=== PATIENT | male | born 1945 | race Caucasian/White ===

== ENCOUNTER → 2020-02-16 14:09 | Outpatient (BNVA) | payer OTHER, SELFPAY | PROVIDERS: Family Provider Internal Medicine; PCP Internal Medicine; Visit Provider Urology | DX: B35.6 Tinea cruris (principal); N40.1 Benign prostatic hyperplasia with lower urinary tract symptoms; N13.8 Other obstructive and reflux uropathy; R33.8 Other retention of urine; N39.0 Urinary tract infection, site not specified; R31.0 Gross hematuria | CPT/HCPCS: 80053; 81001 ==

== ENCOUNTER 2020-12-29 11:28 | Outpatient (CLI) | payer OTHER, SELFPAY ==
--- NOTE | 2020-12-29 11:47 | USCV_ITS ---
Kwasi Shi Age: 75 Gender: M : 1945 Exam Date: 12/29/2020 12:13 Ordering Phys: Heaven Levin MD Technologist: Daya Shabazz [place] [facility] [place]: DIABETIC FEET WITH SUPERFICIAL ABRASION Risk Factors: Previous Vascular Surgery: RIGHT LEFT BP: 135.0 / 77.00 BP: 123.0/ 73.00 0 0 Waveform Velocity (cm/s) Velocity (cm/s) Waveform Triphasic 121.3 Iliac Prox 59.7 Triphasic Triphasic 114.6 Iliac Mid 75.6 Triphasic Triphasic Iliac Distal Triphasic 93.5 66.6 Triphasic 82.4 RUST PROOFER 70.1 Triphasic Triphasic 82.4 SFA Prox 67.5 Triphasic Triphasic 81.6 SFA Mid 90.4 Triphasic Triphasic 88.4 SFA Dist 91.5 Triphasic Triphasic 48.1 POP Triphasic 70.8 DECK ENGINE OPERATOR Triphasic 77.0 DPA 1.2 TAMRA FINDINGS RT DECK ENGINE OPERATOR 160 RT DPA 160 LT BELOW KNEE AMPUTATION Resting TAMRA on the right side. Normal arterial Doppler flow velocities, bilaterally Normal arterial Doppler waveforms, bilaterally. CONCLUSIONS No significant arterial obstruction on either side, based on the above findings Below-knee amputation on the left side Dr Venkat Najera MD [facility] (Electronically Signed) Final Date: 29 December 2020 18:04 S
== END 2020-12-29 11:29 | disposition home or self-care (01) ==
LOC: RAD 11:34
PROVIDERS: PCP Family Medicine; Visit Provider Family Medicine
DX: E11.42 Type 2 diabetes mellitus with diabetic polyneuropathy (principal); S90.812A Abrasion, left foot, initial encounter; S90.811A Abrasion, right foot, initial encounter; X58.XXXA Exposure to other specified factors, initial encounter; Z89.512 Acquired absence of left leg below knee
CPT/HCPCS: 93925

== ENCOUNTER 2021-02-06 14:19 | Outpatient (CLI) | payer OTHER, SELFPAY | END 2021-02-06 14:20 | disposition home or self-care (01) | LOC: WOUND 14:21 | PROVIDERS: PCP Family Medicine; Visit Provider Thoracic Surgery (Cardiothoracic Vascular Surgery) | DX: L98.492 Non-pressure chronic ulcer of skin of other sites with fat layer exposed (principal); Z87.891 Personal history of nicotine dependence | CPT/HCPCS: 11042; G0463 ==

== ENCOUNTER 2021-02-13 14:45 | Outpatient (CLI) | payer OTHER, SELFPAY | END 2021-02-13 14:46 | disposition home or self-care (01) | LOC: WOUND 14:45 | PROVIDERS: PCP Family Medicine; Visit Provider Nurse Practitioner Family | DX: E11.622 Type 2 diabetes mellitus with other skin ulcer (principal); L98.492 Non-pressure chronic ulcer of skin of other sites with fat layer exposed; L03.011 Cellulitis of right finger; Z87.891 Personal history of nicotine dependence | CPT/HCPCS: G0463 ==

== ENCOUNTER 2021-03-29 14:28 | Outpatient (CLI) | payer OTHER, SELFPAY | END 2021-03-29 14:29 | disposition home or self-care (01) | LOC: WOUND 14:32 | PROVIDERS: PCP Family Medicine; Visit Provider Thoracic Surgery (Cardiothoracic Vascular Surgery) | DX: I96 Gangrene, not elsewhere classified (principal); L98.491 Non-pressure chronic ulcer of skin of other sites limited to breakdown of skin; Z87.891 Personal history of nicotine dependence | CPT/HCPCS: 97597; G0463 ==

== ENCOUNTER 2021-04-05 13:51 | Outpatient (CLI) | payer OTHER, SELFPAY | END 2021-04-05 13:52 | disposition home or self-care (01) | LOC: WOUND 13:51 | PROVIDERS: PCP Family Medicine; Visit Provider Thoracic Surgery (Cardiothoracic Vascular Surgery) | DX: L98.491 Non-pressure chronic ulcer of skin of other sites limited to breakdown of skin (principal); Z87.891 Personal history of nicotine dependence | CPT/HCPCS: 97597 ==

== ENCOUNTER 2021-04-19 13:22 | Outpatient (CLI) | payer OTHER, SELFPAY | END 2021-04-19 13:23 | disposition home or self-care (01) | LOC: WOUND 13:23 | PROVIDERS: PCP Family Medicine; Visit Provider Thoracic Surgery (Cardiothoracic Vascular Surgery) | DX: Z09 Encounter for follow-up examination after completed treatment for conditions other than malignant neoplasm (principal); Z87.891 Personal history of nicotine dependence | CPT/HCPCS: 99212 ==

== ENCOUNTER 2021-04-25 13:41 | Emergency (ER) | payer OTHER, MEDICARE, SELFPAY ==
--- NOTE | 2021-04-25 13:50 | XRR_ITS ---
PROCEDURE INFORMATION: Exam: XR Chest Exam date and time: 04/25/2021 1:50 PM Age: 75 years old Clinical indication: Cough and dyspnea; Patient HX: Coughing for about 3 weeks, coughing up thick, green mucous; Additional info: Dyspnea/cough TECHNIQUE: Imaging protocol: XR of the chest. Views: 1 view. COMPARISON: CR Chest 1 [place] [id number] 07/28/2018 9:24 AM FINDINGS: Lungs: There is a ill-defined opacity at the right lung base measuring 9 mm which appears spiculated. Pleural spaces: Unremarkable. No pleural effusion. No pneumothorax. Heart/Mediastinum: Unremarkable. No cardiomegaly. Bones/joints: Unremarkable. XR/XR chest 1V portable [id number] IMPRESSION: Ill-defined spiculated opacity in the right lung base measuring [address] chest is suggested for complete evaluation. Radiation Dose CTDIVOL = (mGy): DLP = (mGy-cm)
[2021-04-25 13:56] VITALS: BP 150/57; PULSE 82; RESP 18; TEMP 36.6; O2SAT 97; BMI 38.5
--- NOTE | 2021-04-25 15:33 | ED_ITS ---
HPI - URI/Sore Throat General: Chief Complaint: Upper Respiratory Infection Stated Complaint: cough, congestion Time Seen by Provider: 04/25/21 15:26 History of Present Illness: HPI Narrative: 75-year-old male presents emergency room with complaint of mildly productive cough over the last several days. Is actually improving some today said the congestion has relieved. Has not had any diarrhea or myalgias. Noticed fever at home. Patient has a history of COPD he uses albuterol inhaler as needed and a baseline LABA/corticosteroid. He has been using a little bit more often lately. He denies any chest pain or tightness he does have a history of coronary artery disease. He has not had any orthopnea. MD elicited complaint: cough Pertinent past history: COPD Associated symptoms: Deny abdominal pain, chills, chest pain, diarrhea, ear or mastoid pain, fever(s), nasal congestion, nausea or vomiting Review of Systems Const: Denies: fever(s), chills, body aches, change in appetite, fatigue or malaise ENMT: Denies: throat pain, ear or mastoid pain, nasal discharge or nasal congestion Card: Denies: chest pain, edema, dyspnea on exertion or orthopnea Resp: Denies: dyspnea, productive cough or non-productive cough GI: Denies: abdominal pain, nausea, vomiting, hematemesis, coffee ground emesis, diarrhea, constipation, bloating, hematochezia or melena : Denies: flank pain, dysuria, urinary frequency or urinary urgency Skin/Breast: Denies: rash or pruritus PFSH ED PFSH: Medical History BPH with obstruction/lower urinary tract symptoms CAD (coronary artery disease) CHF (congestive heart failure) Diastolic heart failure GERD (gastroesophageal reflux disease) HTN (hypertension) Recurrent urinary tract infection Tinea cruris Surgical History History of ear surgery Hx of appendectomy Hx of below knee amputation Hx of circumcision Hx of hand surgery Hx of tonsillectomy Family History Father , AT AGE 67 CAD (coronary artery disease) Diabetes Leukemia Mother CHF (congestive heart failure) Social History Smoking and tobacco status: former smoker Alcohol intake: unknown Adopted: No Caregiver/support person: No Lives independently: No Household members: spouse Marital status: Current occupational status: retired Physical Exam Const: COMMON NORMALS: no acute distress GENERAL APPEARANCE: cooperative and comfortable ORIENTATION/CONSCIOUSNESS: Yes awake, Yes oriented to person, Yes oriented to place and Yes oriented to time Neck/C-Spine: COMMON NORMALS: no JVD Resp: AUSCULTATION: rhonchi and wheezes Cardio: COMMON NORMALS: no JVD, regular rate, regular rhythm and No murmurs present (Cardio) RATE: regular rate RHYTHM: regular rhythm GI: COMMON NORMALS: Soft to palpation and No hepatosplenomegaly present AUSCULTATION: Yes normoactive bowel sounds PALPATION: Yes Soft to palpation, No Tenderness to palpation present (GI), No Guarding due to palpation present (GI) and Yes No hepatosplenomegaly present Extremity: COMMON NORMALS: normal to inspection, capillary refill normal, no clubbing, cyanosis or edema, no calf tenderness and no pedal edema Neuro: SENSORIUM/ORIENTATION: Yes oriented to person, Yes oriented to place and Yes oriented to time Skin: COMMON NORMALS: no rashes or lesions noted GENERAL SKIN EXAM: no rashes or lesions noted Course Vital Signs: Vital signs: Vital Signs Temperature 97.8 F 04/25/21 13:56 Pulse Rate 82 04/25/21 13:56 Respiratory Rate 18 04/25/21 13:56 Blood Pressure 150/57 04/25/21 13:56 Pulse Oximetry 97 04/25/21 13:56 MDM - URI/Sore Throat MDM Narrative: Medical decision making narrative: Mild exacerbation COPD. Ti Deleon discharge him home. We will make arrangements for him to get an outpatient CT of the chest and follow-up with pulmonology for the incidental finding of pulmonary nodule today. Discussed with him that we are uncertain what this will be until we complete that work-up. If he has any worsening symptoms return. Discharge Plan Discharge Patient Disposition: Home Clinical Impression: COPD with acute exacerbation, Lung nodule Condition: Stable Prescriptions: New doxycycline hyclate 100 mg capsule 100 mg PO BID 10 Days Qty: 20 RF: 0 Medrol (Lloyd) 4 mg tablets,dose pack See Rx Instructions .ROUTE .COMPLEX Qty: 21 RF: 0 albuterol sulfate 90 mcg/actuation HFA aerosol inhaler 2 inh INHALATION Q4H PRN (Reason: shortness of breath or wheezing) Qty: 18 RF: 0 No Action (DME) blood-glucose meter [Accu-Chek Guide Glucose Meter] Misc See Rx Instructions .ROUTE RF: 0 alogliptin 12.5 mg tablet 12.5 mg PO DAILY RF: 0 amlodipine 5 mg tablet 5 mg PO DAILY RF: 0 ascorbic acid (vitamin C) 500 mg capsule PO RF: 0 budesonide-formoterol 160-4.5 mcg/actuation HFA aerosol inhaler 2 puff inhalation BID RF: 0 clopidogrel 75 mg tablet 75 mg PO DAILY RF: 0 finasteride 5 mg tablet 5 mg PO DAILY RF: 0 fluticasone propionate 50 mcg/actuation spray,suspension 2 spray intranasal DAILY RF: 0 furosemide 20 mg tablet 60 mg PO BID RF: 0 gabapentin 300 mg capsule 600 mg PO TID RF: 0 isosorbide mononitrate 30 mg tablet extended release 24 hr 30 mg PO DAILY RF: 0 lidocaine 5 % ointment 1 applic topical BID RF: 0 lisinopril 2.5 mg tablet 2.5 mg PO DAILY RF: 0 loratadine 10 mg capsule 10 mg PO DAILY RF: 0 methenamine hippurate 1 gram tablet 1 g PO BID RF: 0 metolazone 2.5 mg tablet 2.5 mg PO DAILY RF: 0 nitroglycerin 0.4 mg tablet, sublingual 0.4 mg sublingual Q5M PRNRF: 0 omeprazole 20 mg capsule,delayed release(DR/EC) 20 mg PO DAILY RF: 0 potassium chloride 20 mEq packet 20 meq PO DAILY RF: 0 tramadol 100 mg tablet extended release 24 hr 100 mg PO DAILY RF: 0 triamcinolone acetonide 0.1 % paste 1 applic dental BID RF: 0 venlafaxine 150 mg capsule,extended release 24hr 150 mg PO QAM RF: 0 pregabalin 25 mg capsule 25 mg PO BID RF: 0 methenamine hippurate 1 gram tablet 1 g PO BID Qty: 60 RF: 12 aspirin [Adult Low Dose Aspirin] 81 mg tablet,delayed release (DR/EC) 81 mg PO DAILY RF: 0 isosorbide mononitrate 30 mg tablet extended release 24 hr 30 mg PO DAILY RF: 0 nitroglycerin 0.3 mg tablet, sublingual 0.3 mg SUBLINGUAL Q5M PRNRF: 0 clopidogrel 75 mg tablet 75 mg PO DAILY RF: 0 gabapentin 300 mg capsule 600 mg PO BID RF: 0 finasteride 5 mg tablet 5 mg PO DAILY RF: 0 levothyroxine 25 mcg capsule 25 mcg PO DAILY RF: 0 atorvastatin 40 mg tablet 80 mg PO DAILY RF: 0 sulfamethoxazole-trimethoprim [Bactrim DS] 800-160 mg tablet 1 tab PO BID Qty: 14 RF: 0 hydrocodone-acetaminophen 5-325 mg tablet 1 tab PO Q8H PRN (Reason: pain) 8 Days Qty: 25 RF: 0 Discharge Orders: Discharge ED (Routine); Ordered 04/25/21 Ordered By: Eric Green Referrals: Heaven Levin MD [Primary Care Provider] - Patient Instructions: Opioid Safety Activity Restrictions/Additional Instructions: Case management will make arrangements for you to have a follow-up outpatient CT and referral to the lung doctor for the nodule that was seen on the chest x-ray today. Coding Level of Care Code ED Floating Derrick Operator for Chg Fwd Exam Detailed
--- NOTE | 2021-04-26 15:38 | DCPLANNER ---
Addendum entered by Brenda Balbuena 07/28/21 11:14: Patient had a follow up appointment scheduled for 05.04.[address] Shaffer at [facility] - patient did attend appointment. Original Note: refuge manager had message to schedule an outpatient CT and a follow up appointment for patient with pulmonology. refuge manager is unable to schedule the CT due to patient having [facility] insurance. refuge manager did call [facility], spoke with Pennie, gave clinic patients information and a follow up appointment is scheduled for , May 04, 2021 at 8:[address] Shaffer. Patient does have [employer] insurance, case management specialist emailed patients information to October with [employer] [facility] the community, so that the authorization process could be started. refuge manager called patient and spoke with his and gave her the appointment information.
== END 2021-04-25 16:07 | disposition home or self-care (01) ==
PROVIDERS: Emergency Provider Family Medicine; PCP Family Medicine
DX: J44.1 Chronic obstructive pulmonary disease with (acute) exacerbation (principal); R91.1 Solitary pulmonary nodule; Z79.82 Long term (current) use of aspirin; Z79.02 Long term (current) use of antithrombotics/antiplatelets; I25.10 Atherosclerotic heart disease of native coronary artery without angina pectoris; I11.0 Hypertensive heart disease with heart failure; I50.9 Heart failure, unspecified; Z87.891 Personal history of nicotine dependence
CPT/HCPCS: 71045; 99281

== ENCOUNTER 2021-05-15 11:03 | Outpatient (CLI) | payer OTHER, SELFPAY ==
--- NOTE | 2021-05-15 11:13 | CT_ITS ---
WS: [id number] CT TEMPORAL BONES TECHNIQUE: Noncontrast CT of the temporal bones with coronal and sagittal reformatted images. CLINICAL INFORMATION: MIXED HEARING LOSS, BILATERAL, HX OF CHOLESTEATOMA COMPARISON: None. DLP: 723.[address] scans at [facility] use at least one of these dose optimization techniques: automated e xposure control; mA and/or kV adjustment per patient size (includes targeted exams where dose is matc hed to clinical indication); or iterative reconstruction. FINDINGS: As stated secretions in the right maxillary sinus. Mild mucosal thickening in the ethmoid a ir cells and left maxillary sinus. Normal visualized posterior nasopharynx. Intracranial cavernous ca rotid calcification. RIGHT: Postoperative changes right canal wall up mastoidectomy. Diffuse soft tissue thickening involving the mastoidectomy bowl with soft tissue thickening involving the RIGHT middle ear and Prussak's space. C hronic erosion or resection of the scutum. Extensive chronic erosion of the ossicles. Cochlea and twyla icircular canals appear normal. Thinning of the mastoid roof at the mastoidectomy defect. Tegmen tymp ani appears intact. LEFT: Postoperative changes canal wall up mastoidectomy. Mild soft tissue thickening within the left mastoi dectomy defect. Soft tissue thickening involving the middle ear with intact ossicles. Blunting of the scutum. Semicircular canals and cochlea appear normal. Normal tegmen tympani. Prussak's space is nor mal. CT/CT temporal bone wo con* [id number] IMPRESSION: 1. Prior postoperative changes canal wall up mastoidectomy defects bilaterally . 2. Soft tissue thickening involving the RIGHT mastoidectomy bowel extending in to the middle ear and Prussak's space. Residual or recurrent cholesteatoma not excluded. 3. Chronic erosion of the RIGHT side ossicles 4. LEFT ossicles appear intact with mild soft tissue thickening in the middle ear.
== END 2021-05-15 11:04 | disposition home or self-care (01) ==
PROVIDERS: PCP Family Medicine; Visit Provider Otolaryngology Otology & Neurotology
DX: H90.6 Mixed conductive and sensorineural hearing loss, bilateral (principal); Z86.69 Personal history of other diseases of the nervous system and sense organs
CPT/HCPCS: 70480

== ENCOUNTER 2021-05-15 13:35 | Outpatient (CLI) | payer OTHER, SELFPAY ==
--- NOTE | 2021-05-15 13:00 | CT_ITS ---
WS: [id number] CT CHEST TECHNIQUE: Noncontrast CT of the chest with coronal and sagittal reformatted images. CLINICAL INFORMATION: Lung nodule COMPARISON: April 25, 2021 DLP: 837.[address] scans at [facility] use at least one of these dose optimization techniques: automated e xposure control; mA and/or kV adjustment per patient size (includes targeted exams where dose is matc hed to clinical indication); or iterative reconstruction. FINDINGS: No suspicious abnormalities in the right lower lobe corresponding to the chest x-ray findings. Slight atelectasis in the lung bases. No suspicious pulmonary parenchymal abnormalities. No acute infiltrat es. No focal pneumonia or pleural fluid. Normal caliber thoracic aorta. Aortic calcification. Coronary calcification. No mediastinal or hilar lymphadenopathy. No axillary ly mphadenopathy. Adrenal glands are normal. Tiny esophageal hiatal hernia. Hypertrophic changes thoraci c spine. Moderate spondylitic changes thoracic spine with endplate sclerosis and erosive changes T6-T 7 and T8-9. CT/CT chest con [id number] IMPRESSION: 1. No suspicious pulmonary parenchymal abnormalities to correspond to the ches t radiograph findings. 2. Slight bibasilar atelectasis. 3. No acute pulmonary infiltrates. 4. Coronary calcification. 5. Tiny esophageal hiatal hernia. 6. Spondylitic changes thoracic spine with endplate sclerosis and chronic appe aring erosive changes at T6-T7 and T8-T9
== END 2021-05-15 13:36 | disposition home or self-care (01) ==
LOC: RAD 13:36 → WPI 13:37
PROVIDERS: PCP Family Medicine; Visit Provider Internal Medicine Pulmonary Disease
DX: R91.1 Solitary pulmonary nodule (principal); J98.11 Atelectasis; I25.10 Atherosclerotic heart disease of native coronary artery without angina pectoris; K44.9 Diaphragmatic hernia without obstruction or gangrene
CPT/HCPCS: 71250

== ENCOUNTER → 2021-06-12 14:22 | Outpatient (BNVA) | payer OTHER, SELFPAY | PROVIDERS: PCP Family Medicine; Visit Provider Nurse Practitioner Family | DX: N39.0 Urinary tract infection, site not specified (principal) | CPT/HCPCS: 81003 ==

== ENCOUNTER → 2021-11-22 15:04 | Outpatient (BNVA) | payer OTHER, SELFPAY | PROVIDERS: PCP Family Medicine; Visit Provider Nurse Practitioner Family | DX: N39.0 Urinary tract infection, site not specified (principal); R31.0 Gross hematuria | CPT/HCPCS: 51798; 99213 ==

== ENCOUNTER → 2021-12-13 10:50 | Outpatient (BNVA) | payer OTHER, SELFPAY | PROVIDERS: PCP Family Medicine; Referring Provider Family Medicine; Visit Provider Internal Medicine | DX: E11.42 Type 2 diabetes mellitus with diabetic polyneuropathy (principal); E11.59 Type 2 diabetes mellitus with other circulatory complications; E78.2 Mixed hyperlipidemia; I25.10 Atherosclerotic heart disease of native coronary artery without angina pectoris; I50.32 Chronic diastolic (congestive) heart failure; Z86.73 Personal history of transient ischemic attack (TIA), and cerebral infarction without residual deficits; Z79.4 Long term (current) use of insulin; Z87.891 Personal history of nicotine dependence | CPT/HCPCS: 99204 ==

== ENCOUNTER → 2022-06-15 09:56 | Outpatient (BNVA) | payer OTHER, SELFPAY | PROVIDERS: PCP Family Medicine; Visit Provider Nurse Practitioner Family | DX: I96 Gangrene, not elsewhere classified (principal); T23.231D Burn of second degree of multiple right fingers (nail), not including thumb, subsequent encounter; X08.8XXD Exposure to other specified smoke, fire and flames, subsequent encounter | CPT/HCPCS: 11042; 99213; A6021; A6212 ==

== ENCOUNTER 2022-07-05 08:22 | Outpatient (CLI) | payer OTHER, SELFPAY ==
--- NOTE | 2022-07-05 08:37 | US_ITS ---
WS: [id number] RIGHT UPPER QUADRANT ULTRASOUND HISTORY: RUQ PAIN COMPARISON: None available. Liver: 19.1 cm in length. Enlarged liver with increased attenuation from hepatic steatosis. The entir e liver is very difficult to visualize due to its dense nature. No mass or bile duct dilatation is ev ident. Portal Vein: Normal hepatopetal flow with monophasic waveform. Gallbladder: Normally distended gallbladder with no stones or wall thickening. CBD: 0.6 cm Pancreas: Head and tail are poorly visualized. The body is negative. Right kidney: 11.5 cm in length. Normal size and echogenicity. No hydronephrosis or mass. Aorta and IVC: Unremarkable abdominal aorta and IVC. No ascites. US/US abdomen limited [id number] IMPRESSION: 1. Quality is suboptimal secondary to body habitus. 2. Moderate hepatomegaly and hepatic steatosis. 3. Negative gallbladder.
== END 2022-07-05 08:23 | disposition home or self-care (01) ==
LOC: RAD 08:23
PROVIDERS: PCP Family Medicine; Visit Provider Family Medicine
DX: R10.11 Right upper quadrant pain (principal); R16.0 Hepatomegaly, not elsewhere classified; K76.0 Fatty (change of) liver, not elsewhere classified
CPT/HCPCS: 76705; 99212

== ENCOUNTER → 2022-07-18 12:54 | Outpatient (BNVA) | payer OTHER, SELFPAY | PROVIDERS: PCP Family Medicine; Visit Provider Internal Medicine Cardiovascular Disease | DX: I25.10 Atherosclerotic heart disease of native coronary artery without angina pectoris (principal); E11.59 Type 2 diabetes mellitus with other circulatory complications; E78.2 Mixed hyperlipidemia; E11.42 Type 2 diabetes mellitus with diabetic polyneuropathy; J44.9 Chronic obstructive pulmonary disease, unspecified; E66.01 Morbid (severe) obesity due to excess calories; Z68.38 Body mass index [BMI] 38.0-38.9, adult; Z89.512 Acquired absence of left leg below knee; Z87.891 Personal history of nicotine dependence; I13.0 Hypertensive heart and chronic kidney disease with heart failure and stage 1 through stage 4 chronic kidney disease, or unspecified chronic kidney disease; E11.22 Type 2 diabetes mellitus with diabetic chronic kidney disease; N18.4 Chronic kidney disease, stage 4 (severe); I50.32 Chronic diastolic (congestive) heart failure; Z79.4 Long term (current) use of insulin | CPT/HCPCS: 99214 ==

== ENCOUNTER → 2022-08-10 14:57 | Outpatient (BNVA) | payer OTHER, SELFPAY | PROVIDERS: PCP Family Medicine; Visit Provider Podiatrist Foot & Ankle Surgery | DX: L30.9 Dermatitis, unspecified (principal); E11.42 Type 2 diabetes mellitus with diabetic polyneuropathy; Z89.512 Acquired absence of left leg below knee; Z79.4 Long term (current) use of insulin; E11.610 Type 2 diabetes mellitus with diabetic neuropathic arthropathy | CPT/HCPCS: 73630; 99214 ==

== ENCOUNTER 2023-01-30 10:08 | Outpatient (CLI) | payer OTHER, SELFPAY ==
[2023-01-30 10:24] VITALS: BMI 34.6
--- NOTE | 2023-01-30 10:28 | NMCV_ITS ---
NM nacho perf SPECT r/s* [id number] Kwasi Shi Age: 77 Gender: M : 1945 Exam Date: 01/30/2023 11:19 Ordering Phys: Rogelio Love MD ([email or web address]) Technologist: ROSEMARY Manzo Exam Location: [facility] Indications: CHEST PAIN STRESS TEST Please see separate stress test report in [facility] for full findings IMAGE PROTOCOL Rest/Stress 1 Lexiscan Day Radiopharmaceutical Dose (mCi) Administration Site Administered by Rest: Tc-99m 11.0 IV ROSEMARY Manzo Sestamibi Stress:Tc-99m 32.9 IV ROSEMARY Palafox Sestamibi Rest: 30-Jan-2023 60 Discovery 630 Stress: 30-Jan-2023 30 Discovery 630 0.4mg Lexiscan. Supine position only as patient was unable to lay prone. SPECT RESULTS Technical Quality: Excellent Raw Data Analysis: Normal Image Corrections: No attenuation or motion correction applied Summed Stress Score: 13 Summed Rest Score: 8 Summed Difference Score: 5 PERFUSION FINDINGS There is a partially reversible perfusion defect seen in apical and apical anterior farooq. This is consistent with medium sized area of prior infarct with significant precious-infarct ischemia. There is a partially reversible perfusion defect noted in inferior wall. This represents medium sized area of prior infarct with significant precious-infarct ischemia. FUNCTIONAL RESULTS (calculated via Gated SPECT) Stress Image LV EF (%): 37 Stress EDV (mL):161 TID: 1.01 Stress ESV (mL):101 FUNCTIONAL FINDINGS: LV systolic function is moderately reduced with EF of 37%. IMPRESSIONS 1. Abnormal myocardial perfusion imaging with medium sized areas of prior infarcts with significant precious-infarct ischemia in LAD and RCA territories 2. LV systolic function is moderately reduced with EF of 37% Dante Jeffers MD (Electronically Signed) Final Date: 06 February 2023 09:57 S
--- NOTE | 2023-01-30 10:28 | ECG_ITS ---
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 Interpretive Statements NAME OF STUDY: LEXISCAN SESTAMIBI STRESS TEST INDICATION: [Chest Pain] Procedure: At the baseline, the blood pressure was 143/75 mmHg with a heart rate of 69 bpm. The electrocardiogram showed normal sinus rhythm, normal axis with normal ST and T's. The Lexiscan was infused over a period of 20 seconds. A total of 0.4 mg of Lexiscan was infused. The stress phase was continued for a total of 5 minutes. Heart rate was at the end of stress phase was 82 bpm and a blood pressure of 123/57 mmHg. The EKG at the peak infusion revealed normal sinus rhythm with no significant ST-T wave changes. Sestamibi was injected 20 seconds after the Lexiscan infusion. Blood pressure at the end of recovery phase was 126/61 mmHg with a heart rate of 79 bpm. Conclusion: 1. Normal EKG response to Lexiscan infusion 2. No Lexiscan induced chest pain or cardiac arrhythmia. 3. Normal blood pressure and heart rate response. 4. Sestamibi/sestamibi perfusion scan pending; see separate report. Electronically Signed On 02-10-2023 15:09:41 CDT by Dante Jeffers M.D. [email or web address]
[2023-01-30] MEDS: regadenoson 0.4 Mg/5 ml Syringe IVP (11:59)
[2023-01-30 12:19] VITALS: BP 147/65; PULSE 62
== END 2023-01-30 10:09 | disposition home or self-care (01) ==
LOC: CDL 10:10
PROVIDERS: PCP Family Medicine; Visit Provider Internal Medicine Cardiovascular Disease
DX: R07.9 Chest pain, unspecified (principal); R06.02 Shortness of breath; I50.1 Left ventricular failure, unspecified; I11.0 Hypertensive heart disease with heart failure; I50.32 Chronic diastolic (congestive) heart failure; I25.10 Atherosclerotic heart disease of native coronary artery without angina pectoris; E11.42 Type 2 diabetes mellitus with diabetic polyneuropathy; S88.112A Complete traumatic amputation at level between knee and ankle, left lower leg, initial encounter; X58.XXXA Exposure to other specified factors, initial encounter; J44.9 Chronic obstructive pulmonary disease, unspecified; E78.2 Mixed hyperlipidemia; I65.29 Occlusion and stenosis of unspecified carotid artery
CPT/HCPCS: 36415; 78452; 93017; 96374; 99214; A9500; J2785

== ENCOUNTER 2023-02-20 05:58 | Outpatient (CLI) | payer OTHER, SELFPAY ==
[2023-02-20] VITALS (22 sets, daily range): BP systolic 116–177; BP diastolic 53–103; PULSE 69–87; RESP 6–17; TEMP 36.5–36.7; O2SAT 94–97; BMI 34.2
--- NOTE | 2023-02-20 06:00 | XACV_ITS ---
Gender: Male : 1945 Exam Priority: Routine Ivan HOPE; Diagnostic Cath Status: Elective Diagnostic Findings * Patient visited the office with worsening shortness of breath and no chest pain. He was concerned it was his anginal equivalent. Stress test showed moderately large defects in the distribution of the right and the LAD. The patient has multiple stents in the LAD and diagonal branch. Procedure was done from the right radial artery. Diagnostic and interventional catheters tend to subselect the circumflex. * Coronary angiography reveals right coronary artery dominance. The right coronary artery is occluded at the origin. There is collateral flow from both the LAD and circumflex. The left main is normal. The left anterior descending has stents from the ostial portion all the way down through the mid vessel. There is a 95% discrete in-stent restenosis in the mid LAD. There also stents in the first diagonal. The diagonal branch is jailed. There is a 90% ostial stenosis of the diagonal. Circumflex is a large vessel. There are no significant lesions. The ramus intermedius is also a large vessel without significant lesions. PCI Status: Elective PCI LVEF Assessed: No PCI Indication: New Onset Angina <= 2 months Interventional Findings * Guiding catheter subselect the circumflex making the LAD difficult to wire. Plain old balloon angioplasty performed on the mid LAD in the in-stent restenosis area. The end result was quite good. The diagonal was not intervened upon. Decision for PCI with Surgical Consult: No PCI for Multi-vessel Disease: No Conclusions 1. Chronic total occlusion right coronary artery. In-stent restenosis of the LAD underwent went balloon angioplasty. Recommendations * Medical therapy. Interventional RX Recommendation: PCI w/o planned CABG Diagnostic RX Recommendation: PCI w/o planned CABG Anticoagulation: Heparin I, the attending physician, have reviewed and verified all procedure medications. Yes, all medications given per verbal order Report Signatures Finalized by Dr. Rogelio Love MD on 02/20/2023 08:28 AM
[2023-02-20] MEDS: diphenhydrAMINE 50 mg Capsule PO (06:30)
[2023-02-20] MEDS: aspirin 325 mg Tablet PO (06:30)
[2023-02-20 06:31] LABS: Glucose Point of Care 167 mg/dL (70-110)
[2023-02-20 06:45] LABS: Basophils % 0.4 %; Eosinophils # 0.3 10^3/uL (0.0-0.8); Eosinophils % 3.1 %; Hematocrit 41.6 % (42.0-52.0); Hemoglobin 13.9 g/dL (11.7-16.6); Lymphocytes # 2.3 10^3/uL (0.8-4.8); Lymphocytes % 24.4 %; Mean Corpuscular HGB Conc 33.4 g/dL (30.0-36.0); Mean Corpuscular Hemoglobin 30.9 pg (28.0-34.0); Mean Corpuscular Volume 92.4 fl (80-94); Mean Platelet Volume 11.1 fL (7.4-10.4); Monocytes # 0.8 10^3/uL (0.2-0.9); Monocytes % 8.5 %; Neutrophils # 6.01 10^3/uL (1.8-7.7); Neutrophils % 63.3 %; Nucleated Red Blood Cells % 0 %; Platelet Count 212 10^3/cmm (130-400); Red Cell Distribution Width 13.6 % (12.1-15.1); White Blood Count 9.5 10^3/uL (4.0-10.0)
--- NOTE | 2023-02-20 06:51 | P.HP_ITS ---
Providers/Chief Complaint Admitting Physician: mono Primary Care Provider: Heaven Levin MD Chief Complaint: R07.9, I50.32 History of Present Illness Kwasi Shi is a 77 year old male who has a history of coronary artery disease among many other problems he is here for elective coronary angiography. I have seen him twice in the last few months. The most recent visit was January 16 when he came in complaining that he was short of breath. He told me as did his that he thought he needs more stents. He has a long history of coronary disease, carotid disease, chronic kidney disease, obesity, diabetes and heart failure. He has a left below the knee amputation. He was not having chest pain per se but was complaining of worsening shortness of breath which has been his anginal equivalent in the past. Stress testing was obtained and revealed medium sized area of prior infarct with significant precious-infarct ischemia in the LAD and right coronary artery distributions. His ejection fraction was 37%. He is brought in today for elective coronary angiography. Review of Systems Narrative: Primarily shortness of breath Medications/Allergies Home Medications Medication Instructions Recorded Confirmed Last Taken Type aspirin 81 mg tablet,delayed 81 mg PO DAILY 01/25/20 02/19/23 Unknown History release (Adult Low Dose Aspirin) levothyroxine 25 mcg capsule 25 mcg PO DAILY 01/25/20 02/19/23 Unknown History alogliptin 12.5 mg tablet 12.5 mg PO DAILY 11/23/20 02/19/23 Unknown History amlodipine 5 mg tablet 5 mg PO DAILY 11/23/20 02/19/23 Unknown History ascorbic acid (vitamin C) 500 mg 1,000 mg PO DAILY 11/23/20 02/19/23 Unknown History capsule atorvastatin 40 mg tablet 40 mg PO DAILY 11/23/20 02/19/23 Unknown History blood-glucose meter (Accu-Chek 11/23/20 02/19/23 Unknown History Guide Glucose Meter) clopidogrel 75 mg tablet 75 mg PO DAILY 11/23/20 02/19/23 Unknown History finasteride 5 mg tablet 5 mg PO DAILY 11/23/20 02/19/23 Unknown History isosorbide mononitrate 30 mg 30 mg PO DAILY 11/23/20 02/19/23 Unknown History tablet,extended release 24 hr lidocaine 5 % topical ointment 1 applic topical BID 11/23/20 02/19/23 Unknown History lisinopril 2.5 mg tablet 2.5 mg PO DAILY 11/23/20 02/19/23 Unknown History loratadine 10 mg capsule 10 mg PO DAILY 11/23/20 02/19/23 Unknown History methenamine hippurate 1 gram tablet 1 g PO BID 11/23/20 02/19/23 Unknown History metolazone 2.5 mg tablet 2.5 mg PO BID 11/23/20 02/19/23 Unknown History nitroglycerin 0.4 mg sublingual 0.4 mg sublingual Q5M PRN Chest 11/23/20 02/19/23 Unknown History tablet pain omeprazole 20 mg capsule,delayed 20 mg PO DAILY 11/23/20 02/19/23 Unknown History release albuterol sulfate 90 mcg/actuation 2 inh inhalation Q4H PRN shortness 05/10/21 02/19/23 Unknown Rx aerosol inhaler of breath or wheezing #8.5 grams carvedilol 12.5 mg tablet 12.5 mg PO BID 07/18/21 02/19/23 Unknown History hydrochlorothiazide 25 mg tablet 25 mg PO DAILY 07/18/21 02/19/23 Unknown History spironolactone 25 mg tablet 25 mg PO DAILY 07/18/21 02/19/23 Unknown History budesonide-formoterol HFA 160 2 puff inhalation BID #10.2 grams 07/21/2102/19 Unknown Rx mcg-4.5 mcg/actuation aerosol inhaler tiotropium bromide 18 mcg capsule 1 cap inhalation DAILY #60 07/21/21 02/19/23 Unknown Rx with inhalation device (Spiriva inhalations with HandiHaler) insulin aspart U-100 100 unit/mL 3 unit (0.03 mL) SUBCUT TID #9 mL 12/13/21 02/19/23 Unknown Rx (3 mL) subcutaneous pen (Novolog FlexPen U-100 Insulin aspart) blood-glucose meter,continuous #1 ea 12/26/21 02/19/23 Unknown Rx (Dexcom G6 Wireless Engineer) blood-glucose sensor (Dexcom G6 #9 ea 12/26/21 02/19/23 Unknown Rx Sensor device) blood-glucose transmitter (Dexcom #3 ea 12/26/21 02/19/23 Unknown Rx G6 Transmitter device) mupirocin 2 % topical ointment 1 applic topical BID #15 grams 06/07/22 02/19/23 Unknown Rx imiquimod 5 % topical cream packet 1 applic topical ONCE #24 ea 06/22/22 02/19/23 Unknown Rx furosemide 20 mg tablet 60 mg PO DAILY 07/18/22 02/19/23 Unknown History guaifenesin 600 mg tablet, 600 mg PO BID PRN Cough 07/18/22 02/19/23 Unknown History extended release 12 hr (Mucinex) insulin glargine 100 unit/mL (3 160 unit SUBCUT BID 07/18/22 02/19/23 Unknown History mL) subcutaneous pen (Lantus Solostar U-100 Insulin) potassium chloride 20 mEq oral 20 meq PO TID 07/18/22 02/19/23 Unknown History packet pregabalin 25 mg capsule 25 mg PO DAILY 07/18/22 02/19/23 Unknown History tramadol 100 mg tablet,extended 100 mg PO DAILY PRN Pain 07/18/22 02/19/23 Unknown History release 24 hr venlafaxine 150 mg 150 mg PO QAM 07/18/22 02/19/23 Unknown History capsule,extended release 24 hr triamcinolone acetonide 0.1 % 1 applic topical BID #60 mL 08/10/22 02/19/23 Unkn own Rx lotion gabapentin 300 mg capsule 600 mg PO TID 01/16/23 02/19/23 Unknown History Allergies Allergy/AdvReac Type Severity Reaction Status Date / Time penicillin G procaine Allergy Unknown Verified 02/19/23 09:56 PFSH Acute PFSH: Medical History BPH with obstruction/lower urinary tract symptoms CAD (coronary artery disease) Cardiac dysrhythmia Carotid stenosis Charcot's joint, left ankle and foot Chest pain CHF (congestive heart failure) Diastolic heart failure DM neuro manif type II Essential hypertension GERD (gastroesophageal reflux disease) Gross hematuria HTN (hypertension) Hx of hypokalemia Hyperlipidemia, unspecified Hypertensive heart and chronic kidney disease with heart failure and stage 1 through stage 4 chronic kidney disease, or unspecified chronic kidney disease Obesity Recurrent urinary tract infection Renal failure Tinea cruris Type 2 diabetes mellitus with hyperglycemia Unspecified hearing loss, bilateral Surgical History History of ear surgery Hx of appendectomy Hx of below knee amputation Hx of circumcision Hx of hand surgery Hx of heart artery stent Hx of tonsillectomy Family History Father , AT AGE 67 CAD (coronary artery disease) Diabetes Leukemia Mother CHF (congestive heart failure) Social History Smoking and tobacco status: former smoker Quit status (tobacco): has quit using tobacco Year quit tobacco: 2015 Former quit date comment: 4ppd x 54 years Alcohol intake: never Substance/Drug Use: never Adopted: No Caregiver/support person: No Lives independently: No Household members: spouse Marital status: service: Yes Current occupational status: retired Physical Exam Narrative: GENERAL: In general he is comfortable. HEENT: Exam within normal limits. NECK: Supple without jugular vein distention. The carotid upstroke is normal without bruits. BACK: Exam normal. LUNGS: Clear. HEART: Regular rate and rhythm. ABDOMEN: Benign without organomegaly or tenderness. EXTREMITIES: No edema. Left below the knee amputation NEUROLOGIC: Exam normal. SKIN: Unremarkable. Data 02/20/23 06:25 02/20/23 06:25 A&P Assessment and plan (1) HTN (hypertension): Qualifiers: Hypertension type: essential hypertension Qualified Code(s): I10 - Essential (primary) hypertension (2) CHF (congestive heart failure): Qualifiers: Heart failure type: diastolic Heart failure chronicity: chronic Qualified Code(s): I50.32 - Chronic diastolic (congestive) heart failure (3) CAD (coronary artery disease): Qualifiers: Coronary Disease-Associated Artery/Lesion type: [place] artery [place] vs. transplanted heart: [place]aja heart Associated angina: without angina Qualified Code(s): I25.10 - Atherosclerotic heart disease of in[place] coronary artery without angina pectoris (4) Controlled type 2 diabetes mellitus with diabetic polyneuropathy, without long-term current use of insulin: (5) Below-knee amputation of left lower extremity: (6) COPD (chronic obstructive pulmonary disease): Qualifiers: COPD type: unspecified COPD Qualified Code(s): J44.9 - Chronic obstructive pulmonary disease, unspecified (7) Obesity: Qualifiers: Obesity type: unspecified obesity type Obesity classification: adult class 2 (BMI 35 - 39.9) Serious obesity comorbidity presence: with serious comorbidity Body mass index: BMI 38.0-38.9 Qualified Code(s): E66.01 - Morbid (severe) obesity due to excess calories; Z68.38 - Body mass index [BMI] 38.0- 38.9, adult (8) Hyperlipemia, mixed: (9) Carotid stenosis: (10) Coronary artery disease due to type 2 diabetes mellitus: Plan Elective coronary angiography. Attestations Medical Necessity Statement*: Outpatient in a bed for coronary angiography and Moderate Time for a total of 35 minutes, includes reviewing past or interval history, examining/interviewing patient, counseling patient/family/other support, updating patient/family/other support, discussing plan of care with staff, documenting encounter and coordinating care Diagnoses HTN (hypertension) I10 Hypertension type: essential hypertension CHF (congestive heart failure) I50.32 Heart failure type: diastolic Heart failure chronicity: chronic CAD (coronary artery disease) I25.10 Coronary Disease-Associated Artery/Lesion type: [place] artery [place] vs. transplanted heart: inaja heart Associated angina: without angina Controlled type 2 diabetes mellitus with diabetic polyneuropathy, without long- term current use of insulin E11.42 Below-knee amputation of left lower extremity S88.112A COPD (chronic obstructive pulmonary disease) J44.9 COPD type: unspecified COPD Obesity E66.01; Z68.38 Obesity type: unspecified obesity type Obesity classification: adult class 2 (BMI 35 - 39.9) Serious obesity comorbidity presence: with serious comorbidity Body mass index: BMI 38.0-38.9 Hyperlipemia, mixed E78.2 Carotid stenosis I65.29 Coronary artery disease due to type 2 diabetes mellitus E11.59; I25.10
[2023-02-20 06:52] LABS: Anion Gap 13.9 (5-19); Blood Urea Nitrogen 31 mg/dL (8-23); Calcium 8.8 mg/dL (8.5-10.5); Carbon Dioxide 29 mmol/L (22-29); Chloride 98 mmol/L (98-107); Glucose 161 mg/dL (65-115); Osmolality Calculated 296 mOsm/kg (285-295); Sodium 138 mmol/L (136-145)
[2023-02-20 06:54] LABS: Potassium 2.9 mmol/L (3.5-5.1)
[2023-02-20] MEDS: potassium chloride ER 20 mEq Tablet 40 MEQ PO (07:05)
--- NOTE | 2023-02-20 11:00 | PC.NURSE ---
1000: TR band removed from patient?s right wrist, no drainage or hematoma. Cleaned around puncture site with soap and water. Dressed with bandaid. Vitals stable. No c/o pain or discomfort. 1030: Transfer orders received. Dsg over puncture site to patient?s right wrist clean, dry, et intact. No drainage or hematoma. Vitals stable. No c/o pain or discomfort. Report given to BECCA Weiner. Patient transferred from [facility] to [facility]. All belongings sent with patient.
--- NOTE | 2023-02-20 11:35 | PC.NURSE ---
[facility] held for 02/19 because of potassium at 2.[address] Love.
[2023-02-20] MEDS: metOLazone 5 MG Tablet 2.5 MG PO ×2 (11:49→17:21)
[2023-02-20] MEDS: sodium chloride 0.9% 1,000 ML 100 ML IV (11:50)
[2023-02-20] MEDS: clopidogrel 75 mg Tablet PO (11:50)
[2023-02-20] MEDS: hydroCHLOROthiazide 25 mg Tablet PO (11:50)
[2023-02-20] MEDS: insulin lispro 100 unit/1 mL SUBCUT (17:21)
[2023-02-20] MEDS: gabapentin 300 mg Capsule 600 MG PO ×2 (17:43→20:25)
[2023-02-20] MEDS: TRAMadol 50 mg Tablet 100 MG PO ×2 (18:15→22:18)
[2023-02-20 21:21] LABS: Glucose Point of Care 112 mg/dL (70-110)
[2023-02-21] VITALS: BP 146/69; PULSE 74; RESP 17; TEMP 37.1; O2SAT 93
[2023-02-21 03:21] VITALS: BP 154/96; PULSE 77; RESP 13; TEMP 36.6; O2SAT 95
[2023-02-21 05:58] VITALS: PULSE 66
[2023-02-21 06:48] LABS: Glucose Point of Care 120 mg/dL (70-110)
[2023-02-21 07:27] VITALS: BP 148/71; PULSE 79; RESP 18; TEMP 36.6; O2SAT 92
--- NOTE | 2023-02-21 07:46 | P.DS_ITS ---
Discharge Providers Date of Admission: February 20, 2023 Date of Discharge: February 21, 2023 Attending Provider at Admission: Ivan Attending Provider at Discharge: Rogelio Love MD Primary Care Provider: Heaven Levin MD Diagnoses at Discharge Discharge Diagnosis (1) HTN (hypertension): Status: Acute Qualifiers: Hypertension type: essential hypertension Qualified Code(s): I10 - Essential (primary) hypertension (2) CHF (congestive heart failure): Status: Acute Qualifiers: Heart failure type: diastolic Heart failure chronicity: chronic Qualified Code(s): I50.32 - Chronic diastolic (congestive) heart failure (3) CAD (coronary artery disease): Status: Acute Qualifiers: Coronary Disease-Associated Artery/Lesion type: yuhaaviatam artery [place] vs. transplanted heart: yuhaaviatam heart Associated angina: without angina Qualified Code(s): I25.10 - Atherosclerotic heart disease of yuhaaviatam coronary art melonie without angina pectoris (4) Controlled type 2 diabetes mellitus with diabetic polyneuropathy, without long-term current use of insulin: Status: Acute (5) Below-knee amputation of left lower extremity: Status: Acute (6) COPD (chronic obstructive pulmonary disease): Status: Acute Qualifiers: COPD type: unspecified COPD Qualified Code(s): J44.9 - Chronic obstructive pulmonary disease, unspecified (7) Obesity: Status: Acute Qualifiers: Obesity type: unspecified obesity type Obesity classification: adult class 2 (BMI 35 - 39.9) Serious obesity comorbidity presence: with serious comorbidity Body mass index: BMI 38.0-38.9 Qualified Code(s): E66.01 - Morbid (severe) obesity due to excess calories; Z68.38 - Body mass index [BMI] 38.0- 38.9, adult (8) Hyperlipemia, mixed: Status: Acute (9) Carotid stenosis: Status: Acute (10) Coronary artery disease due to type 2 diabetes mellitus: Status: Acute Reason for Visit Reason for Visit: R07.9, I50.32 Brief History: Patient was evaluated a few weeks ago as an outpatient with symptoms of daytime sleepiness and shortness of breath. No chest pain. Stress testing revealed a large defect in the distribution of the LAD and the right coronary artery. He was recommended for coronary angiography. Hospital Course Hospital Course Angiography was performed through the right wrist. His right coronary artery is chronically occluded just beyond the ostium. The LAD contains multiple stents. In the midportion there is a discrete area of restenosis of approximately 90%. It underwent balloon angioplasty. The end result was quite good so I did not restent the area. There is a 90% stenosis in the ostium of the first diagonal branch. That diagonal branch is jailed. There is a stent in this branch as well. Circumflex and ramus intermedius arteries are unremarkable. There were no complications. At the time of discharge there is no bleeding, hematoma or pain in the right wrist. Physical Exam Narrative: GENERAL: In general he is awake and alert HEENT: Exam within normal limits. NECK: Supple without jugular vein distention. The carotid upstroke is normal without bruits. BACK: Exam normal. LUNGS: Clear. HEART: Regular rate and rhythm. ABDOMEN: Benign without organomegaly or tenderness. EXTREMITIES: No edema. Right wrist entry site flat, dry without bleeding, hematoma or other vascular abnormality. NEUROLOGIC: Exam normal. SKIN: Unremarkable. Discharge Data Studies Completed and Pending Completed Studies During Hospitalization Category Date Time Status SUPERINTENDENT MAINTENANCE request for service Routine Exams 02/20/23 06:00 Completed Laboratory Results WBC 9.5 10^3/uL (4.0-10.0) 02/20/23 06:25 RBC 4.50 10^6/uL (4.1-5.3) 02/20/23 06:25 Hgb 13.9 g/dL (11.7-16.6) 02/20/23 06:25 Hct 41.6 % (42.0-52.0) L 02/20/23 06:25 MCV 92.4 fl (80-94) 02/20/23 06:25 MCH 30.9 pg (28.0-34.0) 02/20/23 06:25 MCHC 33.4 g/dL (30.0-36.0) 02/20/23 06:25 RDW 13.6 % (12.1-15.1) 02/20/23 06:25 Plt Count 212 10^3/cmm (130-400) 02/20/23 06:25 MPV 11.1 fL (7.4-10.4) H 02/20/23 06:25 Neut % (Auto) 63.3 % 02/20/23 06:25 Lymph % (Auto) 24.4 % 02/20/23 06:25 [place] % (Auto) 8.5 % 02/20/23 06:25 Eos % (Auto) 3.1 % 02/20/23 06:25 Baso % (Auto) 0.4 % 02/20/23 06:25 Neut # (Auto) 6.01 10^3/uL (1.8-7.7) 02/20/23 06:25 Lymph # (Auto) 2.3 10^3/uL (0.8-4.8) 02/20/23 06:25 [place] # (Auto) 0.8 10^3/uL (0.2-0.9) 02/20/23 06:25 Eos # (Auto) 0.3 10^3/uL (0.0-0.8) 02/20/23 06:25 Baso # (Auto) 0.0 10^3/uL (0.0-0.1) 02/20/23 06:25 Nucleated RBC % (auto) 0 % 02/20/23 06:25 Nucleated RBCs # 0.0 /100WBC 02/20/23 06:25 Sodium 138 mmol/L (136-145) 02/20/23 06:25 Potassium 2.9 mmol/L (3.5-5.1) L 02/20/23 06:25 Chloride 98 mmol/L (98-107) 02/20/23 06:25 Carbon Dioxide 29 mmol/L (22-29) 02/20/23 06:25 Anion Gap 13.9 (5-19) 02/20/23 06:25 BUN 31 mg/dL (8-23) H 02/20/23 06:25 Creatinine 1.2 mg/dL (0.7-1.2) 02/20/23 06:25 GFR Calculation Not Reportable 02/20/23 06:25 Glucose 161 mg/dL (65-115) H 02/20/23 06:25 POC Glucose 120 mg/dL (70-110) H 02/21/23 06:40 Calculated Osmolality 296 mOsm/kg (285-295) H 02/20/23 06:25 Calcium 8.8 mg/dL (8.5-10.5) 02/20/23 06:25 Procedures Performed Coronary angiography, angioplasty of the mid left anterior descending Vitals Last Vital Signs Temp 97.8 F 02/21/23 07:27 Pulse 79 02/21/23 07:27 Resp 18 02/21/23 07:27 BP 148/71 02/21/23 07:27 Pulse Ox 92 02/21/23 07:27 O2 Del Method Room Air 02/21/23 07:27 Discharge Plan Discharge Patient Disposition: Home Prescriptions: Continued (DME) blood-glucose meter [Accu-Chek Guide Glucose Meter] Misc See Rx Instructions .Route Rx Instructions: As directed alogliptin 12.5 mg tablet 12.5 mg PO DAILY amlodipine 5 mg tablet 5 mg PO DAILY ascorbic acid (vitamin C) 500 mg capsule 1,000 mg PO DAILY clopidogrel 75 mg tablet 75 mg PO DAILY finasteride 5 mg tablet 5 mg PO DAILY isosorbide mononitrate 30 mg tablet extended release 24 hr 30 mg PO DAILY lidocaine 5 % ointment 1 applic topical BID lisinopril 2.5 mg tablet 2.5 mg PO DAILY loratadine 10 mg capsule 10 mg PO DAILY methenamine hippurate 1 gram tablet 1 g PO BID metolazone 2.5 mg tablet 2.5 mg PO BID nitroglycerin 0.4 mg tablet, sublingual 0.4 mg sublingual Q5M PRN (Reason: Chest pain) Rx Instructions: do not exceed 3 doses per episode omeprazole 20 mg capsule,delayed release(DR/EC) 20 mg PO DAILY furosemide 20 mg tablet 60 mg PO DAILY potassium chloride 20 mEq packet 20 meq PO TID pregabalin 25 mg capsule 25 mg PO DAILY tramadol 100 mg tablet extended release 24 hr 100 mg PO DAILY PRN (Reason: Pain) venlafaxine 150 mg capsule,extended release 24hr 150 mg PO QAM Rx Instructions: 3 tabs in AM aspirin [Adult Low Dose Aspirin] 81 mg tablet,delayed release (DR/EC) 81 mg PO DAILY levothyroxine 25 mcg capsule 25 mcg PO DAILY atorvastatin 40 mg tablet 40 mg PO DAILY spironolactone 25 mg tablet 25 mg PO DAILY carvedilol 12.5 mg tablet 12.5 mg PO BID Rx Instructions: must administer with a meal/food hydrochlorothiazide 25 mg tablet 25 mg PO DAILY guaifenesin [Mucinex] 600 mg tablet extended release 12hr 600 mg PO BID PRN (Reason: Cough) insulin aspart U-100 [Novolog FlexPen U-100 Insulin] 100 unit/mL (3 mL) insulin pen 3 unit SUBCUT TID Qty: 9 3RF Rx Instructions: Inject 3 units three times a day. insulin glargine [Lantus Solostar U-100 Insulin] 100 unit/mL (3 mL) insulin pen 160 unit SUBCUT BID gabapentin 300 mg capsule 600 mg PO TID triamcinolone acetonide 0.1 % lotion 1 applic topical BID Qty: 60 5RF mupirocin 2 % ointment 1 applic topical BID Qty: 15 0RF albuterol sulfate 90 mcg/actuation HFA aerosol inhaler 2 inh INHALATION Q4H PRN (Reason: shortness of breath or wheezing) Qty: 8.5 3RF Spiriva with HandiHaler 18 mcg capsule, w/inhalation device 1 cap inhalation DAILY Qty: 60 5RF Rx Instructions: puncture 1 cap using device; one dose = 2 inhalations budesonide-formoterol 160-4.5 mcg/actuation HFA aerosol inhaler 2 puff inhalation BID Qty: 10.2 5RF (DME) Dexcom G6 [employer] Liaison Misc See Rx Instructions .Route Qty: 1 0RF Rx Instructions: Check Bs 4-6 times a day. (DME) Dexcom G6 Sensor Device See Rx Instructions .Route Qty: 9 3RF Rx Instructions: Change every 10 days. (DME) Dexcom G6 Transmitter Device See Rx Instructions .Route Qty: 3 3RF Rx Instructions: Change every 90 days. imiquimod 5 % cream in packet 1 applic topical ONCE Qty: 24 1RF Rx Instructions: apply thin film to Saturday-Saturday (off weekends) for 6 weeks. Discharge Orders: Discharge Order (Routine); Ordered 02/21/23 Ordered By: Rogelio Love Referrals: Rogelio Love MD [Physician] - (Your follow up appointment with Dr. Love will be scheduled during your Johanna Mitchell appointment. Thank you.) Heaven Levin MD [Primary Care Provider] - Johanna Mitchell FNP [Nurse Practitioner] - 7-10 days (Right radial artery area inspection and chemistry panel.) Diet: Diabetic Activity: Limit activity as instructed Patient Instructions: Heart Failure (DC), Coronary Angioplasty (DC), CHF Stoplight, Post Angiogram Home Care Instructions Activity Restrictions/Additional Instructions: No lifting over 5 pounds for 2 days with the right arm. Call for bleeding, swelling, pain in the right arm at the entry site. Discharge Attestations Time Spent in Discharge Care*: greater than 30 min Quality Metrics Clinical Quality Measures [ No reported AMI, CVA or VTE this stay] Coding Level of Care Code 01561 Total time (in minutes) for Discharge: 35 Diagnoses HTN (hypertension) I10 Hypertension type: essential hypertension CHF (congestive heart failure) I50.32 Heart failure type: diastolic Heart failure chronicity: chronic CAD (coronary artery disease) I25.10 Coronary Disease-Associated Artery/Lesion type: yuhaaviatam artery [place] vs. transplanted heart: yuhaaviatam heart Associated angina: without angina Controlled type 2 diabetes mellitus with diabetic polyneuropathy, without long- term current use of insulin E11.42 Below-knee amputation of left lower extremity S88.112A COPD (chronic obstructive pulmonary disease) J44.9 COPD type: unspecified COPD Obesity E66.01; Z68.38 Obesity type: unspecified obesity type Obesity classification: adult class 2 (BMI 35 - 39.9) Serious obesity comorbidity presence: with serious comorbidity Body mass index: BMI 38.0-38.9 Hyperlipemia, mixed E78.2 Carotid stenosis I65.29 Coronary artery disease due to type 2 diabetes mellitus E11.59; I25.10
[2023-02-21] MEDS: gabapentin 300 mg Capsule 600 MG PO (08:28)
[2023-02-21] MEDS: hydroCHLOROthiazide 25 mg Tablet PO (08:28)
[2023-02-21] MEDS: FUROsemide 20 mg Tablet 60 MG PO (08:28)
[2023-02-21] MEDS: metOLazone 5 MG Tablet 2.5 MG PO (08:28)
[2023-02-21] MEDS: aspirin 81 mg EC Tablet PO (08:29)
[2023-02-21] MEDS: clopidogrel 75 mg Tablet PO (08:29)
--- NOTE | 2023-02-21 08:41 | PC.SOCIAL ---
[facility]charge [facility]
--- NOTE | 2023-02-21 10:07 | PC.CHAP ---
Pastoral Care Encounter/Spiritual Assessment Type of Contact [] Declined shingle cutter visit [] Patient/Family/Request visit [] Outpatient visit [] Follow-up visit [] Physician referral [] Code/Alert [x] Routine visit [] Staff referral [] Actively dying [] Patient sleeping [] Family support [] [] Out of room [] Palliative care [] [x] Receiving care in room [] Pre-surgical visit [] Trauma [] Long length of stay [] ICU visit [] Other: Relational/Emotional Strength [x] Patient feels connected with others/family/visitors/staff [] Distress [] Loneliness/isolation [] Abandonment Spirituality of Patient [x] Person of Shruthi [] Attends Scientology of their Shruthi [x] Believes in Prayer [] Reads Bible or Christianity materials [] There are Spiritual issues to be addressed Credit Checker Interventions [x] Prayer [x] Active listening [x] Non-anxious presence [x] Spiritual/emotional support [] Crisis/trauma care [x] Spiritual counseling [] Bereavement support [] Provided bereavement packet [] Provided Bible/devotional materials [] Provided toy/stuffed animal, coloring book to patient or family member [] Provided Communion [] Anointing/[place] [] Salvation [x] Completed spiritual assessment [] Other: Impact on Illness or Injury [] Angry [] Fearful [] Anxious [] Often cries [] Exhaustion [] Unable to work [] Unable to attend spiritism [] Unable to walk/stand [] Unable to read [] Unable to drive [] Unable to eat/drink [] Unable to sleep [] Unable to be with family [] Patient intubated [] Other: Summary stent ami has a good attitude going home Time spent with patient 10 mins
--- NOTE | 2023-02-21 10:46 | PC.NURSE ---
Patient assessed this morning all findings considered to be WNL. Patient discharge was provided to him and patient has no questions or concerns. VS are stable. Patient is being discharged with son in POV>
== END 2023-02-21 09:30 | disposition home or self-care (01) ==
LOC: CCL 05:58 → CSU 11:51
PROVIDERS: PCP Family Medicine; Visit Provider Internal Medicine Cardiovascular Disease
DX: I25.10 Atherosclerotic heart disease of native coronary artery without angina pectoris (principal); I11.0 Hypertensive heart disease with heart failure; I50.32 Chronic diastolic (congestive) heart failure; E11.42 Type 2 diabetes mellitus with diabetic polyneuropathy; J44.9 Chronic obstructive pulmonary disease, unspecified; E66.01 Morbid (severe) obesity due to excess calories; Z68.38 Body mass index [BMI] 38.0-38.9, adult; E78.2 Mixed hyperlipidemia; I65.29 Occlusion and stenosis of unspecified carotid artery; E11.59 Type 2 diabetes mellitus with other circulatory complications; T82.897A Other specified complication of cardiac prosthetic devices, implants and grafts, initial encounter; Y71.2 Prosthetic and other implants, materials and accessory cardiovascular devices associated with adverse incidents; N18.9 Chronic kidney disease, unspecified; Z79.82 Long term (current) use of aspirin; Z79.02 Long term (current) use of antithrombotics/antiplatelets; Z79.4 Long term (current) use of insulin; Z87.891 Personal history of nicotine dependence
CPT/HCPCS: 36415; 36416; 80048; 82962; 85025; 92920; 96361; 96365; 96372; 99152; 99153; C1725; C1769; C1887; C1894; J1644; J1815; J2250; J3010; J3490; J7030; Q9967

== ENCOUNTER → 2023-02-27 10:05 | Outpatient (BNVA) | payer OTHER, SELFPAY | PROVIDERS: PCP Family Medicine; Visit Provider Nurse Practitioner Family | DX: I25.10 Atherosclerotic heart disease of native coronary artery without angina pectoris (principal); Z87.891 Personal history of nicotine dependence; I11.0 Hypertensive heart disease with heart failure; I50.9 Heart failure, unspecified | CPT/HCPCS: 36415; 80048; 99214 ==

== ENCOUNTER 2023-04-01 12:14 | Emergency (ER) | payer OTHER, SELFPAY ==
[2023-04-01 12:23] VITALS: BP 155/73; PULSE 85; RESP 18; TEMP 36.6; O2SAT 97; BMI 33.7
--- NOTE | 2023-04-01 13:42 | XRR_ITS ---
PROCEDURE INFORMATION: Exam: XR Lumbosacral Spine Exam date and time: 04/01/2023 1:49 PM Age: 77 years old Clinical indication: Low back pain; Additional info: Lbp no trauma TECHNIQUE: Imaging protocol: Radiologic exam of the lumbosacral spine. Views: 2 or 3 views. COMPARISON: CT abdomen pelvis wo/w [id number] 01/20/2018 10:29 AM FINDINGS: Bones/joints: No fracture or other acute abnormality. There is straightening of the lumbar lordosis but otherwise normal alignment. There is marked L4 disc space narrowing with a vacuum within the nucleus pulposis. Remaining discs appear normal Multilevel hypertrophic changes are seen most pronounced at L4-L5. Soft tissues: Unremarkable. Vasculature: Aortoiliac calcifications are seen. XR/XR lumbar spine 2-3V* [id number] IMPRESSION: Nonacute findings.
--- NOTE | 2023-04-01 14:58 | ED_ITS ---
HPI - Back Pain/Injury General: Chief Complaint: Back Pain/Injury Stated Complaint: [facility] Time Seen by Provider: 04/01/23 14:28 History of Present Illness: Patient presents to the ER with complaints of low back pain on both sides. The pain is not radiating. Patient has no known trauma. Patient does have a bad back that he knows of but not quite this bad. This been going on for 2 weeks. Patient normally takes tramadol for his back but this has not touched the pain. Patient is tried a lot of the [id number] muscle rubs and 2 of his 's hydrocodone. Patient had a good bowel movement this morning denies any history of kidney stones and just saw his urologist within the last month and said his kidneys look good. Review of Systems General: Reports: 10 or more systems reviewed and unremarkable except in HPI and below PFSH ED PFSH: Medical History BPH with obstruction/lower urinary tract symptoms CAD (coronary artery disease) Cardiac dysrhythmia Carotid stenosis Charcot's joint, left ankle and foot Chest pain CHF (congestive heart failure) Diastolic heart failure DM neuro manif type II Essential hypertension GERD (gastroesophageal reflux disease) Gross hematuria HTN (hypertension) Hx of hypokalemia Hyperlipidemia, unspecified Hypertensive heart and chronic kidney disease with heart failure and stage 1 through stage 4 chronic kidney disease, or unspecified chronic kidney disease Obesity Recurrent urinary tract infection Renal failure Tinea cruris Type 2 diabetes mellitus with hyperglycemia Unspecified hearing loss, bilateral Surgical History History of ear surgery Hx of appendectomy Hx of below knee amputation Hx of circumcision Hx of hand surgery Hx of heart artery stent Hx of tonsillectomy Family History Father , AT AGE 67 CAD (coronary artery disease) Diabetes Leukemia Mother CHF (congestive heart failure) Social History Smoking and tobacco status: former smoker Quit status (tobacco): has quit using tobacco Year quit tobacco: 2015 Former quit date comment: 4ppd x 54 years Alcohol intake: never Substance/Drug Use: never Adopted: No Caregiver/support person: No Lives independently: No Household members: spouse Marital status: service: Yes Current occupational status: retired Physical Exam Const: COMMON NORMALS: no acute distress, average body habitus, patient oriented x3, no limitations, healthy appearing, alert and well nourished HENMT: COMMON NORMALS: normocephalic, atraumatic, hearing grossly normal bilaterally, external ears normal, Normal external nose present and moist oral mucous membranes HEAD & SCALP: normocephalic and atraumatic NOSE: Normal external nose present EXTERNAL EAR: Yes external ears normal Eye: COMMON NORMALS: Equal, round and reactive pupils present, EOMs intact bilaterally, conjunctivae normal and no scleral icterus CONJUNCTIVA: Yes conjunctivae normal PUPIL: Yes Equal, round and reactive pupils present Neck/C-Spine: COMMON NORMALS: full ROM, no lymphadenopathy, supple, no meningeal signs, no JVD and Thyroid normal THYROID: Thyroid normal Lymph: LYMPHATIC: no lymphadenopathy noted Chest: COMMONS NORMALS: normal inspection of the chest and normal palpation of entire chest wall Resp: COMMON NORMALS: normal respiratory effort, No retractions, No use of accessory muscles and clear to auscultation bilaterally AUSCULTATION: clear to auscultation bilaterally Cardio: COMMON NORMALS: no JVD, regular rate, regular rhythm, S1 normal heart sound present, S2 normal heart sound present, No gallops present (Cardio), No clicks present (Cardio), No murmurs present (Cardio) and No rub (Cardio) RATE: regular rate RHYTHM: regular rhythm HEART SOUNDS: S1 normal heart sound present and S2 normal heart sound present GI: COMMON NORMALS: Normal to inspection, nondistended, normoactive bowel sounds present, Soft to palpation, non-tender, No hepatosplenomegaly present and no masses PALPATION: Yes Soft to palpation and Yes No hepatosplenomegaly present : COMMON NORMALS: Yes no CVA tenderness BLADDER/KIDNEY EXAM: Yes no CVA tenderness Back/Pelvis: COMMON NORMALS: no CVA tenderness Neuro: COMMON NORMALS: patient oriented x3 SENSORIUM/ORIENTATION: Yes alert MENINGEAL SIGNS: Yes no meningeal signs Course Vital Signs: Vital signs: Vital Signs Temperature 97.9 F 04/01/23 12:23 Pulse Rate 85 04/01/23 12:23 Respiratory Rate 16 04/01/23 15:43 Blood Pressure 155/73 04/01/23 12:23 Pulse Oximetry 97 04/01/23 12:23 MDM - Back Pain/Injury Medical Decision Making Patient presents with low back pain. This has been going on for 2 weeks. Patient has tried all [id number] muscle rubs and tramadol that he has at home. Patient is even taken 2 of his 's hydrocodone that did not help very much. X-rays was taken and showed no acute findings. The pain is localized to the lumbar region and does not radiate. Patient will be given a prescription for Percocet and prednisone and should follow-up with his family practice doc within the next 7 days. Differential Diagnosis Unlikely lumbar radiculopathy, sciatica, strain of lumbar region, renal colic, pyelonephritis, thoracic back pain, AAA or discitis Medical Records I reviewed the patient's medical records. Labs I reviewed the patient's lab results. Radiology Impressions Lumbar Spine X-Ray 04/01/23 13:42 IMPRESSION: Nonacute findings. All radiology interpretation(s) finalized by discharge Discharge Plan Discharge Patient Disposition: Home Clinical Impression: Low back pain Qualifiers: Chronicity: acute Back pain laterality: bilateral Sciatica presence: without sciatica Qualified Code(s): M54.50 - Low back pain, unspecified Condition: Stable Prescriptions: New prednisone 50 mg tablet 50 mg PO DAILY 5 Days Qty: 5 0RF Percocet 5-325 mg tablet 1 tab PO Q8H PRN (Reason: pain) Qty: 10 0RF No Action (DME) blood-glucose meter [Accu-Chek Guide Glucose Meter] Misc See Rx Instructions .Route Rx Instructions: As directed alogliptin 12.5 mg tablet 12.5 mg PO DAILY amlodipine 5 mg tablet 5 mg PO DAILY ascorbic acid (vitamin C) 500 mg capsule 1,000 mg PO DAILY clopidogrel 75 mg tablet 75 mg PO DAILY finasteride 5 mg tablet 5 mg PO DAILY isosorbide mononitrate 30 mg tablet extended release 24 hr 30 mg PO DAILY lisinopril 2.5 mg tablet 2.5 mg PO DAILY loratadine 10 mg capsule 10 mg PO DAILY methenamine hippurate 1 gram tablet 1 g PO BID metolazone 2.5 mg tablet 2.5 mg PO BID nitroglycerin 0.4 mg tablet, sublingual 0.4 mg sublingual Q5M PRN (Reason: Chest pain) Rx Instructions: do not exceed 3 doses per episode omeprazole 20 mg capsule,delayed release(DR/EC) 20 mg PO DAILY furosemide 20 mg tablet 60 mg PO DAILY potassium chloride 20 mEq packet 40 meq PO TID pregabalin 25 mg capsule 25 mg PO DAILY venlafaxine 150 mg capsule,extended release 24hr 450 mg PO QAM lidocaine 5 % ointment 1 applic topical BID PRN (Reason: Pain) aspirin [Adult Low Dose Aspirin] 81 mg tablet,delayed release (DR/EC) 81 mg PO DAILY levothyroxine 25 mcg capsule 25 mcg PO DAILY atorvastatin 40 mg tablet 40 mg PO DAILY spironolactone 25 mg tablet 25 mg PO DAILY carvedilol 12.5 mg tablet 12.5 mg PO BID Rx Instructions: must administer with a meal/food hydrochlorothiazide 25 mg tablet 25 mg PO DAILY guaifenesin [Mucinex] 600 mg tablet extended release 12hr 600 mg PO BID PRN (Reason: Cough) insulin glargine [Lantus Solostar U-100 Insulin] 100 unit/mL (3 mL) insulin pen 160 unit SUBCUT BID gabapentin 300 mg capsule 600 mg PO TID triamcinolone acetonide 0.1 % lotion 1 applic topical BID Qty: 60 5RF insulin aspart U-100 [Novolog FlexPen U-100 Insulin] 100 unit/mL (3 mL) insulin pen 3 unit SUBCUT TID PRN (Reason: blood sugar) mupirocin 2 % ointment 1 applic topical BID Qty: 15 0RF albuterol sulfate 90 mcg/actuation HFA aerosol inhaler 2 inh INHALATION Q4H PRN (Reason: shortness of breath or wheezing) Qty: 8.5 3RF budesonide-formoterol 160-4.5 mcg/actuation HFA aerosol inhaler 2 puff inhalation BID Qty: 10.2 5RF (DME) Dexcom G6 Borematic Machine Operator Misc See Rx Instructions .Route Qty: 1 0RF Rx Instructions: Check Bs 4-6 times a day. (DME) Dexcom G6 Sensor Device See Rx Instructions .Route Qty: 9 3RF Rx Instructions: Change every 10 days. (DME) Dexcom G6 Transmitter Device See Rx Instructions .Route Qty: 3 3RF Rx Instructions: Change every 90 days. tramadol 50 mg Tablet 50 mg PO DAILY PRN (Reason: Pain) Discharge Orders: Discharge ED (Routine); Ordered 04/01/23 Ordered By: Armen Moseley Referrals: Heaven Levin MD [Primary Care Provider] - 1 week Patient Instructions: Acute Low Back Pain (ED), Lower Back Exercises (ED), Opioid Safety, Pain Management Activity Restrictions/Additional Instructions: Please take all your medicine as directed. Please follow-up with your family practice doctor within the next 7 days or sooner as needed for further evaluation and treatment. Coding Level of Care Code ED Barrel Turner for Annie Flynn
[2023-04-01] MEDS: ketorolac 60 mg/2 mL INJ IM (15:02)
[2023-04-01] MEDS: orphenadrine 30 mg/mL Inj 2 mL 60 MG IM (15:03)
[2023-04-01 15:43] VITALS: RESP 16
[2023-04-01] MEDS: morphine 4 mg/mL SDV 1 mL IM (15:43)
[2023-04-01 17:41] VITALS: BP 121/71; PULSE 76; O2SAT 97
== END 2023-04-01 16:03 | disposition home or self-care (01) ==
PROVIDERS: Emergency Provider Emergency Medicine; PCP Family Medicine
DX: M54.50 Low back pain, unspecified (principal); Z79.02 Long term (current) use of antithrombotics/antiplatelets; Z79.82 Long term (current) use of aspirin; Z79.4 Long term (current) use of insulin; Z87.891 Personal history of nicotine dependence; I25.10 Atherosclerotic heart disease of native coronary artery without angina pectoris; I11.0 Hypertensive heart disease with heart failure; I50.9 Heart failure, unspecified; E11.9 Type 2 diabetes mellitus without complications; E78.5 Hyperlipidemia, unspecified; Z89.519 Acquired absence of unspecified leg below knee
CPT/HCPCS: 72100; 96372; 99284; J1885; J2270; J2360

== ENCOUNTER 2023-04-29 17:49 | Outpatient (CLI) | payer OTHER, SELFPAY ==
[2023-04-29 18:32] LABS: Basophils % 0.4 %; Eosinophils # 0.2 10^3/uL (0.0-0.8); Eosinophils % 2.6 %; Hematocrit 34.9 % (37-53); Lymphocytes # 1.6 10^3/uL (0.8-4.8); Lymphocytes % 18.9 %; Mean Corpuscular HGB Conc 34.1 g/dL (30-55); Mean Corpuscular Volume 93.8 fl (82-101); Mean Platelet Volume 11.6 fL (7.4-10.4); Monocytes # 0.7 10^3/uL (0.2-0.9); Monocytes % 8.3 %; Neutrophils # 5.77 10^3/uL (1.8-7.7); Neutrophils % 69.4 %; Nucleated Red Blood Cells % 0 %; Platelet Count 191 10^3/cmm (157-399); Red Blood Count 3.72 10^6/uL (3.85-5.65); Red Cell Distribution Width 14.2 % (12.1-15.1); White Blood Count 8.31 10^3/uL (3.29-11.43)
[2023-04-29 18:47] LABS: Alanine Aminotransferase 11 U/L (0-41); Albumin Level 3.2 g/dL (3.5-5.2); Alkaline Phosphatase 92 U/L (40-130); Aspartate Amino Transferase 17 U/L (0-40); Blood Urea Nitrogen 23 mg/dL (8-23); Calcium 8.8 mg/dL (8.5-10.5); Carbon Dioxide 26 mmol/L (22-29); Chloride 101 mmol/L (98-107); Globulin 3.1 g/dL (1.3-4.6); Glucose 154 mg/dL (65-115); Osmolality Calculated 291 mOsm/kg (285-295); Sodium 137 mmol/L (136-145); Total Bilirubin 0.2 mg/dL (0.15-1.2); Total Protein 6.3 g/dL (6.6-8.7)
== END 2023-04-29 17:50 | disposition home or self-care (01) ==
LOC: LAB 17:52
PROVIDERS: PCP Family Medicine; Visit Provider Family Medicine
DX: M46.45 Discitis, unspecified, thoracolumbar region (principal); I10 Essential (primary) hypertension
CPT/HCPCS: 80053; 85025

== ENCOUNTER 2023-05-13 13:51 | Outpatient (CLI) | payer OTHER, MEDICARE, SELFPAY ==
[2023-05-13 14:36] LABS: Basophils % 0.3 %; Eosinophils # 0.2 10^3/uL (0.0-0.8); Eosinophils % 2.2 %; Hematocrit 36.7 % (37-53); Lymphocytes # 1.2 10^3/uL (0.8-4.8); Lymphocytes % 17.4 %; Mean Corpuscular HGB Conc 34.3 g/dL (30-55); Mean Corpuscular Hemoglobin 31.7 pg (27-33); Mean Corpuscular Volume 92.4 fl (82-101); Mean Platelet Volume 11.7 fL (7.4-10.4); Monocytes # 0.5 10^3/uL (0.2-0.9); Monocytes % 7.4 %; Neutrophils # 5.01 10^3/uL (1.8-7.7); Neutrophils % 72.4 %; Nucleated Red Blood Cells % 0 %; Platelet Count 161 10^3/cmm (157-399); Red Blood Count 3.97 10^6/uL (3.85-5.65); Red Cell Distribution Width 13.6 % (12.1-15.1); White Blood Count 6.91 10^3/uL (3.29-11.43)
[2023-05-13 15:01] LABS: Alanine Aminotransferase 12 U/L (0-41); Albumin Level 3.8 g/dL (3.5-5.2); Alkaline Phosphatase 98 U/L (40-130); Anion Gap 13.6 (5-19); Aspartate Amino Transferase 14 U/L (0-40); Blood Urea Nitrogen 18 mg/dL (8-23); Carbon Dioxide 28 mmol/L (22-29); Chloride 98 mmol/L (98-107); Globulin 2.9 g/dL (1.3-4.6); Glucose 291 mg/dL (65-115); Osmolality Calculated 293 mOsm/kg (285-295); Potassium 4.6 mmol/L (3.5-5.1); Sodium 135 mmol/L (136-145); Total Bilirubin 0.2 mg/dL (0.15-1.2); Total Protein 6.7 g/dL (6.6-8.7)
== END 2023-05-13 13:52 | disposition home or self-care (01) ==
PROVIDERS: PCP Family Medicine; Visit Provider Family Medicine
DX: M46.44 Discitis, unspecified, thoracic region (principal); M46.24 Osteomyelitis of vertebra, thoracic region
CPT/HCPCS: 80053; 85025

== ENCOUNTER 2023-05-27 14:38 | Outpatient (CLI) | payer OTHER, MEDICARE, SELFPAY ==
[2023-05-27 14:57] LABS: Basophils # 0.1 10^3/uL (0.0-0.1); Basophils % 0.6 %; Eosinophils # 0.9 10^3/uL (0.0-0.8); Eosinophils % 10.5 %; Hematocrit 33.9 % (37-53); Lymphocytes # 1.4 10^3/uL (0.8-4.8); Lymphocytes % 16.8 %; Mean Corpuscular HGB Conc 34.2 g/dL (30-55); Mean Corpuscular Hemoglobin 32.1 pg (27-33); Mean Corpuscular Volume 93.9 fl (82-101); Mean Platelet Volume 11.1 fL (7.4-10.4); Monocytes # 0.8 10^3/uL (0.2-0.9); Monocytes % 9.7 %; Neutrophils # 5.13 10^3/uL (1.8-7.7); Nucleated Red Blood Cells % 0 %; Platelet Count 203 10^3/cmm (157-399); Red Blood Count 3.61 10^6/uL (3.85-5.65); Red Cell Distribution Width 13.5 % (12.1-15.1); White Blood Count 8.27 10^3/uL (3.29-11.43)
[2023-05-27 15:16] LABS: Alanine Aminotransferase 13 U/L (0-41); Albumin Level 3.4 g/dL (3.5-5.2); Alkaline Phosphatase 104 U/L (40-130); Anion Gap 13.3 (5-19); Aspartate Amino Transferase 14 U/L (0-40); Blood Urea Nitrogen 27 mg/dL (8-23); Calcium 9.1 mg/dL (8.5-10.5); Carbon Dioxide 29 mmol/L (22-29); Chloride 99 mmol/L (98-107); Globulin 3.1 g/dL (1.3-4.6); Glucose 200 mg/dL (65-115); Osmolality Calculated 295 mOsm/kg (285-295); Potassium 4.3 mmol/L (3.5-5.1); Sodium 137 mmol/L (136-145); Total Bilirubin 0.2 mg/dL (0.15-1.2); Total Protein 6.5 g/dL (6.6-8.7)
== END 2023-05-27 14:39 | disposition home or self-care (01) ==
PROVIDERS: PCP Family Medicine; Visit Provider Family Medicine
DX: Z01.89 Encounter for other specified special examinations (principal)
CPT/HCPCS: 80053; 85025

== ENCOUNTER 2023-06-03 16:07 | Outpatient (CLI) | payer OTHER, MEDICARE, SELFPAY ==
[2023-06-03 21:20] LABS: Basophils # 0.1 10^3/uL (0.0-0.1); Basophils % 0.5 %; Eosinophils # 0.7 10^3/uL (0.0-0.8); Eosinophils % 7.5 %; Hematocrit 39.5 % (37-53); Lymphocytes # 1.8 10^3/uL (0.8-4.8); Lymphocytes % 19.3 %; Mean Corpuscular HGB Conc 32.7 g/dL (30-55); Mean Corpuscular Hemoglobin 31.1 pg (27-33); Mean Corpuscular Volume 95.2 fl (82-101); Mean Platelet Volume 11.4 fL (7.4-10.4); Monocytes # 1.1 10^3/uL (0.2-0.9); Monocytes % 11.6 %; Neutrophils # 5.74 10^3/uL (1.8-7.7); Neutrophils % 60.7 %; Nucleated Red Blood Cells % 0 %; Platelet Count 236 10^3/cmm (157-399); Red Blood Count 4.15 10^6/uL (3.85-5.65); Red Cell Distribution Width 13.8 % (12.1-15.1); White Blood Count 9.47 10^3/uL (3.29-11.43)
[2023-06-03 21:40] LABS: Alanine Aminotransferase 16 U/L (0-41); Albumin Level 3.6 g/dL (3.5-5.2); Alkaline Phosphatase 103 U/L (40-130); Aspartate Amino Transferase 18 U/L (0-40); Blood Urea Nitrogen 29 mg/dL (8-23); Calcium 9.4 mg/dL (8.5-10.5); Carbon Dioxide 27 mmol/L (22-29); Chloride 95 mmol/L (98-107); Globulin 3.1 g/dL (1.3-4.6); Glucose 90 mg/dL (65-115); Osmolality Calculated 285 mOsm/kg (285-295); Sodium 135 mmol/L (136-145); Total Bilirubin 0.4 mg/dL (0.15-1.2); Total Protein 6.7 g/dL (6.6-8.7)
[2023-06-03 22:24] LABS: Anion Gap 17.7 (5-19); Potassium 4.7 mmol/L (3.5-5.1)
== END 2023-06-03 16:08 | disposition home or self-care (01) ==
PROVIDERS: PCP Family Medicine; Visit Provider Family Medicine
DX: M46.44 Discitis, unspecified, thoracic region (principal); M46.24 Osteomyelitis of vertebra, thoracic region; Z79.899 Other long term (current) drug therapy
CPT/HCPCS: 80053; 85025

== ENCOUNTER 2023-06-11 21:04 | Emergency (ER) | payer OTHER, SELFPAY ==
[2023-06-11 21:06] VITALS: BP 130/63; PULSE 62; RESP 18; TEMP 36.7; O2SAT 92; BMI 33.7
--- NOTE | 2023-06-11 21:08 | ECG_ITS ---
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 Measurements Intervals [place] Rate: 64 P: 85 PA: 244 QRS: -2 QRSD: 109 T: 73 QT: 419 QTc: 433 Interpretive Statements SINUS RHYTHM WITH FIRST DEGREE AV BLOCK LOW QRS VOLTAGE IN PRECORDIAL LEADS [QRS DEFLECTION < 1.0 mV IN CHEST LEADS] NONSPECIFIC T-WAVE ABNORMALITY Compared to ECG 09/24/2018 14:09:57 Low QRS voltage now present T-wave abnormality still present Electronically Signed On 06-12-2023 9:01:31 DIRECTOR SEARCH MARKETING STRATEGIES by Dnate Jeffers M.D. [id number]
--- NOTE | 2023-06-11 21:36 | XRR_ITS ---
PROCEDURE INFORMATION: Exam: XR Chest Exam date and time: 06/11/2023 9:40 PM Age: 78 years old Clinical indication: Pain; Chest pressure; Additional info: Cxp TECHNIQUE: Imaging protocol: Radiologic exam of the chest. Views: 1 view. COMPARISON: CT chest [facility] [id number] 05/15/2021 1:51 PM FINDINGS: Lungs: Bibasilar atelectasis versus minimal infiltrate. Pleural spaces: Unremarkable. No pleural effusion. No pneumothorax. Heart/Mediastinum: Cardiomegaly. Bones/joints: Unremarkable. XR/XR chest 1V portable [id number] IMPRESSION: 1. Bibasilar atelectasis versus minimal infiltrate. 2. Cardiomegaly.
[2023-06-11] MEDS: aspirin 81 mg Chew Tablet 324 MG PO (21:54)
[2023-06-11] MEDS: morphine 4 mg/mL SDV 1 mL 2 MG IVP (21:54)
[2023-06-11] MEDS: nitroglycerin 1 gm/inch oint Pkt 1 INCH TOPICAL (21:54)
[2023-06-11 22:18] LABS: Basophils # 0.1 10^3/uL (0.0-0.1); Basophils % 0.5 %; Eosinophils # 0.6 10^3/uL (0.0-0.8); Eosinophils % 6.1 %; Hematocrit 37.7 % (37-53); Lymphocytes # 2.2 10^3/uL (0.8-4.8); Lymphocytes % 22.4 %; Mean Corpuscular HGB Conc 31.8 g/dL (30-55); Mean Corpuscular Hemoglobin 30.5 pg (27-33); Mean Corpuscular Volume 95.7 fl (82-101); Mean Platelet Volume 10.7 fL (7.4-10.4); Monocytes # 1.2 10^3/uL (0.2-0.9); Monocytes % 12.1 %; Neutrophils # 5.79 10^3/uL (1.8-7.7); Neutrophils % 58.6 %; Nucleated Red Blood Cells % 0 %; Platelet Count 217 10^3/cmm (157-399); Red Blood Count 3.94 10^6/uL (3.85-5.65); Red Cell Distribution Width 13.7 % (12.1-15.1); White Blood Count 9.89 10^3/uL (3.29-11.43)
[2023-06-11 22:34] VITALS: BP 129/72; PULSE 69; RESP 16; O2SAT 95
[2023-06-11 22:44] LABS: INR 0.97 (0.8-1.2)
[2023-06-11 22:45] LABS: Partial Thromboplastin Time 31.9 SECONDS (23.9-36.7)
[2023-06-11 23:02] LABS: Alanine Aminotransferase 13 U/L (0-41); Aspartate Amino Transferase 19 U/L (0-40); Total Bilirubin 0.2 mg/dL (0.15-1.2)
[2023-06-11 23:20] LABS: Troponin(5th) Baseline 16 ng/L (0-15)
[2023-06-11 23:31] LABS: Blood Urine 3+ (Negative); Glucose Urine UA Norm (Normal); Ketones Urine Negative (Negative); Nitrate Urine Negative (Negative); Protein Urine Neg (Negative); Specific Gravity, Urine 1.005 (1.005-1.030); Urine Appearance Clear (CLEAR); Urine Color Yellow (Yellow); pH Urine 5 (5-7)
[2023-06-11 23:32] LABS: Add Urine Microscopic? YES; Bacteria Urine TRACE /hpf; Bilirubin Urine Neg (Negative); Leukocyte Esterase Urine 1+ (Negative); Urobilinogen Urine Neg (Negative); WBC Urine 0-4 /hpf (0-5)
[2023-06-11 23:33] LABS: Add Urine Culture? No
--- NOTE | 2023-06-11 23:36 | ECG_ITS ---
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 Measurements Intervals [place] Rate: 77 P: 95 RI: 216 QRS: -21 QRSD: 87 T: 59 QT: 372 QTc: 422 Interpretive Statements SINUS RHYTHM WITH SINUS ARRHYTHMIA WITH FIRST DEGREE AV BLOCK LOW QRS VOLTAGE IN PRECORDIAL LEADS [QRS DEFLECTION < 1.0 mV IN CHEST LEADS] INFERIOR MYOCARDIAL INFARCTION , PROBABLY OLD [40+ ms Q WAVE AND/OR ST/T ABNORMALITY IN II/aVF] Compared to ECG 09/24/2018 14:09:57 Low QRS voltage now present Myocardial infarct finding now present T-wave abnormality no longer present Electronically Signed On 06-12-2023 9:02:03 COAL DUMPING EQUIPMENT OPERATOR by Dante Jeffers M.D. [id number]
[2023-06-11 23:45] LABS: Blood Urea Nitrogen 24 mg/dL (8-23); Calcium 9.2 mg/dL (8.5-10.5); Chloride 98 mmol/L (98-107); Glucose 56 mg/dL (65-115); NT Pro B Type Natriuretic Pept 283 pg/mL (0-450); Osmolality Calculated 286 mOsm/kg (285-295); Potassium 4.1 mmol/L (3.5-5.1); Sodium 137 mmol/L (136-145)
[2023-06-11 23:46] LABS: Albumin Level 3.5 g/dL (3.5-5.2); Alkaline Phosphatase 93 U/L (40-130); Anion Gap 17.1 (5-19); Carbon Dioxide 26 mmol/L (22-29); Globulin 3.1 g/dL (1.3-4.6); Total Protein 6.6 g/dL (6.6-8.7)
[2023-06-11 23:54] LABS: Troponin 5 2HR 14.81 ng/L (0-15); Troponin 5 2HR Delta -1.19 ABS# (0-10)
[2023-06-12] MEDS: HYDROcodone-acetaminophen 10-325 mg Tablet 1 TAB PO (00:32)
[2023-06-12 00:42] VITALS: BP 121/69; PULSE 66; RESP 18; O2SAT 96
--- NOTE | 2023-06-12 01:43 | W.ED.CHESTPA ---
HPI - Chest Pain General: Chief Complaint: Chest Pain Stated Complaint: back pain Time Seen by Provider: 06/11/23 21:09 History of Present Illness: 78-year-old male presents to the emergency department with complaints of back pain that feels like it is radiating to his chest. He has a history of a coronary artery stents. 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 He does have a PICC line in his upper arm he states that the pain seemed to be slightly worse approximately 1 hour ago. He denies nausea vomiting dizziness lightheaded feeling. He denies shortness of breath or exertional chest pain. He states that the pain that he feels is more in his back and states that the back pain is slightly worse if he leans against something. Review of Systems General: Reports: 10 or more systems reviewed and unremarkable except in HPI and below Musc: Reports: back pain [facility] ED PFSH: Medical History BPH with obstruction/lower urinary tract symptoms CAD (coronary artery disease) Cardiac dysrhythmia Carotid stenosis Charcot's joint, left ankle and foot Chest pain CHF (congestive heart failure) Diastolic heart failure DM neuro manif type II Essential hypertension GERD (gastroesophageal reflux disease) Gross hematuria HTN (hypertension) Hx of hypokalemia Hyperlipidemia, unspecified Hypertensive heart and chronic kidney disease with heart failure and stage 1 through stage 4 chronic kidney disease, or unspecified chronic kidney disease Obesity Recurrent urinary tract infection Renal failure Tinea cruris Type 2 diabetes mellitus with hyperglycemia Unspecified hearing loss, bilateral Surgical History History of ear surgery Hx of appendectomy Hx of below knee amputation Hx of circumcision Hx of hand surgery Hx of heart artery stent Hx of tonsillectomy Family History Father , AT AGE 67 CAD (coronary artery disease) Diabetes Leukemia Mother CHF (congestive heart failure) Social History Smoking and tobacco/nicotine status: former use of tobacco/nicotine Quit status (tobacco/nicotine): has quit using Year quit tobacco: 2015 Former quit date comment: 4ppd x 54 years Alcohol intake: never Substance/Drug Use: never Adopted: No Caregiver/support person: No Lives independently: No Household members: spouse Marital status: service: Yes Current occupational status: retired Physical Exam Narrative: EXAM NARRATIVE: Constitutional: the patient appears well nourished and with normal development. Vital signs reviewed as documented. No acute distress at present. HENMT: Normocephalic, atraumatic. Extermal ears with normal appearance without drainage. Nose without drainage, normal appearance. Mucus membranes moist. Neck is supple, No jugular venous distension, trachea is midline, no appreciable carotid bruits. No lymphadenopathy. No meningeal signs. Flexion, extension and lateral rotation is without pain. Eyes: Pupils are equal, round, reactive to light and accommodation. No scleral icterus. Extra-ocular movement are intact. Thorax is symmetrical and with equal rise and fall with respirations. Resp: Lungs are clear to auscultation. No wheezes, rales, crackles or ronchi at present. Cardio: Regular rate and rhythm. Positive S1, S2. No appreciable murmurs, rubs or gallops. GI: Abdominal exam reveals normal bowel sounds to all quadrants. No organomegaly. No obvious palpable masses noted. No hepatomegally appreciated. Soft, nontender to palpation. Extremity: Remaining extremities are non-edematous and both femoral pulses are 2+ and equal bilaterally. Moves all remaining extremities well, sensation in all remaining extremities. Left BKA noted. Right upper extremity PICC line Neuro: Alert and oriented x4, person, place, time and situation. Cranial nerves II through XII are grossly intact, there is no focal neurological deficits that I can appreciate at present. Motor strength in the upper and lower extremities are equal and bilateral 5/5. Psych: Cooperative, calm, normal thought process, appropriate judgment. Skin: No lesions, rashes. No gross abnormalities noted. Back: Symmetrical, no obvious deformity, No CVA tenderness Course Vital Signs: Vital signs: Vital Signs Temperature 98.1 F 06/12/23 01:51 Pulse Rate 66 06/12/23 01:51 Respiratory Rate 18 06/12/23 01:51 Blood Pressure 121/69 06/12/23 01:51 Pulse Oximetry 96 06/12/23 01:51 MDM - Chest Pain Medical Decision Making Physical exam completed and documented, I will obtain serial cardiac enzymes, serial twelve-lead EKGs, chest x-ray, CBC, CMP, urinalysis, B-type natriuretic peptide, PT/PTT/INR, and a chest x-ray. I provide cardiac dose aspirin if indicated and nitroglycerin administration if indicated. Pending the review of the twelve-lead EKG I will also consider providing loading dose of heparin and possible heparin drip as well as evaluate the need for nitroglycerin drip, and reevaluate accordingly. I will review any pervious and pertinent medical records for assist in obtaining beneficial medical information to improved the care and treatment of the patient. I will reevaluate in consider hospitalist consultation and cardiology consultation. Medical Records I reviewed the patient's medical records. Lab Data I reviewed the patient's lab results. 06/11/23 22:07 06/11/23 22:07 Radiology Impressions Chest X-Ray 06/11/23 21:36 IMPRESSION: 1. Bibasilar atelectasis versus minimal infiltrate. 2. Cardiomegaly. ADDENDUM: 06/11/23 [id number] Right-sided PICC line with tip in the superior vena cava. Laboratory Results WBC 9.89 10^3/uL (3.29-11.43) 06/11/23 22:07 RBC 3.94 10^6/uL (3.85-5.65) 06/11/23 22:07 Hgb 12.00 g/dL (11.27-16.99) 06/11/23 22:07 Hct 37.7 % (37-53) 06/11/23 22:07 MCV 95.7 fl (82-101) 06/11/23 22:07 MCH 30.5 pg (27-33) 06/11/23 22:07 MCHC 31.8 g/dL (30-55) 06/11/23 22:07 RDW 13.7 % (12.1-15.1) 06/11/23 22:07 Plt Count 217 10^3/cmm (157-399) 06/11/23 22:07 MPV 10.7 fL (7.4-10.4) H 06/11/23 22:07 Neut % (Auto) 58.6 % 06/11/23 22:07 Lymph % (Auto) 22.4 % 06/11/23 22:07 [place] % (Auto) 12.1 % 12/05/23 22:07 Eos % (Auto) 6.1 % 06/11/23 22:07 Baso % (Auto) 0.5 % 06/11/23 22:07 Neut # (Auto) 5.79 10^3/uL (1.8-7.7) 06/11/23 22:07 Lymph # (Auto) 2.2 10^3/uL (0.8-4.8) 06/11/23 22:07 [place] # (Auto) 1.2 10^3/uL (0.2-0.9) H 06/11/23 22:07 Eos # (Auto) 0.6 10^3/uL (0.0-0.8) 06/11/23 22:07 Baso # (Auto) 0.1 10^3/uL (0.0-0.1) 06/11/23 22:07 Nucleated RBC % (auto) 0 % 06/11/23 22:07 Nucleated RBCs # 0.0 /100WBC 06/11/23 22:07 PT 13.20 SECONDS (12.1-14.9) 06/11/23 22:07 INR 0.97 (0.8-1.2) 06/11/23 22:07 APTT 31.9 SECONDS (23.9-36.7) 06/11/23 22:07 Sodium 137 mmol/L (136-145) 06/11/23 22:07 Potassium 4.1 mmol/L (3.5-5.1) 06/11/23 22:07 Chloride 98 mmol/L (98-107) 06/11/23 22:07 Carbon Dioxide 26 mmol/L (22-29) 06/11/23 22:07 Anion Gap 17.1 (5-19) 06/11/23 22:07 BUN 24 mg/dL (8-23) H 06/11/23 22:07 Creatinine 1.1 mg/dL (0.7-1.2) 06/11/23 22:07 GFR Calculation Not Reportable 06/11/23 22:07 Glucose 56 mg/dL (65-115) L 06/11/23 22:07 POC Glucose 66 mg/dL (70-110) L 06/11/23 22:53 Calculated Osmolality 286 mOsm/kg (285-295) 06/11/23 22:07 Calcium 9.2 mg/dL (8.5-10.5) 06/11/23 22:07 Total Bilirubin 0.2 mg/dL (0.15-1.2) 06/11/23 22:07 AST 19 U/L (0-40) 06/11/23 22:07 ALT 13 U/L (0-41) 06/11/23 22:07 Alkaline Phosphatase 93 U/L (40-130) 06/11/23 22:07 Troponin T Baseline 16 ng/L (0-15) H 06/11/23 22:07 Troponin T 120 Minute 14.81 ng/L (0-15) 06/11/23 23:33 Delta Troponin T -1.19 ABS# (0-10) L 06/11/23 23:33 NT-Pro-B Natriuret Pep 283 pg/mL (0-450) 06/11/23 22:07 Total Protein 6.6 g/dL (6.6-8.7) 06/11/23 22:07 Albumin 3.5 g/dL (3.5-5.2) 06/11/23 22:07 Globulin 3.1 g/dL (1.3-4.6) 06/11/23 22:07 Urine Color Yellow (Yellow) 06/11/23 23:15 Urine Appearance Clear (CLEAR) 06/11/23 23:15 Urine pH 5 (5-7) 06/11/23 23:15 Ur Specific [place] 1.005 (1.005-1.030) 06/11/23 23:15 Urine Protein Neg (Negative) 06/11/23 23:15 Urine Glucose (UA) Norm (Normal) 06/11/23 23:15 Urine Ketones Negative (Negative) 06/11/23 23:15 Urine Blood 3+ (Negative) H 06/11/23 23:15 Urine Nitrate Negative (Negative) 06/11/23 23:15 Urine Bilirubin Neg (Negative) 06/11/23 23:15 Urine Urobilinogen Neg mg/dL (Negative) 06/11/23 23:15 Ur Leukocyte Esterase 1+ (Negative) H 06/11/23 23:15 Urine RBC 5-10 /hpf (0-2) H 06/11/23 23:15 Urine WBC 0-4 /hpf (0-5) H 06/11/23 23:15 Ur Squamous Epith Cells 5-10 /hpf (0-5) H 06/11/23 23:15 Amorphous Sediment Not Reportable 06/11/23 23:15 Urine Bacteria Trace /hpf (NONE) 06/11/23 23:15 All radiology interpretation(s) finalized by discharge Discharge Plan Discharge Patient Disposition: Home Clinical Impression: Atypical chest pain Condition: Stable Prescriptions: No Action (DME) blood-glucose meter [Accu-Chek Guide Glucose Meter] Misc See Rx Instructions .Route Rx Instructions: As directed alogliptin 12.5 mg tablet 12.5 mg PO DAILY amlodipine 5 mg tablet 5 mg PO DAILY ascorbic acid (vitamin C) 500 mg capsule 1,000 mg PO DAILY clopidogrel 75 mg tablet 75 mg PO DAILY finasteride 5 mg tablet 5 mg PO DAILY isosorbide mononitrate 30 mg tablet extended release 24 hr 30 mg PO DAILY lisinopril 2.5 mg tablet 2.5 mg PO DAILY loratadine 10 mg capsule 10 mg PO DAILY methenamine hippurate 1 gram tablet 1 g PO BID metolazone 2.5 mg tablet 2.5 mg PO BID nitroglycerin 0.4 mg tablet, sublingual 0.4 mg sublingual Q5M PRN (Reason: Chest pain) Rx Instructions: do not exceed 3 doses per episode omeprazole 20 mg capsule,delayed release(DR/EC) 20 mg PO DAILY furosemide 20 mg tablet 60 mg PO DAILY potassium chloride 20 mEq packet 40 meq PO TID pregabalin 25 mg capsule 25 mg PO DAILY venlafaxine 150 mg capsule,extended release 24hr 450 mg PO QAM lidocaine 5 % ointment 1 applic topical BID PRN (Reason: Pain) aspirin [Adult Low Dose Aspirin] 81 mg tablet,delayed release (DR/EC) 81 mg PO DAILY levothyroxine 25 mcg capsule 25 mcg PO DAILY atorvastatin 40 mg tablet 40 mg PO DAILY spironolactone 25 mg tablet 25 mg PO DAILY carvedilol 12.5 mg tablet 12.5 mg PO BID Rx Instructions: must administer with a meal/food hydrochlorothiazide 25 mg tablet 25 mg PO DAILY guaifenesin [Mucinex] 600 mg tablet extended release 12hr 600 mg PO BID PRN (Reason: Cough) insulin glargine [Lantus Solostar U-100 Insulin] 100 unit/mL (3 mL) insulin pen 160 unit SUBCUT BID gabapentin 300 mg capsule 600 mg PO TID triamcinolone acetonide 0.1 % lotion 1 applic topical BID Qty: 60 5RF insulin aspart U-100 [Novolog FlexPen U-100 Insulin] 100 unit/mL (3 mL) insulin pen 3 unit SUBCUT TID PRN (Reason: blood sugar) mupirocin 2 % ointment 1 applic topical BID Qty: 15 0RF albuterol sulfate 90 mcg/actuation HFA aerosol inhaler 2 inh INHALATION Q4H PRN (Reason: shortness of breath or wheezing) Qty: 8.5 3RF budesonide-formoterol 160-4.5 mcg/actuation HFA aerosol inhaler 2 puff inhalation BID Qty: 10.2 5RF (DME) Dexcom G6 Channel Cementer Misc See Rx Instructions .Route Qty: 1 0RF Rx Instructions: Check Bs 4-6 times a day. (DME) Dexcom G6 Sensor Device See Rx Instructions .Route Qty: 9 3RF Rx Instructions: Change every 10 days. (DME) Dexcom G6 Transmitter Device See Rx Instructions .Route Qty: 3 3RF Rx Instructions: Change every 90 days. tramadol 50 mg Tablet 50 mg PO DAILY PRN (Reason: Pain) Percocet 5-325 mg tablet 1 tab PO Q8H PRN (Reason: pain) Qty: 10 0RF Discharge Orders: Discharge ED (Routine); Ordered 06/12/23 Ordered By: Jerome Larkin Referrals: Heaven Levin MD [Primary Care Provider] - Discharge Diet: Advance as tolerated Discharge Activity: Resume usual activity Patient Instructions: Opioid Safety, Pain Management Activity Restrictions/Additional Instructions: Activity Restrictions/Additional Instructions: Thank you for choosing [facility] for your healthcare needs today. Please realize that you were seen in the Emergency Department and that we are providing you with an emergency medical screening exam and this may not be a complete and all inclusive of all the testing and or medical work-up that you may need to determine your ailment or severity of your illness. It is very important that you follow-up as instructed with your Primary care provider or Specialist for additional evaluation and to discuss your medical treatment plan. You may return to the Emergency Department should you have concerns or if your condition changes or worsens in any way. Coding Level of Care Code ED Clinical Documentation Specialist for Annie Flynn
[2023-06-12 01:51] VITALS: BP 121/69; PULSE 66; RESP 18; TEMP 36.7; O2SAT 96
[2023-06-12 02:28] LABS: Glucose Point of Care 66 mg/dL (70-110)
== END 2023-06-12 01:51 | disposition home or self-care (01) ==
PROVIDERS: Emergency Provider Internal Medicine; PCP Family Medicine
DX: R07.89 Other chest pain (principal); Z79.02 Long term (current) use of antithrombotics/antiplatelets; Z79.82 Long term (current) use of aspirin; Z79.4 Long term (current) use of insulin; Z87.891 Personal history of nicotine dependence; I25.10 Atherosclerotic heart disease of native coronary artery without angina pectoris; E78.5 Hyperlipidemia, unspecified; E11.22 Type 2 diabetes mellitus with diabetic chronic kidney disease; I13.0 Hypertensive heart and chronic kidney disease with heart failure and stage 1 through stage 4 chronic kidney disease, or unspecified chronic kidney disease; N18.9 Chronic kidney disease, unspecified; I50.9 Heart failure, unspecified; Z89.519 Acquired absence of unspecified leg below knee
CPT/HCPCS: 36415; 36416; 71045; 80053; 81001; 82962; 83880; 84484; 85025; 85610; 85730; 93005; 96374; 99285; J2270

== ENCOUNTER 2023-06-17 12:16 | Outpatient (CLI) | payer OTHER, MEDICARE, SELFPAY ==
[2023-06-17 13:14] LABS: Basophils % 0.4 %; Eosinophils # 0.4 10^3/uL (0.0-0.8); Eosinophils % 5.7 %; Hematocrit 34.6 % (37-53); Lymphocytes # 1.6 10^3/uL (0.8-4.8); Lymphocytes % 21.3 %; Mean Corpuscular HGB Conc 33.5 g/dL (30-55); Mean Corpuscular Volume 95.3 fl (82-101); Mean Platelet Volume 11.8 fL (7.4-10.4); Monocytes % 13.3 %; Nucleated Red Blood Cells % 0 %; Platelet Count 152 10^3/cmm (157-399); Red Blood Count 3.63 10^6/uL (3.85-5.65); Red Cell Distribution Width 13.7 % (12.1-15.1); White Blood Count 7.61 10^3/uL (3.29-11.43)
[2023-06-17 13:38] LABS: Erythrocyte Sedimentation Rate 16 mm/hr (0-10)
[2023-06-17 15:19] LABS: Alanine Aminotransferase 13 U/L (0-41); Albumin Level 3.5 g/dL (3.5-5.2); Alkaline Phosphatase 90 U/L (40-130); Anion Gap 15.2 (5-19); Aspartate Amino Transferase 17 U/L (0-40); Blood Urea Nitrogen 33 mg/dL (8-23); C Reactive Protein 13.1 mg/L (0.0-4.9); Calcium 8.8 mg/dL (8.5-10.5); Carbon Dioxide 29 mmol/L (22-29); Chloride 95 mmol/L (98-107); Globulin 2.9 g/dL (1.3-4.6); Glucose 98 mg/dL (65-115); Osmolality Calculated 287 mOsm/kg (285-295); Potassium 4.2 mmol/L (3.5-5.1); Sodium 135 mmol/L (136-145); Total Bilirubin 0.2 mg/dL (0.15-1.2); Total Protein 6.4 g/dL (6.6-8.7)
== END 2023-06-17 12:17 | disposition home or self-care (01) ==
PROVIDERS: PCP Family Medicine; Visit Provider Family Medicine
DX: Z01.89 Encounter for other specified special examinations (principal)
CPT/HCPCS: 80053; 85025; 85651; 86140

== ENCOUNTER 2023-06-17 14:13 | Outpatient (CLI) | payer OTHER, SELFPAY ==
--- NOTE | 2023-06-17 14:15 | CT_ITS ---
WS: [id number] CT chest wo con [id number] HISTORY: known t8 osteomyelitis with actinomyces TECHNIQUE: Axial imaging performed through the thorax. Coronal and sagittal reformats are submitted. All CT scans at [facility] use at least one of these dose optimization techniques: automated exposure control; mA and/or kV adjustment per patient size (includes targeted exams where dose is mat ched to clinical indication); or iterative reconstruction. CONTRAST: None DLP: 679.25 mGy.cm COMPARISON: 05/15/2021 Lungs and central airway: Mild dependent changes at the lung bases with thin linear scarring at the L EFT lung base. No mass or nodules. No pneumonia. Pleura: Normal. No pleural effusion. Heart and pericardium: Slightly enlarged heart. Dense calcification in the coronary arteries. Mediastinum and radha: Small mediastinal and hilar lymph nodes. These lymph nodes have slightly increa sed in number. The size is less than a centimeter. Vessels: Mild atherosclerosis aorta. No aneurysm. Normal size pulmonary artery. Chest wall and lower neck: Gynecomastia. Upper abdomen: No adrenal mass. Osseous structures: Extensive destructive changes in several contiguous mid thoracic vertebral bodies extending from T5-T9. Disc bases are narrowed. Endplates are destroyed. Sclerotic and lytic changes with adjacent paravertebral soft tissue and pleural thickening. The extent of disease has significant ly progressed since 05/15/2021. Small foci of air within the disc spaces of T6-7 and T8-9. Suspect thi s is treated osteomyelitis. No destructive rib process. IMPRESSION: 1. No pulmonary mass or consolidation. Mild dependent changes at the lung bases. 2. Extensive progression of lytic and sclerotic changes from T5-T9 since 05/15/2021. Suspect these are levels of healed osteomyelitis and discitis. On this examination it would be difficult to exclude ac shoshana superimposed ongoing osteomyelitis. There is a small amount of air within the discs of T6-7 and T 8-9.
== END 2023-06-17 14:14 | disposition home or self-care (01) ==
LOC: RAD 14:13
PROVIDERS: PCP Family Medicine; Visit Provider Student in an Organized Health Care Education/Training Program
DX: M46.26 Osteomyelitis of vertebra, lumbar region (principal); R93.7 Abnormal findings on diagnostic imaging of other parts of musculoskeletal system
CPT/HCPCS: 71250

== ENCOUNTER 2023-06-25 14:09 | Outpatient (CLI) | payer OTHER, SELFPAY ==
--- NOTE | 2023-06-25 14:30 | MR_ITS ---
WS: [id number] MRI THORACIC SPINE with and without contrast. HISTORY: t8 osteomyelitis COMPARISON: Chest CT 05/15/2021, 06/17/2023 TECHNIQUE: Multiplanar sequences are performed in sagittal and axial planes. Patient has known prior osteomyelitis in the mid thoracic spine. There has been a progression of bone destruction and disc destruction as compared to prior CT imaging. There is extensive loss of the normal disc space at T6-7 and T8-9. There is mixed signal along the di sc with enhancement. There is also mild enhancement within the T6-T9 vertebral bodies. Fluid with enh ancement extends into the facet joints of T6-7 and T8-9. On the axial imaging there is paravertebral soft tissue enhancement greatest over the RIGHT lateral vertebral bodies measuring up to 1.8 cm in di ameter. There is also dural enhancement extending from the T5 level through T9-10 disc level. Dural enhanceme nt is nearly contiguous both anterior and posterior, greatest amount of dural enhancement posterior. There is no central fluid collection but the amount of enhancement and with the adjacent infection, e pidural abscess should be considered. IMPRESSION: 1. Significant vertebral body and disc enhancement most significant involving T6-7 and T8-9 consisten t with acute discitis and osteomyelitis. 2. There is also paraspinal soft tissue enhancement associated with the levels of discitis and osteom yelitis. 3. Focal contiguous enhancement along the anterior and posterior epidural space from T5 to the T9-10 disc level highly suspicious for epidural abscesses. Additional enhancement extends into the facet jairo ints bilaterally at T6-7 and T8-9.
[2023-06-25] MEDS: gadobenate dimeglumine 20 mL vial IV (15:34)
== END 2023-06-25 14:10 | disposition home or self-care (01) ==
PROVIDERS: PCP Family Medicine; Visit Provider Student in an Organized Health Care Education/Training Program
DX: M46.24 Osteomyelitis of vertebra, thoracic region (principal); M46.44 Discitis, unspecified, thoracic region; Z87.891 Personal history of nicotine dependence
CPT/HCPCS: 72157; A9577; G0463

== ENCOUNTER 2023-07-03 15:29 | Emergency (ER) | payer OTHER, SELFPAY ==
[2023-07-03 15:39] VITALS: BP 143/77; PULSE 73; RESP 16; TEMP 37.1; O2SAT 98; BMI 33.7
--- NOTE | 2023-07-03 15:56 | ED_ITS ---
HPI - Back Pain/Injury 2 General: Chief Complaint: Back Pain/Injury Stated Complaint: back pains Time Seen by Provider: 07/03/23 15:46 Source: patient Mode of arrival: ambulatory Limitations: no limitations History of Present Illness: 78-year-old male that couple months ago was seen at [facility] in [place] had a biopsy of his spine done that showed organism growth that was cutibacterium and enteric coccus. Patient has been on IV ceftriaxone for 8 weeks along with oral Augmentin. Patient's continue to have back pain had an MRI done on the his family physician called him today and informed him the MRI showed which I have reviewed osteomyelitis with likely epidural abscess was sent here states his pain is sharp in nature rates it a 6 out of 10 denies any weakness denies any fevers. Associated symptoms: Deny abdominal pain, chills, fever(s), nausea or vomiting Review of Systems 2 Const: Denies: fever(s), chills, body aches or change in appetite Eyes: Denies: blurry vision or eye discomfort ENMT: Denies: throat pain or dental pain Card: Denies: chest pain Resp: Denies: dyspnea GI: Denies: abdominal pain, nausea, vomiting or diarrhea Musc: Reports: back pain; Denies: neck pain Skin/Breast: Denies: rash Neuro: Denies: headache(s) PFSH ED 2 PFSH: Medical History Chest pain Hx of hypokalemia Carotid stenosis Cardiac dysrhythmia Essential hypertension Hypertensive heart and chronic kidney disease with heart failure and stage 1 through stage 4 chronic kidney disease, or unspecified chronic kidney disease DM neuro manif type II Hyperlipidemia, unspecified Unspecified hearing loss, bilateral Charcot's joint, left ankle and foot Type 2 diabetes mellitus with hyperglycemia Renal failure Gross hematuria Obesity CAD (coronary artery disease) CHF (congestive heart failure) HTN (hypertension) Diastolic heart failure Recurrent urinary tract infection Tinea cruris BPH with obstruction/lower urinary tract symptoms GERD (gastroesophageal reflux disease) Surgical History Hx of heart artery stent Hx of appendectomy Hx of tonsillectomy Hx of below knee amputation History of ear surgery Hx of circumcision Hx of hand surgery Family History Father , AT AGE 67 CAD (coronary artery disease) Diabetes Leukemia Mother CHF (congestive heart failure) Social History Smoking and tobacco/nicotine status: former use of tobacco/nicotine Quit status (tobacco/nicotine): has quit using Year quit tobacco: 2016 Former quit date comment: 4ppd x 54 years Alcohol intake: never Substance/Drug Use: never Adopted: No Caregiver/support person: No Lives independently: No Household members: spouse Marital status: service: Yes Current occupational status: retired Physical Exam 2 Const: COMMON NORMALS: patient oriented x3 HENMT: COMMON NORMALS: normocephalic and atraumatic HEAD & SCALP: n ormocephalic and atraumatic Eye: COMMON NORMALS: Equal, round and reactive pupils present and EOMs intact bilaterally PUPIL: Yes Equal, round and reactive pupils present Neck/C-Spine: COMMON NORMALS: full ROM and supple Chest: COMMONS NORMALS: normal inspection of the chest Resp: COMMON NORMALS: normal respiratory effort Cardio: COMMON NORMALS: regular rate, regular rhythm and No murmurs present (Cardio) RATE: regular rate RHYTHM: regular rhythm Extremity: COMMON NORMALS: normal to inspection and full ROM Neuro: COMMON NORMALS: patient oriented x3, moves all extremities and no focal motor deficits Psych: COMMON NORMALS: mental status grossly normal, Normal thought process present and cooperative THOUGHT PROCESS: Normal thought process present Skin: COMMON NORMALS: no rashes or lesions noted and no wounds GENERAL SKIN EXAM: no rashes or lesions noted Course 2 Vital Signs: Vital signs: Vital Signs Temperature 98.7 F 07/03/23 15:39 Pulse Rate 77 07/03/23 18:18 Respiratory Rate 15 07/03/23 18:18 Blood Pressure 148/88 07/03/23 18:18 Pulse Oximetry 97 07/03/23 18:18 Oxygen Delivery Me thod Room Air 07/03/23 18:18 MDM - Back Pain/Injury Medical Decision Making Patient presents with back pain and had an MRI done on the that showed osteomyelitis along with possible epidural abscess patient had completed course of antibiotics for an osteomyelitis I spoke to hospitalist here Dr. Spicer recommended transfer as we do not have spine surgeon available at this time. I did speak to [facility] patient excepted there for higher level of care Medical Records I reviewed the patient's medical records. Labs I reviewed the patient's lab results. 07/03/23 15:36 07/03/23 15:36 Laboratory Results WBC 9.00 10^3/uL (3.29-11.43) 07/03/23 15:36 RBC 4.12 10^6/uL (3.85-5.65) 07/03/23 15:36 Hgb 12.60 g/dL (11.27-16.99) 07/03/23 15:36 Hct 38.6 % (37-53) 07/03/23 15:36 MCV 93.7 fl (82-101) 07/03/23 15:36 MCH 30.6 pg (27-33) 07/03/23 15:36 MCHC 32.6 g/dL (30-55) 07/03/23 15:36 RDW 13.7 % (12.1-15.1) 07/03/23 15:36 Plt Count 206 10^3/cmm (157-399) 07/03/23 15:36 MPV 10.7 fL (7.4-10.4) H 07/03/23 15:36 Neut % (Auto) 58.2 % 07/03/23 15:36 Lymph % (Auto) 29.7 % 07/03/23 15:36 [place] % (Auto) 8.6 % 07/03/23 15:36 Eos % (Auto) 3.1 % 07/03/23 15:36 Baso % (Auto) 0.2 % 07/03/23 15:36 Neut # (Auto) 5.24 10^3/uL (1.8-7.7) 07/03/23 15:36 Lymph # (Auto) 2.7 10^3/uL (0.8-4.8) 07/03/23 15:36 [place] # (Auto) 0.8 10^3/uL (0.2-0.9) 07/03/23 15:36 Eos # (Auto) 0.3 10^3/uL (0.0-0.8) 07/03/23 15:36 Baso # (Auto) 0.0 10^3/uL (0.0-0.1) 07/03/23 15:36 Nucleated RBC % (auto) 0 % 07/03/23 15:36 Nucleated RBCs # 0.0 /100WBC 07/03/23 15:36 ESR 14 mm/hr (0-10) H 07/03/23 15:36 Sodium 141 mmol/L (136-145) 07/03/23 15:36 Potassium 4.2 mmol/L (3.5-5.1) 07/03/23 15:36 Chloride 103 mmol/L (98-107) 07/03/23 15:36 Carbon Dioxide 25 mmol/L (22-29) 07/03/23 15:36 Anion Gap 17.2 (5-19) 07/03/23 15:36 BUN 31 mg/dL (8-23) H 07/03/23 15:36 Creatinine 1.4 mg/dL (0.7-1.2) H 07/03/23 15:36 GFR Calculation Not Reportable 07/03/23 15:36 Glucose 52 mg/dL (65-115) L 07/03/23 15:36 POC Glucose 133 mg/dL (70-110) H 07/03/23 17:38 Calculated Osmolality 296 mOsm/kg (285-295) H 07/03/23 15:36 Lactic Acid 0.6 mmol/L (0.5-2.2) 07/03/23 15:36 Calcium 9.1 mg/dL (8.5-10.5) 07/03/23 15:36 Total Bilirubin 0.2 mg/dL (0.15-1.2) 07/03/23 15:36 AST 14 U/L (0-40) 07/03/23 15:36 ALT 10 U/L (0-41) 07/03/23 15:36 Alkaline Phosphatase 88 U/L (40-130) 07/03/23 15:36 C-Reactive Protein 4.3 mg/L (0.0-4.9) 07/03/23 15:36 Total Protein 6.9 g/dL (6.6-8.7) 07/03/23 15:36 Albumin 3.8 g/dL (3.5-5.2) 07/03/23 15:36 Globulin 3.1 g/dL (1.3-4.6) 07/03/23 15:36 No radiology studies performed this visit Discharge Plan Discharge Patient Disposition: Xfer Short-Term Hosp Clinical Impression: Epidural abscess Condition: Stable Prescriptions: No Action (DME) blood-glucose meter [Accu-Chek Guide Glucose Meter] Misc See Rx Instructions .Route Rx Instructions: As directed alogliptin 12.5 mg tablet 12.5 mg PO DAILY amlodipine 5 mg tablet 5 mg PO DAILY ascorbic acid (vitamin C) 500 mg capsule 1,000 mg PO DAILY clopidogrel 75 mg tablet 75 mg PO DAILY finasteride 5 mg tablet 5 mg PO DAILY isosorbide mononitrate 30 mg tablet extended release 24 hr 30 mg PO DAILY lisinopril 2.5 mg tablet 2.5 mg PO DAILY loratadine 10 mg capsule 10 mg PO DAILY metolazone 2.5 mg tablet 2.5 mg PO DAILY nitroglycerin 0.4 mg tablet, sublingual 0.4 mg sublingual Q5M PRN (Reason: Chest pain) Rx Instructions: do not exceed 3 doses per episode omeprazole 20 mg capsule,delayed release(DR/EC) 20 mg PO DAILY furosemide 20 mg tablet 60 mg PO DAILY potassium chloride 20 mEq packet 60 meq PO TID pregabalin 25 mg capsule 25 mg PO DAILY venlafaxine 150 mg capsule,extended release 24hr 450 mg PO QAM aspirin [Adult Low Dose Aspirin] 81 mg tablet,delayed release (DR/EC) 81 mg PO DAILY levothyroxine 25 mcg capsule 25 mcg PO DAILY atorvastatin 40 mg tablet 40 mg PO DAILY spironolactone 25 mg tablet 25 mg PO DAILY carvedilol 12.5 mg tablet 12.5 mg PO BID Rx Instructions: must administer with a meal/food hydrochlorothiazide 25 mg tablet 25 mg PO DAILY guaifenesin [Mucinex] 600 mg tablet extended release 12hr 600 mg PO DAILY insulin glargine [Lantus Solostar U-100 Insulin] 100 unit/mL (3 mL) insulin pen 164 unit SUBCUT BID insulin aspart U-100 [Novolog FlexPen U-100 Insulin] 100 unit/mL (3 mL) insulin pen 3 unit SUBCUT TID PRN (Reason: blood sugar) folic acid 1 mg tablet 1 mg PO DAILY albuterol sulfate 90 mcg/actuation HFA aerosol inhaler 2 inh INHALATION Q4H PRN (Reason: shortness of breath or wheezing) Qty: 8.5 3RF budesonide-formoterol 160-4.5 mcg/actuation HFA aerosol inhaler 2 puff inhalation BID Qty: 10.2 5RF (DME) Dexcom G6 [employer] Misc See Rx Instructions .Route Qty: 1 0RF Rx Instructions: Check Bs 4-6 times a day. (DME) Dexcom G6 Sensor Device See Rx Instructions .Route Qty: 9 3RF Rx Instructions: Change every 10 days. (DME) Dexcom G6 Transmitter Device See Rx Instructions .Route Qty: 3 3RF Rx Instructions: Change every 90 days. amoxicillin-pot clavulanate 875-125 mg tablet 1 tab PO BID 30 Days Qty: 60 0RF buprenorphine HCl 300 mcg Film 300 mcg BUCCAL Q12H morphine 15 mg Tablet Extended Release 15 mg PO Q12H Vitamin D3 50 mcg (2,000 unit) Capsule 50 mcg PO DAILY mupirocin 2 % ointment 1 applic topical BID PRN (Reason: Rash) Referrals: Heaven Levin MD [Primary Care Provider] - Coding Level of Care Code ED Application Specialist for Kaitlynng Gee
[2023-07-03 16:16] LABS: Basophils % 0.2 %; Eosinophils # 0.3 10^3/uL (0.0-0.8); Eosinophils % 3.1 %; Hematocrit 38.6 % (37-53); Lymphocytes # 2.7 10^3/uL (0.8-4.8); Lymphocytes % 29.7 %; Mean Corpuscular HGB Conc 32.6 g/dL (30-55); Mean Corpuscular Hemoglobin 30.6 pg (27-33); Mean Corpuscular Volume 93.7 fl (82-101); Mean Platelet Volume 10.7 fL (7.4-10.4); Monocytes # 0.8 10^3/uL (0.2-0.9); Monocytes % 8.6 %; Neutrophils # 5.24 10^3/uL (1.8-7.7); Neutrophils % 58.2 %; Nucleated Red Blood Cells % 0 %; Platelet Count 206 10^3/cmm (157-399); Red Blood Count 4.12 10^6/uL (3.85-5.65); Red Cell Distribution Width 13.7 % (12.1-15.1)
[2023-07-03 16:18] LABS: Erythrocyte Sedimentation Rate 14 mm/hr (0-10)
[2023-07-03 16:33] VITALS: RESP 12; O2SAT 95
[2023-07-03 16:33] LABS: Alanine Aminotransferase 10 U/L (0-41); Albumin Level 3.8 g/dL (3.5-5.2); Alkaline Phosphatase 88 U/L (40-130); Anion Gap 17.2 (5-19); Aspartate Amino Transferase 14 U/L (0-40); Blood Urea Nitrogen 31 mg/dL (8-23); C Reactive Protein 4.3 mg/L (0.0-4.9); Calcium 9.1 mg/dL (8.5-10.5); Carbon Dioxide 25 mmol/L (22-29); Chloride 103 mmol/L (98-107); Globulin 3.1 g/dL (1.3-4.6); Glucose 52 mg/dL (65-115); Osmolality Calculated 296 mOsm/kg (285-295); Potassium 4.2 mmol/L (3.5-5.1); Sodium 141 mmol/L (136-145); Total Bilirubin 0.2 mg/dL (0.15-1.2); Total Protein 6.9 g/dL (6.6-8.7)
[2023-07-03] MEDS: morphine 4 mg/mL SDV 1 mL IVP (16:33)
[2023-07-03] MEDS: ondansetron 2 mg/ML SDV 2 mL 4 MG IVP (16:34)
--- NOTE | 2023-07-03 16:37 | PC.NURSE ---
blood glucose 54 via fingerstick. ED physician notified, and putting in new orders at this time.
[2023-07-03 16:39] LABS: Glucose Point of Care 54 mg/dL (70-110)
[2023-07-03] MEDS: sodium chloride 0.9% 1,000 ML 999 ML IV (16:46)
[2023-07-03] MEDS: vancomycin 1,000 MG in sodium chloride 0.9% 250 ML 250 MG IV (16:47)
[2023-07-03] MEDS: dextrose 50% syringe 50 mL IVP (16:47)
[2023-07-03 17:03] LABS: Lactic Sepsis W/Reflex 0.6 mmol/L (0.5-2.2)
[2023-07-03 17:05] VITALS: PULSE 100; RESP 12; O2SAT 95
[2023-07-03] MEDS: diphenhydrAMINE 50 mg/mL SDV 1mL 25 MG IVP (17:38)
--- NOTE | 2023-07-03 17:38 | PC.NURSE ---
pt states he started feeling itchy all over after starting vancomycin infusion. this nurse informed ED physician, new verbal orders to titrate vancomycin infusion down to 200mL/hr. pt developed mild generalized red rash on abd and leg. this nurse stopped infusion and notified ED physician, new orders for 25mg benadryl IVP.
--- NOTE | 2023-07-03 17:41 | PC.NURSE ---
glucose check via fingerstick 133. notified
[2023-07-03 17:52] LABS: Glucose Point of Care 133 mg/dL (70-110)
[2023-07-03 18:18] VITALS: BP 148/88; PULSE 77; RESP 15; O2SAT 97
--- NOTE | 2023-07-03 19:45 | PC.NURSE ---
report called by this nurse to Sharron Hastings RN at [facility] in [place]
--- NOTE | 2023-07-03 19:54 | PC.NURSE ---
pt and family updated on transfer status and nurse calling report.
[2023-07-03 21:04] VITALS: PULSE 90; RESP 16; O2SAT 96
--- NOTE | 2023-07-03 21:24 | PC.NURSE ---
report given to [facility]. [facility] left facility at approx [phone]
[2023-07-03 21:37] VITALS: PULSE 90; RESP 16; O2SAT 96
== END 2023-07-03 21:38 | disposition short-term general hospital (02) ==
PROVIDERS: Emergency Provider Emergency Medicine; PCP Family Medicine
DX: G06.2 Extradural and subdural abscess, unspecified (principal); Z79.02 Long term (current) use of antithrombotics/antiplatelets; Z79.82 Long term (current) use of aspirin; Z79.4 Long term (current) use of insulin; Z87.891 Personal history of nicotine dependence; E11.22 Type 2 diabetes mellitus with diabetic chronic kidney disease; I13.0 Hypertensive heart and chronic kidney disease with heart failure and stage 1 through stage 4 chronic kidney disease, or unspecified chronic kidney disease; N18.9 Chronic kidney disease, unspecified; I50.9 Heart failure, unspecified; E78.5 Hyperlipidemia, unspecified; I25.10 Atherosclerotic heart disease of native coronary artery without angina pectoris
CPT/HCPCS: 36416; 80053; 82962; 83605; 85025; 85651; 86140; 87040; 96365; 96375; 99284; J1200; J2270; J2405; J3370; J7030; J7050

== ENCOUNTER 2023-08-25 04:06 | Inpatient (IN) | payer OTHER, SELFPAY ==
[2023-08-25] VITALS (12 sets, daily range): BP systolic 122–151; BP diastolic 58–84; PULSE 61–139; RESP 10–19; TEMP 36.2–36.6; O2SAT 95–100; BMI 32.5; BMI 30.9
--- NOTE | 2023-08-25 04:11 | CTR_ITS ---
PROCEDURE INFORMATION: Exam: CT Head Without Contrast Exam date and time: 08/25/2023 4:40 AM Age: 78 years old Clinical indication: Altered mental status/memory loss; Patient HX: [facility] Patient very lethargic. TECHNIQUE: Imaging protocol: Computed tomography of the head without contrast. Radiation optimization: All CT scans at this facility use at least one of these dose optimization techniques: automated exposure control; mA and/or kV adjustment per patient size (includes targeted exams where dose is matched to clinical indication); or iterative reconstruction. COMPARISON: CT temporal bone wo con* [id number] 05/15/2021 11:22 AM RADIATION DOSE METRICS: Total DLP (mGy-cm): 1932.18 FINDINGS: Brain: There is mild small vessel disease. There is no evidence of acute parenchymal hemorrhage, extra-axial collection, or acute infarction. There is no mass effect, midline shift, or downward herniation. Cerebral ventricles: No ventriculomegaly. Paranasal sinuses: There is moderate paranasal sinus disease. Mastoid air cells: The patient appears to be status post bilateral tympanomastoidectomy surgery. There is complete opacification of the residual right mastoid air cells. Bones/joints: Unremarkable. No acute fracture. Soft tissues: Unremarkable. CT/CT head wo con* [id number] IMPRESSION: Mild small vessel disease. No evidence of acute intracranial process.
--- NOTE | 2023-08-25 04:11 | XRR_ITS ---
PROCEDURE INFORMATION: Exam: XR Chest Exam date and time: 08/25/2023 4:26 AM Age: 78 years old Clinical indication: Prior surgery; Surgery date: 6+ months; Surgery type: Coronary stent; Patient HX: EMS arrival from group home for [facility]. Patient has cough. History of chf and copd. TECHNIQUE: Imaging protocol: Radiologic exam of the chest. Views: 1 view. COMPARISON: [facility] [id number] 06/17/2023 2:41 PM FINDINGS: Tubes, catheters and devices: There is a right-sided PICC with its tip in the superior vena cava. Lungs: Unremarkable. No consolidation. Pleural spaces: Unremarkable. No pleural effusion. No pneumothorax. Heart/Mediastinum: Unremarkable. No cardiomegaly. Bones/joints: Unremarkable. XR/XR chest 1V portable [id number] IMPRESSION: No evidence of acute pulmonary process.
[2023-08-25 04:27] LABS: Basophils % 0.4 %; Eosinophils # 0.5 10^3/uL (0.0-0.8); Eosinophils % 6.8 %; Hematocrit 32.1 % (37-53); Lymphocytes # 1.6 10^3/uL (0.8-4.8); Lymphocytes % 21.4 %; Mean Corpuscular HGB Conc 31.8 g/dL (30-55); Mean Corpuscular Hemoglobin 28.8 pg (27-33); Mean Corpuscular Volume 90.7 fl (82-101); Mean Platelet Volume 10.1 fL (7.4-10.4); Monocytes # 0.7 10^3/uL (0.2-0.9); Monocytes % 9.5 %; Neutrophils # 4.51 10^3/uL (1.8-7.7); Neutrophils % 61.6 %; Nucleated Red Blood Cells % 0 %; Platelet Count 247 10^3/cmm (157-399); Red Blood Count 3.54 10^6/uL (3.85-5.65); Red Cell Distribution Width 13.3 % (12.1-15.1); White Blood Count 7.33 10^3/uL (3.29-11.43)
--- NOTE | 2023-08-25 04:33 | W.ED.AMS ---
HPI - Altered Mental Status General: Chief Complaint: Altered Mental Status Stated Complaint: AMS Time Seen by Provider: 08/25/23 04:07 Source: EMS Mode of arrival: EMS Limitations: no limitations History of Present Illness: 78-year-old male who had history of epidural abscess he had surgery for he is on IV antibiotics at local long term he is also on trazodone along with pain meds including fentanyl patches he said increased confusion over the last 2 weeks its gotten much worse over the last 2 days patient here able to tell me his name but not really able answer any other questions he states that he has been hallucinating grabbing at things in the air and has been very confused at the long term. He will not follow any commands for me Review of Systems General: Reports: ROS unobtainable due to mental status PFSH ED PFSH: Medical History Chest pain Hx of hypokalemia Carotid stenosis Cardiac dysrhythmia Essential hypertension Hypertensive heart and chronic kidney disease with heart failure and stage 1 through stage 4 chronic kidney disease, or unspecified chronic kidney disease DM neuro manif type II Hyperlipidemia, unspecified Unspecified hearing loss, bilateral Charcot's joint, left ankle and foot Type 2 diabetes mellitus with hyperglycemia Renal failure Gross hematuria Obesity CAD (coronary artery disease) CHF (congestive heart failure) HTN (hypertension) Diastolic heart failure Recurrent urinary tract infection Tinea cruris BPH with obstruction/lower urinary tract symptoms GERD (gastroesophageal reflux disease) Surgical History Hx of heart artery stent Hx of appendectomy Hx of tonsillectomy Hx of below knee amputation History of ear surgery Hx of circumcision Hx of hand surgery Family History Father , AT AGE 67 CAD (coronary artery disease) Diabetes Leukemia Mother CHF (congestive heart failure) Social History Smoking and tobacco/nicotine status: former use of tobacco/nicotine Quit status (tobacco/nicotine): has quit using Year quit tobacco: 2015 Former quit date comment: 4ppd x 54 years Alcohol intake: never Substance/Drug Use: never Adopted: No Caregiver/support person: No Lives independently: No Household members: spouse Marital status: service: Yes Current occupational status: retired Course Vital Signs: Vital signs: Vital Signs Temperature 97.2 F L 08/25/23 04:07 Pulse Rate 95 08/25/23 05:15 Respiratory Rate 17 08/25/23 05:15 Blood Pressure 122/76 08/25/23 05:15 Pulse Oximetry 97 08/25/23 05:15 Oxygen Delivery Me thod Room Air 08/25/23 05:15 Oxygen Flow Rate 2 08/25/23 04:07 MDM - Altered Mental Status Medical Decision Making Patient presents with altered mental status here from the long term had a history of osteomyelitis is currently on antibiotics for that he has no signs of acute infection no fever white counts normal patient is on multiple meds including fentanyl patches and trazodone AMS could be medication related head CT here is normal I spoke to the hospitalist will admit at this time. Medical Records I reviewed the patient's medical records. Lab Data I reviewed the patient's lab results. 08/25/23 04:21 08/25/23 04:21 Radiology Impressions Chest X-Ray 08/25/23 04:11 IMPRESSION: No evidence of acute pulmonary process. Head CT 08/25/23 04:11 IMPRESSION: Mild small vessel disease. No evidence of acute intracranial process. Laboratory Results WBC 7.33 10^3/uL (3.29-11.43) 08/25/23 04:21 RBC 3.54 10^6/uL (3.85-5.65) L 08/25/23 04:21 Hgb 10.20 g/dL (11.27-16.99) L 08/25/23 04:21 Hct 32.1 % (37-53) L 08/25/23 04:21 MCV 90.7 fl (82-101) 08/25/23 04:21 MCH 28.8 pg (27-33) 08/25/23 04:21 MCHC 31.8 g/dL (30-55) 08/25/23 04:21 RDW 13.3 % (12.1-15.1) 08/25/23 04:21 Plt Count 247 10^3/cmm (157-399) 08/25/23 04:21 MPV 10.1 fL (7.4-10.4) 08/25/23 04:21 Neut % (Auto) 61.6 % 08/25/23 04:21 Lymph % (Auto) 21.4 % 08/25/23 04:21 [place] % (Auto) 9.5 % 08/25/23 04:21 Eos % (Auto) 6.8 % 08/25/23 04:21 Baso % (Auto) 0.4 % 08/25/23 04:21 Neut # (Auto) 4.51 10^3/uL (1.8-7.7) 08/25/23 04:21 Lymph # (Auto) 1.6 10^3/uL (0.8-4.8) 08/25/23 04:21 [place] # (Auto) 0.7 10^3/uL (0.2-0.9) 08/25/23 04:21 Eos # (Auto) 0.5 10^3/uL (0.0-0.8) 08/25/23 04:21 Baso # (Auto) 0.0 10^3/uL (0.0-0.1) 08/25/23 04:21 Nucleated RBC % (auto) 0 % 08/25/23 04:21 Nucleated RBCs # 0.0 /100WBC 08/25/23 04:21 PT 14.20 SECONDS (12.1-14.9) 08/25/23 04:21 INR 1.07 (0.8-1.2) 08/25/23 04:21 Specimen Type Arterial 08/25/23 04:22 Sample Site Brachial, right 08/25/23 04:22 ABG pH 7.43 (7.35-7.45) 08/25/23 04:22 ABG pCO2 43.8 mmHg (35-45) 08/25/23 04:22 ABG pO2 85.1 mmHg (80.0-100.0) 08/25/23 04:22 ABG HCO3 28.9 mmol/L (22-26) H 08/25/23 04:22 ABG Base Excess 4.0 mmol/L (-2.0-2.0) H 08/25/23 04:22 Yunior Test N/a 08/25/23 04:22 Hematocrit 28.8 % (42-52) L 08/25/23 04:22 O2 Delivery Device Nc 08/25/23 04:22 O2 Liters/Min 2.0 % 08/25/23 04:22 Sterilization Tech ID [email or web address] 08/25/23 04:22 Sodium 143 mmol/L (136-145) 08/25/23 04:21 Potassium 3.1 mmol/L (3.5-5.1) L 08/25/23 04:21 Chloride 105 mmol/L (98-107) 08/25/23 04:21 Carbon Dioxide 28 mmol/L (22-29) 08/25/23 04:21 Anion Gap 13.1 (5-19) 08/25/23 04:21 BUN 18 mg/dL (8-23) 08/25/23 04:21 Creatinine 1.1 mg/dL (0.7-1.2) 08/25/23 04:21 GFR Calculation Not Reportable 08/25/23 04:21 Glucose 73 mg/dL (65-115) 08/25/23 04:21 POC Glucose 71 mg/dL (70-110) 08/25/23 04:36 Calculated Osmolality 296 mOsm/kg (285-295) H 08/25/23 04:21 Lactic Acid 0.7 mmol/L (0.5-2.2) 08/25/23 04:21 Calcium 8.4 mg/dL (8.5-10.5) L 08/25/23 04:21 Magnesium 1.8 mg/dL (1.7-2.3) 08/25/23 04:21 Total Bilirubin 0.3 mg/dL (0.15-1.2) 08/25/23 04:21 AST 16 U/L (0-40) 08/25/23 04:21 ALT 11 U/L (0-41) 08/25/23 04:21 Alkaline Phosphatase 109 U/L (40-130) 08/25/23 04:21 Ammonia 11 umol/L (16-60) L 08/25/23 04:21 NT-Pro-B Natriuret Pep 998 pg/mL (0-450) H 08/25/23 04:21 Total Protein 5.9 g/dL (6.6-8.7) L 08/25/23 04:21 Albumin 2.8 g/dL (3.5-5.2) L 08/25/23 04:21 Globulin 3.1 g/dL (1.3-4.6) 08/25/23 04:21 TSH 4.99 uIU/mL (0.27-4.20) H 08/25/23 04:21 Urine Color Yellow (Yellow) 08/25/23 05:04 Urine Appearance Cloudy (CLEAR) A 08/25/23 05:04 Urine pH 6 (5-7) 08/25/23 05:04 Ur Specific [place] 1.015 (1.005-1.030) 08/25/23 05:04 Urine Protein Neg (Negative) 08/25/23 05:04 Urine Glucose (UA) Norm (Normal) 08/25/23 05:04 Urine Ketones Negative (Negative) 08/25/23 05:04 Urine Blood Neg (Negative) 08/25/23 05:04 Urine Nitrate Negative (Negative) 08/25/23 05:04 Urine Bilirubin Neg (Negative) 08/25/23 05:04 Urine Urobilinogen Norm mg/dL (Negative) 08/25/23 05:04 Ur Leukocyte Esterase 1+ (Negative) H 08/25/23 05:04 Urine RBC 0-4 /hpf (0-2) H 08/25/23 05:04 Urine WBC 5-10 /hpf (0-5) H 08/25/23 05:04 Ur Squamous Epith Cells 25-40 /hpf (0-5) H 08/25/23 05:04 Amorphous Sediment Trace /hpf 08/25/23 05:04 Urine Bacteria Trace /hpf (NONE) 08/25/23 05:04 Urine Yeast 1+ /hpf H 08/25/23 05:04 Acetaminophen < 5.0 ug/mL (10-30) L 08/25/23 04:21 All radiology interpretation(s) finalized by discharge EKG Data EKG 1: I personally reviewed and interpreted this EKG as follows: EKG interpretation date: 08/25/23 EKG interpretation time: 04:36 Interpretation: nsr hr [address] or t wave abnormalities qrs 111 qtc 440 Discharge Plan Discharge Condition: Stable Prescriptions: No Action (DME) blood-glucose meter [Accu-Chek Guide Glucose Meter] Misc See Rx Instructions .Route Rx Instructions: As directed alogliptin 12.5 mg tablet 12.5 mg PO DAILY amlodipine 5 mg tablet 5 mg PO DAILY ascorbic acid (vitamin C) 500 mg capsule 1,000 mg PO DAILY clopidogrel 75 mg tablet 75 mg PO DAILY finasteride 5 mg tablet 5 mg PO DAILY isosorbide mononitrate 30 mg tablet extended release 24 hr 30 mg PO DAILY lisinopril 2.5 mg tablet 2.5 mg PO DAILY loratadine 10 mg capsule 10 mg PO DAILY metolazone 2.5 mg tablet 2.5 mg PO DAILY nitroglycerin 0.4 mg tablet, sublingual 0.4 mg sublingual Q5M PRN (Reason: Chest pain) Rx Instructions: do not exceed 3 doses per episode omeprazole 20 mg capsule,delayed release(DR/EC) 20 mg PO DAILY furosemide 20 mg tablet 60 mg PO DAILY potassium chloride 20 mEq packet 60 meq PO TID pregabalin 25 mg capsule 25 mg PO DAILY venlafaxine 150 mg capsule,extended release 24hr 450 mg PO QAM aspirin [Adult Low Dose Aspirin] 81 mg tablet,delayed release (DR/EC) 81 mg PO DAILY levothyroxine 25 mcg capsule 25 mcg PO DAILY atorvastatin 40 mg tablet 40 mg PO DAILY spironolactone 25 mg tablet 25 mg PO DAILY carvedilol 12.5 mg tablet 12.5 mg PO BID Rx Instructions: must administer with a meal/food hydrochlorothiazide 25 mg tablet 25 mg PO DAILY guaifenesin [Mucinex] 600 mg tablet extended release 12hr 600 mg PO DAILY insulin glargine [Lantus Solostar U-100 Insulin] 100 unit/mL (3 mL) insulin pen 164 unit SUBCUT BID insulin aspart U-100 [Novolog FlexPen U-100 Insulin] 100 unit/mL (3 mL) insulin pen 3 unit SUBCUT TID PRN (Reason: blood sugar) folic acid 1 mg tablet 1 mg PO DAILY albuterol sulfate 90 mcg/actuation HFA aerosol inhaler 2 inh INHALATION Q4H PRN (Reason: shortness of breath or wheezing) Qty: 8.5 3RF budesonide-formoterol 160-4.5 mcg/actuation HFA aerosol inhaler 2 puff inhalation BID Qty: 10.2 5RF (DME) Dexcom G6 Beekeeper Misc See Rx Instructions .Route Qty: 1 0RF Rx Instructions: Check Bs 4-6 times a day. (DME) Dexcom G6 Sensor Device See Rx Instructions .Route Qty: 9 3RF Rx Instructions: Change every 10 days. (DME) Dexcom G6 Transmitter Device See Rx Instructions .Route Qty: 3 3RF Rx Instructions: Change every 90 days. amoxicillin-pot clavulanate 875-125 mg tablet 1 tab PO BID 30 Days Qty: 60 0RF buprenorphine HCl 300 mcg Film 300 mcg BUCCAL Q12H morphine 15 mg Tablet Extended Release 15 mg PO Q12H Vitamin D3 50 mcg (2,000 unit) Capsule 50 mcg PO DAILY mupirocin 2 % ointment 1 applic topical BID PRN (Reason: Rash) Referrals: Heaven Levin MD [Primary Care Provider] - Patient Instructions: Altered Mental Status (ED) Coding Level of Care Code ED Currency Exchange Specialist for Annie Flynn
[2023-08-25 04:34] LABS: ABG PCO2 43.8 mmHg (35-45); ABG PH Result 7.43 (7.35-7.45); Arterial Blood Gas Hematocrit 28.8 % (42-52); Blood Gas Sample Site Brachial, right; Blood Gas Sample Type Arterial; HCO3 ABG 28.9 mmol/L (22-26); Oxygen Device NC; PO2 ABG 85.1 mmHg (80.0-100.0)
--- NOTE | 2023-08-25 04:36 | ECG_ITS ---
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 Measurements Intervals [place] Rate: 69 P: -10 ND: 279 QRS: 4 QRSD: 111 T: 61 QT: 421 QTc: 452 Interpretive Statements SINUS RHYTHM WITH FIRST DEGREE AV BLOCK MODERATE INTRAVENTRICULAR CONDUCTION DELAY [110+ ms QRS DURATION] Compared to ECG 06/12/2023 00:30:07 Intraventricular conduction delay now present Sinus arrhythmia no longer present Myocardial infarct finding no longer present Electronically Signed On 08-25-2023 7:49:57 [employer] by Rogelio Love M.D. [email or web address]
[2023-08-25 04:38] LABS: INR 1.07 (0.8-1.2)
[2023-08-25 04:40] LABS: Glucose Point of Care 71 mg/dL (70-110)
[2023-08-25 04:43] LABS: Lactic Sepsis W/Reflex 0.7 mmol/L (0.5-2.2)
[2023-08-25 04:45] LABS: Ammonia 11 umol/L (16-60)
[2023-08-25 04:55] LABS: Alanine Aminotransferase 11 U/L (0-41); Albumin Level 2.8 g/dL (3.5-5.2); Alkaline Phosphatase 109 U/L (40-130); Anion Gap 13.1 (5-19); Aspartate Amino Transferase 16 U/L (0-40); Blood Urea Nitrogen 18 mg/dL (8-23); Calcium 8.4 mg/dL (8.5-10.5); Carbon Dioxide 28 mmol/L (22-29); Chloride 105 mmol/L (98-107); Globulin 3.1 g/dL (1.3-4.6); Glucose 73 mg/dL (65-115); Magnesium 1.8 mg/dL (1.7-2.3); Osmolality Calculated 296 mOsm/kg (285-295); Potassium 3.1 mmol/L (3.5-5.1); Sodium 143 mmol/L (136-145); Thyroid Stimulating Hormone 4.99 uIU/mL (0.27-4.20); Total Bilirubin 0.3 mg/dL (0.15-1.2); Total Protein 5.9 g/dL (6.6-8.7)
[2023-08-25 04:56] LABS: Acetaminophen < 5.0 ug/mL (10-30)
[2023-08-25 05:20] LABS: NT Pro B Type Natriuretic Pept 998 pg/mL (0-450)
[2023-08-25 05:25] LABS: Add Urine Microscopic? YES
[2023-08-25 05:27] LABS: Amorphous Sediment Urine TRACE /hpf; Bacteria Urine TRACE /hpf; Bilirubin Urine Neg (Negative); Blood Urine Neg (Negative); Glucose Urine UA Norm (Normal); Ketones Urine Negative (Negative); Leukocyte Esterase Urine 1+ (Negative); Nitrate Urine Negative (Negative); Protein Urine Neg (Negative); RBC Urine 0-4 /hpf (0-2); Specific Gravity, Urine 1.015 (1.005-1.030); Squamous Epithelial Cell Urine 25-40 /hpf (0-5); Urine Appearance Cloudy (CLEAR); Urine Color Yellow (Yellow); Urobilinogen Urine Norm (Negative); pH Urine 6 (5-7)
[2023-08-25 05:28] LABS: Add Urine Culture? No
--- NOTE | 2023-08-25 05:39 | CTR_ITS ---
PROCEDURE INFORMATION: Exam: CT Lumbar Spine With Contrast Exam date and time: 08/25/2023 6:19 AM Age: 78 years old Clinical indication: Low back pain TECHNIQUE: Imaging protocol: Computed tomography of the lumbar spine with contrast. Radiation optimization: All CT scans at this facility use at least one of these dose optimization techniques: automated exposure control; mA and/or kV adjustment per patient size (includes targeted exams where dose is matched to clinical indication); or iterative reconstruction. Contrast material: OMNI 350; Contrast volume: 75 ml; Contrast route: INTRAVENOUS (IV); COMPARISON: CR XR lumbar spine 2-3V* [id number] 04/01/2023 1:49 PM RADIATION DOSE METRICS: Total DLP (mGy-cm): 1065.3 FINDINGS: Bones/joints: There is no evidence of acute fracture. There is straightening of lumbar lordosis. There is grade 1 retrolisthesis of L4 on L5. Otherwise alignment is maintained. There is moderate to advanced degenerative disc disease at L4-L5. L1-L2: There is mild diffuse disc bulging without significant spinal canal or neural foraminal stenosis. L2-L3: There is mild diffuse disc bulging and ligamentum flavum hypertrophy which causes mild spinal canal stenosis. The right neural foramen appears patent. There is [id number] left neural foraminal stenosis secondary to foraminal disc bulging and facet hypertrophy. L3-L4: There is xtze-pt-iulzczab spinal canal stenosis secondary to diffuse disc bulging and ligamentum flavum/facet hypertrophy. There is mild bilateral neural foraminal stenosis. L4-L5: There is mild spinal canal stenosis secondary to diffuse disc osteophyte bulging and ligamentum flavum hypertrophy. There is kmub-ko-ohwiauda bilateral neural foraminal stenosis secondary to foraminal disc bulging and facet hypertrophy. L5-S1: There is mild moderate diffuse disc bulging without significant spinal canal stenosis. There is severe left neural foraminal stenosis secondary to facet hypertrophy and foraminal disc bulging. There is cdlg-cl-hawqnzow right neural foraminal stenosis. Vasculature: There is heavy atherosclerotic disease noted. Soft tissues: Unremarkable. CT/CT lumbar spine w con [id number] IMPRESSION: 1. No evidence of acute fracture. 2. Degenerative changes as described. Please see above for specific findings at each level.
--- NOTE | 2023-08-25 05:39 | CTR_ITS ---
PROCEDURE INFORMATION: Exam: CT Thoracic Spine With Contrast Exam date and time: 08/25/2023 6:14 AM Age: 78 years old Clinical indication: Pain in thoracic spine; Additional info: Back pain TECHNIQUE: Imaging protocol: Computed tomography of the thoracic spine with contrast. Radiation optimization: All CT scans at this facility use at least one of these dose optimization techniques: automated exposure control; mA and/or kV adjustment per patient size (includes targeted exams where dose is matched to clinical indication); or iterative reconstruction. Contrast material: OMNI 350; Contrast volume: 75 ml; Contrast route: INTRAVENOUS (IV); COMPARISON: MR thoracic spine wo/w [id number] 06/25/2023 2:54 PM RADIATION DOSE METRICS: Total DLP (mGy-cm): 1338.48 FINDINGS: Bones/joints: Severe erosive changes are again identified at T6-T7 and T8-T9. There is slight grade 1 anterolisthesis of T5 and T6. Otherwise gross anatomic alignment is maintained. The spinal canal appears to be grossly patent. The patient is now status post multilevel laminectomy surgery with expected post laminectomy changes identified. Lungs: Multiple small bilateral pulmonary consolidations are now identified most notable in the posterior right upper lobe which were not seen on the chest CT from 06/17/2023. CT/CT thoracic spine w con [id number] IMPRESSION: 1. Severe erosive changes again seen at T6-T7 and T8-T9 suggestive of chronic discitis/osteomyelitis. The spinal canal appears patent. Clinical scenario should determine the need for MRI. 2. Multiple small bilateral pulmonary consolidations are identified which are new compared with 06/17/2023.
[2023-08-25] MEDS: iohexol 350 mg/mL 500 mL Btl (per mL) IV ×2 (06:28→06:29)
--- NOTE | 2023-08-25 09:16 | PC.NURSE ---
75mcg fentanyl patch removed and disposed of from left upper arm with Dr. Chinchilla as a witness.
--- NOTE | 2023-08-25 09:52 | PM.HP ---
Providers/Chief Complaint Admitting Physician: Rasta Chinchilla MD Primary Care Provider: Heaven Levin MD Chief Complaint: AMS History of Present Illness Kwasi Shi is a 78 year old male follows up with Dr. Spicer outpatient forActinomyces osteomyelitis of the T8, he was seen at [facility] initially for discitis, spinal abscess he also has history of left leg below-knee amputation, CHF, BPH, chronic kidney disease stage III, diabetes, presented to the ER for chief complaint of confusion for last 2 to 3 days. At time of evaluation patient is able to tell me that his name, date of he knows that he is in the hospital. Initially was concerned that he will need to be transferred to [facility] however CT scan of thoracolumbar region has not shown any sign of localized fluid collection, spinal canal seems patent, patient is able to void urine using a urinal, white count is 7000, no signs of sepsis, CT scan of thoracolumbar region did cloth picker consolidation in his lungs. Cloudy urine with 10 WBC. [facility]ed records from the [facility], patient is full code, he received daptomycin, currently is on ertapenem from [facility] last ertapenem dose is on 08/29 Review of Systems General: Reports: ROS unobtainable due to medical condition and ROS unobtainable due to mental status Medications/Allergies Home Medications Medication Instructions Recorded Confirmed Last Taken Type aspirin 81 mg tablet,delayed 81 mg PO DAILY 01/25/20 08/25/23 08/24/23 History release (Adult Low Dose Aspirin) levothyroxine 25 mcg capsule 25 mcg PO DAILY 01/25/20 08/25/23 08/24/23 History alogliptin 12.5 mg tablet 12.5 mg PO DAILY 11/23/20 08/25/23 08/24/23 History atorvastatin 40 mg tablet 40 mg PO BEDTIME 11/23/20 08/25/23 08/24/23 History blood-glucose meter (Accu-Chek 11/23/20 08/25/23 02/19/23 08:00 History Guide Glucose Meter) isosorbide mononitrate 30 mg 30 mg PO DAILY 11/23/20 08/25/23 08/24/23 History tablet,extended release 24 hr nitroglycerin 0.4 mg sublingual 0.4 mg sublingual Q5M PRN Chest 11/23/20 08/25/23 02/13/23 08:00 History tablet pain omeprazole 20 mg capsule,delayed 20 mg PO DAILY 11/23/20 08/25/23 08/24/23 History release hydrochlorothiazide 25 mg tablet 25 mg PO BID 07/18/21 08/25/23 08/24/23 History blood-glucose meter,continuous #1 ea 12/26/21 08/25/23 02/19/23 08:00 Rx (Dexcom G6 Health Lead) blood-glucose sensor (Dexcom G6 #9 ea 12/26/21 08/25/23 02/19/23 08:00 Rx Sensor device) blood-glucose transmitter (Dexcom #3 ea 12/26/21 08/25/23 02/19/23 08:00 Rx G6 Transmitter device) guaifenesin 600 mg tablet, 600 mg PO DAILY Cough 07/18/22 08/25/23 08/24/23 History extended release 12 hr (Mucinex) insulin glargine 100 unit/mL (3 25 unit SUBCUT BID 07/18/22 08/25/23 08/24/23 History mL) subcutaneous pen (Lantus Solostar U-100 Insulin) potassium chloride 20 mEq oral 20 meq PO TID 07/18/22 08/25/23 08/24/23 History packet pregabalin 25 mg capsule 25 mg PO BID 07/18/22 08/25/23 08/24/23 History insulin aspart U-100 100 unit/mL See Rx Instructions .Route 02/27/23 08/25/23 08/25/23 History (3 mL) subcutaneous pen (Novolog .COMPLEX PRN blood sugar FlexPen U-100 Insulin aspart) acetaminophen 325 mg tablet 650 mg PO Q6H PRN pain/increased 08/25/23 08/25/23 08/24/23 History temp bisacodyl 10 mg rectal suppository See Rx Instructions .Route 08/25/23 08/25/23 Unknown History .COMPLEX PRN Constipation bisacodyl 5 mg tablet,delayed See Rx Instructions .Route 08/25/23 08/25/23 Unknown History release (Dulcolax (bisacodyl)) .COMPLEX PRN Constipation carvedilol 6.25 mg tablet 6.25 mg PO BID 08/25/23 08/25/23 08/24/23 History cholecalciferol (vitamin D3) 25 50 mcg PO DAILY 08/25/23 08/25/23 08/24/23 History mcg (1,000 unit) tablet (Vitamin D3) cyclobenzaprine 5 mg tablet 5 mg PO TID PRN muscle spasms 08/25/23 08/25/23 08/24/23 History docusate sodium 100 mg capsule 200 mg PO TID PRN Constipation 08/25/23 08/25/23 08/24/23 History ertapenem 1 gram solution for 1 g IM Q3D 08/25/23 08/25/23 08/24/23 History injection fentanyl 75 mcg/hr transdermal 1 patch topical Q3D 08/25/23 08/25/23 08/24/23 History patch fluticasone propionate 50 1 spray intranasal DAILY PRN 08/25/23 08/25/23 Unknown History mcg/actuation nasal allergies spray,suspension formoterol fumarate 20 mcg/2 mL 20 mcg inhalation BID 08/25/23 08/25/23 08/24/23 History solution for nebulization furosemide 40 mg tablet 40 mg PO DAILY 08/25/23 08/25/23 08/24/23 History magnesium hydroxide 400 mg/5 mL See Rx Instructions .Route 08/25/23 08/25/23 Unknown History oral suspension (Milk of Magnesia) .COMPLEX PRN Constipation oxycodone 5 mg tablet 5 mg PO BID PRN Pain 08/25/23 08/25/23 08/24/23 History tamsulosin 0.4 mg capsule 0.4 mg PO BEDTIME 08/25/23 08/25/23 08/24/23 History venlafaxine 75 mg tablet 225 mg PO DAILY 08/25/23 08/25/23 08/24/23 History wound dressings (Triad Wound See Rx Instructions .Route .COMPLEX 08/25/23 08/25/23 08/24/23 History Dressing paste) Allergies Allergy/AdvReac Type Severity Reaction Status Date / Time penicillin G procaine Allergy Unknown Verified 06/13/23 14:27 Penicillins Allergy Unknown Verified 06/13/23 14:27 PFSH Acute PFSH: Medical History Chest pain Hx of hypokalemia Carotid stenosis Cardiac dysrhythmia Essential hypertension Hypertensive heart and chronic kidney disease with heart failure and stage 1 through stage 4 chronic kidney disease, or unspecified chronic kidney disease DM neuro manif type II Hyperlipidemia, unspecified Unspecified hearing loss, bilateral Charcot's joint, left ankle and foot Type 2 diabetes mellitus with hyperglycemia Renal failure Gross hematuria Obesity CAD (coronary artery disease) CHF (congestive heart failure) HTN (hypertension) Diastolic heart failure Recurrent urinary tract infection Tinea cruris BPH with obstruction/lower urinary tract symptoms GERD (gastroesophageal reflux disease) Surgical History Hx of heart artery stent Hx of appendectomy Hx of tonsillectomy Hx of below knee amputation History of ear surgery Hx of circumcision Hx of hand surgery Family History Father , AT AGE 67 CAD (coronary artery disease) Diabetes Leukemia Mother CHF (congestive heart failure) Social History Smoking and tobacco/nicotine status: former use of tobacco/nicotine Quit status (tobacco/nicotine): has quit using Year quit tobacco: 2015 Former quit date comment: 4ppd x 54 years Alcohol intake: never Substance/Drug Use: never Adopted: No Caregiver/support person: No Lives independently: No Household members: spouse Marital status: service: Yes Current occupational status: retired Vitals/I&O/Wt Last Vital Signs Temp 97.2 F L 08/25/23 04:07 Pulse 79 08/25/23 09:18 Resp 18 08/25/23 09:18 BP 151/84 08/25/23 09:18 Pulse Ox 96 08/25/23 09:18 O2 Del Method Room Air 08/25/23 09:18 O2 Flow Rate 2 08/25/23 04:07 08/24/23 08/25/23 08/25/23 22:59 06:59 14:59 Output Total 100 / 100 Balance -100 / -100 Weight last 48 hrs Weight 117.934 kg Physical Exam Narrative: Patient is able to follow commands, is moving his extremities Right below-knee amputation Able to void urine using a urinal Afebrile hemodynamically stable Dry mucous membranes Clinically looks dry Currently on room air Hypertensive Abdomen distended nontender Multiple petechiae abdominal wall Data 08/25/23 04:21 08/25/23 04:21 A&P Assessment and plan (1) HTN (hypertension): Qualifiers: Hypertension type: essential hypertension Qualified Code(s): I10 - Essential (primary) hypertension (2) CHF (congestive heart failure): Qualifiers: Heart failure chronicity: chronic Heart failure type: diastolic Qualified Code(s): I50.32 - Chronic diastolic (congestive) heart failure (3) Controlled type 2 diabetes mellitus with diabetic polyneuropathy, without long-term current use of insulin: (4) Acquired hypothyroidism: (5) Obesity: Qualifiers: Body mass index: BMI 38.0-38.9 Obesity classification: adult class 2 (BMI 35 - 39.9) Obesity type: unspecified obesity type Serious obesity comorbidity presence: with serious comorbidity Qualified Code(s): E66.01 - Morbid (severe) obesity due to excess calories; Z68.38 - Body mass index [BMI] 38.0-38.9, adult (6) Recurrent urinary tract infection: (7) BPH with obstruction/lower urinary tract symptoms: (8) Osteomyelitis of lumbar spine: (9) Osteomyelitis of thoracic spine: (10) Below-knee amputation of left lower extremity: Plan Acute metabolic encephalopathy Dehydration History of osteomyelitis discitis Diabetes mellitus type 2 Hypothyroidism Hypertension Hyperlipidemia Coronary artery disease CHF Recurrent UTI Likely etiology is polypharmacy versus pneumonia, patient takes pregabalin, fentanyl patch, opioids, trazodone cloudy urine with white count around 10, CT scan of lumbar thoracolumbar region did not show any localized fluid collection, spinal canal is patent He is afebrile Ultrasound sepsis I would continue broad-spectrum antibiotics Patient is from a [facility] records reviewed CT head unremarkable, NIH score 0 Requested blood culture, procalcitonin, Check sed rate, CRP Continue on vancomycin and meropenem at this time. Await urine culture Also suspicion of polypharmacy therefore I will hold fentanyl at this time. Order oxycodone 5 IR twice daily as needed for pain. No family available at bedside at this time. I will hold home Lasix at this time as patient appears slightly dehydrated. I will place on gentle fluid hydration Hold Lasix Insulin sliding scale low-dose intensity. Bedside nursing swallow evaluation once more awake and alert. Continue aspirin, Plavix, carvedilol Continue venlafaxine. DVT prophylaxis: Heparin We have removed fentanyl patch, would use opioids on as-needed basis Full code Cardiac consistent carb diet Attestations Medical Necessity Statement*: More than 2 midnights anticipated Diagnoses Essential hypertension I10 Hypertension type: essential hypertension Chronic diastolic congestive heart failure I50.32 Heart failure chronicity: chronic Heart failure type: diastolic Controlled type 2 diabetes mellitus with diabetic polyneuropathy, without long-term current use of insulin E11.42 Acquired hypothyroidism E03.9 Class 2 severe obesity with serious comorbidity and body mass index (BMI) of 38.0 to 38.9 in adult, unspecified obesity type E66.01; Z68.38 Body mass index: BMI 38.0-38.9 Obesity classification: adult class 2 (BMI 35 - 39.9) Obesity type: unspecified obesity type Serious obesity comorbidity presence: with serious comorbidity Recurrent urinary tract infection N39.0 BPH with obstruction/lower urinary tract symptoms N40.1; N13.8 Osteomyelitis of lumbar spine M46.26 Osteomyelitis of thoracic spine M46.24 Below-knee amputation of left lower extremity S88.112A
[2023-08-25 11:00] LABS: Erythrocyte Sedimentation Rate 12 mm/hr (0-10)
[2023-08-25] MEDS: meropenem 1,000 MG in sodium chloride 0.9% (plus) 50 ML 100 MG IV ×2 (11:18→17:18)
[2023-08-25] MEDS: heparin 5,000 unit/mL INJ 1 mL 5000 UNIT SUBCUT ×2 (11:18→22:27)
[2023-08-25] MEDS: sodium chloride 0.9% 1,000 ML 75 ML IV (11:19)
[2023-08-25 11:22] LABS: Lactic Sepsis W/Reflex 0.7 mmol/L (0.5-2.2)
[2023-08-25 11:26] LABS: Glucose Point of Care 78 mg/dL (70-110)
--- OUTSIDE RECORDS SUMMARY | 2023-08-25 11:27 | XMS_ITS | Continuity of Care Document ---
Author Name Unknown Organization [facility] Address [address] [place] [address]- Care Team Providers Care Fitter'S Assistant Name Role Phone Heaven Levin MD Primary Care Physician Unavailab le Encounter [employer] Number [id number] Date(s): 08/07/23 - 08/15/23 [facility] [address] [place] [phone] Encounter Diagnosis Infiltrate of lung present on imaging of chest(Discharge Diagnosis) - 08/08/23 CAD (coronary artery disease)(Discharge Diagnosis) - 08/08/23 Ulcer of sacral region(Discharge Diagnosis) - 08/08/23 Congestive heart failure(Discharge Diagnosis) - 08/08/23 History of left below knee amputation(Discharge Diagnosis) - 08/08/23 Chronic kidney disease, stage 4 (severe)(Discharge Diagnosis) - 08/08/23 Type 2 diabetes mellitus(Discharge Diagnosis) - 08/08/23 History of BPH(Discharge Diagnosis) - 08/08/23 Opioid dependence(Discharge Diagnosis) - 08/08/23 Vertebral osteomyelitis(Discharge Diagnosis) - 08/08/23 Epidural abscess(Discharge Diagnosis) - 08/08/23 Pulmonary nodules(Discharge Diagnosis) - 08/08/23 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) - 08/09/23 Hyperlipidemia(Discharge Diagnosis) - 08/08/23 Hypertension(Discharge Diagnosis) - 08/08/23 Infection due to ESBL-producing Klebsiella pneumoniae(Discharge Diagnosis) - 08/09/23 Pneumonia(Discharge Diagnosis) - 08/08/23 Discharge Disposition: .Discharge to Home (Routine) Attending Physician: Reinaldo Tyson MD Admitting Physician: Rhys Brantley DO Allergies, Adverse Reactions, Alerts Substance Reaction Severity Status penicillin Rash Unknown Active Bactrim Rash Itching Unknown Active Assessment and Plan Extracted from: Title:Discharge Note Author:Reinaldo Tyson MD Da te:08/15/23 Continuous [employer] Pick[employer] 08/07/23 23:04:00 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, SNF Evaluation, Physician Order ? Discharge 08/15/23 9:15:00 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, [facility] Facility ? Discharge Work/School/Daycare Restrictions 08/15/23 9:15:00 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, Return to work in: No Restrictions ? Discharge Follow Up 08/15/23 9:15:00 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, Provider/Time: Infectious DiseasesPMD, Vertebral osteomyelitis Epidural abscess Order Comment: Complete IV antibiotics on 08/29/23 Can remove PICC after thatWeekly CBC, CMP, CK starting Sunday 08/20. Send results to Dr. Szymanski Infectious Diseases ?? Contact Physician After Discharge 08/15/23 9:15:00 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, Contact Physician for: Fever greater than 101 ? Discharge Diet 08/15/23 9:15:00 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, Discharge Diet: Regular ? Discharge Activity 08/15/23 9:15:00 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, As tolerated ? Facility Discharge Plan 2-4 weeks, 08/15/23 9:15:00 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 ? Facility Discharge Occupational Therapy Eval and Treat 08/15/23 9:15:00 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 ? Facility Discharge Physical Therapy Eval and Treat 08/15/23 9:15:00 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 ? Facility Discharge Therapeutic Recreation Eval and Treat 08/15/23 9:15:00 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, as determined by facility ? Facility Discharge Code Status 08/15/23 9:15:00 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, Full Code ? Facility Discharge Diabetic Monitoring 08/15/23 9:15:00 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, AC & HS ? Facility Discharge Antibiotic 08/15/23 9:15:00 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, Spinal osteomyelitis ? Facility Discharge Additional Orders 08/15/23 9:15:00 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, Complete IV antibiotics on 08/29/23 Can remove PICC after thatWeekly CBC, CMP, CK starting Sunday 08/20. Send results to Dr. Szymanski Infectious Diseases ? Extracted from: Title:Progress SOAP Note Author:Reinaldo Tyson MD Date:08/14/23 1.??Vertebral osteomyelitis( Osteomyelitis of vertebra, site unspecified: M46.20) 2.??Epidural abscess(Extradural and subdural abscess, unspecified: G06.2) 3.??Pulmonary nodules(Other nonspecific abnormal finding of lung field: R91.8) 4.??Infiltrate of lung present on imaging of chest(Other nonspecific abnormal finding of lung field: R91.8) 5.??Ulcer of sacral region(Non-pressure chronic ulcer of back with unspecified severity: L98.429) 6.??CAD (coronary artery disease)(Atherosclerotic heart disease of [place] coronary artery without angina pectoris: I25.10) 7.??Congestive heart failure(Heart failure, unspecified: I50.9) 8.??Chronic kidney disease, stage 4 (severe)(Chronic kidney disease, stage 4 (severe): N18.4) 9.??Type 2 diabetes mellitus(Type 2 diabetes mellitus without complications: E11.9) 10.??Hypertension(Essential (primary) hypertension: I10) 11.??Hyperlipidemia(Hyperlipidemia, unspecified: E78.5) 12.??Opioid dependence(Opioid dependence, uncomplicated: F11.20) 13.??History of BPH(Personal history of other diseases of male genital organs: Z87.438) 14.??History of left below knee amputation(Acquired absence of left leg below knee: Z89.512) 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 Vertebral??osteomyelitis with??epidural??abscess status post??surgery during previous admission Appreciate infectious disease To continue??ertapenem??and daptomycin??until??08/29 Follow-up with infectious disease outpatient Continue PT OT ?? Pneumonia with??unspecified organism Resolved ?? Type 2 diabetes Lantus, sliding??scale insulin??and Accu-Cheks Linagliptin ?? Back??pain secondary to??surgery as above Continue fentanyl patch??and p.r.n.??medications ?? history??of CAD?? Continue??goal-directed therapy with??carvedilol, isosorbide??mononitrate,??Plavix? Mood??disorder Continue??pregabalin and venlafaxine ?? Hypothyroidism-Synthroid?? DVT??prophylaxis-heparin ?? Full code ?? Found placement at [facility]??- likely dc tomorrow? Extracted from: Title:Progress SOAP Note Author:Reinaldo Tyson MD Date:08/13/23 1.??Vertebral osteomyelitis( Osteomyelitis of vertebra, site unspecified: M46.20) 2.??Epidural abscess(Extradural and subdural abscess, unspecified: G06.2) 3.??Pulmonary nodules(Other nonspecific abnormal finding of lung field: R91.8) 4.??Infiltrate of lung present on imaging of chest(Other nonspecific abnormal finding of lung field: R91.8) 5.??Ulcer of sacral region(Non-pressure chronic ulcer of back with unspecified severity: L98.429) 6.??CAD (coronary artery disease)(Atherosclerotic heart disease of [place] coronary artery without angina pectoris: I25.10) 7.??Congestive heart failure(Heart failure, unspecified: I50.9) 8.??Chronic kidney disease, stage 4 (severe)(Chronic kidney disease, stage 4 (severe): N18.4) 9.??Type 2 diabetes mellitus(Type 2 diabetes mellitus without complications: E11.9) 10.??Hypertension(Essential (primary) hypertension: I10) 11.??Hyperlipidemia(Hyperlipidemia, unspecified: E78.5) 12.??Opioid dependence(Opioid dependence, uncomplicated: F11.20) 13.??History of BPH(Personal history of other diseases of male genital organs: Z87.438) 14.??History of left below knee amputation(Acquired absence of left leg below knee: Z89.512) 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 Vertebral??osteomyelitis with??epidural??abscess status post??surgery during previous admission Appreciate infectious disease To continue??ertapenem??and daptomycin??until??08/29 Follow-up with infectious disease outpatient Continue PT OT ?? Pneumonia with??unspecified organism Resolved ?? Type 2 diabetes Lantus, sliding??scale insulin??and Accu-Cheks Linagliptin ?? Back??pain secondary to??surgery as above Continue fentanyl patch??and p.r.n.??medications ?? history??of CAD?? Continue??goal-directed therapy with??carvedilol, isosorbide??mononitrate,??Plavix? Mood??disorder Continue??pregabalin and venlafaxine ?? Hypothyroidism-Synthroid?? DVT??prophylaxis-heparin ?? Full code ? Awaiting??placement? 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) 6.??CAD (coronary artery disease)(Atherosclerotic heart disease of [place] coronary artery without angina pectoris: I25.10) 7.??Congestive heart failure(Heart failure, unspecified: I50.9) 8.??Chronic kidney disease, stage 4 (severe)(Chronic kidney disease, stage 4 (severe): N18.4) 9.??Type 2 diabetes mellitus(Type 2 diabetes mellitus without complications: E11.9) 10.??Hypertension(Essential (primary) hypertension: I10) 11.??Hyperlipidemia(Hyperlipidemia, unspecified: E78.5) 12.??Opioid dependence(Opioid dependence, uncomplicated: F11.20) 13.??History of BPH(Personal history of other diseases of male genital organs: Z87.438) 14.??History of left below knee amputation(Acquired absence of left leg below knee: Z89.512) 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 Plan Vertebral??osteomyelitis with??epidural??abscess status post??surgery during previous admission Appreciate infectious disease To continue??ertapenem??and daptomycin??until??08/29 Follow-up with infectious disease outpatient Continue PT OT ?? Pneumonia with??unspecified organism Resolved ?? Type 2 diabetes Lantus, sliding??scale insulin??and Accu-Cheks Linagliptin ?? Back??pain secondary to??surgery as above Continue fentanyl patch??and p.r.n.??medications ?? history??of CAD?? Continue??goal-directed therapy with??carvedilol, isosorbide??mononitrate,??Plavix? Mood??disorder Continue??pregabalin and venlafaxine ?? Hypothyroidism-Synthroid?? DVT??prophylaxis-heparin ?? Full code ? Extracted from: Title:Progress SOAP Note Author:Bhavesh MILLER Onscout saldivar Date:08/11/23 1.??Vertebral osteomyelitis( Osteomyelitis of vertebra, site unspecified: M46.20) Ordered: CBC-d CMP Magnesium Serum zCBC Automated Diff ?? 2.??Epidural abscess(Extradural and subdural abscess, unspecified: G06.2) Ordered: CBC-d CMP Magnesium Serum zCBC Automated Diff ?? 3.??Pulmonary nodules(Other nonspecific abnormal finding of lung field: R91.8) Ordered: CBC-d CMP Magnesium Serum zCBC Automated Diff ?? 4.??Infiltrate of lung present on imaging of chest(Other nonspecific abnormal finding of lung field: R91.8) Ordered: CBC-d CMP Magnesium Serum zCBC Automated Diff ?? 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 6.??CAD (coronary artery disease)(Atherosclerotic heart disease of [place] coronary artery without angina pectoris: I25.10) Ordered: CBC-d CMP Magnesium Serum zCBC Automated Diff ?? 7.??Congestive heart failure(Heart failure, unspecified: I50.9) Ordered: CBC-d CMP Magnesium Serum zCBC Automated Diff ?? 8.??Chronic kidney disease, stage 4 (severe)(Chronic kidney disease, stage 4 (severe): N18.4) Ordered: CBC-d CMP Magnesium Serum zCBC Automated Diff ?? 9.??Type 2 diabetes mellitus(Type 2 diabetes mellitus without complications: E11.9) Ordered: CBC-d CMP Magnesium Serum zCBC Automated Diff ?? 10.??Hypertension(Essential (primary) hypertension: I10) Ordered: CBC-d CMP Magnesium Serum zCBC Automated Diff ?? 11.??Hyperlipidemia(Hyperlipidemia, unspecified: E78.5) Ordered: CBC-d CMP Magnesium Serum zCBC Automated Diff ?? 12.??Opioid dependence(Opioid dependence, uncomplicated: F11.20) Ordered: CBC-d CMP Magnesium Serum zCBC Automated Diff ?? 13.??History of BPH(Personal history of other diseases of male genital organs: Z87.438) ?? 14.??History of left below knee amputation(Acquired absence of left leg below knee: Z89.512) ?? 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 Infection due to ESBL-producing Klebsiella pneumoniae(Other bacterial infections of unspecified site: A49.8) ?? Pneumonia(Pneumonia, unspecified organism: J18.9) ? Plan CT imaging showed multilevel disc and osteomyelitis Neurosurgery evaluated and noted CT imaging showed high-grade destructive osteomyelitis and discitis however stated no additional surgical option given patient's age, comorbidities and anatomy. CT from outside facility showed RLL infiltrates obtain sputum cultures [facility] switched Cefepime and Vanc to Ertapenem and Daptomycin Will defer abx management to ID Continue Fentanyl patch PT/OT continue home meds ID and NS following ?? DVT prophylaxis Sq Heparin ? Extracted from: Title:Progress SOAP Note Author:Bhavesh MILLER, Onye a Date:08/10/23 1.??Vertebral osteomyelitis( Osteomyelitis of vertebra, site unspecified: M46.20) Ordered: CBC-d CMP Magnesium Serum zCBC Automated Diff ?? 2.??Epidural abscess(Extradural and subdural abscess, unspecified: G06.2) Ordered: CBC-d CMP Magnesium Serum zCBC Automated Diff ?? 3.??Pulmonary nodules(Other nonspecific abnormal finding of lung field: R91.8) Ordered: CBC-d CMP Magnesium Serum zCBC Automated Diff ?? 4.??Infiltrate of lung present on imaging of chest(Other nonspecific abnormal finding of lung field: R91.8) Ordered: CBC-d CMP Magnesium Serum zCBC Automated Diff ?? 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 6.??CAD (coronary artery disease)(Atherosclerotic heart disease of [place] coronary artery without angina pectoris: I25.10) Ordered: CBC-d CMP Magnesium Serum zCBC Automated Diff ?? 7.??Congestive heart failure(Heart failure, unspecified: I50.9) Ordered: CBC-d CMP Magnesium Serum zCBC Automated Diff ?? 8.??Chronic kidney disease, stage 4 (severe)(Chronic kidney disease, stage 4 (severe): N18.4) Ordered: CBC-d CMP Magnesium Serum zCBC Automated Diff ?? 9.??Type 2 diabetes mellitus(Type 2 diabetes mellitus without complications: E11.9) Ordered: CBC-d CMP Magnesium Serum zCBC Automated Diff ?? 10.??Hypertension(Essential (primary) hypertension: I10) Ordered: CBC-d CMP Magnesium Serum zCBC Automated Diff ?? 11.??Hyperlipidemia(Hyperlipidemia, unspecified: E78.5) Ordered: CBC-d CMP Magnesium Serum zCBC Automated Diff ?? 12.??Opioid dependence(Opioid dependence, uncomplicated: F11.20) Ordered: CBC-d CMP Magnesium Serum zCBC Automated Diff ?? 13.??History of BPH(Personal history of other diseases of male genital organs: Z87.438) ?? 14.??History of left below knee amputation(Acquired absence of left leg below knee: Z89.512) ?? 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 Infection due to ESBL-producing Klebsiella pneumoniae(Other bacterial infections of unspecified site: A49.8) ?? Pneumonia(Pneumonia, unspecified organism: J18.9) ? Plan CT imaging showed multilevel disc and osteomyelitis Neurosurgery evaluated and noted CT imaging showed high-grade destructive osteomyelitis and discitis however stated no additional surgical option given patient's age, comorbidities and anatomy. CT from outside facility showed RLL infiltrates obtain sp[facility] switched Cefepime and Vanc to Ertapenem and Daptomycin WIll defer abx management to ID Continue Fentanyl patch PT/OT continue home meds ID and NS following ?? DVT prophylaxis Sq Heparin ? Extracted from: Title:Progress SOAP Note Author:Lauren Armstrong Date:08/09/23 1.??Vertebral osteomyelitis( Osteomyelitis of vertebra, site unspecified: M46.20) Ordered: DAPTOmycin, 700 mg = 14 mL, INJ, IVPB, Daily, Start Date: 08/09/23 13:52:00 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, Duration: 21 Days, Stop date 08/29/23 9:00:00 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, Routine, Infuse over: 30 min, Disp Location: [facility], GEN DISP ertapenem, 1,000 mg, INJ, IV, Daily, Start Date: 08/09/23 13:50:00 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, Duration: 21 Days, Stop date 08/29/23 9:00:00 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, Routine, Infuse over: 30 min, Disp Location: [facility], GEN DISP MRSA Screen ?? Pneumonia(Pneumonia, unspecified organism: J18.9) Ordered: ertapenem, 1,000 mg, INJ, IV, Daily, Start Date: 08/09/23 13:50:00 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, Duration: 21 Days, Stop date 08/29/23 9:00:00 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, Routine, Infuse over: 30 min, Disp Location: [facility], GEN DISP ? Thoracic osteomyelitis with epidural abscess Decubitus ulcer, buttock Pneumonia, ??Klebsiella pneumoniae ESBL ?? Course:?? Progressing as expected. ?? Patient is an??78-year-old insulin-dependent??diabetic??obese male with recent??thoracic??osteomyelitis growing Cutibacterium and Enterococcus faecalis complicated by??an??epidural??abscess??status post??thoracic laminectomy with??decompression and evacuation of the epidural abscess??performed??on 07/05/2023??by Neurosurgeon,??Dr. Kolb??Pilo??.?? Reva PCR positive for multiple organisms, no further specific identification. Patient discharged to a SNF on 07/18/23 and returns with concerns for pneumonia on outside??CT scan with intermittent productive cough.?? Images has been reviewed, does not look like a dapto pneumonitis and no eosinophilia on CBC, however will stop dapto and ceftriaxone for now and switch atbx to for better pna coverage ??with??vancomycin and cefepime.?? Received results from??outside??lab sputum culture??positive??for Klebsiella??pneumoniae??ESBL,??will switch antibiotics??to ertapenem??and switch back??to daptomycin with no concerns??of pneumonitis??or??Gram-positive organism??in sputum culture??to complete his??course??of antibiotics through??08/29/23. Neurosurgery saw patient no further surgical interventions for his chronic thoracic back pain from the destruction??of the vertebrae from??OM not ongoing infection or recurrence of epidural abscess, michael??removed, incision looks??clean.?? Patient reports his??back??pain??is not??controlled, family states??only a fentanyl patch controlled his??pain at the facility.?No leukocytosis, CRP elevated. Blood cultures drawn, no growth to date. ??We will continue to follow??patient closely.? Recommendations:? 1.?? Stop ?cefepime??and vancomycin.?? Will switch to ertapenem and??back to daptomycin, infiltrate on imaging, not consistent??with daptomycin??pneumonitis and??no eosinophilia. 2.?? Follow BC, ngtd,??if positive will have to remove PICC line. 3.?? Patient's back pain not controlled, RN notifying hospitalist.? 4.?? Weekly PICC line dressing changes and monitor labs CBC, CMP, CK, and CRP. 5.?? Monitor sacral wound and wounds on R toes. 6.?Strep pneumo, Legionella ur antigens, discussed with RN to collect urine. 7.?? ID will follow. ?? I explained all??this to??patient and ?family??at bedside and??all questions??were answered. ? Extracted from: Title:Progress SOAP Note Author:Bhavesh MILLER, Onyem a Date:08/09/23 1.??Vertebral osteomyelitis( Osteomyelitis of vertebra, site unspecified: M46.20) Ordered: CBC-d CMP zCBC Automated Diff ?? 2.??Epidural abscess(Extradural and subdural abscess, unspecified: G06.2) Ordered: CBC-d CMP zCBC Automated Diff ?? 3.??Pulmonary nodules(Other nonspecific abnormal finding of lung field: R91.8) Ordered: CBC-d CMP zCBC Automated Diff ?? 4.??Infiltrate of lung present on imaging of chest(Other nonspecific abnormal finding of lung field: R91.8) Ordered: CBC-d CMP zCBC Automated Diff ?? 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 6.??CAD (coronary artery disease)(Atherosclerotic heart disease of [place] coronary artery without angina pectoris: I25.10) Ordered: CBC-d CMP zCBC Automated Diff ?? 7.??Congestive heart failure(Heart failure, unspecified: I50.9) Ordered: CBC-d CMP zCBC Automated Diff ?? 8.??Chronic kidney disease, stage 4 (severe)(Chronic kidney disease, stage 4 (severe): N18.4) Ordered: CBC-d CMP zCBC Automated Diff ?? 9.??Type 2 diabetes mellitus(Type 2 diabetes mellitus without complications: E11.9) Ordered: CBC-d CMP zCBC Automated Diff ?? 10.??Hypertension(Essential (primary) hypertension: I10) Ordered: CBC-d CMP zCBC Automated Diff ?? 11.??Hyperlipidemia(Hyperlipidemia, unspecified: E78.5) Ordered: CBC-d CMP zCBC Automated Diff ?? 12.??Opioid dependence(Opioid dependence, uncomplicated: F11.20) Ordered: CBC-d CMP zCBC Automated Diff ?? 13.??History of BPH(Personal history of other diseases of male genital organs: Z87.438) ?? 14.??History of left below knee amputation(Acquired absence of left leg below knee: Z89.512) ?? Pneumonia(Pneumonia, unspecified organism: J18.9) ?? Orders: fentaNYL, 1 patch, PATCH, TD, Q72H, Start Date: 08/09/23 12:00:00 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, Duration: 14 Days, Stop date: 08/21/23 12:00:00 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, Routine, Disp Location: [facility], GEN DISP ? Plan CT imaging showed multilevel disc and osteomyelitis Neurosurgery evaluated and note CT imaging showed high-grade destructive osteomyelitis and discitis however stated no additional surgical option is given patient age, comorbidities and anatomy. CT from outside facility showed RLL infiltrates sputum culture from outside facility per nurse report showed ESBL and Klebsiella Continue Cefepime and Vancomycin ID following Continue Fentanyl patch PT/OT continue home meds ?? DVT prophylaxis Sq Heparin ? Extracted from: Title:Progress SOAP Note Author:Lauren Armstrong Date:08/08/23 1.??Vertebral osteomyelitis( Osteomyelitis of vertebra, site unspecified: M46.20) Ordered: CK CRP MRSA Screen XR Chest 1 View ?? 2.??Epidural abscess(Extradural and subdural abscess, unspecified: G06.2) Ordered: ?? 4.??Infiltrate of lung present on imaging of chest(Other nonspecific abnormal finding of lung field: R91.8) ?? 5.??Ulcer of sacral region(Non-pressure chronic ulcer of back with unspecified severity: L98.429) ?? Pneumonia(Pneumonia, unspecified organism: J18.9) ?? Assessment/Plan Thoracic osteomyelitis with epidural abscess Decubitus ulcer, buttock Pneumonia ?? Course:?? Progressing as expected. ?? Patient is an??78-year-old insulin-dependent??diabetic??obese male with recent??thoracic??osteomyelitis growing Cutibacterium and Enterococcus faecalis complicated by??an??epidural??abscess??status post??thoracic laminectomy with??decompression and evacuation of the epidural abscess??performed??on 07/05/2023??by Neurosurgeon,??Dr. Kolb??Pilo??.?? Reva PCR positive for multiple organisms, no further specific identification. Patient discharged to a SNF on 07/18/23 and returns with concerns for pneumonia on outside??CT scan with intermittent productive cough.?? Images has been reviewed, does not look like a dapto pneumonitis and no eosinophilia on CBC, however will stop dapto and ceftriaxone for now and switch atbx to for better pna coverage and monitor patient.?? If continues to improve possibly discharge back to facility in a few days. Neurosurgery saw patient no further surgical interventions for his chronic thoracic back pain from the destruction??of the vertebrae from??OM not ongoing infection or recurrence of epidural abscess, will remove michael. ??No leukocytosis, CRP elevated. Blood cultures drawn, pending. Initial plan to continue dapto and ceftriaxone until 08/29/23.? Recommendations:? 1.?? Stop daptomycin and ceftriaxone, switch to vancomycin and cefepime.?? Monitor kidney function. 2.?? Follow BC, if positive will have to remove PICC line. 3.?? Back wound looks clean, staple removal planned. 4.?? Weekly PICC line dressing changes and monitor labs. 5.?? Monitor sacral wound. 6.?Strep pneumo, Legionella ur antigens and MRSA screen pending. 7.?? ID will follow. ?? I explained all??this to??patient and all questions??were answered. ? 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 ?? 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 ?? I have reviewed his outside hospital imaging. Patient reports feeling better from back pain standpoint and has been working with physical therapy. No fever or chills. He does not report shortness of breath. He does have report rare cough and he may produce sputum. On examination, he is moving air bilaterally with no evidence of crackles or wheezing. Cardiac examination with regular rate and rhythm. His back incision has michael which are intact. No wound dehiscence, no active discharge. Labs reviewed CBC with no leukocytosis, normal platelets, mild anemia on labs. No evidence of eosinophilia. CRP did elevate to 10.10 and his outpatient CRP has been around 30 mg/l. Imaging reviewed with repeat CXR. ?? Patient presented from outside hospital with concerns of pneumonia. I did review his outside CT and he does have right sided infiltrate predominantly posteriorly. Less likely daptomycin pneumonitis, expect somewhat different pattern with that and he does not have eosinophilia and CK is normal. Would treat as pneumonia and for lung coverage switch to vancomycin (dosed per pharmacy) and stop daptomycin. Discontinue ceftriaxone as well and start cefepime. Anticipate that he will need pneumonia coverage and then potentially switch back to previous dapto/ceftriaxone regime for total 8 week course. Check MRSA nares. Follow up on culture data. ?? Will follow Extracted from: Title:Progress SOAP Note Author:Bhavesh MILLER, Cesar saldivar Date:08/08/23 1.??Vertebral osteomyelitis( Osteomyelitis of vertebra, site unspecified: M46.20) 2.??Epidural abscess(Extradural and subdural abscess, unspecified: G06.2) 3.??Pulmonary nodules(Other nonspecific abnormal finding of lung field: R91.8) 4.??Infiltrate of lung present on imaging of chest(Other nonspecific abnormal finding of lung field: R91.8) 5.??Ulcer of sacral region(Non-pressure chronic ulcer of back with unspecified severity: L98.429) 6.??CAD (coronary artery disease)(Atherosclerotic heart disease of [place] coronary artery without angina pectoris: I25.10) 7.??Congestive heart failure(Heart failure, unspecified: I50.9) 8.??Chronic kidney disease, stage 4 (severe)(Chronic kidney disease, stage 4 (severe): N18.4) 9.??Type 2 diabetes mellitus(Type 2 diabetes mellitus without complications: E11.9) 10.??Hypertension(Essential (primary) hypertension: I10) 11.??Hyperlipidemia(Hyperlipidemia, unspecified: E78.5) 12.??Opioid dependence(Opioid dependence, uncomplicated: F11.20) 13.??History of BPH(Personal history of other diseases of male genital organs: Z87.438) 14.??History of left below knee amputation(Acquired absence of left leg below knee: Z89.512) Pneumonia(Pneumonia, unspecified organism: J18.9) Plan CT imaging showed multilevel disc and osteomyelitis Neurosurgery evaluated and note CT imaging showed high-grade destructive osteomyelitis and discitis however stated no additional surgical option is given patient age, comorbidities and anatomy. Awaiting ID eval Continue Cefepime and Vancomycin PT/OT continue home meds ?? DVT prophylaxis Sq Heparin ? Extracted from: Title:Admission H&P Note Author:Nereyda Zuniga Date:08/07/23 1.??Vertebral osteomyelitis( Osteomyelitis of vertebra, site unspecified: M46.20) 2.??Epidural abscess(Extradural and subdural abscess, unspecified: G06.2) 3.??Pulmonary nodules(Other nonspecific abnormal finding of lung field: R91.8) 4.??Infiltrate of lung present on imaging of chest(Other nonspecific abnormal finding of lung field: R91.8) 5.??Ulcer of sacral region(Non-pressure chronic ulcer of back with unspecified severity: L98.429) 6.??CAD (coronary artery disease)(Atherosclerotic heart disease of [place] coronary artery without angina pectoris: I25.10) 7.??Congestive heart failure(Heart failure, unspecified: I50.9) 8.??Chronic kidney disease, stage 4 (severe)(Chronic kidney disease, stage 4 (severe): N18.4) 9.??Type 2 diabetes mellitus(Type 2 diabetes mellitus without complications: E11.9) 10.??Hypertension(Essential (primary) hypertension: I10) 11.??Hyperlipidemia(Hyperlipidemia, unspecified: E78.5) 12.??Opioid dependence(Opioid dependence, uncomplicated: F11.20) 13.??History of BPH(Personal history of other diseases of male genital organs: Z87.438) 14.??History of left below knee amputation(Acquired absence of left leg below knee: Z89.512) Pneumonia(Pneumonia, unspecified organism: J18.9) ? PLAN: ?? Mr Varela has been transferred back to this facility for further evaluations and care due to concerning findings of possible pneumonia on CT chest done at outside facility yesterday 08/06.?? Dictated report is as above.?? Disc is with patient records and I have asked nursing staff to send to radiology to upload to PACS for review.?? Clinically, the patient denies signs or symptoms of pneumonia.?? Note made that Dr Jaramillo has directed for antibiotics to be further extended through 08/29.?? Will continue daptomycin and ceftriaxone as previously written.?? Will notify Dr Jaramillo of his admission. Will obtain blood cultures.?? Sputum culture, legionella and S pneumonia urinary antigens pending also. STAT cbc, cmp, mag now. Will notify Dr Daigle of patient's admission as he was to have post operative follow up with him tomorrow. Note that he has instructions to don TLSO brace when OOB.?? Previously issued braced was reportedly left at [facility]. His is to obtain and I have asked he request her to bring it here when she can visit. Consult PT/OT consult SW as he will likely need to return to SNF.?? Recently transferred to [facility] in [place]. Routine medications will be continued as deemed appropriate for maintenance of chronic conditions. Glycemic management protocol for h/o DM2. Regular diet Activity as tolerated with brace as above heparin subcu for VTE PPX Full code.?? He does not?? have advanced directives. ?? Patient was seen face to face, and examined in detail at the time of admission. ??The available labs, vitals, diagnostics, and documentation in the EHR ??were personally reviewed, Patient History & Physical reviewed and confirmed. ??Agree with documented and edited information. ??The plan of care was discussed with the patient. ? FRJ ? Future Appointments Appointment Date:09/04/2023 09:30:00 AM Scheduled Provider:Cortes Daigle MD Location:[facility] Appointment Type:Hospital Follow Up (New) Diagnostic Tests Pending * C Sputum (Gram Stain) 08/07/23 Immunizations Given and Recorded Vaccine Date Status Refusal Reason COVID-19 SARS-CoV-2 mRNA igadget.asia (adult) 10/20/20 R ecorded COVID-19 SARS-CoV-2 mRNA igadget.asia (adult) 09/29/20 R ecorded Medications alogliptin 12.5 mg oral tablet 12.5 mg = 1 tab, By mouth, Daily, Takes in AM, Refill(s) 0 Start Date: 02/21/21 Status: Ordered aspirin 81 mg oral tablet, chewable 81 mg = 1 tab, By mouth, Daily, Last Dose 09.20.21, Refill(s) 0 Start Date: 02/17/21 Status: Ordered atorvastatin 40 mg, By mouth, QPM (every evening), Takes in PM, Refill(s) 0 Start Date: 02/17/21 Status: Ordered carvedilol 6.25 mg, By mouth, BID, Takes twice a day, Refill(s) 0 Start Date: 02/17/21 Status: Ordered clopidogrel 75 mg, By mouth, QAM, Last Dose, Refill(s) 0 Start Date: 02/17/21 Status: Ordered Colace 100 mg oral capsule 200 mg = 2 cap, By mouth, TID, PRN for constipation, Takes three times a day, Refill(s) 0 Start Date: 02/21/21 Status: Ordered cyclobenzaprine 5 mg oral tablet 5 mg = 1 tab, By mouth, TID, PRN Muscle Spasms, Refill(s) 0, TAB Start Date: 07/18/23 Status: Ordered DAPTOmycin 700 mg, = 14 mL, IVPB, Daily, 0, 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 Permitted, Vertebral osteomyelitis Start Date: 08/15/23 Stop Date: 08/29/23 Status: Ordered ertapenem 1 g injection 1,000 mg, IV, Daily, 0, 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 Permitted, Epidural abscess Start Date: 08/15/23 Stop Date: 08/29/23 Status: Ordered fentaNYL 12 mcg/hr transdermal film, extended release 1 patch, TD, Q72H, 5 patch, 0, 0, 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 Permitted Start Date: 08/15/23 Stop Date: 08/29/23 Status: Ordered Flomax 0.4 mg oral capsule 0.4 mg = 1 cap, By mouth, Daily, Refill(s) 0, CAP Start Date: 07/18/23 Status: Ordered Flonase 50 mcg/inh nasal spray 1 spray, Both Nostrils, as needed, Uses as needed Start Date: 02/21/21 Status: Ordered formoterol 20 mcg/2 mL inhalation solution 20 = mcg 2 mL, Inhalation, BID, Refill(s) 0, INH Start Date: 08/15/23 Status: Ordered guaiFENesin 600 mg oral tablet, extended release 600 mg = 1 tab, By mouth, BID, Refill(s) 0, SR TAB Start Date: 08/15/23 Status: Ordered isosorbide mononitrate 30 mg, By mouth, QAM, Takes in AM, Refill(s) 0 Start Date: 02/17/21 Status: Ordered LanTUS 100 units/mL subcutaneous solution 20 Units, SubQ, BID, Refill(s) 0, Diabetes, TRISTIN Start Date: 07/18/23 Status: Ordered Lasix 40 mg oral tablet 40 mg = 1 tab, By mouth, Daily, Refill(s) 0, TAB Start Date: 07/18/23 Status: Ordered levothyroxine 25 mcg, By mouth, Daily, Takes in AM, Refill(s) 0 Start Date: 02/17/21 Status: Ordered nitroglycerin 0.3 mg sublingual tablet 0.3 mg = 1 tab, SL, Q5Min, PRN for chest pain, Takes as needed Start Date: 09/18/21 Status: Ordered omeprazole 20 mg, By mouth, Daily, 0, 02/17/21 12:47:00 CDT, 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 Permitted Start Date: 02/17/21 Status: Ordered oxyCODONE 5 mg oral tablet 5 mg, = 1 tab, By mouth, Q4H, PRN Pain Severe (7-10), 7 Days, 10 tab, 0, 0, 08/22/23 9:08:00 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, 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 Permitted Start Date: 08/15/23 Stop Date: 08/22/23 Status: Ordered potassium chloride 20 mEq oral tablet, extended release 20 mEq = 1 tab, By mouth, TID, Refill(s) 0, SR TAB Start Date: 08/15/23 Status: Ordered pregabalin 25 mg oral capsule 25 mg, = 1 cap, By mouth, BID, 60 cap, 0, 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 Permitted Start Date: 07/04/23 Status: Ordered venlafaxine 75 mg, By mouth, BID, Takes twice a day Two in AM One in PM, Refill(s) 0 Start Date: 02/17/21 Status: Ordered Vitamin D3 (cholecalciferol) 2,000 IntUnit, By mouth, Daily, Last Dose 09.20.21, Refill(s) 0 Start Date: 02/17/21 Status: Ordered Problem List Condition Confirmation Course Effective Dates Status H ealth Status Informant Bilateral hearing loss Confirmed Active Carotid stenosis Confirmed Active Charcot's joint Confirmed Active Chronic kidney disease, stage 4 (severe) Confirmed Active Chronic pain Confirmed Active Congestive heart failure Confirmed Active CAD (coronary artery disease) Confirmed Active Epidural abscess Confirmed Active Ex-smoker Confirmed Active patient Gastroesophageal reflux disease Confirmed Active History of BPH Confirmed Active History of left below knee amputation Confirmed Active History of recurrent UTI (urinary tract infection) Confirmed Active Hyperlipidemia Confirmed Active Hypertension Confirmed Active MRSA (methicillin resistant Staphylococcus aureus) 1 Confirmed Active Pulmonary nodules Confirmed Active Opioid dependence Confirmed Active Vertebral osteomyelitis Confirmed Active Infiltrate of lung present on imaging of chest Confirmed Active Ulcer of sacral region Confirmed Active Type 2 diabetes mellitus Confirmed Active 1Surgical collected 02/23/21 11:29:00 CDT Procedures Procedure Date Related Diagnosis Body Site Status Right long finger flexor ten don sheath exploration, tenolysis, and flexor digitorum sublimis reconstruction using flexor digitorum profundus remnant graft. 09/27/21 Completed Right Ear Bone Surgery 06/29/21 Co mpleted Finger Amputation 02/2021 Complet ed Basal Cell Removed from Back 2019 Completed Basal Cell Removed from Face 2017 Completed Left Tendon Repair on Knuckle 2017 Completed Cardiac Catherization 2016 C ompleted Left Leg Amputation 2016 Compl eted Cardiac Catherization 2014 Com pleted Eye Surgery 2014 Completed Ear Surgery 2009 Completed Appendectomy 1968 Completed Ear Surgery 1965 Completed Tonsillectomy 1965 Completed 1Total of 8 stents Results Laboratory List Name Date CBC-d 08/15/23 CK 08/15/23 CMP 08/15/23 CRP 08/15/23 zCBC Automated Diff 08/15/23 Magnesium Serum (Mg Serum) 08/15/23 Magnesium Serum (Mg Serum) 08/14/23 Magnesium Serum (Mg Serum) 08/13/23 CBC-d (CBC with diff) 08/12/23 CMP 08/12/23 zCBC Automated Diff 08/12/23 CBC-d (CBC with diff) 08/11/23 CMP 08/11/23 zCBC Automated Diff 08/11/23 LTC Facility Discharge CV-19 Screening ( LTC Facility Discharge CV-19 Screen) 08/08/23 CK 08/08/23 CRP 08/08/23 Most recent to oldest [Reference Range]: 1 2 3 Bedside Glucose 167 mg/dL 1 (08/15/23 7:37 AM) 150 mg/dL 2 (08/14/23 11:36 PM) 157 mg/dL 3 (08/14/23 9:01 PM) Anion Gap [2-15 mEq/L] 10 mEq/L (08/15/23 10:31 AM) 2 mEq/L (08/12/23 6:52 AM) 7 mEq/L (08/11/23 3:47 AM) COVID-19 Rapid Ag [NEG] NEG (08/08/23 4:19 PM) eGFR CKD-EPI [>=61 mL/min/1. 73 m2] 69 mL/min/1.73 m2 (08/15/23 10:31 AM) 64 mL/min/1.73 m2 (08/12/23 6:52 AM) 66 mL/min/1.73 m2 (08/11/23 3:47 AM) Glucose, Serum/Plasma [70-10 0 mg/dL] 203 mg/dL *HI* (08/15/23:31 AM) 91 mg/dL (08/12/23 6:52 AM) 71 mg/dL (08/11/23 3:47 AM) WBC [4.8-10.8 Thous/mm3] 11.0 Thous/mm3 *HI* (08/15/23:31 AM) 9.6 Thous/mm3 (08/12/23 6:52 AM) 8.3 Thous/mm3 (08/11/23 3:47 AM) Hct [42.0-52.0 %] 33.9 % *LOW* (08/15/23:31 AM) 30.8 % *LOW* (08/12/23 6:52 AM) 30.6 % *LOW* (08/11/23 3:47 AM) Hgb [14.0-18.0 g/dL] 11.1 g/dL *LOW* (08/15/23 10:31 AM) 9.9 g/dL *LOW* (08/12/23 6:52 AM) 9.8 g/dL *LOW* (08/11/23 3:47 AM) RBC [4.60-6.20 Million/mm3] 3.76 Million /mm3 *LOW* (08/15/23 10:31 AM) 3.39 Million/mm3 *LOW* (08/12/23 6:52 AM) 3.32 Million/mm3 *LOW* (08/11/23 3:47 AM) MCV [80.0-100.0 fl] 90.2 fl (08/15/23 10:31 AM) 90.9 fl (08/12/23 6:52 AM) 92.2 fl (08/11/23 3:47 AM) MCH [26.0-34.0 pg] 29.5 pg (08/15/23 10:31 AM) 29.2 pg (08/12/23 6:52 AM) 29.5 pg (08/11/23 3:47 AM) MCHC [31.0-36.5 g/dL] 32.7 g/dL (2/8/24 10:31 AM) 32.1 g/dL (08/12/23 6:52 AM) 32.0 g/dL (08/11/23 3:47 AM) RDW [10.4-14.4 %] 13.2 % (08/15/23 10:31 AM) 13.4 % (08/12/23 6:52 AM) 13.3 % (08/11/23 3:47 AM) Platelets [130-440 Thous/mm3] 385 Thous/ mm3 (08/15/23:31 AM) 289 Thous/mm3 (08/12/23 6:52 AM) 284 Thous/mm3 (08/11/23 3:47 AM) MPV [9.4-12.4 fl] 10.2 fl (08/15/23: AM) 9.5 fl (08/12/23 6:52 AM) 10.0 fl (08/11/23 3:47 AM) AutoNeutrophil [43.0-78.0 %] 74.6 % (08/15/23:31 AM) 68.0 % (08/12/23 6:52 AM) 64.2 % (08/11/23 3:47 AM) AutoLymphs [20.0-40.0 %] 12.1 % *LOW* (08/15/23:31 AM) 16.9 % *LOW* (08/12/23 6:52 AM) 18.7 % *LOW* (08/11/23 3:47 AM) AutoMono [2.0-10.0 %] 8.5 % (08/15/23:31 AM) 9.5 % (08/12/23 6:52 AM) 10.9 % *HI* (08/11/23 3:47 AM) AutoEo [0.0-7.0 %] 4.0 % (08/15/23:31 AM) 5.0 % (08/12/23 6:52 AM) 5.3 % (08/11/23 3:47 AM) Sodium [136-145 mEq/L] 136 mEq/L (08/15/23:31 AM) 138 mEq/L (08/12/23 6:52 AM) 140 mEq/L (08/11/23 3:47 AM) Potassium [3.5-5.1 mEq/L] 4.3 mEq/L (08/15/23:31 AM) 4.1 mEq/L (08/12/23 6:52 AM) 4.2 mEq/L (08/11/23 3:47 AM) Chloride [98-107 mEq/L] 102 mEq/L (08/15/23:31 AM) 110 mEq/L *HI* (08/12/23 6:52 AM) 110 mEq/L *HI* (08/11/23 3:47 AM) AbsNeut [2.0-8.0 Thous/mm3] 8.2 Thous/mm 3 *HI* (08/15/23:31 AM) 6.5 Thous/mm3 (08/12/23 6:52 AM) 5.4 Thous/mm3 (08/11/23 3:47 AM) CO2 [21-32 mEq/L] 24 mEq/L (08/15/23:31 AM) 26 mEq/L (08/12/23 6:52 AM) 23 mEq/L (08/11/23 3:47 AM) BUN [7-18 mg/dL] 15 mg/dL (08/15/23:31 AM) 19 mg/dL *HI* (08/12/23 6:52 AM) 19 mg/dL *HI* (08/11/23 3:47 AM) Creatinine [0.73-1.18 mg/dL] 1.09 mg/dL (08/15/23:31 AM) 1.15 mg/dL (08/12/23 6:52 AM) 1.12 mg/dL (08/11/23 3:47 AM) AbsLymph [1.0-4.0 Thous/mm3] 1.3 Thous/m m3 (08/15/23 10:31 AM) 1.6 Thous/mm3 (08/12/23 6:52 AM) 1.6 Thous/mm3 (08/11/23 3:47 AM) AbsMono [0.1-1.0 Thous/mm3] 0.9 Thous/mm 3 (08/15/23 10:31 AM) 0.9 Thous/mm3 (08/12/23 6:52 AM) 0.9 Thous/mm3 (08/11/23 3:47 AM) Bilirubin, Total [0.2-1.0 mg/dL] 0.3 mg/dL (08/15/23:31 AM) 0.4 mg/dL (08/12/23 6:52 AM) 0.3 mg/dL (08/11/23 3:47 AM) AbsEo [0.0-0.5 Thous/mm3] 0.4 Thous/mm3 (08/15/23:31 AM) 0.5 Thous/mm3 (08/12/23 6:52 AM) 0.4 Thous/mm3 (08/11/23 3:47 AM) AbsBaso [0.0-0.2 Thous/mm3] 0.0 Thous/mm 3 (08/15/23: AM) 0.0 Thous/mm3 (08/12/23 6:52 AM) 0.0 Thous/mm3 (08/11/23 3:47 AM) AutoBaso [0.0-2.5 %] 0.3 % (08/15/23:31 AM) 0.2 % (08/12/23 6:52 AM) 0.4 % (08/11/23 3:47 AM) Calcium [8.3-10.6 mg/dL] 9.0 mg/dL (08/15/23:31 AM) 8.3 mg/dL (08/12/23 6:52 AM) 8.2 mg/dL *LOW* (08/11/23 3:47 AM) Protein Total [6.4-8.5 g/dL] 6.7 g/dL (08/15/23:31 AM) 5.5 g/dL *LOW* (08/12/23 6:52 AM) 5.3 g/dL *LOW* (08/11/23 3:47 AM) Albumin [3.4-5.0 g/dL] 2.6 g/dL *LOW* (08/15/23:31 AM) 2.0 g/dL *LOW* (08/12/23 6:52 AM) 2.0 g/dL *LOW* (08/11/23 3:47 AM) AST [15-37 U/L] 17 U/L (08/15/23 10:31 AM) 21 U/L (08/12/23 6:52 AM) 28 U/L (08/11/23 3:47 AM) Alk Phos [45-117 U/L] 98 U/L (08/15/23 10:31 AM) 91 U/L (08/12/23 6:52 AM) 90 U/L (08/11/23 3:47 AM) Magnesium [1.8-2.4 mg/dL] 2.0 mg/dL (08/15/23 2:03 AM) 1.9 mg/dL (08/14/23 6:20 AM) 1.9 mg/dL (08/13/23 6:25 AM) CRP [0.00-1.00 mg/dL] 12.20 mg/dL *HI* (08/15/23 10:31 AM) 10.10 mg/dL *HI* (08/08/23 11:25 AM) ALT [10-49 U/L] 14 U/L (08/15/23 10:31 AM) 21 U/L (08/12/23 6:52 AM) 23 U/L (08/11/23 3:47 AM) CK Total [39-308 U/L] 16 U/L *LOW* (08/15/23 10:31 AM) 22 U/L *LOW* (08/08/23 11:25 AM) Imm. Grans % [0-5 %] <5 % (08/15/23 10:31 AM) <5 % (08/12/23 6:52 AM) <5 % (08/11/23 3:47 AM) Imm. Grans # [0.0-0.5 Thous/mm3] <0.5 Thous/mm3 (08/15/23 10:31 AM) <0.5 Thous/mm3 (08/12/23 6:52 AM) <0.5 Thous/mm3 (08/11/23 3:47 AM) ANC-AbsNeutCount 8.2 Thous/mm3 *NA* (08/15/23 10:31 AM) 6.5 Thous/mm3 *NA* (08/12/23 6:52 AM) 5.3 Thous/mm3 *NA* (08/11/23 3:47 AM) 1Result Comment: Notify RN/DR Performed at:[facility], [address] [place] [address], [id number] Reference Ranges: Age 0 - 24 hours: 45 - 115 mg/dL Age 24 hours - 30 days: 55 - 115 mg/dL Age > 30 days: 70 - 100 mg/dL Critical Results Requiring Immediate Notification: Age <72 Hours: <40 or >350 mg/dL Age >72 Hours: <50 or >400 mg/dL 2Result Comment: Notify RN/DR Performed at:[facility], [address] [place] [address], [id number] Reference Ranges: Age 0 - 24 hours: 45 - 115 mg/dL Age 24 hours - 30 days: 55 - 115 mg/dL Age > 30 days: 70 - 100 mg/dL Critical Results Requiring Immediate Notification: Age <72 Hours: <40 or >350 mg/dL Age >72 Hours: <50 or >400 mg/dL 3Result Comment: Notify RN/ Performed at:[address], [id number] Reference Ranges: Age 0 - 24 hours: 45 - 115 mg/dL Age 24 hours - 30 days: 55 - 115 mg/dL Age > 30 days: 70 - 100 mg/dL Critical Results Requiring Immediate Notification: Age <72 Hours: <40 or >350 mg/dL Age >72 Hours: <50 or >400 mg/dL Orders for Microbiology Reports Name Date Blood Culture (C Blood) 08/08/23 Blood Culture (C Blood) 08/07/23 Microbiology Reports TEST:Blood Culture STATUS:Auth (Verified) BODY SITE: SOURCE:Blood COLLECTED DATE/TIME:08/08/23 12:35 AM FINAL REPORT No Growth TEST:Blood Culture STATUS:Auth (Verified) BODY SITE: SOURCE:Blood COLLECTED DATE/TIME:08/07/23 11:19 PM FINAL REPORT No Growth Radiology Reports * Exam Date Time Procedure Performing Provider Status 08/08/23 9:32 AM XR Chest 1 View Kennedy RT(R), Aura; Aut h (Verified) Notes: (XR Chest 1 View) Reason For Exam: pna REPORT XR Chest 1 View Exam: XR Chest 1 View Date/Time of Exam: 08/08/2023 9:32 AM Reason For Exam: pna. Diagnosis Codes: J18.9 Pneumonia, unspecified organism M46.20 Osteomyelitis of vertebra, site unspecified G06.2 Extradural and subdural abscess, unspecified R91.8 Other nonspecific abnormal finding of lung field R91.8 Other nonspecific abnormal finding of lung field Comparison: CXR 07/11/2023. Reading Location: [place] [address] \\ [id number] Findings: Lungs: There is no consolidation in either lung. Mild areas of atelectasis present. Right upper armPICC with tip overlying the SVC. Heart and mediastinum: Heart size normal. No abnormal mediastinal or hilar lymph nodes. Tracheal air shadow and aortic contour normal. Pleural spaces: No pleural fluid nor pneumothorax. Musculoskeletal: No acute osseous abnormalities. Degenerative changes thoracic spine. IMPRESSION: Mild areas of atelectasis lower lung bases. Right upper arm PICC well- positioned. Follow-up with chest radiographs to resolution suggested. Electronically signed by: Dr Rusty Bird 08/08/2023 10:00 AM Rusty Bird DO Signed 08/08/23 10:00:27 (Electronic Signature) Food Order Expediter VB Technologist SY Vital Signs Most recent to oldest [Reference Range]: 1 2 3 Blood Pressure 129/74mmHg (08/15/23 7:35 AM) 116/73mmHg (08/15/23 3:42 AM) 131/82mmHg (08/14/23 11:37 PM) Height (inches) (Clinical) 74 in (08/15/23 5:00 AM) 74 in (08/15/23 2:00 AM) 74 in (08/14/23 2:00 PM) Weight (kg) (Clinical) 109.4 kg (08/14/23 3:33 AM) 112.6 kg (08/13/23 5:00 AM) 112.6 kg (08/13/23 4:10 AM) BMI (Clinical) 0 kg/m2 (08/15/23 5:00 AM) 0 kg/m2 (08/14/23 5:00 AM) 31.8 kg/m2 (08/13/23 5:00 AM) Scale Type Bed (08/13/23 4:10 AM) Bed (08/11/23 5:00 AM) Social History Social History Type Response Smoking Status Former smoker; Smoke less tobacco use: Never; Has the patient smoked in the last 365 days, even once? No; Stopped at age: 68; entered on: 07/03/23 Sex Male Implantable Device List Procedure Provider Procedure Date Device Type Site Laminectomy Lumbar Decompression Unknown 07/05/23 Unk nown Spine - Thoracic Device Identifier Serial Number Lot or Batch Number Manufacturing Date Expiration Date Distinct Identification Code MRI Safety Implantable Status Assigning Authority Unknown Unknown [id number] Unknown 01/04/25 Unknown Unknown Active Unknown Hospital Discharge Instructions Patient Education 08/15/2023 09:47:11 Osteomyelitis, Adult Osteomyelitis, Adult Bone infections, also called osteomyelitis,occur when bacteria or other germs get inside a bone. This can happen if you have an infection in another part of your body that spreads through your blood.It can also happen if you have a wound or a broken bone (fracture) that breaks the skin. A wound ora fracture can allow germs from your skin or from outside of your body to spread to your bone. Bone infections need to be treated quickly to: ??? Prevent bone damage. ??? Prevent the infection from spreading to other areas of your body. What are the causes? Most bone infections are caused by bacteria. The most common bacteria is one found on the skin (staphylococcus). Bone infections can also be caused by other germs, such as viruses and funguses. What increases the risk? You are more likely to develop this condition if: ??? You recently had surgery, especially bone or joint surgery. ??? You have had an injury, such as stepping on a nail or having a fracture that exposes bones through the skin. ??? You have a long-term (chronic) disease, such as: ??? Diabetes. ??? HIV (human immunodeficiency virus). ??? Rheumatoid arthritis. ??? Sickle cell anemia. ??? Kidney disease that requires dialysis. ??? You have a condition that affects your body's defense system (immune system) or you take medicines that block or weaken the immune system. ??? You have a condition that reduces your blood flow. ??? You have an artificial joint. ??? You have had a joint or bone repaired with plates or screws. ??? You use IV drugs. What are the signs or symptoms? Symptoms vary depending on the type and location of your infection. Common symptoms of bone infections include: ??? Fever and chills. ??? Skin redness and warmth. ??? Swelling. ??? Pain and stiffness. ??? Drainage of fluid or pus near the infection. How is this diagnosed? This condition may be diagnosed based on: ??? Your symptoms and medical history. ??? A physical exam. ??? Tests, such as: ??? A sample of tissue, fluid, or blood taken to be examined under a microscope. ??? Pus or discharge swabbed from a wound for testing. This is to identify the type of germs and todetermine what type of medicine will kill them. ??? Blood tests. ??? Imaging studies, including X-rays, MRI, CT scan, bone scan, or ultrasound. How is this treated? Treatment for this condition depends on the cause and type of infection. Antibiotic medicines are usually the first treatment for a bone infection. This may be done in a hospital at first. You may have to continue IV antibiotics at home or take antibiotics by mouth for several weeks after that. Other treatments may include surgery to: ??? Remove or dying tissue from a bone. ??? Remove an infected artificial joint. ??? Remove infected plates or screws that were used to repair a broken bone. Follow these instructions at home: Medicines ??? Take jryg-ktl-ximrgpr and prescription medicines as told by your health care provider. Finish all antibiotic medicine even if you start to feel better. ??? Follow instructions from your health care provider about how to take IV antibiotics at home. You may need to have a nurse come to your home to give you the IV antibiotics. Managing pain, stiffness, and swelling If directed, put ice on the affected area. To do this: ??? Put ice in a plastic bag. ??? Place a towel between your skin and the bag. ??? Leave the ice on for 20 minutes, 2???3 times a day. General instructions ??? Ask your health care provider if you have any restrictions on your activities. ??? Do not use any products that contain nicotine or tobacco, such as cigarettes, e-cigarettes, andchewing tobacco. If you need help quitting, ask your health care provider. ??? Keep all follow-up visits as told by your health care provider. This is important. How is this prevented? Wash your hands often to stop the spread of germs. Wash your hands for at least 20 seconds withsoap and water. If soap and water are not available, use hand retail support manager. ??? Keep any open areas, cuts, or wounds clean. Apply a clean bandage after cleaning the area. ??? Check wounds frequently for signs of infections. Signs of infection include redness, swelling, warmth, pus, or a bad smell. ??? Wear proper footwear to avoid injuries to the feet. Contact a health care provider if: ??? You develop a fever or chills. ??? You have redness, warmth, pain, or swelling that returns after treatment. Get help right away if: ??? You have rapid breathing or you have trouble breathing. ??? You have chest pain. ??? You cannot drink fluids or make urine. ??? The affected area swells, changes color, or turns blue. ??? You have numbness or severe pain in the affected area. These symptoms may represent a serious problem that is an emergency. Do not wait to see if the symptoms will go away. Get medical help right away. Call your local emergency services (911 in the [place] Do not drive yourself to the hospital. Summary ??? Bone infections, also called osteomyelitis,occur when bacteria or other germs get inside a bone. ??? You are more likely to get this type of infection if you have a condition that lowers your ability to fight infections. You are also likely to get this condition if you take medicines that block or weaken the immune system. ??? Most bone infections are caused by bacteria. They can also be caused by other germs, such as viruses and funguses. ??? Treatment for this condition usually starts with taking antibiotics. Further treatment depends on the cause and type of infection. This information is not intended to replace advice given to you by your health care provider. Make sure you discuss any questions you have with your health care provider. Document Revised: 09/08/2020 Document Reviewed: 09/08/2020 [employer] Patient Education ?? 2021 [employer]. 08/15/2023 09:47:11 Fall Prevention in the Home, Adult, Thbe-vq-Bvfp Fall Prevention in the Home, Adult Falls can cause injuries and can happen to people of all ages. There are many things you can do to make your home safe and to help prevent falls. Ask for help when making these changes. What actions can I take to prevent falls? General Instructions ??? Use good lighting in all rooms. Replace any light bulbs that burn out. ??? Turn on the lights in dark areas. Use night-lights. ??? Keep items that you use often in qdwv-yo-bidma places. Lower the shelves around your home if needed. ??? Set up your furniture so you have a clear path. Avoid moving your furniture around. ??? Do not have throw rugs or other things on the floor that can make you trip. ??? Avoid walking on wet floors. ??? If any of your floors are uneven, fix them. ??? Add color or contrast paint or tape to clearly beba and help you see: ??? Grab bars or handrails. ??? First and last steps of staircases. ??? Where the edge of each step is. ??? If you use a stepladder: ??? Make sure that it is fully opened. Do not climb a closed stepladder. ??? Make sure the sides of the stepladder are locked in place. ??? Ask someone to hold the stepladder while you use it. ??? Know where your pets are when moving through your home. What can I do in the bathroom? Keep the floor dry. Clean up any water on the floor right away. ??? Remove soap buildup in the tub or shower. ??? Use nonskid mats or decals on the floor of the tub or shower. ??? Attach bath mats securely with double-sided, nonslip rug tape. ??? If you need to sit down in the shower, use a plastic, nonslip stool. ??? Install grab bars by the toilet and in the tub and shower. Do not use towel bars as grab bars. What can I do in the bedroom? Make sure that you have a light by your bed that is easy to reach. ??? Do not use any sheets or blankets for your bed that hang to the floor. ??? Have a firm chair with side arms that you can use for support when you get dressed. What can I do in the kitchen? Clean up any spills right away. ??? If you need to reach something above you, use a step stool with a grab bar. ??? Keep electrical cords out of the way. ??? Do not use floor irish or wax that makes floors slippery. What can I do with my stairs? Do not leave any items on the stairs. ??? Make sure that you have a light switch at the top and the bottom of the stairs. ??? Make sure that there are handrails on both sides of the stairs. Fix handrails that are broken or loose. ??? Install nonslip stair treads on all your stairs. ??? Avoid having throw rugs at the top or bottom of the stairs. ??? Choose a carpet that does not hide the edge of the steps on the stairs. ??? Check carpeting to make sure that it is firmly attached to the stairs. Fix carpet that is looseor worn. What can I do on the outside of my home? Use bright outdoor lighting. ??? Fix the edges of walkways and driveways and fix any cracks. ??? Remove anything that might make you trip as you walk through a door, such as a raised step or threshold. ??? Trim any bushes or trees on paths to your home. ??? Check to see if handrails are loose or broken and that both sides of all steps have handrails. ??? Install guardrails along the edges of any raised decks and porches. ??? Clear paths of anything that can make you trip, such as tools or rocks. ??? Have leaves, snow, or ice cleared regularly. ??? Use sand or salt on paths during winter. ??? Clean up any spills in your garage right away. This includes grease or oil spills. What other actions can I take? Wear shoes that: ??? Have a low heel. Do not wear high heels. ??? Have rubber bottoms. ??? Feel good on your feet and fit well. ??? Are closed at the toe. Do not wear open-toe sandals. ??? Use tools that help you move around if needed. These include: ??? Canes. ??? Walkers. ??? Scooters. ??? Crutches. ??? Review your medicines with your doctor. Some medicines can make you feel dizzy. This can increase your chance of falling. Ask your doctor what else you can do to help prevent falls. Where to find more information ??? Centers for Disease Control and Prevention, STEAD[place]: www.cdc.gov ??? National [place] on Aging: www.[place].nih.gov Contact a doctor if: ??? You are afraid of falling at home. ??? You feel weak, drowsy, or dizzy at home. ??? You fall at home. Summary ??? There are many simple things that you can do to make your home safe and to help prevent falls. ??? Ways to make your home safe include removing things that can make you trip and installing grab bars in the bathroom. ??? Ask for help when making these changes in your home. This information is not intended to replace advice given to you by your health care provider. Make sure you discuss any questions you have with your health care provider. Document Revised: 01/25/2021 Document Reviewed: 01/25/2021 [employer] Patient Education ?? 2021 [employer] Follow Up Care 08/07/2023 15:52:53 With:Cortes Daigle Address: [facility] [facility] [address] [place] [address]- Business (1) When:09/04/2023 09:30:00 Comments:Post-op follow up. Please arrive 30 minutes early and check in on the ground floor in [facility]. With:Des Millsqvi Address: [address] [facility], [address] [place] [address]- [employer] (1) When:2 to 5 weeks Comments:Office will schedule follow up appointment (after antibiotics are completed). Please call office [phone] if you do not receive your appointment time by Saturday. 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 He was treated with IV Rocephin for 8 weeks, then transitioned to PO Augmentin which he??was still taking on admission.?Neurosurgery and infectious disease were consulted during his hospitalization.??Patient underwent thoracic laminectomy for decompression of the associated spinal cord and removal of epidural abscess with decompression from T5 down to T10 from the dorsal epidural thoracic space including removal of the spinous process thoracic lamina and ligamentum flavum to decompress the associated spinal cord without facetectomy or instability??on 07/05/2023..??He was initially treated with??vancomycin and cefepime post operatively. Intraoperative cultures and blood cultures were negative.??Reva PCR for operative cultures pending at discharge. Patient??ultimately treated??for negative culture vertebral osteomyelitis with extended course of antibiotics.?? He was ordered to??have Daptomycin and Rocephin for approximately 6 weeks, with a tentative stop date of 08/08/23 with plan for oral antibiotics forsuppression fci thereafter.??CT??cervical spine, thoracic spine,??lumbar??spine??completed??02/2024 shows??multilevel??osteomyelitis.?continued antibiotics were advised as written and he was to wear TLSO brace when up.?? He??was transferred to [facility] on 07/18/23??for ongoing PT, OT and??IV antibiotics.?? He had appointments to see neurosurgery and ID on 08/08/23.?Outside documentation indicates he was??not working well with therapies and was not wearing brace.?? He??was tocomplete??Medicare days on 08/07 yet continued care was necessary as due to his extensive care needshis family was not able to yet care for him at home.?? He transferred to [facility] in [place] on 08/06 for skilled care and continued antibiotics. Upon admission there yesterday, a CT chest was done and reported scattered lung nodules and consolidations concerning for pneumonia. [place] faculty also reported concern for??findings of new??thoracic??compression fracture as reason for transfer request.?? The patient is unsure why he a lung scan was done and tells me he thought they were re-evaluating his back.?? He denies new or worsening shortness of breath.?? he does admit that since having coronary disease with cardiac stents years ago he does have some exertional dyspnea at time.?? He says that some times he gets put on oxygen briefly but has never worn oxygen before.?? He is not wearing oxygen tonight.?? He denies coughing, wheezing, chest congestion, fever, chills, malaise or myalgias.?? He denies chest pain or pressure, lightheadedness, dizziness or pedal edema.?? He says his back pain is overall controlled, and is essentially negative when resting. ?? Notes are made of documentation and phone messages supporting that he was to have follow-up appointment with Dr Daigle of neurosurgery tomorrow, 08/08.?? His TLSO brace was left at the facility in [place] upon his transfer to [place]. He says his is to be obtaining that and is to bring it here when she can come visit.?? He is also to have an appointment with Clint of ID tomorrow w [facility] was re-scheduled as a telemedicine visit.?? Note made of Dr Jaramillo's instructions to extend daptomycin and ceftriaxone through 08/29.?? Subjective Afebrile, VSS, on room air. BC no growth. Reports back pain controlled??and feels better??overall. States decreased cough, intermittent??productive,??denies hemoptysis or shortness??of breath. ? Denies chest pain, not coughing during exam. Denies numbness??in his??extremities. ? Tolerating atbx and diet. Patient states he wants to go to [place] [facility] in [place], at bedside in agreement, SW following. Review of Systems Denies abdominal??pain,??no nausea, vomiting, or??diarrhea.?ROS??is otherwise??negative.? Objective Vitals & Measurements ??Vital Signs (last 24 hrs)?Last Charted?Minimum?Maximum?Temp?97.8 (AUG 14:43)?97.2 (AUG 13 15:02)?98.2 (AUG 14 08:12)?Heart Rate?92 (AUG 14:43)?72 (AUG 14 09:26)?92 (AUG 14:43)?Resp Rate?16 (AUG 14:43)?14 (B 22:40)?18 (B 05:17)?SBP?113 (AUG 14 11:43)?111 (B 19:22)?151 (B 22:40)?DBP?70 (AUG 14:43)?66 (B 19:22)?78 (B 15:02)?SpO2?96 (AUG 14:43)?92 (B 22:40)?97 (AUG 14 05:17)?O2?Room a (AUG 14:43)?Room a (AUG 13 15:02)?Room a (AUG 13 15:02)?Weight?109.4 (AUG 14:33)?109.4 (AUG 14:33)?109.4 (AUG 14:)?? Physical Exam General:?Alert oriented, in??no acute??distress,??answers questions appropriately.?? Pleasant??and cooperative. Heart: ??RRR, no murmur heard. Lungs:?Moving air all lung lawrence, no rhonchi or wheezing. Skin: ??No rashes. IV and PICC??look okay. Extremities:?? Moves all 4 extremities, no joint effusions. Neurologic:?A & O x3, no focal motor deficits noted. Other ?? Assessment/Plan ?? Thoracic osteomyelitis with epidural abscess Pneumonia, Klebsiella pneumoniae ESBL ?? Course:?? Improving. ?? Patient is an??78-year-old insulin-dependent??diabetic??obese male with recent??thoracic??osteomyelitis growing Cutibacterium and Enterococcus faecalis complicated by??an??epidural??abscess??status post??thoracic laminectomy with??decompression and evacuation of the epidural abscess??performed??on ??by Neurosurgeon,??Dr. Kolb??Pilo??MD.?? Reva PCR positive for multiple organisms,no further specific identification. Patient discharged to a SNF on 07/18/23 and returns with concerns for pneumonia on outside??CT scan with intermittent productive cough.?? Images has been reviewed, does not look like a dapto pneumonitis and no eosinophilia on CBC, however will stop dapto and ceftri axone for now and switch atbx to for better pna coverage with??vancomycin and cefepime.?? Received results from??outside??lab sputum culture??positive??for Klebsiella??pneumoniae??ESBL,??will??changeantibiotics??to ertapenem??and switch back??to daptomycin with no concerns??of pneumonitis??or??Gram-positive organism??in sputum culture??to complete his??course??of antibiotics through??08/29/23. Neurosurgery saw patient no further surgical interventions for his chronic thoracic back pain from thedestruction??of the vertebrae from??OM not ongoing infection or recurrence of epidural abscess, michael??removed, incision looks??clean.?? No leukocytosis, no eosinophilia.?? CRP elevated. CK WNL. Monitor labs weekly/ ??MRSA screen negative. Blood cultures no growth. ??Okay from ID standpoint to discharge to [place] [facility] in [place] to complete IV atbx and??continue therapies, SW following.? Recommendations:? 1.?? Continue ertapenem and daptomycin, with tentative stop date 08/29.?? May remove PICC line??at completion??of??IV antibiotics. ? 2.?? If fever develops, repeat??blood cultures and remove PICC line.? 3.?? Continue PT/OT, walking in [place] with walker assistance. 4.?? Weekly PICC line dressing changes and monitor labs CBC, CMP, CK, and CRP. 5.?? Monitor known sacral wound and wounds on R toes. 6.?Strep pneumo, Legionella ur antigens ordered no urine collected. 7.?? ID will follow and Dr. Jaramillo will see patient in ID clinic. ??May be able??to do??a telehealth??visit.? I explained all??this to??patient and??all questions??were answered. Medications Medications (28) Active Scheduled: (28) aaMAR Note ??DC if...., UNSPECIFIED-See comments, Unscheduled aspirin 81 mg CHEW TAB ??81 mg 1 tab, By mouth, Daily atorvastatin 40 mg TAB ??40 mg 1 tab, By mouth, QPM (every evening) budesonide 0.5 mg/2 mL INH SOLN ??0.5 mg 2 mL, Inhalation, RespBID carVEDilol 6.25 mg TAB ??6.25 mg 1 tab, By mouth, BID cholecalciferol (Vitamin D3) 1,000 IntUnit (25 mcg) TAB ??2,000 IntUnit 2 tab, By mouth, Daily clopidogrel 75 mg TAB ??75 mg 1 tab, By mouth, QAM DAPTOmycin 350 mg (generic) SDV ??700 mg 14 mL, IVPB, Daily ertapenem 1000 mg VIAL ??1,000 mg, IV, Daily fentaNYL 75 mcg/hr PATCH ??1 patch, TD, Q72H fentaNYL PATCH Removal & Waste ??Patch Removal, UNSPECIFIED-See comments, Q72H fentaNYL PATCH Removal & Waste ??Patch Removal, UNSPECIFIED-See comments, Q72H formoterol 20 mcg/2 mL INH Soln ??20 mcg 2 mL, Inhalation, BID furosemide 40 mg TAB ??40 mg 1 tab, By mouth, Daily guaiFENesin LA 600 mg TAB ??600 mg 1 tab, By mouth, BID HEParin 5,000 units/1 mL INJ ??5,000 Units 1 mL, SubQ, BID insulin GLARgine (LanTUS) 100 units/mL 3 mL PEN ??20 Units 0.2 mL, SubQ, BID insulin lispro (HumaLOG) 100 units/mL 3 mL PEN ??Medium dose scale, SUBQ, With Meals & Bedtime isosorbide MONONITRATE 30 mg ER TAB ??30 mg 1 tab, By mouth, QAM levothyroxine 25 mcg TAB ??25 mcg 1 tab, By mouth, Daily linagliptin 5 mg TAB ??5 mg 1 tab, By mouth, Daily pantoprazole 40 mg TAB ??40 mg 1 tab, By mouth, Daily potassium chloride 20 mEq TAB ??40 mEq 2 tab, By mouth, TID pregabalin 25 mg CAP ??25 mg 1 cap, By mouth, BID sodium chloride 0.9% INJ SYR 5 mL ??5 mL, IVP, Q12H tamsulosin 0.4 mg CAP ??0.4 mg 1 cap, By mouth, Daily venlafaxine 37.5 mg IR TAB ??75 mg 2 tab, By mouth, QAM venlafaxine 37.5 mg IR TAB ??37.5 mg 1 tab, By mouth, QPM (every evening) Continuous: (0) Lab Results Labs??(Last two charted values on this encounter) WBC 9.6 ??(AUG 12) 8.3 ??(AUG 11) Hgb 9.9 ??(AUG 12) 9.8 ??(AUG 11) Hct 30.8 ??(AUG 12) 30.6 ??(AUG 11) Platelets 289 ??(AUG 12) 284 ??(AUG 11) Na 138 ??(AUG 12) 140 ??(AUG 11) K 4.1 ??(AUG 12) 4.2 ??(AUG 11) Cl 110 ??(AUG 12) 110 ??(AUG 11) CO2 26 ??(AUG 12) 23 ??(AUG 11) BUN 19 ??(AUG 12) 19 ??(AUG 11) Cr 1.15 ??(AUG 12) 1.12 ??(AUG 11) ProteinT ?5.5 ??(AUG 12) ?5.3 ??(AUG 11) Albumin ?2.0 ??(AUG 12) ?2.0 ??(AUG 11) Bilirubin ,Total ??0.4 ??(AUG 12) ??0.3 ??(AUG 11) Alk Phos ?91 ??(AUG 12) ?90 ??(AUG 11) ALT ?21 ??(AUG 12) ?23 ??(AUG 11) AST ?21 ??(AUG 12) ?28 ??(AUG 11) Mag ?1.9 ??(AUG 14) ?1.9 ??(AUG 13) Bedside Glucose 169 ??(AUG 14) 201 ??(AUG 14) CRP 10.10 ??(AUG 08) ?? Total CK 22 ??(AUG 08) ?? 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 He was treated with IV Rocephin for 8 weeks, then transitioned to PO Augmentin which he??was still taking on admission.?Neurosurgery and infectious disease were consulted during his hospitalization.??Patient underwent thoracic laminectomy for decompression of the associated spinal cord and removal of epidural abscess with decompression from T5 down to T10 from the dorsal epidural thoracic space including removal of the spinous process thoracic lamina and ligamentum flavum to decompress the associated spinal cord without facetectomy or instability??on 07/05/2023..??He was initially treated with??vancomycin and cefepime post operatively. Intraoperative cultures and blood cultures were negative.??Reva PCR for operative cultures pending at discharge. Patient??ultimately treated??for negative culture vertebral osteomyelitis with extended course of antibiotics.?? He was ordered to??have Daptomycin and Rocephin for approximately 6 weeks, with a tentative stop date of 08/08/23 with plan for oral antibiotics forsuppression fci thereafter.??CT??cervical spine, thoracic spine,??lumbar??spine??completed??02/2024 shows??multilevel??osteomyelitis.?continued antibiotics were advised as written and he was to wear TLSO brace when up.?? He??was transferred to [facility] on 07/18/23??for ongoing PT, OT and??IV antibiotics.?? He had appointments to see neurosurgery and ID on 08/08/23.?Outside documentation indicates he was??not working well with therapies and was not wearing brace.?? He??was tocomplete??Medicare days on 08/07 yet continued care was necessary as due to his extensive care needshis family was not able to yet care for him at home.?? He transferred to [facility] in [place] on 08/06 for skilled care and continued antibiotics. Upon admission there yesterday, a CT chest was done and reported scattered lung nodules and consolidations concerning for pneumonia. [place] [facility] also reported concern for??findings of new??thoracic??compression fracture as reason for transfer request.?? The patient is unsure why he a lung scan was done and tells me he thought they were re-evaluating his back.?? He denies new or worsening shortness of breath.?? he does admit that since having coronary disease with cardiac stents years ago he does have some exertional dyspnea at time.?? He says that some times he gets put on oxygen briefly but has never worn oxygen before.?? He is not wearing oxygen tonight.?? He denies coughing, wheezing, chest congestion, fever, chills, malaise or myalgias.?? He denies chest pain or pressure, lightheadedness, dizziness or pedal edema.?? He says his back pain is overall controlled, and is essentially negative when resting. ?? Notes are made of documentation and phone messages supporting that he was to have follow-up appointment with Dr Daigle of neurosurgery tomorrow, 08/08.?? His TLSO brace was left at the facility in [place] upon his transfer to [place]. He says his is to be obtaining that and is to bring it here when she can come visit.?? He is also to have an appointment with Clint of ID tomorrow w [facility] was re-scheduled as a telemedicine visit.?? Note made of Dr Jaramillo's instructions to extend daptomycin and ceftriaxone through 08/29.?? Subjective Patient is awake??and alert.?? No new complaints??today.?? He??has found placement??and will likelybe??discharged tomorrow when??they are ready??for him. ? Review of Systems Other??systems negative except??as noted?? Objective Vitals & Measurements ??Vital Signs (last 24 hrs)?Last Charted?Minimum?Maximum?Temp?97.8 (FEB 11:43)?97.2 (FEB 06 15:02)?98.2 (FEB 07 08:12)?Heart Rate?92 (FEB 11:43)?72 (FEB 07 09:26)?92 (FEB 11:43)?Resp Rate?16 (FEB 11:43)?14 (FEB 06 22:40)?18 (FEB 05:17)?SBP?113 (FEB 11:43)?111 (FEB 06 19:22)?151 (FEB 06 22:40)?DBP?70 (FEB 11:43)?66 (FEB 06 19:22)?78 (FEB 06 15:02)?SpO2?96 (FEB 11:43)?92 (FEB 22:40)?97 (FEB 05:17)?O2?Room a (FEB 11:43)?Room a (FEB 06 15:02)?Room a (FEB 06 15:02)?Weight?109.4 (FEB 07 03:33)?109.4 (FEB 07 03:33)?109.4 (FEB 07 03:33)?? Physical Exam ? General: ??Alert and oriented, No acute distress.?HEENT:?PERRL, moist oral mucosa.?Neck: ??Supple, No carotid bruit ?Respiratory:??Lungs are clear to??auscultation bilaterally, no wheezing, rales or rhonchi ?Cardiovascular: ??Normal S1-S2, regular rate and rhythm. ?Gastrointestinal: ??Soft, Non-tender, Non distended, Normal bowel sounds. ?Musculoskeletal: ??No swelling, No deformity ?Neurologic: ??Alert, Oriented, moves extremities ?Psychiatric: ??Cooperative Assessment/Plan 1.??Vertebral osteomyelitis(Osteomyelitis of vertebra, site unspecified: M46.20) 2.??Epidural abscess(Extradural and subdural abscess, unspecified: G06.2) 3.??Pulmonary nodules(Other nonspecific abnormal finding of lung field: R91.8) 4.??Infiltrate of lung present on imaging of chest(Other nonspecific abnormal finding of lung field: R91.8) 5.??Ulcer of sacral region(Non-pressure chronic ulcer of back with unspecified severity: L98.429) 6.??CAD (coronary artery disease)(Atherosclerotic heart disease of [place] coronary artery without angina pectoris: I25.10) 7.??Congestive heart failure(Heart failure, unspecified: I50.9) 8.??Chronic kidney disease, stage 4 (severe)(Chronic kidney disease, stage 4 (severe): N18.4) 9.??Type 2 diabetes mellitus(Type 2 diabetes mellitus without complications: E11.9) 10.??Hypertension(Essential (primary) hypertension: I10) 11.??Hyperlipidemia(Hyperlipidemia, unspecified: E78.5) 12.??Opioid dependence(Opioid dependence, uncomplicated: F11.20) 13.??History of BPH(Personal history of other diseases of male genital organs: Z87.438) 14.??History of left below knee amputation(Acquired absence of left leg below knee: Z89.512) 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 Vertebral??osteomyelitis with??epidural??abscess status post??surgery during previous admission Appreciate infectious disease To continue??ertapenem??and daptomycin??until??08/29 Follow-up with infectious disease outpatient Continue PT OT ?? Pneumonia with??unspecified organism Resolved ?? Type 2 diabetes Lantus, sliding??scale insulin??and Accu-Cheks Linagliptin ?? Back??pain secondary to??surgery as above Continue fentanyl patch??and p.r.n.??medications ?? history??of CAD?? Continue??goal-directed therapy with??carvedilol, isosorbide??mononitrate,??Plavix? Mood??disorder Continue??pregabalin and venlafaxine ?? Hypothyroidism-Synthroid?? DVT??prophylaxis-heparin ?? Full code ?? Found placement at [facility]??- likely dc tomorrow?? Other Medications Medications (28) Active Scheduled: (28) aaMAR Note ??DC if...., UNSPECIFIED-See comments, Unscheduled aspirin 81 mg CHEW TAB ??81 mg 1 tab, By mouth, Daily atorvastatin 40 mg TAB ??40 mg 1 tab, By mouth, QPM (every evening) budesonide 0.5 mg/2 mL INH SOLN ??0.5 mg 2 mL, Inhalation, RespBID carVEDilol 6.25 mg TAB ??6.25 mg 1 tab, By mouth, BID cholecalciferol (Vitamin D3) 1,000 IntUnit (25 mcg) TAB ??2,000 IntUnit 2 tab, By mouth, Daily clopidogrel 75 mg TAB ??75 mg 1 tab, By mouth, QAM DAPTOmycin 350 mg (generic) SDV ??700 mg 14 mL, IVPB, Daily ertapenem 1000 mg VIAL ??1,000 mg, IV, Daily fentaNYL 75 mcg/hr PATCH ??1 patch, TD, Q72H fentaNYL PATCH Removal & Waste ??Patch Removal, UNSPECIFIED-See comments, Q72H fentaNYL PATCH Removal & Waste ??Patch Removal, UNSPECIFIED-See comments, Q72H formoterol 20 mcg/2 mL INH Soln ??20 mcg 2 mL, Inhalation, BID furosemide 40 mg TAB ??40 mg 1 tab, By mouth, Daily guaiFENesin LA 600 mg TAB ??600 mg 1 tab, By mouth, BID HEParin 5,000 units/1 mL INJ ??5,000 Units 1 mL, SubQ, BID insulin GLARgine (LanTUS) 100 units/mL 3 mL PEN ??20 Units 0.2 mL, SubQ, BID insulin lispro (HumaLOG) 100 units/mL 3 mL PEN ??Medium dose scale, SUBQ, With Meals & Bedtime isosorbide MONONITRATE 30 mg ER TAB ??30 mg 1 tab, By mouth, QAM levothyroxine 25 mcg TAB ??25 mcg 1 tab, By mouth, Daily linagliptin 5 mg TAB ??5 mg 1 tab, By mouth, Daily pantoprazole 40 mg TAB ??40 mg 1 tab, By mouth, Daily potassium chloride 20 mEq TAB ??40 mEq 2 tab, By mouth, TID pregabalin 25 mg CAP ??25 mg 1 cap, By mouth, BID sodium chloride 0.9% INJ SYR 5 mL ??5 mL, IVP, Q12H tamsulosin 0.4 mg CAP ??0.4 mg 1 cap, By mouth, Daily venlafaxine 37.5 mg IR TAB ??75 mg 2 tab, By mouth, QAM venlafaxine 37.5 mg IR TAB ??37.5 mg 1 tab, By mouth, QPM (every evening) Continuous: (0) Lab Results Labs??(Last two charted values on this encounter) WBC 9.6 ??(AUG 12) 8.3 ??(AUG 11) Hgb 9.9 ??(AUG 12) 9.8 ??(AUG 11) Hct 30.8 ??(AUG 12) 30.6 ??(AUG 11) Platelets 289 ??(AUG 12) 284 ??(AUG 11) Na 138 ??(AUG 12) 140 ??(AUG 11) K 4.1 ??(AUG 12) 4.2 ??(AUG 11) Cl 110 ??(AUG 12) 110 ??(AUG 11) CO2 26 ??(AUG 12) 23 ??(AUG 11) BUN 19 ??(AUG 12) 19 ??(AUG 11) Cr 1.15 ??(AUG 12) 1.12 ??(AUG 11) ProteinT ?5.5 ??(AUG 12) ?5.3 ??(AUG 11) Albumin ?2.0 ??(AUG 12) ?2.0 ??(AUG 11) Bilirubin ,Total ??0.4 ??(AUG 12) ??0.3 ??(AUG 11) Alk Phos ?91 ??(AUG 12) ?90 ??(AUG 11) ALT ?21 ??(AUG 12) ?23 ??(AUG 11) AST ?21 ??(AUG 12) ?28 ??(AUG 11) Mag ?1.9 ??(AUG 14) ?1.9 ??(AUG 13) Bedside Glucose 169 ??(AUG 14) 201 ??(AUG 14) CRP 10.10 ??(AUG 08) ?? Total CK 22 ??(AUG 08) ?? 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 He was treated with IV Rocephin for 8 weeks, then transitioned to PO Augmentin which he??was still taking on admission.?Neurosurgery and infectious disease were consulted during his hospitalization.??Patient underwent thoracic laminectomy for decompression of the associated spinal cord and removal of epidural abscess with decompression from T5 down to T10 from the dorsal epidural thoracic space including removal of the spinous process thoracic lamina and ligamentum flavum to decompress the associated spinal cord without facetectomy or instability??on 07/05/2023..??He was initially treated with??vancomycin and cefepime post operatively. Intraoperative cultures and blood cultures were negative.??Reva PCR for operative cultures pending at discharge. Patient??ultimately treated??for negative culture vertebral osteomyelitis with extended course of antibiotics.?? He was ordered to??have Daptomycin and Rocephin for approximately 6 weeks, with a tentative stop date of 08/08/23 with plan for oral antibiotics forsuppression fci thereafter.??CT??cervical spine, thoracic spine,??lumbar??spine??completed??02/2024 shows??multilevel??osteomyelitis.?continued antibiotics were advised as written and he was to wear TLSO brace when up.?? He??was transferred to [facility] on 07/18/23??for ongoing PT, OT and??IV antibiotics.?? He had appointments to see neurosurgery and ID on 08/08/23.?Outside documentation indicates he was??not working well with therapies and was not wearing brace.?? He??was tocomplete??Medicare days on 08/07 yet continued care was necessary as due to his extensive care needshis family was not able to yet care for him at home.?? He transferred to [facility] in [place] on 08/06 for skilled care and continued antibiotics. Upon admission there yesterday, a CT chest was done and reported scattered lung nodules and consolidations concerning for pneumonia. [place] faculty also reported concern for??findings of new??thoracic??compression fracture as reason for transfer request.?? The patient is unsure why he a lung scan was done and tells me he thought they were re-evaluating his back.?? He denies new or worsening shortness of breath.?? he does admit that since having coronary disease with cardiac stents years ago he does have some exertional dyspnea at time.?? He says that some times he gets put on oxygen briefly but has never worn oxygen before.?? He is not wearing oxygen tonight.?? He denies coughing, wheezing, chest congestion, fever, chills, malaise or myalgias.?? He denies chest pain or pressure, lightheadedness, dizziness or pedal edema.?? He says his back pain is overall controlled, and is essentially negative when resting. ?? Notes are made of documentation and phone messages supporting that he was to have follow-up appointment with Dr Daigle of neurosurgery tomorrow, 08/08.?? His TLSO brace was left at the facility in [place] upon his transfer to [place]. He says his is to be obtaining that and is to bring it here when she can come visit.?? He is also to have an appointment with Clint of ID tomorrow w miranda was re-scheduled as a telemedicine visit.?? Note made of Dr Jaramillo's instructions to extend daptomycin and ceftriaxone through 08/29.?? Subjective Afebrile, VSS, on room air. BC no growth. Reports increased fatigue today. Denies chest pain or SOB, not coughing during exam. Back pain tolerable with pain med regimen. Denies numbness??in his??extremities. ? Tolerating atbx and diet. Patient states he wants to go to [place] [facility] in [place], at bedside in agreement, SW following. Review of Systems Denies abdominal??pain,??no nausea, vomiting, or??diarrhea.?ROS??is otherwise??negative.? Objective Vitals & Measurements ??Vital Signs (last 24 hrs)?Last Charted?Minimum?Maximum?Temp?97.6 (AUG 13 12:36)?97.5 (AUG 12 19:08)?97.8 (AUG 13 04:10)?Heart Rate?76 (FEB 06 12:36)?70 (B 12 12:56)?101 (B 15:24)?Resp Rate?18 (AUG 13:56)?16 (B 15:24)?20 (B 05:43)?SBP?144 (B 12:36)?108 (B 19:08)?144 (B 12:36)?DBP?69 (B 12:36)?66 (AUG 13:56)?72 (B 00:22)?SpO2?95 (B 12:36)?91 (B 04:10)?97 (AUG 13:56)?O2?Room a (B 12 12:56)?Room a (B 15:24)?Room a (AUG 12 15:24)?Weight?112.6 (B 06 05:00)?112.6 (B 04:10)?112.6 (B 04:10)?? Physical Exam General:?Resting comfortably, awakens easily and oriented, answers questions appropriately. Heart: ??RRR, no murmur heard. Lungs:?Moving air all lung lawrence, no rhonchi or wheezing. Skin: ??No rashes. IV and PICC??look okay. Extremities:?? Moves all 4 extremities, no joint effusions. Neurologic:?A & O x3, no focal motor deficits noted. Other ?? Assessment/Plan ?? Thoracic osteomyelitis with epidural abscess Pneumonia, Klebsiella pneumoniae ESBL ?? Course:?? Improving. ?? Patient is an??78-year-old insulin-dependent??diabetic??obese male with recent??thoracic??osteomyelitis growing Cutibacterium and Enterococcus faecalis complicated by??an??epidural??abscess??status post??thoracic laminectomy with??decompression and evacuation of the epidural abscess??performed??on ??by Neurosurgeon,??Dr. Kolb??Pilo??MD.?? Reva PCR positive for multiple organisms,no further specific identification. Patient discharged to a SNF on 07/18/23 and returns with concerns for pneumonia on outside??CT scan with intermittent productive cough.?? Images has been reviewed, does not look like a dapto pneumonitis and no eosinophilia on CBC, however will stop dapto and ceftri axone for now and switch atbx to for better pna coverage with??vancomycin and cefepime.?? Received results from??outside??lab sputum culture??positive??for Klebsiella??pneumoniae??ESBL,??will??changeantibiotics??to ertapenem??and switch back??to daptomycin with no concerns??of pneumonitis??or??Gram-positive organism??in sputum culture??to complete his??course??of antibiotics through??08/29/23. Neurosurgery saw patient no further surgical interventions for his chronic thoracic back pain from thedestruction??of the vertebrae from??OM not ongoing infection or recurrence of epidural abscess, michael??removed, incision looks??clean.?? No leukocytosis, no eosinophilia.?? CRP elevated. CK WNL. Monitor labs weekly/ ??MRSA screen negative. Blood cultures no growth. ??Okay from ID standpoint to discharge to [place] [facility] in [place] to complete IV atbx and??continue therapies. ? Recommendations:? 1.?? Continue ertapenem and daptomycin, with tentative stop date 08/29.?? May remove PICC line??at completion??of??IV antibiotics. ? 2.?? If fever develops, repeat??blood cultures.? 3.?? Continue PT/OT, walking in [place] with walker assistance. 4.?? Weekly PICC line dressing changes and monitor labs CBC, CMP, CK, and CRP. 5.?? Monitor known sacral wound and wounds on R toes. 6.?Strep pneumo, Legionella ur antigens ordered no urine collected. 7.?? ID will follow and Dr. Jaramillo will see patient in ID clinic. ??May be able??to do??a telehealth??visit.? I explained all??this to??patient and?at bedside and??all questions??were answered. Medications Medications (28) Active Scheduled: (28) aaMAR Note ??DC if...., UNSPECIFIED-See comments, Unscheduled aspirin 81 mg CHEW TAB ??81 mg 1 tab, By mouth, Daily atorvastatin 40 mg TAB ??40 mg 1 tab, By mouth, QPM (every evening) budesonide 0.5 mg/2 mL INH SOLN ??0.5 mg 2 mL, Inhalation, RespBID carVEDilol 6.25 mg TAB ??6.25 mg 1 tab, By mouth, BID cholecalciferol (Vitamin D3) 1,000 IntUnit (25 mcg) TAB ??2,000 IntUnit 2 tab, By mouth, Daily clopidogrel 75 mg TAB ??75 mg 1 tab, By mouth, QAM DAPTOmycin 350 mg (generic) SDV ??700 mg 14 mL, IVPB, Daily ertapenem 1000 mg VIAL ??1,000 mg, IV, Daily fentaNYL 75 mcg/hr PATCH ??1 patch, TD, Q72H fentaNYL PATCH Removal & Waste ??Patch Removal, UNSPECIFIED-See comments, Q72H fentaNYL PATCH Removal & Waste ??Patch Removal, UNSPECIFIED-See comments, Q72H formoterol 20 mcg/2 mL INH Soln ??20 mcg 2 mL, Inhalation, BID furosemide 40 mg TAB ??40 mg 1 tab, By mouth, Daily guaiFENesin LA 600 mg TAB ??600 mg 1 tab, By mouth, BID HEParin 5,000 units/1 mL INJ ??5,000 Units 1 mL, SubQ, BID insulin GLARgine (LanTUS) 100 units/mL 3 mL PEN ??20 Units 0.2 mL, SubQ, BID insulin lispro (HumaLOG) 100 units/mL 3 mL PEN ??Medium dose scale, SUBQ, With Meals & Bedtime isosorbide MONONITRATE 30 mg ER TAB ??30 mg 1 tab, By mouth, QAM levothyroxine 25 mcg TAB ??25 mcg 1 tab, By mouth, Daily linagliptin 5 mg TAB ??5 mg 1 tab, By mouth, Daily pantoprazole 40 mg TAB ??40 mg 1 tab, By mouth, Daily potassium chloride 20 mEq TAB ??40 mEq 2 tab, By mouth, TID pregabalin 25 mg CAP ??25 mg 1 cap, By mouth, BID sodium chloride 0.9% INJ SYR 5 mL ??5 mL, IVP, Q12H tamsulosin 0.4 mg CAP ??0.4 mg 1 cap, By mouth, Daily venlafaxine 37.5 mg IR TAB ??75 mg 2 tab, By mouth, QAM venlafaxine 37.5 mg IR TAB ??37.5 mg 1 tab, By mouth, QPM (every evening) Continuous: (0) Lab Results Labs??(Last two charted values on this encounter) WBC 9.6 ??(AUG 12) 8.3 ??(AUG 11) Hgb 9.9 ??(AUG 12) 9.8 ??(AUG 11) Hct 30.8 ??(AUG 12) 30.6 ??(AUG 11) Platelets 289 ??(AUG 12) 284 ??(AUG 11) Na 138 ??(AUG 12) 140 ??(AUG 11) K 4.1 ??(AUG 12) 4.2 ??(AUG 11) Cl 110 ??(AUG 12) 110 ??(AUG 11) CO2 26 ??(AUG 12) 23 ??(AUG 11) BUN 19 ??(AUG 12) 19 ??(AUG 11) Cr 1.15 ??(AUG 12) 1.12 ??(AUG 11) ProteinT ?5.5 ??(AUG 12) ?5.3 ??(AUG 11) Albumin ?2.0 ??(AUG 12) ?2.0 ??(AUG 11) Bilirubin ,Total ??0.4 ??(AUG 12) ??0.3 ??(AUG 11) Alk Phos ?91 ??(AUG 12) ?90 ??(AUG 11) ALT ?21 ??(AUG 12) ?23 ??(AUG 11) AST ?21 ??(AUG 12) ?28 ??(AUG 11) Mag ?1.9 ??(AUG 13) ?1.9 ??(AUG 12) Bedside Glucose 169 ??(AUG 13) 147 ??(AUG 13) CRP 10.10 ??(AUG 08) ?? Total CK 22 ??(AUG 08) ?? 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 He was treated with IV Rocephin for 8 weeks, then transitioned to PO Augmentin which he??was still taking on admission.?Neurosurgery and infectious disease were consulted during his hospitalization.??Patient underwent thoracic laminectomy for decompression of the associated spinal cord and removal of epidural abscess with decompression from T5 down to T10 from the dorsal epidural thoracic space including removal of the spinous process thoracic lamina and ligamentum flavum to decompress the associated spinal cord without facetectomy or instability??on 07/05/2023..??He was initially treated with??vancomycin and cefepime post operatively. Intraoperative cultures and blood cultures were negative.??Reva PCR for operative cultures pending at discharge. Patient??ultimately treated??for negative culture vertebral osteomyelitis with extended course of antibiotics.?? He was ordered to??have Daptomycin and Rocephin for approximately 6 weeks, with a tentative stop date of 08/08/23 with plan for oral antibiotics forsuppression fci thereafter.??CT??cervical spine, thoracic spine,??lumbar??spine??completed??02/2024 shows??multilevel??osteomyelitis.?continued antibiotics were advised as written and he was to wear TLSO brace when up.?? He??was transferred to [facility] on 07/18/23??for ongoing PT, OT and??IV antibiotics.?? He had appointments to see neurosurgery and ID on 08/08/23.?Outside documentation indicates he was??not working well with therapies and was not wearing brace.?? He??was tocomplete??Medicare days on 08/07 yet continued care was necessary as due to his extensive care needshis family was not able to yet care for him at home.?? He transferred to [facility] in [place] on 08/06 for skilled care and continued antibiotics. Upon admission there yesterday, a CT chest was done and reported scattered lung nodules and consolidations concerning for pneumonia. [place] faculty also reported concern for??findings of new??thoracic??compression fracture as reason for transfer request.?? The patient is unsure why he a lung scan was done and tells me he thought they were re-evaluating his back.?? He denies new or worsening shortness of breath.?? he does admit that since having coronary disease with cardiac stents years ago he does have some exertional dyspnea at time.?? He says that some times he gets put on oxygen briefly but has never worn oxygen before.?? He is not wearing oxygen tonight.?? He denies coughing, wheezing, chest congestion, fever, chills, malaise or myalgias.?? He denies chest pain or pressure, lightheadedness, dizziness or pedal edema.?? He says his back pain is overall controlled, and is essentially negative when resting. ?? Notes are made of documentation and phone messages supporting that he was to have follow-up appointment with Dr Daigle of neurosurgery tomorrow, 08/08.?? His TLSO brace was left at the facility in [place] upon his transfer to [place]. He says his is to be obtaining that and is to bring it here when she can come visit.?? He is also to have an appointment with Clint of [place] tomorrow which was re-scheduled as a telemedicine visit.?? Note made of Dr Jaramillo's instructions to extend daptomycin and ceftriaxone through 08/29.? CTA chest 08/06From H&P--- Review of Systems General:??see above HEENT: Denies sinus pressure or pain, nasal congestion, rhinorrhea, sore throat Respiratory: see above Cardiovascular: see above Gastrointestinal: Denies nausea, vomiting, diarrhea, constipation, abdominal pain Genitourinary: Note made that he had urinary retention upon recent admission with placement of Dunlap catheter then.?? Denies dysuria, hematuria, urinary urgency, frequency, sensation of incomplete voiding Hematologic/lymphatics: Denies lymphadenopathy, easy bleeding or bruising Endocrine: Denies heat or cold intolerance, polydipsia, polyphagia Musculoskeletal: see above. S/p left BKA. Neurologic: Note made of delirium during recent admission.?? Denies headache, focal weakness, numbness, paresthesias, presyncope, syncope, confusion Integumentary: Denies rashes, skin lesions, wounds Psychiatric: Denies anxiety, depression, insomnia Physical Exam Vitals & Measurements T:??97.4?F?? HR:??57?? RR:??17?? BP:??147/69?? SpO2:??95%?? WT:??116.8??kg?? Gen.:??Well-nourished, overall well-appearing elderly gentleman laying in his hospital bed resting apparently comfortably. ??No acute distress Eye: Conjunctiva pink, sclera white HENT: Head normocephalic, atraumatic.?? Mucous membranes moist.?? Posterior nasopharynx not edematous nor erythematous Neck:?? Supple, trachea midline.?? No lymphadenopathy.?? No JVD Respiratory: Nonlabored respirations with symmetrical expansion.?? Lungs clear to auscultation throughout without wheezing, rales or rhonchi.?? Room air. Confirmed.?? frj Cardiovascular: Regular rate and rhythm without murmur, rub, click, or??gallop.?? Confirmed.?? frj Extremities:?? Peripheral perfusion intact in the distal extremities.?? No edema. Confirmed.?? frj Gastrointestinal: Abdomen soft, nondistended, and nontender.?? Normoactive bowel sounds throughout.?? Confirmed.?? frj Musculoskeletal: Freely moves all 4 extremities.?? No obvious swelling or deformity. Neurologic: Alert and oriented.?? No appreciable acute focal deficits. Integumentary: [place], warm, and dry.?? No rashes, skin lesions, or breakdown. Psychiatric: Calm, cooperative.?? Appropriate mood and affect. Assessment/Plan 1.??Vertebral osteomyelitis(Osteomyelitis of vertebra, site unspecified: M46.20) 2.??Epidural abscess(Extradural and subdural abscess, unspecified: G06.2) 3.??Pulmonary nodules(Other nonspecific abnormal finding of lung field: R91.8) 4.??Infiltrate of lung present on imaging of chest(Other nonspecific abnormal finding of lung field: R91.8) 5.??Ulcer of sacral region(Non-pressure chronic ulcer of back with unspecified severity: L98.429) 6.??CAD (coronary artery disease)(Atherosclerotic heart disease of [place] coronary artery without angina pectoris: I25.10) 7.??Congestive heart failure(Heart failure, unspecified: I50.9) 8.??Chronic kidney disease, stage 4 (severe)(Chronic kidney disease, stage 4 (severe): N18.4) 9.??Type 2 diabetes mellitus(Type 2 diabetes mellitus without complications: E11.9) 10.??Hypertension(Essential (primary) hypertension: I10) 11.??Hyperlipidemia(Hyperlipidemia, unspecified: E78.5) 12.??Opioid dependence(Opioid dependence, uncomplicated: F11.20) 13.??History of BPH(Personal history of other diseases of male genital organs: Z87.438) 14.??History of left below knee amputation(Acquired absence of left leg below knee: Z89.512) Pneumonia(Pneumonia, unspecified organism: J18.9) ? PLAN: ?? Mr Varela has been transferred back to this facility for further evaluations and care due to concerning findings of possible pneumonia on CT chest done at outside facility yesterday 08/06.?? Dictated report is as above.?? Disc is with patient records and I have asked nursing staff to send to radiology to upload to PACS for review.?? Clinically, the patient denies signs or symptoms of pneumonia.?? Note made that Dr Jaramillo has directed for antibiotics to be further extended through 08/29.?? Will continue daptomycin and ceftriaxone as previously written.?? Will notify Dr Jaramillo of his admission. Will obtain blood cultures.?? Sputum culture, legionella and S pneumonia urinary antigens pending also. STAT cbc, cmp, mag now. Will notify Dr Daigle of patient's admission as he was to have post operative follow up with him tomorrow. Note that he has instructions to don TLSO brace when OOB.?? [facility] His is to obtain and I have asked he request her to bring it here when she can visit. Consult PT/OT consult as he will likely need to return to SNF.?? Recently transferred to [facility] in [place]. Routine medications will be continued as deemed appropriate for maintenance of chronic conditions. Glycemic management protocol for h/o DM2. Regular diet Activity as tolerated with brace as above heparin subcu for VTE PPX Full code.?? He does not?? have advanced directives. ?? Patient was seen face to face, and examined in detail at the time of admission. ??The available labs, vitals, diagnostics, and documentation in the EHR ??were personally reviewed, Patient History & Physical reviewed and confirmed. ??Agree with documented and edited information. ??The plan ofcare was discussed with the patient. ? FR Problem List/Past Medical History Ongoing Bilateral hearing loss CAD (coronary artery disease) Carotid stenosis Charcot's joint Chronic kidney disease, stage 4 (severe) Chronic pain Congestive heart failure Ex-smoker Gastroesophageal reflux disease History of BPH History of left below knee amputation History of recurrent UTI (urinary tract infection) Hyperlipidemia Hypertension MRSA (methicillin resistant Staphylococcus aureus) Opioid dependence Type 2 diabetes mellitus Historical No qualifying data Procedure/Surgical History ???Right long finger flexor tendon sheath exploration, tenolysis, and flexor digitorum sublimis reconstruction using flexor digitorum profundus remnant graft. (09/27/2021)???Right Ear Bone Surgery (06/29/2021)???Finger Amputation ()???Basal Cell Removed from Back (2019)???Basal Cell Removed from Face (2017)???Left Tendon Repair on Knuckle (2017)???Cardiac Catherization (2016)???Left Leg Amputation (2016)???Cardiac Catherization (2014)???Eye Surgery (2014)???Ear Surgery (2009)???Appendectomy (1968)???Ear Surgery (1965)???Tonsillectomy (1965) Medications Home Medications (24) Active alogliptin 12.5 mg oral tablet??12.5 mg = 1 tab, By mouth, Daily aspirin 81 mg oral tablet, chewable??81 mg = 1 tab, By mouth, Daily atorvastatin??40 mg, By mouth, QPM (every evening) carvedilol??6.25 mg, By mouth, BID cefTRIAXone 2 g injection??2,000 mg, IVPB, Daily clopidogrel??75 mg, By mouth, QAM Colace 100 mg oral capsule??200 mg = 2 cap, PRN, By mouth, TID cyclobenzaprine 5 mg oral tablet??5 mg = 1 tab, PRN, By mouth, TID DAPTOmycin??700 mg = 14 mL, IV, Q24H fentaNYL 12 mcg/hr transdermal film, extended release??1 patch, TD, Q72H Flomax 0.4 mg oral capsule??0.4 mg = 1 cap, By mouth, Daily Flonase 50 mcg/inh nasal spray??1 spray, Both Nostrils, as needed isosorbide mononitrate??30 mg, By mouth, QAM LanTUS 100 units/mL subcutaneous solution??20 Units, SubQ, BID Lasix 40 mg oral tablet??40 mg = 1 tab, By mouth, Daily levothyroxine??25 mcg, By mouth, Daily nitroglycerin 0.3 mg sublingual tablet??0.3 mg = 1 tab, PRN, SL, Q5Min omeprazole??20 mg, By mouth, Daily potassium chloride 20 mEq oral tablet, extended release??40 mEq = 2 tab, By mouth, TID pregabalin 25 mg oral capsule??25 mg = 1 cap, By mouth, BID Symbicort 80/4.5 inhalation aerosol with adapter??2 puff, Inhalation, as needed venlafaxine??75 mg, By mouth, BID Vitamin C??500 mg, By mouth, QAM Vitamin D3 (cholecalciferol)??2,000 IntUnit, By mouth, Daily Allergies Bactrim??(Rash, Itching) penicillin??(Rash) Social History Social History Alcohol ??Past Substance Abuse ??Denies Tobacco ??Smoking Status: Former smoker. ??Smokeless tobacco use: Never. ?Stopped at age: 68 Years. Family History Congestive heart failure: MOTHER. Coronary artery disease: FATHER. Diabetes mellitus: FATHER. Leukemia: FATHER. Lab Results No qualifying data available Diagnostic Results Dictated radiology report??of CT??chest done yesterday,??08/06/2023 at outside facility??reads?? noevidence??of pulmonary??embolus.?? Peripheral??arteries??are not well??opacified??with??contrast and a small peripheral pulmonary??embolus can not be??definitively??ruled out??2.?? Consolidative mass??density??anterior left??apex??measuring 2.1 x 1.3 cm and a??2nd consolidative??mass??density posterior medial left??apex??measuring approximately 2.4 x 1.8 cm and consolidative mass??density anterior right??upper lung??field adjacent??to the mediastinum??measuring approximately 1.1 by??0.7 cm and??a larger consolidative mass density??involving??the pleura??lateral left??mid lung field??measuring approximately 0.9 x 1.1 cm??differential diagnosis??would include??malignancy as well as??consolidated pneumonia??3.?? Pneumonia??with??consolidation involving??the posterior??right??upper lobe.?? Underlying??mass can not??be??excluded.?? 4.?? Irregular consolidative??process adjacent??to the anterior mediastinum??in the anterior left upper lung??field??measuring approximately 4.7 x 2.4 cm probably due??to pneumonia.?? Malignancy can not be??ruled??out.??5.?? Small irregular consolidative??process left suprahilar??region??measuring approximately 1.9 x 1.6 cm.?? Differential diagnosis??would include??malignancy as well as??consolidative??pneumonia.? 6.?? Pneumonia??or less likely??scarring??anterior medial left mid lung field.?? 7.?? Atelectasis??versus??scarring left??lower lung??field??seen to the left lung??base.??8.?? Small consolidative??process??in the posterolateral left lung??base??and posterior right lung??base probably due??to atelectasis and pneumonia.?? 9.?? Small bilateral??pleural??effusions.??10.?? Few??small to prominent??mediastinal and hilar??lymph nodes.?? 11.??Cholelithiasis.?? 12. ?? Compression??fracture with??erosion??of the endplate involving??4 of the mi dthoracic bodies.?? There is history??of osteomyelitis.?? Diskitis should also be considered.?? Clinical??correlation suggested.??13.?? Recommend pulmonology??consult. ? COVID PCR 08/06/23??negative.? Electronically signed by:Ofelia Zuniga 08/08/23 00:22 Electronically cosigned by: Srinath Galeana MD 08/08/23 00:27 Discharge summary * Reinaldo Tyson MD: PERFORM Event Display: Discharge Summary Authored Date: [id number] Discharge Information Admit date:08/07/2023 Discharge date:08/15/2023 Primary Care Physician:Heaven Levin MD Attending Physician:Reinaldo Tyson MD Consulting Physician:;Des Jaramillo MD MS Admitting Physician:Rhys Brantley DO Discharge Diagnosis Vertebral osteomyelitis Epidural abscess Pulmonary nodules Infiltrate of lung present on imaging of chest Ulcer of sacral region CAD (coronary artery disease) Congestive heart failure Chronic kidney disease, stage 4 (severe) Type 2 diabetes mellitus Hypertension Hyperlipidemia Opioid dependence History of BPH History of left below knee 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 Infection due to ESBL-producing Klebsiella pneumoniae Pneumonia Procedures During Visit No qualifying data available Hospital Course Mr Johnson is an??78 y/o male with h/o L BKA due to MRSA infection and Charcot joint, DM2, CKD4, CHF, CAD with prior stents, BPH, HTN, HLD who was recently hospitalized at this facility for evaluation and management of epidural abscess from T5-T10??10 weeks prior to that admission, he had been diagnosed with presumed??osteomyelitis of the T spine with??T8 biopsy growing Cutibacterium acnes and Enterococcus faecalis, though Enterococcus was thought to be a contaminant. He was treated with IV Rocephin for 8 weeks, then transitioned to PO Augmentin which he??was still taking on admission.?Neurosurgery and infectious disease were consulted during his hospitalization.??Patient underwent thoracic laminectomy for decompression of the associated spinal cord and removal of epidural abscess with decompression from T5 down to T10 from the dorsal epidural thoracic space including removal of the spinous process thoracic lamina and ligamentum flavum to decompress the associated spinal cord without facetectomy or instability??on 07/05/2023..??He was initially treated with??vancomycin and cefepime post operatively. Intraoperative cultures and blood cultures were negative.??Reva PCR for operative cultures pending at discharge. Patient??ultimately treated??for negative culture vertebral osteomyelitis with extended course of antibiotics.?? He was ordered to??have Daptomycin and Rocephin for approximately 6 weeks, with a tentative stop date of 08/08/23 with plan for oral antibiotics forsuppression fci thereafter.??CT??cervical spine, thoracic spine,??lumbar??spine??completed??02/2024 shows??multilevel??osteomyelitis.?continued antibiotics were advised as written and he was to wear TLSO brace when up.?? He??was transferred to [facility] on 07/18/23??for ongoing PT, OT and??IV antibiotics.?? He had appointments to see neurosurgery and ID on 08/08/23.?Outside documentation indicates he was??not working well with therapies and was not wearing brace.?? He??was tocomplete??Medicare days on 08/07 yet continued care was necessary as due to his extensive care needshis family was not able to yet care for him at home.?? He transferred to [facility] in [place] on 08/06 for skilled care and continued antibiotics. Upon admission there yesterday, a CT chest was done and reported scattered lung nodules and consolidations concerning for pneumonia. [place] faculty also reported concern for??findings of new??thoracic??compression fracture as reason for transfer request.?? The patient is unsure why he a lung scan was done and tells me he thought they were re-evaluating his back.?? He denies new or worsening shortness of breath.?? he does admit that since having coronary disease with cardiac stents years ago he does have some exertional dyspnea at time.?? He says that some times he gets put on oxygen briefly but has never worn oxygen before.?? He is not wearing oxygen tonight.?? He denies coughing, wheezing, chest congestion, fever, chills, malaise or myalgias.?? He denies chest pain or pressure, lightheadedness, dizziness or pedal edema.?? He says his back pain is overall controlled, and is essentially negative when resting. ? Note made of Dr Jaramillo's instructions to extend daptomycin and ceftriaxone through 08/29.? Vertebral??osteomyelitis with??epidural??abscess status post??surgery during previous admission Appreciate infectious disease To continue??ertapenem??and daptomycin??until??08/29 Weekly??CBC, CMP and CPK??to be sent??to infectious disease? Follow-up with infectious disease outpatient Continue PT OT ?? Pneumonia with??unspecified organism Resolved ?? Type 2 diabetes Lantus, sliding??scale insulin??and Accu-Cheks Linagliptin ?? Back??pain secondary to??surgery as above Continue fentanyl patch??and p.r.n.??medications ?? history??of CAD?? Continue??goal-directed therapy with??carvedilol, isosorbide??mononitrate,??Plavix? Mood??disorder Continue??pregabalin and venlafaxine ?? Hypothyroidism-Synthroid?? DVT??prophylaxis-heparin Vitals & Measurements ??Vital Signs (last 24 hrs)?Last Charted?Minimum?Maximum?Temp?98 (AUG 15:35)?97.5 (AUG 14 23:37)?98 (AUG 14:14)?Heart Rate?89 (AUG 15 08:46)?76 (AUG 15:35)?93 (AUG 14:14)?Resp Rate?20 (AUG 15:35)?14 (AUG 14 17:25)?20 (AUG 15:35)?SBP?129 (AUG 15:35)?113 (AUG 14 16:09)?131 (AUG 14 23:37)?DBP?74 (AUG 15:35)?67 (AUG 14 16:09)?82 (AUG 14 23:37)?SpO2?91 (AUG 15:35)?91 (AUG 15:35)?97 (AUG 14 19:14)?O2?Room a (AUG 15:35)?Room a (AUG 14 16:09)?Room a (AUG 14 16:09)?? Physical Exam General: ??Alert and oriented, No acute distress.?HEENT:?PERRL, moist oral mucosa.?Neck: ??Supple, No carotid bruit ?Respiratory:??Lungs are clear to??auscultation bilaterally, no wheezing, rales or rhonchi ?Cardiovascular: ??Normal S1-S2, regular rate and rhythm. ?Gastrointestinal: ??Soft, Non-tender, Non distended, Normal bowel sounds. ?Musculoskeletal: ??No swelling, No deformity ?Neurologic: ??Alert, Oriented, moves extremities ?Psychiatric: ??Cooperative Patient Discharge Condition Improved Discharge Orders Continuous Pickling Line Pickler 08/07/23 23:04:00 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, SNF Evaluation, Physician Order ? Discharge 08/15/23 9:15:00 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, [facility] Facility ? Discharge Work/School/Daycare Restrictions 08/15/23 9:15:00 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, Return to work in: No Restrictions ? Discharge Follow Up 08/15/23 9:15:00 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, Provider/Time: Infectious DiseasesPMD, Vertebral osteomyelitis Epidural abscess Order Comment: Complete IV antibiotics on 08/29/23 Can remove PICC after thatWeekly CBC, CMP, CK starting Sunday 08/20. Send results to Dr. Szymanski Infectious Diseases ?? Contact Physician After Discharge 08/15/23 9:15:00 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, Contact Physician for: Fever greater than 101 ? Discharge Diet 08/15/23 9:15:00 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, Discharge Diet: Regular ? Discharge Activity 08/15/23 9:15:00 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, As tolerated ? Facility Discharge Plan 2-4 weeks, 08/15/23 9:15:00 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 ? Facility Discharge Occupational Therapy Eval and Treat 08/15/23 9:15:00 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 ? Facility Discharge Physical Therapy Eval and Treat 08/15/23 9:15:00 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 ? Facility Discharge Therapeutic Recreation Eval and Treat 08/15/23 9:15:00 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, as determined by facility ? Facility Discharge Code Status 08/15/23 9:15:00 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, Full Code ? Facility Discharge Diabetic Monitoring 08/15/23 9:15:00 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, AC & HS ? Facility Discharge Antibiotic 08/15/23 9:15:00 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, Spinal osteomyelitis ? Facility Discharge Additional Orders 08/15/23 9:15:00 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, Complete IV antibiotics on 08/29/23 Can remove PICC after thatWeekly CBC, CMP,CK starting Sunday 08/20. Send results to Dr. Szymanski Infectious Diseases ? Medications Home Medications (25) Active alogliptin 12.5 mg oral tablet??12.5 mg = 1 tab, By mouth, Daily aspirin 81 mg oral tablet, chewable??81 mg = 1 tab, By mouth, Daily atorvastatin??40 mg, By mouth, QPM (every evening) carvedilol??6.25 mg, By mouth, BID clopidogrel??75 mg, By mouth, QAM Colace 100 mg oral capsule??200 mg = 2 cap, PRN, By mouth, TID cyclobenzaprine 5 mg oral tablet??5 mg = 1 tab, PRN, By mouth, TID DAPTOmycin??700 mg = 14 mL, IVPB, Daily ertapenem 1 g injection??1,000 mg, IV, Daily fentaNYL 12 mcg/hr transdermal film, extended release??1 patch, TD, Q72H Flomax 0.4 mg oral capsule??0.4 mg = 1 cap, By mouth, Daily Flonase 50 mcg/inh nasal spray??1 spray, Both Nostrils, as needed formoterol 20 mcg/2 mL inhalation solution??20 mcg = 2 mL, Inhalation, BID guaiFENesin 600 mg oral tablet, extended release??600 mg = 1 tab, By mouth, BID isosorbide mononitrate??30 mg, By mouth, QAM LanTUS 100 units/mL subcutaneous solution??20 Units, SubQ, BID Lasix 40 mg oral tablet??40 mg = 1 tab, By mouth, Daily levothyroxine??25 mcg, By mouth, Daily nitroglycerin 0.3 mg sublingual tablet??0.3 mg = 1 tab, PRN, SL, Q5Min omeprazole??20 mg, By mouth, Daily oxyCODONE 5 mg oral tablet??5 mg = 1 tab, PRN, By mouth, Q4H potassium chloride 20 mEq oral tablet, extended release??20 mEq = 1 tab, By mouth, TID pregabalin 25 mg oral capsule??25 mg = 1 cap, By mouth, BID venlafaxine??75 mg, By mouth, BID Vitamin D3 (cholecalciferol)??2,000 IntUnit, By mouth, Daily Medication reconciliation completed on this patient today Pending Labs PENDING LABS C Sputum (Gram Stain) Sputum, Expectorated, Specimen, 08/07/23 23:04:00 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, Unit Collect, Routine, Print Label, 08/07/2422:04:00 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, [id number], pp_[facility]_call_set_order_encntr Creatinine Blood, Fiberglass Quality Technician, 08/09/23 1:00:00 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, Routine, [id number], 2, Days, 08/10/23 1:00:00 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, [id number], pp_rslts_call_set_order_encntr Lab Results Labs??(Last two charted values on this encounter) WBC 11.0 ??(AUG 15) 9.6 ??(AUG 12) Hgb 11.1 ??(AUG 15) 9.9 ??(AUG 12) Hct 33.9 ??(AUG 15) 30.8 ??(AUG 12) Platelets 385 ??(AUG 15) 289 ??(AUG 12) Na 136 ??(AUG 15) 138 ??(AUG 12) K 4.3 ??(AUG 15) 4.1 ??(AUG 12) Cl 102 ??(AUG 15) 110 ??(AUG 12) CO2 24 ??(AUG 15) 26 ??(AUG 12) BUN 15 ??(AUG 15) 19 ??(AUG 12) Cr 1.09 ??(AUG 15) 1.15 ??(AUG 12) ProteinT ?6.7 ??(AUG 15) ?5.5 ??(AUG 12) Albumin ?2.6 ??(AUG 15) ?2.0 ??(AUG 12) Bilirubin ,Total ??0.3 ??(AUG 15) ??0.4 ??(AUG 12) Alk Phos ?98 ??(AUG 15) ?91 ??(AUG 12) ALT ?14 ??(AUG 15) ?21 ??(AUG 12) AST ?17 ??(AUG 15) ?21 ??(AUG 12) Mag ?2.0 ??(AUG 15) ?1.9 ??(AUG 14) Bedside Glucose 167 ??(AUG 15) 150 ??(AUG 14) CRP 12.20 ??(AUG 15) 10.10 ??(AUG 08) Total CK 16 ??(AUG 15) 22 ??(AUG 08) Glucose,Plasma 203 ??(AUG 15) 91 ??(AUG 12) Diagnostic Results Radiology Results:?? XR Chest 1 View - 08/08/23 10:00 ( Rusty Bird DO )?? IMPRESSION: Mild areas of atelectasis lower lung bases. ??Right upper arm PICC well-positioned. ??Follow-up with chest radiographs to resolution suggested. Electronically signed by: Dr Rusty Bird ??08/08/2023 10:00 AM Other No qualifying data available. Airway Management No Data Available Electronically signed by:Reinaldo Tyson MD 08/15/23 13:14 XR Chest Single view * BryantooMarge pierson DOeral: PERFORM, TRANSCRIBE, VERIFY, VERIFY Event Display: Report Authored Date: Note * Bryantoodangelo LINK Veeral: PERFORM, TRANSCRIBE, VERIFY, VERIFY Event Display: Powerscribe Read Authored Date: Exam: XR Chest 1 View Date/Time of Exam: 08/08/2023 9:32 AM Reason For Exam: pna. Diagnosis Codes: J18.9 Pneumonia, unspecified organism M46.20 Osteomyelitis of vertebra, site unspecified G06.2 Extradural and subdural abscess, unspecified R91.8 Other nonspecific abnormal finding of lung field R91.8 Other nonspecific abnormal finding of lung field Comparison: CXR 07/11/2023. Reading Location: [place] [address] \\ [id number] Findings: Lungs: There is no consolidation in either lung. Mild areas of atelectasis present. Right upper armPICC with tip overlying the SVC. Heart and mediastinum: Heart size normal. No abnormal mediastinal or hilar lymph nodes. Tracheal air shadow and aortic contour normal. Pleural spaces: No pleural fluid nor pneumothorax. Musculoskeletal: No acute osseous abnormalities. Degenerative changes thoracic spine. IMPRESSION: Mild areas of atelectasis lower lung bases. Right upper arm PICC well- positioned. Follow-up with chest radiographs to resolution suggested. Electronically signed by: Dr Rusty Bird 08/08/2023 10:00 AM Rusty Bird DO Signed 08/08/23 10:00:27 (Electronic Signature) Food Order Expediter VB Technologist SY Patient Care team information Care Team Personnel Name: Francisco Javier Claudio Position: Inpatient-Midlevel Member Role: Nurse Practitioner Address: Address: [facility] [place] [address]- Name: Heaven Levin MD Position: 2 Restricted Providers Member Role: Primary Care Physician Care Team Related Persons Name: RUSSELL KUMAR Name: CRISTIAN VARELA Name: CRISTIAN VARELA Address: home [address] [place] [address] Address: mailing [place] [id number]
--- OUTSIDE RECORDS SUMMARY | 2023-08-25 11:28 | XMS_ITS | Continuity of Care Document ---
Author Name Unknown Organization [facility] Address [address] [place] [address]- Care Team Providers Care Director Rehabilitation Program Name Role Phone Heaven Levin MD Primary Care Physician Unavailab le Encounter [employer] Number [phone] Date(s): 07/03/23 - 07/18/23 [facility] [address] [place] [phone] Encounter Diagnosis Epidural abscess(Discharge Diagnosis) - 07/04/23 Hypertension(Discharge Diagnosis) - 07/04/23 Opioid dependence(Discharge Diagnosis) - 07/05/23 MRSA (methicillin resistant Staphylococcus aureus)(Discharge Diagnosis) - 07/04/23 Hyperlipidemia(Discharge Diagnosis) - 07/04/23 History of left below knee amputation(Discharge Diagnosis) - 07/04/23 History of BPH(Discharge Diagnosis) - 07/04/23 Chronic pain(Discharge Diagnosis) - 07/05/23 Acute delirium(Discharge Diagnosis) - 07/06/23 Vertebral osteomyelitis(Discharge Diagnosis) - 07/06/23 Congestive heart failure(Discharge Diagnosis) - 07/04/23 Chronic kidney disease, stage 4 (severe)(Discharge Diagnosis) - 07/04/23 Type 2 diabetes mellitus(Discharge Diagnosis) - 07/04/23 Decubitus ulcer, buttock(Discharge Diagnosis) - 07/04/23 Urine retention(Discharge Diagnosis) - 07/04/23 Hypoglycemia(Discharge Diagnosis) - 07/04/23 CAD (coronary artery disease)(Discharge Diagnosis) - 07/04/23 Discharge Disposition: .Discharge to Home (Routine) Attending Physician: Sonido Ann MD Admitting Physician: Jimy Rogers MD Allergies, Adverse Reactions, Alerts Substance Reaction Severity Status penicillin Rash Unknown Active Bactrim Rash Itching Unknown Active Assessment and Plan Extracted from: Title:Discharge Note Author:Sonido Ann MD Date: Discharge Follow Up 07/11/23 16:10:00 NICKEL OPERATOR, Provider/Time: Follow-up with ID, Dr. Jaramillo, in 4-5 weeks, call for appointment [phone]. ??[facility] Vertebral osteomyelitis Epidural abscess Discharge 07/18/23 9:26:00 NICKEL OPERATOR, Care Home Facility Discharge Follow Up 07/18/23 9:26:00 NICKEL OPERATOR, Provider/Time: f/u with PCP in 3-5 daysf/u with ID and neurosurgery as recommended by them, Readmission Risk F/U 3-5 days Discharge Diet 07/18/23 9:26:00 NICKEL OPERATOR, Discharge Diet: Carbohydrate Consistent Diet Discharge Activity 07/18/23 9:26:00 NICKEL OPERATOR, Other, see special instructions, as recommended by neurosurgery Facility Discharge Plan unknown, 07/18/23 9:26:00 NICKEL OPERATOR Facility Discharge Occupational Therapy Eval and Treat 07/18/23 9:26:00 NICKEL OPERATOR Facility Discharge Physical Therapy Eval and Treat 07/18/23 9:26:00 NICKEL OPERATOR Facility Discharge Antibiotic 07/18/23 9:26:00 NICKEL OPERATOR, osteomyelitis ? 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) 2.??Vertebral osteomyelitis(Osteomyelitis of vertebra, site unspecified: M46.20) 3.??Acute delirium(Disorientation, unspecified: R41.0) 4.??Type 2 diabetes mellitus(Type 2 diabetes mellitus without complications: E11.9) 5.??Congestive heart failure(Heart failure, unspecified: I50.9) 6.??CAD (coronary artery disease)(Atherosclerotic heart disease of [place] coronary artery without angina pectoris: I25.10) 7.??Hypoglycemia(Hypoglycemia, unspecified: E16.2) 8.??Urine retention(Retention of urine, unspecified: R33.9) 9.??Decubitus ulcer, buttock(Pressure ulcer of unspecified buttock, unspecified stage: L89.309) 10.??Chronic kidney disease, stage 4 (severe)(Chronic kidney disease, stage 4 (severe): N18.4) 11.??History of BPH(Personal history of other diseases of male genital organs: Z87.438) 12.??History of left below knee amputation(Acquired absence of left leg below knee: Z89.512) 13.??Hypertension(Essential (primary) hypertension: I10) 14.??Hyperlipidemia(Hyperlipidemia, unspecified: E78.5) 15.??MRSA (methicillin resistant Staphylococcus aureus)(Methicillin resistant Staphylococcus aureus infection, unspecified site: A49.02) 16.??Opioid dependence(Opioid dependence, uncomplicated: F11.20) 17.??Chronic pain(Other chronic pain: G89.29) Orders: oxyCODONE, 5 mg = 1 tab, TAB, By mouth, Q4H, PRN, Pain Moderate (4-6), Start Date: 07/04/23 0:07:00 NICKEL OPERATOR, Stop date 07/26/23 0:06:00 NICKEL OPERATOR, Routine, Disp Location: [address], GEN DISP oxyCODONE, 10 mg = 2 tab, TAB, By mouth, Q4H, PRN, Pain Severe (7-10), Start Date: 07/04/23 0:07:00 NICKEL OPERATOR, Stop date 07/26/23 0:06:00 NICKEL OPERATOR, Routine, Disp Location: [address], GEN DISP potassium chloride, 40 mEq = 2 tab, SR TAB, By mouth, Daily, Start Date: 07/17/23 9:00:00 NICKEL OPERATOR, Duration: 90 Days, Stop date 10/14/23 9:00:00 CDT, Routine, Disp Location: [address], GEN DISP pregabalin, 25 mg = 1 cap, CAP, By mouth, BID, Start Date: 07/04/23 21:00:00 NICKEL OPERATOR, Stop date 07/26/23 20:59:00 NICKEL OPERATOR, Routine, Disp Location: [address], GEN DISP spironolactone, 25 mg = 1 tab, TAB, By mouth, QAM, Start Date: 07/17/23 9:00:00 NICKEL OPERATOR, Duration: 90 Days, Stop date 10/14/23 9:00:00 CDT, Routine, Disp Location: [facility], GEN DISP CT Chest Abd Pelvis wo Contrast Initiate Plan, Potassium Replacement Protocol - Routine Plan: ?? Appreciate Neurosurgery.?? Status post??thoracic laminectomy for decompression of the associated spinal cord and removal of epidural abscess with decompression from T5 down to T10 from the dorsal epidural thoracic space including removal of the spinous process thoracic lamina and ligamentum flavum to decompress the associated spinal cord without facetectomy or instability??on 07/05/2023. ? CT??cervical spine, thoracic spine,??lumbar??spine??completed??07/15/2023 shows??multilevel??osteomyelitis.?? I asked neurosurgeon??Dr. Cortes Daigle to review CT??spines??and to see if??there is something??else??we can do??other than??continue??antibiotic. ?? Will??discharge once??okay with??Neurosurgery. ? Appreciate ID.?? Continue daptomycin, ceftriaxone.?? Tentative stop date??08/08/2023.?? May need??suppressive p.o.??antibiotic following.?? Id is following. ?? CT chest, abdomen and pelvis??shows nothing acute ?? Pain??medication has been switched??to fentanyl??patch,??p.r.n. oxycodone, p.r.n.??IV hydromorphone.?? Patient states??that his??back pain??seems improved.?? Continue??current pain??regimen??and adjust??medication as needed. ? Social??worker??is following??for??discharge plan. ?? Discussed with patient??at bedside, updated??daughter Savanna??on the phone??at bedside? Discussed with RN ?? Daughter??Savanna updated??on 07/15/2023, 07/17. ? I spent total more than 50??minutes today with the patient including reviewing the patient diagnostic tests, independently interpreting results and communicating results to patient, obtaining patient history, performing physical exam, discussion and counselling with the patient, ordering medications/tests/procedures, consulting/communicating with other health pharmacy customer care specialist, documenting medical record, and care coordination. ? 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) 2.??Vertebral osteomyelitis(Osteomyelitis of vertebra, site unspecified: M46.20) 3.??Acute delirium(Disorientation, unspecified: R41.0) 4.??Type 2 diabetes mellitus(Type 2 diabetes mellitus without complications: E11.9) 5.??Congestive heart failure(Heart failure, unspecified: I50.9) 6.??CAD (coronary artery disease)(Atherosclerotic heart disease of [place] coronary artery without angina pectoris: I25.10) 7.??Hypoglycemia(Hypoglycemia, unspecified: E16.2) 8.??Urine retention(Retention of urine, unspecified: R33.9) 9.??Decubitus ulcer, buttock(Pressure ulcer of unspecified buttock, unspecified stage: L89.309) 10.??Chronic kidney disease, stage 4 (severe)(Chronic kidney disease, stage 4 (severe): N18.4) 11.??History of BPH(Personal history of other diseases of male genital organs: Z87.438) 12.??History of left below knee amputation(Acquired absence of left leg below knee: Z89.512) 13.??Hypertension(Essential (primary) hypertension: I10) 14.??Hyperlipidemia(Hyperlipidemia, unspecified: E78.5) 15.??MRSA (methicillin resistant Staphylococcus aureus)(Methicillin resistant Staphylococcus aureus infection, unspecified site: A49.02) 16.??Opioid dependence(Opioid dependence, uncomplicated: F11.20) 17.??Chronic pain(Other chronic pain: G89.29) Plan: ?? Appreciate Neurosurgery.?? Status post??thoracic laminectomy for decompression of the associated spinal cord and removal of epidural abscess with decompression from T5 down to T10 from the dorsal epidural thoracic space including removal of the spinous process thoracic lamina and ligamentum flavum to decompress the associated spinal cord without facetectomy or instability??on 07/05/2023. ? CT??cervical spine, thoracic spine,??lumbar??spine??completed??07/15/2023 shows??multilevel??osteomyelitis.?? I asked neurosurgeon??Dr. Cortes Daigle to review CT??spines??and to see if??there is something??else??we can do??other than??continue??antibiotic. ?? Appreciate ID.?? Continue daptomycin, ceftriaxone.?? Tentative stop date??08/08/2023.?? May need??suppressive p.o.??antibiotic following.?? Id is following. ? CT chest, abdomen and pelvis??was completed yesterday,??reported??is pending.?? I called??Radiology??department and request??to report??CT as soon as possible. ?? Pain??medication has been switched??to fentanyl??patch,??p.r.n. oxycodone, p.r.n.??IV hydromorphone.?? Patient states??that his??back pain??seems slightly??improving today than??yesterday.?? Continue??current pain??regimen??and adjust??medication as needed. ?? Electrolytes replacement, as needed, per protocol ?? Discussed with patient??at bedside Discussed with RN ? Daughter??Savanna updated??on 07/15/2023. I will update daughter Savanna again after having CT chest, abd and pelvis report and after having recommendation from neurosurgeon. ? 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) 2.??Vertebral osteomyelitis(Osteomyelitis of vertebra, site unspecified: M46.20) 3.??Acute delirium(Disorientation, unspecified: R41.0) 4.??Type 2 diabetes mellitus(Type 2 diabetes mellitus without complications: E11.9) 5.??Congestive heart failure(Heart failure, unspecified: I50.9) 6.??CAD (coronary artery disease)(Atherosclerotic heart disease of [place] coronary artery without angina pectoris: I25.10) 7.??Hypoglycemia(Hypoglycemia, unspecified: E16.2) 8.??Urine retention(Retention of urine, unspecified: R33.9) 9.??Decubitus ulcer, buttock(Pressure ulcer of unspecified buttock, unspecified stage: L89.309) 10.??Chronic kidney disease, stage 4 (severe)(Chronic kidney disease, stage 4 (severe): N18.4) 11.??History of BPH(Personal history of other diseases of male genital organs: Z87.438) 12.??History of left below knee amputation(Acquired absence of left leg below knee: Z89.512) 13.??Hypertension(Essential (primary) hypertension: I10) 14.??Hyperlipidemia(Hyperlipidemia, unspecified: E78.5) 15.??MRSA (methicillin resistant Staphylococcus aureus)(Methicillin resistant Staphylococcus aureus infection, unspecified site: A49.02) 16.??Opioid dependence(Opioid dependence, uncomplicated: F11.20) 17.??Chronic pain(Other chronic pain: G89.29) Orders: cyclobenzaprine, 5 mg = 1 tab, TAB, By mouth, TID, PRN, Muscle Spasms, Start Date: 07/15/23 12:33:00 NICKEL OPERATOR, Duration: 90 Days, Stop date 10/13/23 12:32:00 CDT, Routine, Disp Location: [place] [address], GEN DISP fentaNYL, 1 patch, PATCH, TD, Q72H, Start Date: 07/15/23 13:00:00 NICKEL OPERATOR, Duration: 14 Days, Stop date: 07/27/23 13:00:00 NICKEL OPERATOR, Routine, Disp Location: [place] [address], GEN DISP HYDROmorphone, 1 mg = 1 mL, INJ, IV, Q4H, PRN, Pain Severe (7-10) (2nd Line), Start Date: 07/15/23 12:31:00 NICKEL OPERATOR, Duration: 48 hr, Stop date 07/17/23 12:30:00 NICKEL OPERATOR, Routine, Disp Location: [address], GEN DISP CMP CT Cervical Spine wo Contrast CT Chest Abd Pelvis wo Contrast CT Recon Lumbar Spine CT Recon Thoracic Spine Hemogram Nursing Communication Order Plan: ?? Appreciate Neurosurgery.?? Status post??thoracic laminectomy for decompression of the associated spinal cord and removal of epidural abscess with decompression from T5 down to T10 from the dorsal epidural thoracic space including removal of the spinous process thoracic lamina and ligamentum flavum to decompress the associated spinal cord without facetectomy or instability??on 07/05/2023. ?? Appreciate ID.?? Continue daptomycin, ceftriaxone.?? Tentative stop date??08/08/2023.?? May need??suppressive p.o.??antibiotic following.?? Id is following. ?? Patient??is on scheduled??morphine,??p.r.n. oxycodone.?? However,??he complaining??of intractable bilateral flank pain, back??pain,??feels the pain is worse, does not??think current pain regimen??is working.?? Discussed with patient??at bedside,??his??daughter Savanna on the phone??at bedside.?? Plan??to do CT chest, abdomen and pelvis, CT??cervical??spine, thoracic??spine, lumbar??spine, to make??sure??osteomyelitis??is improving, to make sure??nothing??else??causing??the intractable??pain.?? Also??discussed with them about??options??of pain regimen.?? Patient??and Savanna??states??that morphine, oxycodone??does not work.?? They are okay??to try fentanyl patch,??p.r.n. IV??hydromorphone??as needed??at??this??time, then??titrate??pain medication??as needed depends on his??response to??pain medication. ?? Labs today Electrolytes replacement, as needed, per protocol ?? Discussed with patient??at bedside,??daughter Savanna??on the phone??at bedside Discussed with RN I spent total more than 50??minutes today with the patient including reviewing the patient diagnostic tests, independently interpreting results and communicating results to patient, obtaining patient history, performing physical exam, discussion and counselling with the patient, ordering medications/tests/procedures, consulting/communicating with other health pharmacy customer care specialist, documenting medical record, and care coordination. ? 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) 2.??Vertebral osteomyelitis(Osteomyelitis of vertebra, site unspecified: M46.20) 3.??Acute delirium(Disorientation, unspecified: R41.0) 4.??Type 2 diabetes mellitus(Type 2 diabetes mellitus without complications: E11.9) 5.??Congestive heart failure(Heart failure, unspecified: I50.9) 6.??CAD (coronary artery disease)(Atherosclerotic heart disease of [place] coronary artery without angina pectoris: I25.10) 7.??Hypoglycemia(Hypoglycemia, unspecified: E16.2) 8.??Urine retention(Retention of urine, unspecified: R33.9) 9.??Decubitus ulcer, buttock(Pressure ulcer of unspecified buttock, unspecified stage: L89.309) 10.??Chronic kidney disease, stage 4 (severe)(Chronic kidney disease, stage 4 (severe): N18.4) 11.??History of BPH(Personal history of other diseases of male genital organs: Z87.438) 12.??History of left below knee amputation(Acquired absence of left leg below knee: Z89.512) 13.??Hypertension(Essential (primary) hypertension: I10) 14.??Hyperlipidemia(Hyperlipidemia, unspecified: E78.5) 15.??MRSA (methicillin resistant Staphylococcus aureus)(Methicillin resistant Staphylococcus aureus infection, unspecified site: A49.02) 16.??Opioid dependence(Opioid dependence, uncomplicated: F11.20) 17.??Chronic pain(Other chronic pain: G89.29) ?? Appreciate neurosurgery input and management they have signed off.?? Continue antibiotics per infectious Disease noted need for 6 weeks of antibiotics.?Will need skilled rehab Monitor renal function closely Hold lisinopril continue Coreg monitor blood pressure closely Restart??aspirin Plavix?? Continue rest of supportive care management MDM mod ?? Voice recognition software [employer] Direct was used dictate and transcribe this document. Raise Driller variances may occur. Despite proofreading, typographical errors may occur. ?? Rocael Her MD. Hospitalist ? 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) 2.??Vertebral osteomyelitis(Osteomyelitis of vertebra, site unspecified: M46.20) 3.??Acute delirium(Disorientation, unspecified: R41.0) 4.??Type 2 diabetes mellitus(Type 2 diabetes mellitus without complications: E11.9) 5.??Congestive heart failure(Heart failure, unspecified: I50.9) 6.??CAD (coronary artery disease)(Atherosclerotic heart disease of [place] coronary artery without angina pectoris: I25.10) 7.??Hypoglycemia(Hypoglycemia, unspecified: E16.2) 8.??Urine retention(Retention of urine, unspecified: R33.9) 9.??Decubitus ulcer, buttock(Pressure ulcer of unspecified buttock, unspecified stage: L89.309) 10.??Chronic kidney disease, stage 4 (severe)(Chronic kidney disease, stage 4 (severe): N18.4) 11.??History of BPH(Personal history of other diseases of male genital organs: Z87.438) 12.??History of left below knee amputation(Acquired absence of left leg below knee: Z89.512) 13.??Hypertension(Essential (primary) hypertension: I10) 14.??Hyperlipidemia(Hyperlipidemia, unspecified: E78.5) 15.??MRSA (methicillin resistant Staphylococcus aureus)(Methicillin resistant Staphylococcus aureus infection, unspecified site: A49.02) 16.??Opioid dependence(Opioid dependence, uncomplicated: F11.20) 17.??Chronic pain(Other chronic pain: G89.29) ?? Appreciate neurosurgery input and management they have signed off.?? Continue antibiotics per infectious Disease noted need for 6 weeks of antibiotics.?Will need skilled rehab Monitor renal function closely Hold lisinopril continue Coreg monitor blood pressure closely Restart??aspirin Plavix?? Continue rest of supportive care management MDM mod ?? Voice recognition software [employer] Direct was used dictate and transcribe this document. Raise Driller variances may occur. Despite proofreading, typographical errors may occur. ?? Rocael Her MD. Hospitalist ? 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 2.??Vertebral osteomyelitis(Osteomyelitis of vertebra, site unspecified: M46.20) Ordered: [facility] F/U Inpatient [id number] ?? 3.??Acute delirium(Disorientation, unspecified: R41.0) Ordered: [facility] F/U Inpatient 41961 ?? 4.??Type 2 diabetes mellitus(Type 2 diabetes mellitus without complications: E11.9) Ordered: [facility] F/U Inpatient 19225 ?? 5.??Congestive heart failure(Heart failure, unspecified: I50.9) Ordered: [facility] F/U Inpatient [id number] ?? 6.??CAD (coronary artery disease)(Atherosclerotic heart disease of [place] coronary artery without angina pectoris: I25.10) Ordered: [facility] F/U Inpatient 94596 ?? 7.??Hypoglycemia(Hypoglycemia, unspecified: E16.2) Ordered: [facility] F/U Inpatient 84433 ?? 8.??Urine retention(Retention of urine, unspecified: R33.9) Ordered: [facility] F/U Inpatient 09127 ?? 9.??Decubitus ulcer, buttock(Pressure ulcer of unspecified buttock, unspecified stage: L89.309) Ordered: [facility] F/U Inpatient 13381 ?? 10.??Chronic kidney disease, stage 4 (severe)(Chronic kidney disease, stage 4 (severe): N18.4) Ordered: [facility] F/U Inpatient 64669 ?? 11.??History of BPH(Personal history of other diseases of male genital organs: Z87.438) Ordered: [facility] F/U Inpatient 46003 ?? 12.??History of left below knee amputation(Acquired absence of left leg below knee: Z89.512) Ordered: [facility] F/U Inpatient 63617 ?? 13.??Hypertension(Essential (primary) hypertension: I10) ?? 14.??Hyperlipidemia(Hyperlipidemia, unspecified: E78.5) ?? 15.??MRSA (methicillin resistant Staphylococcus aureus)(Methicillin resistant Staphylococcus aureus infection, unspecified site: A49.02) ?? 16.??Opioid dependence(Opioid dependence, uncomplicated: F11.20) ?? 17.??Chronic pain(Other chronic pain: G89.29) ? Appreciate neurosurgery input and management they have signed off.?? Continue antibiotics per infectious Disease noted need for 6 weeks of antibiotics.?Will need skilled rehab ?? Monitor renal function closely Hold lisinopril continue Coreg monitor blood pressure closely ?? Restart??aspirin Plavix? Continue rest of supportive care management MDM mod ?? Voice recognition software [employer] Direct was used dictate and transcribe this document. Raise Driller variances may occur. Despite proofreading, typographical errors may occur. ?? Rocael Her MD. Hospitalist ? 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.2) 2.??Vertebral osteomyelitis(Osteomyelitis of vertebra, site unspecified: M46.20) 3.??Acute delirium(Disorientation, unspecified: R41.0) 4.??Type 2 diabetes mellitus(Type 2 diabetes mellitus without complications: E11.9) 5.??Congestive heart failure(Heart failure, unspecified: I50.9) 6.??CAD (coronary artery disease)(Atherosclerotic heart disease of [place] coronary artery without angina pectoris: I25.10) 7.??Hypoglycemia(Hypoglycemia, unspecified: E16.2) 8.??Urine retention(Retention of urine, unspecified: R33.9) 9.??Decubitus ulcer, buttock(Pressure ulcer of unspecified buttock, unspecified stage: L89.309) 10.??Chronic kidney disease, stage 4 (severe)(Chronic kidney disease, stage 4 (severe): N18.4) 11.??History of BPH(Personal history of other diseases of male genital organs: Z87.438) 12.??History of left below knee amputation(Acquired absence of left leg below knee: Z89.512) 13.??Hypertension(Essential (primary) hypertension: I10) 14.??Hyperlipidemia(Hyperlipidemia, unspecified: E78.5) 15.??MRSA (methicillin resistant Staphylococcus aureus)(Methicillin resistant Staphylococcus aureus infection, unspecified site: A49.02) 16.??Opioid dependence(Opioid dependence, uncomplicated: F11.20) 17.??Chronic pain(Other chronic pain: G89.29) Appreciate neurosurgery input drain out they have signed off.?? Continue antibiotics per infectious Disease was for 6 weeks of antibiotics.?? Monitor renal function closely Hold lisinopril continue Coreg monitor blood pressure closely They have to restart aspirin Plavix neurosurgery has signed off.?? Continue rest of supportive care management MDM mod ?? Voice recognition software [employer] Direct was used dictate and transcribe this document. Raise Driller variances may occur. Despite proofreading, typographical errors may occur. ?? Rocael Her MD. Hospitalist ? Extracted from: Title:Progress SOAP Note Author:Venice Johnson Date:07/10/23 1.??Epidural abscess(Extradu ral and subdural abscess, unspecified: G06.2) 2.??Vertebral osteomyelitis(Osteomyelitis of vertebra, site unspecified: M46.20) 3.??Acute delirium(Disorientation, unspecified: R41.0) 4.??Type 2 diabetes mellitus(Type 2 diabetes mellitus without complications: E11.9) 5.??Congestive heart failure(Heart failure, unspecified: I50.9) 6.??CAD (coronary artery disease)(Atherosclerotic heart disease of [place] coronary artery without angina pectoris: I25.10) 7.??Hypoglycemia(Hypoglycemia, unspecified: E16.2) 8.??Urine retention(Retention of urine, unspecified: R33.9) 9.??Decubitus ulcer, buttock(Pressure ulcer of unspecified buttock, unspecified stage: L89.309) 10.??Chronic kidney disease, stage 4 (severe)(Chronic kidney disease, stage 4 (severe): N18.4) 11.??History of BPH(Personal history of other diseases of male genital organs: Z87.438) 12.??History of left below knee amputation(Acquired absence of left leg below knee: Z89.512) 13.??Hypertension(Essential (primary) hypertension: I10) 14.??Hyperlipidemia(Hyperlipidemia, unspecified: E78.5) 15.??MRSA (methicillin resistant Staphylococcus aureus)(Methicillin resistant Staphylococcus aureus infection, unspecified site: A49.02) 16.??Opioid dependence(Opioid dependence, uncomplicated: F11.20) 17.??Chronic pain(Other chronic pain: G89.29) Orders: docusate-senna, 1 tab, TAB, Route: By mouth, BID, Start Date: 07/10/23 9:00:00 NICKEL OPERATOR, Duration: 90 Days, Stop date: 10/07/23 21:00:00 CDT, Routine, Disp Location: [address], GEN DISP furosemide, 40 mg = 1 tab, TAB, By mouth, Daily, Start Date: 07/06/23 13:21:00 NICKEL OPERATOR, Duration: 90 Days, Stop date 10/03/23 9:00:00 CDT, Routine, Disp Location: [address], GEN DISP insulin glargine, 20 Units = 0.2 mL, TRISTIN, SubQ, BID, Start Date: 07/10/23 22:00:00 NICKEL OPERATOR, Duration: 90 Days, Stop date 10/08/23 10:00:00 CDT, Routine, Disp Location: [facility], GEN DISP insulin lispro (Humalog), High dose scale, INJ, SUBQ, With Meals & Bedtime, Start Date: 07/10/23 8:00:00 NICKEL OPERATOR, Duration: 90 Days, Stop date 10/07/23 22:00:00 CDT, Routine, Disp Location: [facility] [place], GEN DISP magnesium hydroxide, 30 mL, LIQ, Route: By mouth, BID, PRN, Constipation, Start Date: 07/10/23 7:19:00 NICKEL OPERATOR, Duration: 90 Days, Stop date: 10/08/23 7:18:00 CDT, Routine, Disp Location: [facility] 8th Floor 3, GEN DISP BMP CBC-d LTC Facility 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 PLAN -Appreciate??neurosurgery involvement.?Possibly removing drain today.?? -Blood cultures??negative -Appreciate, Dr. Jaramillo.?? Vancomycin, Cefepime (07/05-07/07)->Daptomycin, Rocephin 07/07. PICC??line?? for group home abx prior??to??discharge.?? Weekly??labs??and PICC dressing changes??at discharge ?? -Delirium resolved. D/c Seroquel ?? -BG elevated, intake improved. A1c 6.7 -Increase Lantus to 20 u bid, continue HDSS. Was on large doses Lantus bid prior to admission. Titrate insulin as needed ?? -Creatinine stable.?? Unknown baseline -Resume??40 mg Lasix daily.??(Lasix 60 mg bid and spironolactone??at home). -Monitor intake and output, daily weight -Continue Coreg. Holding lisinopril -Continue Imdur, atorvastatin -Hold Plavix and aspirin until cleared by neurosurgery -Dunlap catheter. Continue flomax. Voiding trial in AM ?? -Continue long-acting??morphine per patient's home regimen.?? Continue??Robaxin,?and oxycodone p.r.n.. -Bowel management -Continue??venlafaxine, levothyroxine , Lyrica -PT/OT. Previously discussed with family and anticipate he will need placement -Social work consulted ? VTE prophylaxis:?? SCDs until cleared by neurosurgery to start prophylaxis Code status: Full code PCP: Dr. Levin ? Extracted from: Title:Progress SOAP Note Author:Venice Johnson Date:07/09/23 1.??Epidural abscess(Extradu ral and subdural abscess, unspecified: G06.2) 2.??Vertebral osteomyelitis(Osteomyelitis of vertebra, site unspecified: M46.20) 3.??Acute delirium(Disorientation, unspecified: R41.0) 4.??Hypoglycemia(Hypoglycemia, unspecified: E16.2) 5.??Urine retention(Retention of urine, unspecified: R33.9) 6.??Decubitus ulcer, buttock(Pressure ulcer of unspecified buttock, unspecified stage: L89.309) 7.??Chronic kidney disease, stage 4 (severe)(Chronic kidney disease, stage 4 (severe): N18.4) 8.??Congestive heart failure(Heart failure, unspecified: I50.9) 9.??Type 2 diabetes mellitus(Type 2 diabetes mellitus without complications: E11.9) 10.??CAD (coronary artery disease)(Atherosclerotic heart disease of [place] coronary artery without angina pectoris: I25.10) 11.??History of BPH(Personal history of other diseases of male genital organs: Z87.438) 12.??History of left below knee amputation(Acquired absence of left leg below knee: Z89.512) 13.??Hypertension(Essential (primary) hypertension: I10) 14.??Hyperlipidemia(Hyperlipidemia, unspecified: E78.5) 15.??MRSA (methicillin resistant Staphylococcus aureus)(Methicillin resistant Staphylococcus aureus infection, unspecified site: A49.02) 16.??Opioid dependence(Opioid dependence, uncomplicated: F11.20) 17.??Chronic pain(Other chronic pain: G89.29) Orders: lactulose, 20 g = 30 mL, TRISTIN, PO/per tube, Q4H, PRN, Constipation, Start Date: 07/09/23 12:20:00 NICKEL OPERATOR, Duration: 90 Days, Stop date 10/07/23 12:19:00 CDT, Routine, Disp Location: [facility] 8th Floor 3, GEN DISP BMP H&H Magnesium Serum ?? PLAN -Appreciate??neurosurgery involvement.?? S/p laminectomy and decompression 07/05. Drain remains. Intraoperative cultures negative -Blood cultures NGTD -Appreciate, Dr. Jaramillo.?? Vancomycin, Cefepime (07/05-07/07)->Daptomycin, Rocephin 07/07- -Continue Seroquel tonight, but may be able to discontinue as delirium resolves. Sitter discontinued -Creatinine stable.?? Unknown baseline -Continue holding lasix today, resume pending volume status. (Lasix 60 mg bid and spironolactone??at home). -Replace potassium -Monitor intake and output, daily weight -Continue Coreg. Holding lisinopril -Continue Imdur, atorvastatin -Hold plavix and aspirin until cleared by neurosurgery -Lantus 20 u daily, Medium dose sliding scale??as needed.?? Titrate insulin pending BG and intake -Dunlap catheter. Continue flomax, finasteride -Continue long-acting??morphine per patient's home regimen.?? Continue??Robaxin,?and oxycodone p.r.n.. -Bowel management -Continue??venlafaxine, levothyroxine , Lyrica -PT/OT. Discussed with family and anticipate he will need placement ?? Updated family at bedside on 07/07 ?? VTE prophylaxis:?? SCDs until cleared by neurosurgery to start prophylaxis Code status: Full code PCP: Dr. Levin ? Addendum by Jerardo Zelaya MDnice on July 09, 2023 16:23:25 NICKEL OPERATOR The patient? s history, exam findings, diagnostics, and a summary of any interventions or procedures was reviewed in detail with Advanced Practice Provider. Patient seen today and examined.?? After interviewing the patient, I agree with Progress note as documented.?? Seen and examined??at the bedside??today for T8 epidural??abscess, s/p??thoracic laminectomy for decompression of the associated spinal cord and removal of epidural abscess with decompression??from??T5 down to T10??from the dorsal epidural thoracic space including removal of the spinous process??thoracic lamina and ligamentum flavum??to decompress the associated spinal cord??without facetectomy or instability. All diagnostic studies were reviewed and discussed. I confirm diagnosis as documented by the MidLevel Practitioner. The care plan articulated in the history documented is consistent with our discussion of the patient? s care. ?? Physical Exam: GENERAL: ??Seen lying in bed. ??Not in any acute distress. HEENT: ??Normocephalic, atraumatic, not pale, anicteric. ??Normal size and reactive pupils. ??Moist oral mucosa NECK: ??Supple. RESPIRATORY: ??Adequate chest expansion bilaterally. ??No crackles, no wheezing. ??Normal breath sounds in all lung lawrence. CARDIOVASCULAR SYSTEM: ??Regular rate and rhythm, S1 and S2 were heard. ??No murmurs or gallops. ABDOMEN: ??Bowel sounds were heard and were normal. ??Non tender abdomen. ??No palpable masses.?? NEUROLOGICAL: ??Patient's confusion is much??improved today. ?? Additional Diagnoses and Plan: Continue??IV??and oral pain??meds.?? Seroquel at bedtime??for delirium Discharge needs discussed with the patient ?? Majority of time spent in the care of this patient is by physician Extracted from: Title:Progress SOAP Note Author:Venice Johnson Date:07/08/23 1.??Epidural abscess(Extradu ral and subdural abscess, unspecified: G06.2) 2.??Vertebral osteomyelitis(Osteomyelitis of vertebra, site unspecified: M46.20) 3.??Acute delirium(Disorientation, unspecified: R41.0) 4.??Hypoglycemia(Hypoglycemia, unspecified: E16.2) 5.??Urine retention(Retention of urine, unspecified: R33.9) 6.??Decubitus ulcer, buttock(Pressure ulcer of unspecified buttock, unspecified stage: L89.309) 7.??Chronic kidney disease, stage 4 (severe)(Chronic kidney disease, stage 4 (severe): N18.4) 8.??Congestive heart failure(Heart failure, unspecified: I50.9) 9.??Type 2 diabetes mellitus(Type 2 diabetes mellitus without complications: E11.9) 10.??CAD (coronary artery disease)(Atherosclerotic heart disease of [place] coronary artery without angina pectoris: I25.10) 11.??History of BPH(Personal history of other diseases of male genital organs: Z87.438) 12.??History of left below knee amputation(Acquired absence of left leg below knee: Z89.512) 13.??Hypertension(Essential (primary) hypertension: I10) 14.??Hyperlipidemia(Hyperlipidemia, unspecified: E78.5) 15.??MRSA (methicillin resistant Staphylococcus aureus)(Methicillin resistant Staphylococcus aureus infection, unspecified site: A49.02) 16.??Opioid dependence(Opioid dependence, uncomplicated: F11.20) 17.??Chronic pain(Other chronic pain: G89.29) Orders: BMP BMP CBC-d Delirium Prevention, Delirium preventive care measures. Keep active during day and avoid interruptions at night including VS, weights and labs unless clinically indicated. See order comments. H&H Magnesium Serum zCBC Automated Diff ?? PLAN -Appreciate??neurosurgery involvement.?? S/p laminectomy and decompression 07/05. Drain remains. Intraoperative cultures NGTD -Blood cultures NGTD -Appreciate, Dr. Jaramillo.?? Vancomycin, Cefepime (07/05-07/07)->Daptomycin, Rocephin 07/07- -Continue Seroquel hs, sitter -Creatinine stable.?? Unknown baseline -Hold lasix due to limited intake. (Lasix 60 mg bid and spironolactone??at home). Monitor volume status and resume diuretics as indicated -Monitor intake and output, daily weight -May need gentle IVF if not waking up -Continue Coreg. Holding lisinopril -Continue Imdur, atorvastatin -Hold plavix and aspirin until cleared by neurosurgery -Lantus 20 u daily, Medium dose sliding scale??as needed.?? Titrate Lantus as needed as he was on much higher doses at home. -Dunlap catheter. Continue flomax, finasteride -Resumed??long-acting??morphine per patient's home regimen.?? Continue??Robaxin, Morphine??and oxycodone p.r.n.. -Continue??venlafaxine, levothyroxine , Lyrica -PT/OT. Discussed with family and anticipate he will need placement ?? Updated family at bedside on 07/07 ?? VTE prophylaxis:?? SCDs until cleared by neurosurgery to start prophylaxis Code status: Full code PCP: Dr. Levin ? Addendum by Noemi Zelaya MD on July 08, 2023 16:26:57 NICKEL OPERATOR The patient? s history, exam findings, diagnostics, and a summary of any interventions or procedures was reviewed in detail with Advanced Practice Provider. Patient seen today and examined.?? After interviewing the patient, I agree with Progress note as documented.?? Seen and examined??at the bedside??today for T8 epidural??abscess, s/p??thoracic laminectomy for decompression of the associated spinal cord and removal of epidural abscess with decompression??from??T5 down to T10??from the dorsal epidural thoracic space including removal of the spinous process??thoracic lamina and ligamentum flavum??to decompress the associated spinal cord??without facetectomy or instability. All diagnostic studies were reviewed and discussed. I confirm diagnosis as documented by the MidLevel Practitioner. The care plan articulated in the history documented is consistent with our discussion of the patient? s care. ?? Physical Exam: GENERAL: ??Seen lying in bed. ??Not in any acute distress. HEENT: ??Normocephalic, atraumatic, not pale, anicteric. ??Normal size and reactive pupils. ??Moist oral mucosa NECK: ??Supple. RESPIRATORY: ??Adequate chest expansion bilaterally. ??No crackles, no wheezing. ??Normal breath sounds in all lung lawrence. CARDIOVASCULAR SYSTEM: ??Regular rate and rhythm, S1 and S2 were heard. ??No murmurs or gallops. ABDOMEN: ??Bowel sounds were heard and were normal. ??Non tender abdomen. ??No palpable masses.?? NEUROLOGICAL: ??Patient is confused postop, is complaining??of back pain? Additional Diagnoses and Plan: Continue??IV??and oral pain??meds.?? Discussed with BECCA Liu at bedtime??for delirium ?? Majority of time spent in the care of this patient is by physician Extracted from: Title:Progress SOAP Note Author:Venice Johnson Date:07/07/23 1.??Epidural abscess(Extradu ral and subdural abscess, unspecified: G06.2) 2.??Acute delirium(Disorientation, unspecified: R41.0) 3.??Hypoglycemia(Hypoglycemia, unspecified: E16.2) 4.??Urine retention(Retention of urine, unspecified: R33.9) 5.??Decubitus ulcer, buttock(Pressure ulcer of unspecified buttock, unspecified stage: L89.309) 6.??Chronic kidney disease, stage 4 (severe)(Chronic kidney disease, stage 4 (severe): N18.4) 7.??Congestive heart failure(Heart failure, unspecified: I50.9) 8.??Type 2 diabetes mellitus(Type 2 diabetes mellitus without complications: E11.9) 9.??CAD (coronary artery disease)(Atherosclerotic heart disease of [place] coronary artery without angina pectoris: I25.10) 10.??History of BPH(Personal history of other diseases of male genital organs: Z87.438) 11.??History of left below knee amputation(Acquired absence of left leg below knee: Z89.512) 12.??Hypertension(Essential (primary) hypertension: I10) 13.??Hyperlipidemia(Hyperlipidemia, unspecified: E78.5) 14.??MRSA (methicillin resistant Staphylococcus aureus)(Methicillin resistant Staphylococcus aureus infection, unspecified site: A49.02) 15.??Opioid dependence(Opioid dependence, uncomplicated: F11.20) 16.??Chronic pain(Other chronic pain: G89.29) Vertebral osteomyelitis(Osteomyelitis of vertebra, site unspecified: M46.20) ?? PLAN -Appreciate??Dr. Daigle's involvement.?? S/p laminectomy and decompression 07/05. Drain remains. Intraoperative cultures NGTD -Blood cultures NGTD -Appreciate, Dr. Jaramillo.?? Vancomycin and Cefepime started ? -Increase seroquel, continue sitter -Creatinine stable.?? Unknown baseline -40 mg Lasix today and repeat labs in the AM??(Lasix 60 mg bid and spironolactone??at home, no longer on metolazone per medication list from pt daughter). Monitor volume status and resume diuretics as indicated -Monitor intake and output, daily weight -Continue Coreg, lisinopril. Amlodipine d/c as this was held after recent hospitalization -Continue Imdur, atorvastatin -Hold plavix and aspirin until cleared by neurosurgery -Lantus 20 u daily, Medium dose sliding scale??as needed.?? Titrate Lantus as needed as he was on much higher doses at home. -Dunlap catheter placed. Continue flomax, finasteride -Resumed??long-acting??morphine per patient's home regimen.?? Continue??Robaxin, Morphine??and oxycodone p.r.n.. -Continue trazodone,??venlafaxine, levothyroxine , Lyrica -PT/OT. Discussed with family and anticipate he will need placement ?? updated patient's family at bedside ?? VTE prophylaxis:?? SCDs until cleared by neurosurgery to start prophylaxis Code status: Full code PCP: Dr. Levin ? Addendum by Mary Ellen James MD [place] on July 07, 2023 14:57:39 NICKEL OPERATOR The patient? s history, exam findings, diagnostics, and a summary of any interventions or procedures was reviewed in detail with Advanced Practice Provider. Patient seen today and examined.?? After interviewing the patient, I agree with Progress note as documented.?? Seen and examined??at the bedside??today for T8 epidural??abscess, s/p??thoracic laminectomy for decompression of the associated spinal cord and removal of epidural abscess with decompression??from??T5 down to T10??from the dorsal epidural thoracic space including removal of the spinous process??thoracic lamina and ligamentum flavum??to decompress the associated spinal cord??without facetectomy or instability. All diagnostic studies were reviewed and discussed. I confirm diagnosis as documented by the MidLevel Practitioner. The care plan articulated in the history documented is consistent with our discussion of the patient? s care. ?? Physical Exam: GENERAL: ??Seen lying in bed. ??Not in any acute distress. HEENT: ??Normocephalic, atraumatic, not pale, anicteric. ??Normal size and reactive pupils. ??Moist oral mucosa NECK: ??Supple. RESPIRATORY: ??Adequate chest expansion bilaterally. ??No crackles, no wheezing. ??Normal breath sounds in all lung lawrence. CARDIOVASCULAR SYSTEM: ??Regular rate and rhythm, S1 and S2 were heard. ??No murmurs or gallops. ABDOMEN: ??Bowel sounds were heard and were normal. ??Non tender abdomen. ??No palpable masses.?? NEUROLOGICAL: ??Patient is confused postop, is complaining??of back pain? Additional Diagnoses and Plan: Continue?? oral pain??meds.?? Discussed with RN RN to discuss been??with neurosurgeon? Seroquel at bedtime.?? Increased dose to 25 mg Continue antibiotics to cover??for Enterococcus.?? Appreciate??infectious disease,??discussed with??Dr. Jaramillo today? 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.2) 2.??Hypoglycemia(Hypoglycemia, unspecified: E16.2) 3.??Urine retention(Retention of urine, unspecified: R33.9) 4.??Decubitus ulcer, buttock(Pressure ulcer of unspecified buttock, unspecified stage: L89.309) 5.??Chronic kidney disease, stage 4 (severe)(Chronic kidney disease, stage 4 (severe): N18.4) 6.??Congestive heart failure(Heart failure, unspecified: I50.9) 7.??Type 2 diabetes mellitus(Type 2 diabetes mellitus without complications: E11.9) 8.??CAD (coronary artery disease)(Atherosclerotic heart disease of [place] coronary artery without angina pectoris: I25.10) 9.??History of BPH(Personal history of other diseases of male genital organs: Z87.438) 10.??History of left below knee amputation(Acquired absence of left leg below knee: Z89.512) 11.??Hypertension(Essential (primary) hypertension: I10) 12.??Hyperlipidemia(Hyperlipidemia, unspecified: E78.5) 13.??MRSA (methicillin resistant Staphylococcus aureus)(Methicillin resistant Staphylococcus aureus infection, unspecified site: A49.02) 14.??Opioid dependence(Opioid dependence, uncomplicated: F11.20) 15.??Chronic pain(Other chronic pain: G89.29) 16.??Acute delirium(Disorientation, unspecified: R41.0) Orders: furosemide, 40 mg = 1 tab, TAB, By mouth, Daily, Start Date: 07/06/23 13:21:00 NICKEL OPERATOR, Duration: 90 Days, Stop date 10/03/23 9:00:00 CDT, Routine, Disp Location: [facility] 8th Floor 3, GEN DISP insulin glargine, 20 Units = 0.2 mL, TRISTIN, SubQ, QAM, Start Date: 07/06/23 13:18:00 NICKEL OPERATOR, Duration: 90 Days, Stop date 10/03/23 10:00:00 CDT, Routine, Disp Location: [facility], GEN DISP QUEtiapine, 12.5 mg = 0.5 tab, TAB, By mouth, at bedtime, Start Date: 07/06/23 21:00:00 NICKEL OPERATOR, Duration: 90 Days, Stop date 10/03/23 21:00:00 CDT, Routine, Disp Location: [facility], GEN DISP BMP CBC-d EKG 12-Lead Magnesium Serum Obtain Old Records, Please obtain culture and sensitivity from T8 biopsy approximately 10 wk ago, Possibly in [place] or [facility] Automated Diff ?? PLAN -Appreciate??Dr. Dailge's involvement.?? S/p laminectomy and decompression 07/05. Drain remains. Intraoperative cultures pending -Blood cultures negative??at??48 hr -Consulting ID, Dr. Jaramillo.?? Vancomycin and Cefepime started -Stop IVF. ? -Creatinine stable.?? Unknown baseline -Starting 40 mg Lasix (Lasix 60 mg bid, metolazone and spironolactone??at home). Monitor volume status and resume diuretics as indicated ?? -Concern for atrial fibrillation on telemetry. EKG with sinus rhythm. Checking Mag and monitor. Continue Coreg, lisinopril, amlodipine -Continue Imdur and atorvastatin -Hold plavix and aspirin until cleared by neurosurgery -Lantus 20 u daily, Medium dose sliding scale??as needed.??was on 162 u lantus bid at home -Dunlap catheter placed. Continue flomax, finasteride -Resumed??long-acting??morphine per patient's home regimen.?? Continue??Robaxin, Morphine??and oxycodone p.r.n.. -Continue trazodone,??venlafaxine, levothyroxine , Lyrica -Seroquel hs for delirium -PT/OT. Discussed with family and anticipate he will need placement ?? updated patient's family at bedside ?? VTE prophylaxis:?? SCDs until cleared by neurosurgery to start prophylaxis Code status: Full code PCP: Dr. Levin ? Addendum by Mary Ellen James MD [place] on July 06, 2023 15:23:54 NICKEL OPERATOR The patient? s history, exam findings, diagnostics, and a summary of any interventions or procedures was reviewed in detail with Advanced Practice Provider. Patient seen today and examined.?? After interviewing the patient, I agree with Progress note as documented.?? Seen and examined??at the bedside??today for T8 epidural??abscess, s/p??thoracic laminectomy for decompression of the associated spinal cord and removal of epidural abscess with decompression??from??T5 down to T10??from the dorsal epidural thoracic space including removal of the spinous process??thoracic lamina and ligamentum flavum??to decompress the associated spinal cord??without facetectomy or instability. All diagnostic studies were reviewed and discussed. I confirm diagnosis as documented by the MidLevel Practitioner. The care plan articulated in the history documented is consistent with our discussion of the patient? s care. ?? Physical Exam: GENERAL: ??Seen lying in bed. ??Not in any acute distress. HEENT: ??Normocephalic, atraumatic, not pale, anicteric. ??Normal size and reactive pupils. ??Moist oral mucosa NECK: ??Supple. RESPIRATORY: ??Adequate chest expansion bilaterally. ??No crackles, no wheezing. ??Normal breath sounds in all lung lawrence. CARDIOVASCULAR SYSTEM: ??Regular rate and rhythm, S1 and S2 were heard. ??No murmurs or gallops. ABDOMEN: ??Bowel sounds were heard and were normal. ??Non tender abdomen. ??No palpable masses.?? NEUROLOGICAL: ??Patient is confused postop, is complaining??of back pain? Additional Diagnoses and Plan: Continue??IV??and oral pain??meds.?? Discussed with RN If patient continues??to have??uncontrolled pain, may need??to consider??TRUCK [employer]IVING [employer] pump overnight. RN to discuss been??with neurosurgeon? Seroquel at bedtime. ?? 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 Kolb??Pilo??. ? Recommendations: 1.?? Continue IV cefepime??and vancomycin, will adjust antibiotics based??on culture??results.?? 2.?? Follow operative culture results, no growth??to date. 3.?? Follow blood cultures??from 07/04.?? If??febrile please??repeat blood cultures. 4.?? If operative cultures??are??no growth??will send for universal??PCR. 5.?? Continue dressing changes??as recommended by??Neurosurgery. 6.?? SWOT??team??following??for pressure??ulcers??to bilateral??buttocks.? 7.?? Please obtain records??from the [place] for culture results??and Infectious Disease??notes.? 8.?? Infectious Disease??will follow. ?? We explained all??this to??patient and family??at bedside??and all questions??were answered. Over??60 minutes spent on this consultation. ? 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) 2.??Hypoglycemia(Hypoglycemia, unspecified: E16.2) 3.??Urine retention(Retention of urine, unspecified: R33.9) 4.??Decubitus ulcer, buttock(Pressure ulcer of unspecified buttock, unspecified stage: L89.309) 5.??Chronic kidney disease, stage 4 (severe)(Chronic kidney disease, stage 4 (severe): N18.4) 6.??Congestive heart failure(Heart failure, unspecified: I50.9) 7.??Type 2 diabetes mellitus(Type 2 diabetes mellitus without complications: E11.9) 8.??CAD (coronary artery disease)(Atherosclerotic heart disease of [place] coronary artery without angina pectoris: I25.10) 9.??History of BPH(Personal history of other diseases of male genital organs: Z87.438) 10.??History of left below knee amputation(Acquired absence of left leg below knee: Z89.512) 11.??Hypertension(Essential (primary) hypertension: I10) 12.??Hyperlipidemia(Hyperlipidemia, unspecified: E78.5) 13.??MRSA (methicillin resistant Staphylococcus aureus)(Methicillin resistant Staphylococcus aureus infection, unspecified site: A49.02) 14.??Opioid dependence(Opioid dependence, uncomplicated: F11.20) 15.??Chronic pain(Other chronic pain: G89.29) Orders: amLODIPine, 5 mg = 1 tab, TAB, By mouth, Daily, Start Date: 07/05/23 9:00:00 NICKEL OPERATOR, Duration: 90 Days, Stop date 10/02/23 9:00:00 CDT, Routine, Disp Location: [address], GEN DISP cefepime, 2 g, IVPB, IVPB, Q12H, Start Date: 07/05/23 14:10:00 NICKEL OPERATOR, Duration: 14 Days, Stop date 07/18/23 21:00:00 NICKEL OPERATOR, Routine, Infuse over: 30 min, Disp Location: [address], GEN DISP docusate, 100 mg = 1 cap, CAP, By mouth, BID, Start Date: 07/05/23 9:00:00 NICKEL OPERATOR, Duration: 90 Days, Stop date 10/02/23 21:00:00 CDT, Routine, Disp Location: [address], GEN DISP HYDROmorphone, 2 mg = 2 mL, INJ, IV, Q3H, PRN, Pain Severe (7-10) (2nd Line), Start Date: 07/05/23 10:18:00 NICKEL OPERATOR, Duration: 48 hr, Stop date 07/07/23 10:17:00 NICKEL OPERATOR, Routine, Disp Location: [address], GEN DISP lisinopril, 2.5 mg = 1 tab, TAB, By mouth, QPM (every evening), Start Date: 07/05/23 21:00:00 NICKEL OPERATOR, Duration: 90 Days, Stop date 10/02/23 21:00:00 CDT, Routine, Disp Location: [facility], GEN DISP morphine, 15 mg = 1 tab, SR TAB, By mouth, Q12H, Start Date: 07/05/23 9:00:00 NICKEL OPERATOR, Duration: 90 Days, Stop date 10/02/23 21:00:00 CDT, Routine, Disp Location: [address], GEN DISP Vancomycin (IV - Pharmacy to Dose), per Pharmacy, Unspecified, UNSPECIFIED-See comments, Unscheduled, Bone & Joint Infection, Routine, Start Date: 07/05/23 14:12:00 NICKEL OPERATOR, Duration: 14 Days, Stop date 07/19/23 14:11:00 NICKEL OPERATOR, Disp Location: [facility] RX BMP CBC-d Obtain Old Records, Please obtain culture and sensitivity from T8 biopsy approximately 10 wk ago, Possibly in [place] or [facility] ?? PLAN - Appreciate??Dr. Daigle's involvement.?? Per nurse, plan??for surgical intervention today. 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 Attempted to get culture and sensitivity report -Consulting ID. Starting Vancomycin and Cefepime after operative cultures obtained. -Remain NPO per neurosurgery -Continue D5 1/2 ns -Medium dose sliding scale??as needed.?? Holding Lantus and DPPIV -Dunlap catheter placed. Continue flomax, finasteride -Monitor volume status. Holding lasix, spironolactone, metolazone -Labs reviewed.?? Creatinine stable.?? Unknown baseline -Continue??Coreg. ? Resume??amlodipine and lisinopril. -Continue imdur. Hold aspirin??and Plavix??as patient is going??to the OR.?? Continue atorvastatin ?? -Resumed??long-acting??morphine per patient's home regimen.?? Changed??IV morphine to Dilaudid.?? Continue??Robaxin and oxycodone p.r.n.. -Continue trazodone,??venlafaxine, levothyroxine , Lyrica ?? VTE prophylaxis:?? SCDs Code status: Full code PCP: Dr. Levin ? Addendum by Jerardo Zelaya MDnice on July 05, 2023 17:25:25 NICKEL OPERATOR ATTENDING PHYSICIAN'S ATTESTATION: ?? The patient? s history, exam findings, diagnostics, and a summary of any interventions or procedures was reviewed in detail with Advanced Practice Provider. Patient seen today and examined.?? After interviewing the patient, I agree with Progress note as documented.?? Seen and examined??at the bedside??today for T8 epidural??abscess, s/p??thoracic laminectomy for decompression of the associated spinal cord and removal of epidural abscess with decompression??from??T5 down to T10??from the dorsal epidural thoracic space including removal of the spinous process??thoracic lamina and ligamentum flavum??to decompress the associated spinal cord??without facetectomy or instability. All diagnostic studies were reviewed and discussed. I confirm diagnosis as documented by the MidLevel Practitioner. The care plan articulated in the history documented is consistent with our discussion of the patient? s care. ?? Physical Exam: GENERAL: ??Seen lying in bed. ??Not in any acute distress. HEENT: ??Normocephalic, atraumatic, not pale, anicteric. ??Normal size and reactive pupils. ??Moist oral mucosa NECK: ??Supple. RESPIRATORY: ??Adequate chest expansion bilaterally. ??No crackles, no wheezing. ??Normal breath sounds in all lung lawrence. CARDIOVASCULAR SYSTEM: ??Regular rate and rhythm, S1 and S2 were heard. ??No murmurs or gallops. ABDOMEN: ??Bowel sounds were heard and were normal. ??Non tender abdomen. ??No palpable masses.?? NEUROLOGICAL: ??Patient is confused postop, is complaining??of back pain? Additional Diagnoses and Plan: Continue??IV on oral pain??meds.?? Discussed with RN If patient continues??to have??uncontrolled pain, may need??to consider??TRUCK [employer] pump overnight. RN to discuss been??with neurosurgeon? Majority of time spent in the care of this patient is by physician.? Extracted from: Title:Progress SOAP Note Author:Venice Johnson Date:07/04/23 1.??Epidural abscess(Extradu ral and subdural abscess, unspecified: G06.2) 2.??Hypoglycemia(Hypoglycemia, unspecified: E16.2) 3.??Decubitus ulcer, buttock(Pressure ulcer of unspecified buttock, unspecified stage: L89.309) 4.??Urine retention(Retention of urine, unspecified: R33.9) 5.??Chronic kidney disease, stage 4 (severe)(Chronic kidney disease, stage 4 (severe): N18.4) 6.??Congestive heart failure(Heart failure, unspecified: I50.9) 7.??History of BPH(Personal history of other diseases of male genital organs: Z87.438) 8.??History of left below knee amputation(Acquired absence of left leg below knee: Z89.512) 9.??Hypertension(Essential (primary) hypertension: I10) 10.??Hyperlipidemia(Hyperlipidemia, unspecified: E78.5) 11.??MRSA (methicillin resistant Staphylococcus aureus)(Methicillin resistant Staphylococcus aureus infection, unspecified site: A49.02) 12.??Type 2 diabetes mellitus(Type 2 diabetes mellitus without complications: E11.9) 13.??CAD (coronary artery disease)(Atherosclerotic heart disease of [place] coronary artery without angina pectoris: I25.10) ?? PLAN -Neurosurgery consulting. -Unable to find documentation and ??imaging results??from outside facility. Discussed with nursing to request images. If unable to obtain, defer to neurosurgery about specific imaging -Blood cultures obtained -Patient currently not toxic. Hold on abx at this time. -Remain NPO per neurosurgery -Continue D5 1/2 ns -Medium dose sliding scale??as needed.?? Holding Lantus and DPPIV -Dunlap catheter placed. Continue flomax, resume home dose finasteride -Monitor volume status. Holding lasix, spironolactone, metolazone -Labs reviewed.?? Creatinine stable.?? Unknown baseline -Continue??Coreg.?? Holding??amlodipine and lisinopril -Continue imdur. Hold aspirin??and Plavix??in the event patient??will need??surgical intervention.?? Continue atorvastatin -Robaxin, morphine, oxycodone??p.r.n..?? Continue home??dose Lyrica -Continue trazodone,??venlafaxine, levothyroxine ?? VTE prophylaxis:?? SCDs Code status: Full code PCP: Dr. Levin ? 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 Patient has completed??8 weeks??of??IV Rocephin and is now on??Augmentin. ??Patient has??had progressive??back??pain.?? Patient had??a recent MRI??at an??outside??facility.?? At??this??time we are still??awaiting these films. ?? Certainly if they can not be??obtained he will need??to undergo??a repeat??MRI of his??cervical??and thoracic??spine. ?? Patient??will remain??NPO.?? There is a potential role for??I and D??of this epidural abscess??depending??on the films. ??We will continue??to follow??along. ?? Patient was seen??examined by??Dr. Kiki Daigle I am simply acting??as a scribe. ?? Patient was evaluated within??30 minutes of the request of consultation.? 2.??Hypoglycemia(Hypoglycemia, unspecified: E16.2) 3.??Decubitus ulcer, buttock(Pressure ulcer of unspecified buttock, unspecified stage: L89.309) 4.??Urine retention(Retention of urine, unspecified: R33.9) 5.??History of left below knee amputation(Acquired absence of left leg below knee: Z89.512) 6.??Chronic kidney disease, stage 4 (severe)(Chronic kidney disease, stage 4 (severe): N18.4) 7.??Congestive heart failure(Heart failure, unspecified: I50.9) 8.??History of BPH(Personal history of other diseases of male genital organs: Z87.438) 9.??Hypertension(Essential (primary) hypertension: I10) 10.??Hyperlipidemia(Hyperlipidemia, unspecified: E78.5) 11.??MRSA (methicillin resistant Staphylococcus aureus)(Methicillin resistant Staphylococcus aureus infection, unspecified site: A49.02) 12.??Type 2 diabetes mellitus(Type 2 diabetes mellitus without complications: E11.9) 13.??CAD (coronary artery disease)(Atherosclerotic heart disease of [place] coronary artery without angina pectoris: I25.10) Extracted from: Title:Admission H&P Note Author:Pepe Proctor DO Date:07/04/23 1.??Epidural abscess(Extradu ral and subdural abscess, unspecified: G06.2) 2.??Hypoglycemia(Hypoglycemia, unspecified: E16.2) 3.??Decubitus ulcer, buttock(Pressure ulcer of unspecified buttock, unspecified stage: L89.309) 4.??Urine retention(Retention of urine, unspecified: R33.9) 5.??History of left below knee amputation(Acquired absence of left leg below knee: Z89.512) 6.??Chronic kidney disease, stage 4 (severe)(Chronic kidney disease, stage 4 (severe): N18.4) 7.??Congestive heart failure(Heart failure, unspecified: I50.9) 8.??History of BPH(Personal history of other diseases of male genital organs: Z87.438) 9.??Hypertension(Essential (primary) hypertension: I10) 10.??Hyperlipidemia(Hyperlipidemia, unspecified: E78.5) 11.??MRSA (methicillin resistant Staphylococcus aureus)(Methicillin resistant Staphylococcus aureus infection, unspecified site: A49.02) 12.??Type 2 diabetes mellitus(Type 2 diabetes mellitus without complications: E11.9) 13.??CAD (coronary artery disease)(Atherosclerotic heart disease of [place] coronary artery without angina pectoris: I25.10) ? Plan: ? Admit inpatient. I estimate that this patient will need at least two midnights stay for treatment of acute illness. As patient does not appear septic, will hold antibiotics so cultures can be done Will get blood culture, CBC/CMP, ESR/CRP Neurosurg Dr Terrell consulted by ER provider in [place] prior to transfer Keep NPO in case of need for intervention today Start D5 1/2NS to avoid hypoglycemia SWOT consult for decubitus wounds If urinary retention recurs, place Dunlap Start Flomax. Does not appear to be on this medication at home based on pharmacy fill history MDSSI ? VTE ppx SCDs ? Orders: JEANNETTE Anton if...., Unspecified, UNSPECIFIED-See comments, Unscheduled, Start Date: 07/04/23 0:07:00 NICKEL OPERATOR, Duration: 90 Days, Stop date 10/02/23 1:06:00 CDT, Routine, Disp Location: [facility] acetaminophen, 650 mg = 2 tab, TAB, PO/per tube, Q6H, PRN, Temp, Mild Pain, Headache, Start Date: 07/04/23 0:07:00 NICKEL OPERATOR, Duration: 90 Days, Stop date 10/02/23 0:06:00 CDT, Routine, Disp Location: [address], GEN DISP Al hydroxide/Mg hydroxide/simethicone, 15 mL, LIQ, Route: By mouth, QID, PRN, Heartburn or Indigestion, Start Date: 07/04/23 0:07:00 NICKEL OPERATOR, Duration: 90 Days, Stop date: 10/02/23 0:06:00 CDT, Routine, Disp Location: [address], GEN DISP benzocaine-menthol topical, 1 lozenge, LOZENGE, Route: By mouth, as needed, PRN, Sore Throat, Start Date: 07/04/23 0:07:00 NICKEL OPERATOR, Duration: 90 Days, Stop date: 10/02/23 1:06:00 CDT, Routine, Disp Location: [address], GEN DISP bisacodyl, 10 mg = 1 supp, SUPP, Rectally, Daily, PRN, Constipation, Start Date: 07/04/23 0:07:00 NICKEL OPERATOR, Duration: 90 Days, Stop date 10/02/23 0:06:00 CDT, Routine, Disp Location: [address], GEN DISP citric acid-potassium bicarbonate, 25 mEq = 1 tab, Solutab, PO/per tube, as directed, PRN, See Comment Note, Start Date: 07/04/23 0:07:00 NICKEL OPERATOR, Duration: 90 Days, Stop date 10/02/23 1:06:00 CDT, Routine, Disp Location: [address], GEN DISP citric acid-potassium bicarbonate, 50 mEq = 2 tab, Solutab, PO/per tube, as directed, PRN, See Comment Note, Start Date: 07/04/23 0:07:00 NICKEL OPERATOR, Duration: 90 Days, Stop date 10/02/23 1:06:00 CDT, Routine, Disp Location: [address], GEN DISP Dextrose 10% in Water, per scale or Glucommander, INJ, Route: IVP, as directed, PRN, Hypoglycemia Severe, Start Date: 07/04/23 1:19:00 NICKEL OPERATOR, Duration: 90 Days, Stop date: 10/02/23 2:18:00 CDT, Routine, ml/hr, Infuse Over: 15 sec, Disp Location: [address],... Dextrose 5% with 0.45% NaCl 1,000 mL, Route: IV, Routine, Start Date: 07/04/23 1:47:00 NICKEL OPERATOR, 90 Days, Stop date 10/02/23 1:46:00 CDT, Rate= 50 ml/hr, hr, Total Vol ml = 1,000, Disp Location: [address], Populate Charting Weight From Order, GEN DISP, 2.5, m2 docusate, 100 mg = 1 cap, CAP, By mouth, BID, PRN, Constipation, Start Date: 07/04/23 0:07:00 NICKEL OPERATOR, Duration: 90 Days, Stop date 10/02/23 0:06:00 CDT, Routine, Disp Location: [address], GEN DISP emollients, topical, 1 application, OINT, Route: Topical, as needed, PRN, See Comment Note, Start Date: 07/04/23 0:07:00 NICKEL OPERATOR, Duration: 90 Days, Stop date: 10/02/23 1:06:00 CDT, Routine, Disp Location: [facility], GEN DISP emollients, topical, 1 application, OINT, Route: Topical, as needed, PRN, Skin Protection, Start Date: 07/04/23 0:07:00 NICKEL OPERATOR, Duration: 90 Days, Stop date: 10/02/23 1:06:00 CDT, Routine, Disp Location: [facility], GEN DISP glucagon, 1 mg = 1 mL, INJ, IM, as directed, PRN, Hypoglycemia Severe, Start Date: 07/04/23 1:19:00 NICKEL OPERATOR, Duration: 90 Days, Stop date 10/02/23 2:18:00 CDT, Routine, Disp Location: [address], GEN DISP glucose, 15 g = 1 tube, GEL, By mouth, as directed, PRN, See Comment Note, Start Date: 07/04/23 1:19:00 NICKEL OPERATOR, Duration: 90 Days, Stop date 10/02/23 2:18:00 CDT, Routine, Disp Location: [facility], GEN DISP glucose, 16 g = 4 tab, CHEW TAB, By mouth, as directed, PRN, See Comment Note, Start Date: 07/04/23 1:19:00 NICKEL OPERATOR, Duration: 90 Days, Stop date 10/02/23 2:18:00 CDT, Routine, Disp Location: [address], GEN DISP hydrALAZINE, 25 mg = 1 tab, TAB, By mouth, Q8H, PRN, See Comment Note, Start Date: 07/04/23 0:07:00 NICKEL OPERATOR, Duration: 42 Days, Stop date 08/15/23 0:06:00 NICKEL OPERATOR, Routine, Disp Location: [address], GEN DISP hydroxypropyl methylcellulose ophthalmic, 1 Drops, OPHTHDROP, Route: Both Eyes, as needed, PRN, Dry Eyes, Start Date: 07/04/23 0:07:00 NICKEL OPERATOR, Duration: 90 Days, Stop date: 10/02/23 1:06:00 CDT, Routine, Disp Location: [facility], GEN DISP insulin lispro (Humalog), Medium dose scale, INJ, SUBQ, With Meals & Bedtime, Start Date: 07/04/23 8:00:00 NICKEL OPERATOR, Duration: 90 Days, Stop date 10/01/23 22:00:00 CDT, Routine, Disp Location: [facility], GEN DISP Juice (orange/apple), 15 g, 118 mL, LIQ, Route: By mouth, as directed, PRN, See Comment Note, Start Date: 07/04/23 1:19:00 NICKEL OPERATOR, Duration: 90 Days, Stop date: 10/02/23 2:18:00 CDT, Routine, Disp Location: [address] labetalol, 20 mg = 4 mL, INJ, IV, Q2Hr, PRN, Blood Pressure Control, Start Date: 07/04/23 0:07:00 NICKEL OPERATOR, Duration: 42 Days, Stop date 08/15/23 0:06:00 NICKEL OPERATOR, Routine, Disp Location: [address], GEN DISP magnesium sulfate, 2 g = 50 mL, IVPB, IVPB, as needed, PRN, See Comment Note, Start Date: 07/04/23 0:07:00 NICKEL OPERATOR, Duration: 90 Days, Stop date 10/02/23 1:06:00 CDT, Routine, Infuse over: 2 hr, Disp Location: [address], GEN DISP magnesium sulfate, 4 g = 100 mL, IVPB, IVPB, as needed, PRN, Magnesium < 1.8, Start Date: 07/04/23 0:07:00 NICKEL OPERATOR, Duration: 90 Days, Stop date 10/02/23 1:06:00 CDT, Routine, Infuse over: 4 hr, Disp Location: [address], GEN DISP Melatonin, 3 mg = 1 tab, TAB, By mouth, at bedtime, PRN, Sleep, Start Date: 07/04/23 0:07:00 NICKEL OPERATOR, Duration: 90 Days, Stop date 10/02/23 0:06:00 CDT, Routine, Disp Location: [address], GEN DISP miconazole topical, 1 application, CREAM, Route: Topical, Q8H, PRN, Skin Protection, Start Date: 07/04/23 0:07:00 NICKEL OPERATOR, Duration: 90 Days, Stop date: 10/02/23 0:06:00 CDT, Routine, Disp Location: [facility], GEN DISP morphine, 4 mg = 1 mL, INJ, IVP, Q4H, PRN, Pain Moderate (4-6) (2nd Line), Start Date: 07/04/23 1:23:00 NICKEL OPERATOR, Stop date 07/06/23 8:00:00 NICKEL OPERATOR, Routine, Disp Location: [address], GEN DISP ondansetron, 4 mg = 2 mL, INJ, IVP, Q8H, PRN, Nausea and Vomiting, Start Date: 07/04/23 0:07:00 NICKEL OPERATOR, Duration: 90 Days, Stop date 10/02/23 0:06:00 CDT, Routine, Disp Location: [address], GEN DISP oxyCODONE, 5 mg = 1 tab, TAB, By mouth, Q4H, PRN, Pain Moderate (4-6), Start Date: 07/04/23 0:07:00 NICKEL OPERATOR, Duration: 14 Days, Stop date 07/18/23 0:06:00 NICKEL OPERATOR, Routine, Disp Location: [address], GEN DISP oxyCODONE, 10 mg = 2 tab, TAB, By mouth, Q4H, PRN, Pain Severe (7-10), Start Date: 07/04/23 0:07:00 NICKEL OPERATOR, Duration: 14 Days, Stop date 07/18/23 0:06:00 NICKEL OPERATOR, Routine, Disp Location: [address], GEN DISP polyethylene glycol 3350 (Miralax), 17 g, 1 pkt, POWDER, Route: By mouth, Daily, PRN, Constipation, Start Date: 07/04/23 0:07:00 NICKEL OPERATOR, Duration: 90 Days, Stop date: 10/02/23 0:06:00 CDT, Routine, Disp Location: [address], GEN DISP senna, 17.2 mg, 2 tab, TAB, Route: By mouth, at bedtime, PRN, Constipation, Start Date: 07/04/23 0:07:00 NICKEL OPERATOR, Duration: 90 Days, Stop date: 10/02/23 0:06:00 CDT, Routine, Disp Location: [address], GEN DISP sodium chloride, 1 spray, SPRAY, Route: Both Nostrils, as needed, PRN, Dry Nose/Congestion, Start Date: 07/04/23 0:07:00 NICKEL OPERATOR, Duration: 90 Days, Stop date: 10/02/23 1:06:00 CDT, Routine, Disp Location: [facility], GEN DISP sodium chloride flush, 5 mL, INJ, Route: IVP, Q12H, Start Date: 07/04/23 0:07:00 NICKEL OPERATOR, Duration: 90 Days, Stop date: 10/01/23 9:00:00 CDT, Routine, Disp Location: [facility], GEN DISP sodium chloride flush, 5 mL, INJ, Route: IVP, Q10Min, PRN, See Comment Note, Start Date: 07/04/23 0:07:00 NICKEL OPERATOR, Duration: 90 Days, Stop date: 10/02/23 1:06:00 CDT, Routine, Disp Location: [address], GEN DISP tamsulosin, 0.4 mg = 1 cap, CAP, By mouth, Daily, Start Date: 07/04/23 9:00:00 NICKEL OPERATOR, Duration: 90 Days, Stop date 10/01/23 9:00:00 CDT, Routine, Disp Location: [address], GEN DISP Activity Precautions, Bathroom Privileges PRN Bladder Scan, See order comments. For patients who are unable to void within 6 hours postoperatively or post catheter removal, or are voiding small amounts of urine (<200ml). May use bladder scan to assess patient for urinary retention. Blood Culture Blood Glucose, Bedside, If in Med/Surg with a diet. If made NPO change blood glucose testing and correction insulin to every 4 hours. Blood Glucose, Bedside, 15 minutes after treating hypoglycemia CBC-d Chair, with meals CMP Code Status Enterostomal Consult, pressure ulcers bilat buttocks Initiate Plan, Glycemic and Insulin Management Protocol - Adult Initiate Plan, Hospitalist orders Initiate Plan, IV Device Maintenance Protocol Adult Initiate Plan, Urinary Catheter Protocol Initiate Plan, Admission Adult Initiate Plan, Magnesium Replacement Protocol Initiate Plan, Potassium Replacement Protocol - Routine IV Device Maintenance Protocol - Adult, Initiate Magnesium Replacement Protocol Notify Provider, See Order Comments NPO Nursing Communication Order, Order Potassium Serum level to be drawn 4 hours after po dose. Nursing Communication Order, Assess need to void, post catheter removal and every 4 to 6 hours. For patients without indwelling urinary catheter in place post operatively, assess for urinary retention and need to void. Assist patient to attempt to void. Nursing Communication Order, Promote normal Voiding, See order comments. For patients without a urinary catheter, utilize strategies to promote normal urination. Nursing Communication Order, In and Out Catheterization, See order comments. Nursing Communication Order, HYPOGLYCEMIA PROTOCOL: If patient symptomatic and blood glucose 70-79 mg/dL treat with juice or glucose. Nursing Communication Order, HYPOGLYCEMIA PROTOCOL: After administering glucose tablets or juice, AND once blood glucose is greater than 70 mg/dL give patient additional 15 grams of carbohydrate (i.e. 8 oz skim milk or 6 crackers) unless a meal will be available within 1 hour. Nursing Communication Order, Check blood glucose 3hrs after bedtime correction, if correction given. Nursing Communication Order, HYPOGLYCEMIA PROTOCOL: If patient not alert, position patient on side and observe for seizures. Nutrition Care Protocol Oxygen Protocol, Adult Potassium Replacement Protocol, *SERUM POTASSIUM LEVEL 3.1 - 3.4 mEq/L administer 25 mEq potassium bicarbonate (Effer-K), po/ng. Recheck serum potassium level 4 hours after last oral dose. *SERUM POTASSIUM LEVEL less than 3.1 mEq/L administer 50 mEq potassium bicarbonate (Effer-K), po Sequential Compression Device, Patient Moderate to High Risk for VTE Urinary Catheter Insertion, If unable to urinate after requiring 2nd consecutive in and out catheterization without normal urination, may place indwelling urinary catheter. Urinary Catheter Removal, see order comments Future Appointments Appointment Date:08/08/2023 01:00:00 PM Scheduled Provider:Des Jaramillo Location:[facility] Appointment Type:Established Patient Diagnostic Tests Pending * Miscellaneous Send Out [place] PCR 07/05/23 Immunizations Given and Recorded Vaccine Date Status Refusal Reason COVID-19 SARS-CoV-2 mRNA Pfizer (adult) 10/20/20 R ecorded COVID-19 SARS-CoV-2 mRNA Pfizer (adult) 09/29/20 R ecorded Medications alogliptin 12.5 mg oral tablet 12.5 mg = 1 tab, By mouth, Daily, Takes in AM, Refill(s) 0 Start Date: 02/21/21 Status: Ordered aspirin 81 mg oral tablet, chewable 81 mg = 1 tab, By mouth, Daily, Last Dose 16, Refill(s) 0 Start Date: 02/17/21 Status: Ordered atorvastatin 40 mg, By mouth, QPM (every evening), Takes in PM, Refill(s) 0 Start Date: 02/17/21 Status: Ordered carvedilol 6.25 mg, By mouth, BID, Takes twice a day, Refill(s) 0 Start Date: 02/17/21 Status: Ordered cefTRIAXone 2 g injection 2,000 mg, IVPB, Daily, 0, 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 Permitted, Vertebral osteomyelitis Start Date: 07/18/23 Status: Ordered clopidogrel 75 mg, By mouth, [...] Ordered DAPTOmycin 700 mg, = 14 mL, IV, Q24H, 0, 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 Permitted, Vertebral osteomyelitis Start Date: 07/18/23 Status: Ordered fentaNYL 12 mcg/hr transdermal film, extended release 1 patch, TD, Q72H, 3 patch, 0, 0, 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 Permitted Start Date: 07/18/23 Status: Ordered Flomax 0.4 mg oral capsule 0.4 mg = 1 cap, By mouth, Daily, Refill(s) 0, CAP Start Date: 07/18/23 Status: Ordered Flonase 50 mcg/inh nasal spray 1 spray, Both Nostrils, as needed, Uses as needed Start Date: 02/21/21 Status: Ordered isosorbide mononitrate 30 mg, By [...] Status: Ordered oxyCODONE 5 mg oral tablet 10 mg, = 2 tab, By mouth, Q6H, PRN Pain Severe (7-10), 3 Days, 12 tab, 0, 0, 07/21/23 9:21:00 NICKEL OPERATOR, 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 Permitted Start Date: 07/18/23 Stop Date: 07/21/23 Status: Ordered potassium chloride 20 mEq oral tablet, extended release 40 mEq = 2 tab, By mouth, TID, Takes three times a day, Refill(s) 0 Start Date: 02/21/21 Status: Ordered pregabalin 25 mg oral capsule 25 mg, = 1 cap, By mouth, BID, 60 cap, 0, 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 Permitted Start Date: 07/04/23 Status: Ordered Symbicort 80/4.5 inhalation aerosol with adapter 2 puff, Inhalation, as needed, Takes as needed, Refill(s) 0 Start Date: 02/21/21 Status: Ordered venlafaxine 75 mg, By mouth, BID, Takes twice a day Two in AM One in PM, Refill(s) 0 Start Date: 02/17/21 Status: Ordered Vitamin C 500 mg, By mouth, QAM, Last Dose 09.20.21, Refill(s) 0 Start Date: [...] Active CAD (coronary artery disease) Confirmed Active Ex-smoker Confirmed Active patient Gastroesophageal reflux disease Confirmed Active History of BPH Confirmed Active History of left below knee amputation Confirmed Active History of recurrent UTI (urinary tract infection) Confirmed Active Hyperlipidemia Confirmed Active Hypertension Confirmed Active MRSA (methicillin resistant Staphylococcus aureus) 1 Confirmed Active Opioid dependence Confirmed Active Type 2 diabetes mellitus Confirmed Active 1Surgical collected 02/23/21 11:29:00 CDT Procedures Procedure Date Related Diagnosis Body Site Status MORENO FACETECTOMY & FORAMOTOMY 1 VRT SGM LUMBAR 07/05/23 Completed MORENO FACETECTOMY & FORAMOTOMY 1 VRT SGM LUMBAR 07/05/23 Completed M[facility]ENO FACETECTOMY & FORAMOTOMY 1 VRT SGM THORACIC 07/05/23 Completed M[facility]ENO FACETECTOMY&FORAMOT 1 VR T SGM EA ADDL SGM 07/05/23 Completed MORENO FACETECTOMY&FORAMOT 1 VR T SGM EA ADDL SGM 07/05/23 Completed Right long finger flexor ten don sheath [...] 1968 Completed Ear Surgery 1965 Completed Tonsillectomy 1966 Completed 1Total of 8 stents Results Laboratory List Name Date CMP 07/15/23 Hemogram 07/15/23 Urinalysis with Reflex Culture (UA with Reflex Culture) 07/13/23 Potassium Serum 07/11/23 CRP 07/11/23 Potassium Serum 07/11/23 BMP 07/11/23 CBC-d 07/11/23 zCBC Automated Diff 07/11/23 Magnesium Serum (Mg Serum) 07/10/23 CK 07/09/23 BMP 07/09/23 H&H 07/09/23 Magnesium Serum (Mg Serum) 07/09/23 CBC-d 07/08/23 zCBC Automated Diff 07/08/23 Magnesium Serum (Mg Serum) 07/06/23 zCBC Automated Diff 07/06/23 Hgb A1C (Glyc Hgb) 07/05/23 CMP 07/05/23 CMP 07/04/23 CRP 07/04/23 Sed-Rate (ESR) 07/04/23 Most recent to oldest [Reference Range]: 1 2 3 Bedside Glucose 207 mg/dL 1 (07/18/23 11:31 AM) 130 mg/dL 2 (07/18/23 8:40 AM) 235 mg/dL 3 (07/17/23 9:30 PM) [address] Glucose 146 mg/dL *NA* (07/05/23 1:32 AM) Anion Gap [2-15 mEq/L] 4 mEq/L (07/15/23 12:30 PM) 10 mEq/L (07/11/23 12:47 AM) 10 mEq/L (07/09/23 12:57 AM) RTE Casts None Seen (07/13/23 6:13 AM) RTEs None Seen (07/13/23 6:13 AM) eGFR CKD-EPI [>=61 mL/min/1.73 m2] 73 mL/min/1.73 m2 (07/15/23 12:30 PM) 68 mL/min/1.73 m2 (07/11/23 12:47 AM) 78 mL/min/1.73 m2 (07/09/23 12:57 AM) Glucose, Serum/Plasma [70-10 0 mg/dL] 212 mg/dL *HI* (07/15/23 12:30 PM) 179 mg/dL *HI* (07/11/23 12:47 AM) 182 mg/dL *HI* (07/09/23 12:57 AM) WBC [4.8-10.8 Thous/mm3] 9.0 Thous/mm3 (07/15/23 12:30 PM) 8.0 Thous/mm3 (07/11/23 12:47 AM) 9.5 Thous/mm3 (07/08/23 1:17 AM) Hct [42.0-52.0 %] 29.0 % *LOW* (07/15/23 12:30 PM) 29.0 % *LOW* (07/11/23 12:47 AM) 27.6 % *LOW* (07/09/23 12:57 AM) Hgb [14.0-18.0 g/dL] 9.8 g/dL *LOW* (07/15/23 12:30 PM) 9.6 g/dL *LOW* (07/11/23 12:47 AM) 9.4 g/dL *LOW* (07/09/23 12:57 AM) RBC [4.60-6.20 Million/mm3] 3.22 Million /mm3 *LOW* (07/15/23 12:30 PM) 3.14 Million/mm3 *LOW* (07/11/23 12:47 AM) 2.94 Million/mm3 *LOW* (07/08/23 1:17 AM) MCV [80.0-100.0 fl] 90.1 fl (07/15/23 12:30 PM) 92.4 fl (07/11/23 12:47 AM) 90.1 fl (07/08/23 1:17 AM) MCH [26.0-34.0 pg] 30.4 pg (07/15/23 12:30 PM) 30.6 pg (07/11/23 12:47 AM) 31.0 pg (07/08/23 1:17 AM) MCHC [31.0-36.5 g/dL] 33.8 g/dL (07/15/23 12:30 PM) 33.1 g/dL (07/11/23 12:47 AM) 34.3 g/dL (07/08/23 1:17 AM) RDW [10.4-14.4 %] 13.2 % (07/15/23 12:30 PM) 13.2 % (07/11/23 12:47 AM) 13.4 % (07/08/23 1:17 AM) Platelets [130-440 Thous/mm3] 274 Thous/ mm3 (07/15/23 12:30 PM) 208 Thous/mm3 (07/11/23 12:47 AM) 164 Thous/mm3 (07/08/23 1:17 AM) MPV [9.4-12.4 fl] 10.6 fl (07/15/23 12:30 PM) 10.6 fl (07/11/23 12:47 AM) 11.1 fl (07/08/23 1:17 AM) AutoNeutrophil [43.0-78.0 %] 63.7 % (07/11/23 12:47 AM) 72.2 % (07/08/23 1:17 AM) 76.9 % (07/06/23 1:36 AM) AutoLymphs [20.0-40.0 %] 19.6 % *LOW* (07/11/23 12:47 AM) 15.2 % *LOW* (07/08/23 1:17 AM) 12.5 % *LOW* (07/06/23 1:36 AM) AutoMono [2.0-10.0 %] 11.3 % *HI* (07/11/23 12:47 AM) 10.6 % *HI* (07/08/23 1:17 AM) 10.0 % (07/06/23 1:36 AM) AutoEo [0.0-7.0 %] 4.5 % (07/11/23 12:47 AM) 1.3 % (07/08/23 1:17 AM) 0.1 % (07/06/23 1:36 AM) Sodium [136-145 mEq/L] 136 mEq/L (07/15/23 12:30 PM) 138 mEq/L (07/11/23 12:47 AM) 142 mEq/L (07/09/23 12:57 AM) Potassium [3.5-5.1 mEq/L] 3.4 mEq/L *LOW* (07/15/23 12:30 PM) 3.5 mEq/L (07/11/23 8:00 PM) 3.3 mEq/L *LOW* (07/11/23 11:44 AM) Chloride [98-107 mEq/L] 105 mEq/L (07/15/23 12:30 PM) 102 mEq/L (07/11/23 12:47 AM) 105 mEq/L (07/09/23 12:57 AM) AbsNeut [2.0-8.0 Thous/mm3] 5.1 Thous/mm 3 (07/11/23 12:47 AM) 6.9 Thous/mm3 (07/08/23 1:17 AM) 8.9 Thous/mm3 *HI* (07/06/23 1:36 AM) CO2 [21-32 mEq/L] 27 mEq/L (07/15/23 12:30 PM) 26 mEq/L (07/11/23 12:47 AM) 27 mEq/L (07/09/23 12:57 AM) BUN [7-18 mg/dL] 21 mg/dL *HI* (07/15/23 12:30 PM) 21 mg/dL *HI* (07/11/23 12:47 AM) 19 mg/dL *HI* (07/09/23 12:57 AM) Creatinine [0.73-1.18 mg/dL] 1.04 mg/dL (07/15/23 12:30 PM) 1.10 mg/dL (07/11/23 12:47 AM) 0.98 mg/dL (07/09/23 12:57 AM) AbsLymph [1.0-4.0 Thous/mm3] 1.6 Thous/m m3 (07/11/23 12:47 AM) 1.4 Thous/mm3 (07/08/23 1:17 AM) 1.4 Thous/mm3 (07/06/23 1:36 AM) AbsMono [0.1-1.0 Thous/mm3] 0.9 Thous/mm 3 (07/11/23 12:47 AM) 1.0 Thous/mm3 (07/08/23 1:17 AM) 1.2 Thous/mm3 *HI* (07/06/23 1:36 AM) Bilirubin, Total [0.2-1.0 mg/dL] 0.3 mg/dL (07/15/23 12:30 PM) 0.5 mg/dL (07/05/23 12:48 AM) 0.3 mg/dL (07/04/23 3:40 AM) AbsEo [0.0-0.5 Thous/mm3] 0.4 Thous/mm3 (07/11/23 12:47 AM) 0.1 Thous/mm3 (07/08/23 1:17 AM) 0.0 Thous/mm3 (07/06/23 1:36 AM) AbsBaso [0.0-0.2 Thous/mm3] 0.0 Thous/mm 3 (07/11/23 12:47 AM) 0.0 Thous/mm3 (07/08/23 1:17 AM) 0.0 Thous/mm3 (07/06/23 1:36 AM) AutoBaso [0.0-2.5 %] 0.4 % (07/11/23 12:47 AM) 0.2 % (07/08/23 1:17 AM) 0.2 % (07/06/23 1:36 AM) Calcium [8.3-10.6 mg/dL] 8.6 mg/dL (07/15/23 12:30 PM) 8.3 mg/dL (07/11/23 12:47 AM) 8.5 mg/dL (07/09/23 12:57 AM) Protein Total [6.4-8.5 g/dL] 6.1 g/dL *LOW* (07/15/23 12:30 PM) 6.1 g/dL *LOW* (07/05/23 12:48 AM) 6.0 g/dL *LOW* (07/04/23 3:40 AM) Albumin [3.4-5.0 g/dL] 2.7 g/dL *LOW* (07/15/23 12:30 PM) 3.3 g/dL *LOW* (07/05/23 12:48 AM) 3.3 g/dL *LOW* (07/04/23 3:40 AM) AST [15-37 U/L] 15 U/L (07/15/23 12:30 PM) 19 U/L (07/05/23 12:48 AM) 15 U/L (07/04/23 3:40 AM) Alk Phos [45-117 U/L] 79 U/L (07/15/23 12:30 PM) 84 U/L (07/05/23 12:48 AM) 81 U/L (07/04/23 3:40 AM) Magnesium [1.8-2.4 mg/dL] 2.0 mg/dL (07/10/23 1:25 AM) 1.7 mg/dL *LOW* (07/09/23 12:57 AM) 1.8 mg/dL (07/06/23 1:36 AM) CRP [0.00-1.00 mg/dL] 7.00 mg/dL *HI* (07/11/23 11:44 AM) 0.80 mg/dL (07/04/23 3:40 AM) ESR [0-15 mm/hr] 17 mm/hr *HI* (07/04/23 3:40 AM) ALT [10-49 U/L] 12 U/L (07/15/23 12:30 PM) 9 U/L *LOW* (07/05/23 12:48 AM) 8 U/L *LOW* (07/04/23 3:40 AM) Appearance [Clear] Clear (07/13/23 6:13 AM) Color [Yellow] Yellow *NA* (07/13/23 6:13 AM) Sp. [place] [1.001-1.035] 1.018 (07/13/23 6:13 AM) Ketones [Negative] Negative (07/13/23 6:13 AM) Glucose [Negative] Negative (07/13/23 6:13 AM) Protein [Negative] 3+ *ABN* (07/13/23 6:13 AM) Blood [Negative] 3+ *ABN* (07/13/23 6:13 AM) Nitrites UA [Negative] Negative (07/13/23 6:13 AM) CK Total [39-308 U/L] 38 U/L *LOW* (07/09/23 11:47 AM) HgbA1c [4.2-6.4 %] 6.7 % *HI* (07/05/23 1:32 AM) Bilirubin UA [Negative] Negative (07/13/23 6:13 AM) Urobilinogen [1.0 mg/dL] 1.0 mg/dL (07/13/23 6:13 AM) Leuko Esterase UA [Negative] 1+ (07/13/23 6:13 AM) pH UA [5.0-9.0] 8.0 (07/13/23 6:13 AM) RBC [0-2/hpf] >100/hpf *ABN* (07/13/23 6:13 AM) WBC [0-5/hpf] 21-50/hpf *ABN* (07/13/23 6:13 AM) Hyaline Casts [0-2/lpf] 3-5/lpf *ABN* (07/13/23 6:13 AM) Bacteria [None Seen] None Seen (07/13/23 6:13 AM) Epithelium [None Seen] None Seen (07/13/23 6:13 AM) Volume 3 mL *NA* (07/13/23 6:13 AM) Imm. Grans % [0-5 %] <5 % (07/11/23 12:47 AM) <5 % (07/08/23 1:17 AM) <5 % (07/06/23 1:36 AM) Imm. Grans # [0.0-0.5 Thous/mm3] <0.5 Thous/mm3 (07/11/23 12:47 AM) <0.5 Thous/mm3 (07/08/23 1:17 AM) <0.5 Thous/mm3 (07/06/23 1:36 AM) ANC-AbsNeutCount 5.1 Thous/mm3 *NA* (07/11/23 12:47 AM) 6.9 Thous/mm3 *NA* (07/08/23 1:17 AM) 8.9 Thous/mm3 *NA* (07/06/23 1:36 AM) 1Result Comment: Notify RN/ Performed at:[address], [address] Reference Ranges: Age 0 - 24 hours: 45 - 115 mg/dL Age 24 hours - 30 days: 55 - 115 mg/dL Age > 30 days: 70 - 100 mg/dL Critical Results Requiring Immediate Notification: Age <72 Hours: <40 or >350 mg/dL Age >72 Hours: <50 or >400 mg/dL 2Result Comment: Performed at:[address], [address] Reference Ranges: Age 0 - 24 hours: 45 - 115 mg/dL Age 24 hours - 30 days: 55 - 115 mg/dL Age > 30 days: 70 - 100 mg/dL Critical Results Requiring Immediate Notification: Age <72 Hours: <40 or >350 mg/dL Age >72 Hours: <50 or >400 mg/dL 3Result Comment: Notify BECCA/ Performed at:[place] [address] [place], [address] Reference Ranges: Age 0 - 24 hours: 45 - 115 mg/dL Age 24 hours - 30 days: 55 - 115 mg/dL Age > 30 days: 70 - 100 mg/dL Critical Results Requiring Immediate Notification: Age <72 Hours: <40 or >350 mg/dL Age >72 Hours: <50 or >400 mg/dL Orders for Microbiology Reports Name Date Urine Culture (C Urine) 07/13/23 Anaerobic Culture (C Anaerobic) 07/05/23 Fungus Culture (C Fungus) 07/05/23 Wound Culture (C Wound) 07/05/23 Blood Culture (C Blood) 07/04/23 Microbiology Reports TEST:Urine Culture STATUS:Auth (Verified) BODY SITE: SOURCE:Cath Urine COLLECTED DATE/TIME:07/13/23 6:13 AM FINAL REPORT Asha albicans 5,000 CFUs/ml TEST:Anaerobic Culture1 STATUS:Auth (Verified) BODY SITE:Other Specify In Specimen Description SOURCE:Abscess, closed COLLECTED DATE/TIME:07/05/23 1:45 PM FINAL REPORT No anaerobic organisms isolated TEST:Wound Culture STATUS:Auth (Verified) BODY SITE:Other Specify In Specimen Description SOURCE:Abscess, closed COLLECTED DATE/TIME:07/05/23 1:45 PM FINAL REPORT No Growth STAIN REPORT few white blood cells No bacteria seen TEST:Fungus Culture STATUS:Order in Progress BODY SITE:Other Specify In Specimen Description SOURCE:Abscess, open COLLECTED DATE/TIME:07/05/23 1:45 PM PRELIMINARY REPORT negative so far TEST:Blood Culture STATUS:Auth (Verified) BODY SITE: SOURCE:Blood COLLECTED DATE/TIME:07/04/23 3:40 AM FINAL REPORT No Growth INTERPRETIVE DATA 1Enhanced identification of organisms in anaerobic cultures due to new testing methodology Radiology Reports * Exam Date Time Procedure Performing Provider Status 07/15/23 1:[address] Recon Thoracic Spine Sonido Ann MD; Auth (Verified) Notes: (CT Recon Thoracic Spine) Reason For Exam: back pain, epiduralabscess, osteomyelitis REPORT CT Recon Thoracic Spine PROCEDURE INFORMATION: Exam: CT Thoracic Spine Without Contrast Exam date and time: 07/15/2023 1:24 PM Age: 78 years old Clinical indication: Methicillin resistant staphylococcus aureus infection, unspecified site; Type 2 diabetes mellitus without complications; Hypoglycemia, unspecified; Hyperlipidemia, unspecified; Opioid dependence, uncomplicated; Extradural and subdural abscess, unspecified; Other chronic pain; Essential (primary) hypertension; Atherosclerotic heart disease of [place] coronary artery without angina pectoris; Heart failure, unspecified; Pressure ulcer of unspecified buttock, unspecified stage; Osteomyelitis of vertebra, site unspecified; Chronic kidney disease, stage 4 (severe); Retention of urine, unspecified; Disorientation, unspecified; Other general symptoms and signs; Other specified health status; Personal history of other diseases of male genital organs; Acquired absence of left leg below knee; Additional info: Back pain, epiduralabscess, osteomyelitis TECHNIQUE: Imaging protocol: Computed tomography of the thoracic spine without contrast. Radiation optimization: All CT scans at this facility use at least one of these dose optimization techniques: automated exposure control; mA and/or kV adjustment per patient size (includes targeted exams where dose is matched to clinical indication); or iterative reconstruction. COMPARISON: CT Cervical Spine wo Contrast 07/15/2023 1:24 PM FINDINGS: Bones/joints: Extensive disc centered osteolysis is seen at T6-7 and T8-9 with erosion of greater than 50% of each of the associated vertebral body surrounding the disc spaces. The lamina have been removed for posterior decompression from T6-T8. Permeative changes in extend into the pedicles, facet joints and costovertebral joints. The study is not optimized for the detection epidural abscess (no intravenous contrast) however there is extensive paravertebral soft tissue swelling. No severe osseous central canal stenosis. Sclerosis in subchondral cystic changes are also noted at T5-6 with 3 mm of anterior subluxation. A 3rd focus of discitis osteomyelitis can not be excluded at this level either. 3 mm of C7 on T1 anterior subluxation is associated with bilateral severe facet arthropathy. C6-C7 permeative changes are incompletely visualized. Soft tissues: Trace bilateral pleural effusions. See bones/joints above. IMPRESSION: 1. C6-C7 and T8-9 discitis osteomyelitis with greater than 50% of each associated vertebral body eroded surrounding the disc spaces. The lamina have been removed for posterior decompression from T6-T8. Permeative changes are seen within the pedicles, facet joints and costovertebral joints at these levels. No intravenous contrast was administered which limits evaluation for epidural and soft tissue abscess. However, severe central canal stenosis is suspected C6-C7 on series 301: Image 58. There is marked paravertebral soft tissue swelling. MRI with contrast is a more sensitive modality for the definitive characterization of spinal infections. 2. Possible 3rd focus of discitis osteomyelitis at T5-6 (versus degenerative change) associated with 3 mm of subluxation. 3. Severe bilateral facet arthropathy at C7-T1 causes 3 mm of subluxation. 4. C6-C7 permeative changes are incompletely visualized. Cervical discitis osteomyelitis can not be excluded at this level based on limited visualization. Trace bilateral pleural effusions. Electronically signed by: Festus Camara MD, [facility], 07/15/2023 13:49 Jax MILLER, Festus N Signed 07/15/23 13:49:05 (Electronic Signature) Technologist MMA * Exam Date Time Procedure Performing Provider Status 07/15/23 1:[address] Recon Lumbar Spine Seth MILLER, Head; [facility] (Verified) Notes: (CT Recon Lumbar Spine) Reason For Exam: back pain REPORT CT Recon Lumbar Spine PROCEDURE INFORMATION: Exam: CT Lumbar Spine Without Contrast Exam date and time: 07/15/2023 1:24 PM Age: 78 years old Clinical indication: Methicillin resistant staphylococcus aureus infection, unspecified site; Type 2 diabetes mellitus without complications; Hypoglycemia, unspecified; Hyperlipidemia, unspecified; Opioid dependence, uncomplicated; Extradural and subdural abscess, unspecified; Other chronic pain; Essential (primary) hypertension; Atherosclerotic heart disease of [place] coronary artery without angina pectoris; Heart failure, unspecified; Pressure ulcer of unspecified buttock, unspecified stage; Osteomyelitis of vertebra, site unspecified; Chronic kidney disease, stage 4 (severe); Retention of urine, unspecified; Disorientation, unspecified; Other general symptoms and signs; Other specified health status; Personal history of other diseases of male genital organs; Acquired absence of left leg below knee; Additional info: Back pain TECHNIQUE: Imaging protocol: Computed tomography of the lumbar spine without contrast. Radiation optimization: All CT scans at this facility use at least one of these dose optimization techniques: automated exposure control; mA and/or kV adjustment per patient size (includes targeted exams where dose is matched to clinical indication); or iterative reconstruction. COMPARISON: CT Chest Abd Pelvis wo Contrast 07/15/2023 1:24 PM FINDINGS: Bones/joints: No acute fracture. Trace 2 mm L1 on L2 anterolisthesis associated with bilateral facet arthropathy. 3 mm of L4 on L5 retrolisthesis is associated with loss of intervertebral disc space height, subchondral sclerosis and cyst formation. Given the findings in the thoracic spine, early discitis osteomyelitis can not be excluded but degenerative endplate changes are favored. Posterior disc osteophyte complex and ligamentum flavum hypertrophy cause severe bilateral lateral recess stenosis moderate bilateral neural foraminal stenosis and mild central canal stenosis which could impinge on exiting L4 or descending L5 nerve roots at this level. Iubb-[id number] multilevel facet arthropathy Pleural spaces: Trace bilateral pleural effusions. Vasculature: Calcified aortoiliac atherosclerosis. Soft tissues: Moderate symmetric diffuse paraspinal muscular atrophy. IMPRESSION: 1. No acute lumbar spine fracture. 2. Advanced L4-L5 degenerative disc disease with severe lateral recess stenosis and moderate neural foraminal stenosis could impinge on bilateral exiting L4 or descending L5 nerve roots. No severe central canal stenosis. 3. Cystic changes in the endplates at L4-L5 most likely represent a chronic degenerative process however given the findings in the thoracic spine in early discitis osteomyelitis can not be excluded. Consider MRI of the lumbar spine for further evaluation if this patient has clinical signs and symptoms of discitis osteomyelitis in the low lumbar region. Electronically signed by: Festus Camara MD, [facility], 07/15/2023 13:54 Festus Camara MD N Signed 07/15/23 13:54:08 (Electronic Signature) Technologist MMA * Exam Date Time Procedure Performing Provider Status 07/15/23 1:[address] Cervical Spine wo Contrast Seth MILLER, Head; Auth (Verified) Notes: (CT Cervical Spine wo Contrast) Reason For Exam: back pain, epidural abscess, osteomyelitis CT Cervical Spine wo Contrast PROCEDURE INFORMATION: Exam: CT Cervical Spine Without Contrast Exam date and time: 07/15/2023 1:24 PM Age: 78 years old Clinical indication: Methicillin resistant staphylococcus aureus infection, unspecified site; Type 2 diabetes mellitus without complications; Hypoglycemia, unspecified; Hyperlipidemia, unspecified; Opioid dependence, uncomplicated; Extradural and subdural abscess, unspecified; Other chronic pain; Essential (primary) hypertension; Atherosclerotic heart disease of [place] coronary artery without angina pectoris; Heart failure, unspecified; Pressure ulcer of unspecified buttock, unspecified stage; Osteomyelitis of vertebra, site unspecified; Chronic kidney disease, stage 4 (severe); Retention of urine, unspecified; Disorientation, unspecified; Other general symptoms and signs; Other specified health status; Personal history of other diseases of male genital organs; Acquired absence of left leg below knee; Additional info: Back pain, epidural abscess, osteomyelitis TECHNIQUE: Imaging protocol: Computed tomography of the cervical spine without contrast. Radiation optimization: All CT scans at this facility use at least one of these dose optimization techniques: automated exposure control; mA and/or kV adjustment per patient size (includes targeted exams where dose is matched to clinical indication); or iterative reconstruction. COMPARISON: CT Chest Abd Pelvis wo Contrast 07/15/2023 1:24 PM FINDINGS: Bones/joints: No acute fracture. 2 mm of C2 on C3, 1 mm C3 on C4, 3 mm of C4 on C5 and 5 mm of C7 on T1 anterior subluxation. There is distention and permeative change about the left C3-C4 and right C5-C6 facet joints. There is complete loss of intervertebral disc space height at C5-C6 with [id number] abutment in indistinct endplates. Discitis osteomyelitis can not be excluded. Severe loss of intervertebral disc space height at C7-T1 with [id number] abutment in indistinct endplates. Severe bilateral facet arthropathy at this level. Severe bilateral C4-C5, C5-C6 and C6-C7 uncovertebral arthropathy. Severe left C3-C4 neural foraminal stenosis results from facet hypertrophy. Moderate bilateral C4-C5, right C5-C6 neural foraminal stenosis resulting from uncovertebral and facet arthropathy. A calcified disc osteophyte complex projecting into the left lateral recess at C5-C6 could impinge on the exiting C6 nerve root. Right central disc protrusion at this level is difficult to visualize due to streak artifact across the central canal. Severe central canal stenosis is suspected at this level. Lungs: Lung apices are normal. Soft tissues: Unremarkable. IMPRESSION: 1. No acute fracture. Multilevel severe degenerative changes are described in detail above. The presence of the degenerative changes lowers diagnostic sensitivity in specificity for discitis osteomyelitis in this case. 2. Indistinct endplates C6-C7 and C7-T1 may be degenerative or the result of discitis osteomyelitis. Similarly, distended facet joints on the left side C3-C4 in right side at C5-C6 with associated permeative changes may represent an erosive osteoarthritis or septic arthritis. MRI with contrast is recommended for more definitive characterization. 3. Posterior disc osteophyte complex at C5-C6 may cause severe central canal stenosis. The central canal is partially obscured by beam hardening artifact at this level. 4. Multilevel severe degenerative changes as described in detail above. Electronically signed by: Festus Camara MD, [facility], 07/15/2023 14:15 Festus Camara MD Signed 07/15/23 14:15:56 (Electronic Signature) Technologist [employer] REPORT * Exam Date Time Procedure Performing Provider Status 07/15/23 1:[address] Chest Abd Pelvis wo Contrast Sonido Ann MD; Auth (Verified) Notes: (CT Chest Abd Pelvis wo Contrast) Reason For Exam: b/l flank pain, back pain REPORT CT Chest Abd Pelvis wo Contrast PROCEDURE INFORMATION: Exam: CT Chest Without Contrast; Diagnostic Exam date and time: 07/15/2023 1:24 PM Age: 78 years old Clinical indication: Methicillin resistant staphylococcus aureus infection, unspecified site; Type 2 diabetes mellitus without complications; Hypoglycemia, unspecified; Hyperlipidemia, unspecified; Opioid dependence, uncomplicated; Extradural and subdural abscess, unspecified; Other chronic pain; Essential (primary) hypertension; Atherosclerotic heart disease of [place] coronary artery without angina pectoris; Heart failure, unspecified; Pressure ulcer of unspecified buttock, unspecified stage; Osteomyelitis of vertebra, site unspecified; Chronic kidney disease, stage 4 (severe); Retention of urine, unspecified; Disorientation, unspecified; Other general symptoms and signs; Other specified health status; Personal history of other diseases of male genital organs; Acquired absence of left leg below knee; Additional info: B/l flank pain, back pain TECHNIQUE: Imaging protocol: Diagnostic computed tomography of the chest without contrast. Radiation optimization: All CT scans at this facility use at least one of these dose optimization techniques: automated exposure control; mA and/or kV adjustment per patient size (includes targeted exams where dose is matched to clinical indication); or iterative reconstruction. COMPARISON: DX XR Chest PA PICC 07/11/2023 4:02 PM FINDINGS: Tubes, catheters and devices: PICC line enters from the right and terminates near the atrial caval junction. Lungs: Calcified granuloma in the right upper lobe. Mild dependent atelectasis. Pleural spaces: Trace pleural effusions. Heart: Unremarkable. No cardiomegaly. No pericardial effusion. Lymph nodes: Unremarkable. No enlarged lymph nodes. Vasculature: Unremarkable. No aortic aneurysm. Bones/joints: Discitis and osteomyelitis is present at T6-T7 and at T8-T9. This includes widening and irregularity of the disc space and partial destruction of the abutting bone. Decompressive laminectomy T6 through T8. . Questionable early discitis and osteomyelitis T 5 T6, the endplates are seen slightly irregular and bone density is slightly increased Soft tissues: Unremarkable. IMPRESSION: Multilevel disc and osteomyelitis. PROCEDURE INFORMATION: Exam: CT Abdomen And Pelvis Without Contrast Exam date and time: 07/15/2023 1:24 PM Age: 78 years old Clinical indication: Methicillin resistant staphylococcus aureus infection, unspecified site; Type 2 diabetes mellitus without complications; Hypoglycemia, unspecified; Hyperlipidemia, unspecified; Opioid dependence, uncomplicated; Extradural and subdural abscess, unspecified; Other chronic pain; Essential (primary) hypertension; Atherosclerotic heart disease of [place] coronary artery without angina pectoris; Heart failure, unspecified; Pressure ulcer of unspecified buttock, unspecified stage; Osteomyelitis of vertebra, site unspecified; Chronic kidney disease, stage 4 (severe); Retention of urine, unspecified; Disorientation, unspecified; Other general symptoms and signs; Other specified health status; Personal history of other diseases of male genital organs; Acquired absence of left leg below knee; Additional info: B/l flank pain, back pain TECHNIQUE: Imaging protocol: Computed tomography of the abdomen and pelvis without contrast. Radiation optimization: All CT scans at this facility use at least one of these dose optimization techniques: automated exposure control; mA and/or kV adjustment per patient size (includes targeted exams where dose is matched to clinical indication); or iterative reconstruction. COMPARISON: CT Recon Lumbar Spine 07/15/2023 1:24 PM FINDINGS: Liver: Normal. No mass. Gallbladder and bile ducts: Normal. No calcified stones. No ductal dilation. Pancreas: Normal. No ductal dilation. Spleen: Calcified granuloma within the spleen. Adrenal glands: Normal. No mass. Kidneys and ureters: Normal. No hydronephrosis. Stomach and bowel: Unremarkable. No obstruction. No mucosal thickening. Appendix: No evidence of appendicitis. Intraperitoneal space: Unremarkable. No free air. No significant fluid collection. Vasculature: Unremarkable. No abdominal aortic aneurysm. Lymph nodes: Unremarkable. No enlarged lymph nodes. Urinary bladder: The urinary bladder is collapsed around a Dunlap catheter. The wall of the urinary bladder might be thickened. See Kidneys and ureters finding. Reproductive: Unremarkable as visualized. Bones/joints: There mild changes of endplate irregularity and increased density at L4-L5 and considering the multifocal discitis and osteomyelitis elsewhere this could represent an additional early focus of discitis and osteomyelitis. Consider MRI for further evaluation. Soft tissues: Unremarkable. IMPRESSION: 1. Possible early discitis and osteomyelitis L4-L5. 2. Possibly thickened urinary bladder wall. Electronically signed by: Festus Schmid MD, [facility], 07/17/2023 12:17 Festus Schmid MD Signed 07/17/23 12:17:32 (Electronic Signature) Technologist WALDEMAR * Exam Date Time Procedure Performing Provider Status 07/11/23 4:02 PM XR Chest PA PICC Contributor_system, VR AD; Auth (Verified) Notes: (XR Chest PA PICC) Reason For Exam: for PICC Placement XR Chest PA PICC PROCEDURE INFORMATION: Exam: XR Chest Exam date and time: 07/11/2023 4:02 PM Age: 78 years old Clinical indication: Methicillin resistant staphylococcus aureus infection, unspecified site; Type 2 diabetes mellitus without complications; Hypoglycemia, unspecified; Hyperlipidemia, unspecified; Opioid dependence, uncomplicated; Extradural and subdural abscess, unspecified; Other chronic pain; Essential (primary) hypertension; Atherosclerotic heart disease of [place] coronary artery without angina pectoris; Heart failure, unspecified; Pressure ulcer of unspecified buttock, unspecified stage; Osteomyelitis of vertebra, site unspecified; Chronic kidney disease, stage 4 (severe); Retention of urine, unspecified; Disorientation, unspecified; Other general symptoms and signs; Other specified health status; Personal history of other diseases of male genital organs; Acquired absence of left leg below knee; Additional info: For picc placement TECHNIQUE: Imaging protocol: Radiologic exam of the chest. XR was performed to evaluate catheter or device position. Views: 1 view. COMPARISON: No relevant prior studies available. FINDINGS: Tubes, catheters and devices: Right-sided PICC catheter overlies the SVC. Lungs: Unremarkable. No consolidation. Pleural space: Unremarkable. No pleural effusion. No pneumothorax. Heart/Mediastinum: Unremarkable. No cardiomegaly. Bones/joints: Unremarkable. IMPRESSION: Right-sided PICC catheter overlies the SVC. Electronically signed by: Remigio Troy MD, [facility], 07/11/2023 16:30 Sydni MILLER, Remigio Meehan Signed 07/11/23 16:30:13 (Electronic Signature) Technologist [facility]BIGNIEW [facility] REPORT Vital Signs Most recent to oldest [Reference Range]: 1 2 3 Blood Pressure 109/51mmHg (07/18/23 11:29 AM) 150/74mmHg (07/18/23 7:23 AM) 160/85mmHg (07/18/23 4:45 AM) Height (inches) (Clinical) 74 in (07/18/23 5:00 AM) 74 in (07/18/23 2:00 AM) 74 in (07/17/23 2:00 PM) Weight (kg) (Clinical) 108.4 kg (07/12/23 5:00 AM) 116.5 kg (07/05/23 10:53 AM) 116.5 kg (07/03/23 11:48 PM) BMI (Clinical) 0 kg/m2 (07/18/23 5:00 AM) 0 kg/m2 (07/17/23 5:00 AM) 0 kg/m2 (07/16/23 5:00 AM) Scale Type Bed (07/12/23 5:00 AM) Social History Social History Type [...] Safety Implantable Status Assigning Authority Unknown Unknown [id number] Unknown 01/04/25 Unknown Unknown Active Unknown Hospital Discharge Instructions Patient Education 07/18/2023 11:33:32 Constipation, Adult Constipation, Adult Constipation is when a person has fewer than three bowel movements in a week, has difficulty havinga bowel movement, or has stools (feces) that are dry, hard, or larger than normal. Constipation maybe caused by an underlying condition. It may become worse with age if a person takes certain medicines and does not take in enough fluids. Follow these instructions at home: Eating and drinking ??? Eat foods that have a lot of fiber, such as beans, whole grains, and fresh fruits and vegetables. ??? Limit foods that are low in fiber and high in fat and processed sugars, such as fried or sweet foods. These include english fries, hamburgers, cookies, candies, and soda. ??? Drink enough fluid to keep your urine pale yellow. General instructions ??? Exercise regularly or as told by your health care provider. Try to do 150 minutes of moderate exercise each week. ??? Use the bathroom when you have the urge to go. Do not hold it in. ??? Take xvrx-cjc-bzukkbe and prescription medicines only as told by your health care provider. This includes any fiber supplements. ??? During bowel movements: ??? Practice deep breathing while relaxing the lower abdomen. ??? Practice pelvic floor relaxation. ??? Watch your condition for any changes. Let your health care provider know about them. ??? Keep all follow-up visits as told by your health care provider. This is important. Contact a health care provider if: ??? You have pain that gets worse. ??? You have a fever. ??? You do not have a bowel movement after 4 days. ??? You vomit. ??? You are not hungry or you lose weight. ??? You are bleeding from the opening between the buttocks (anus). ??? You have thin, pencil-like stools. Get help right away if: ??? You have a fever and your symptoms suddenly get worse. ??? You leak stool or have blood in your stool. ??? Your abdomen is bloated. ??? You have severe pain in your abdomen. ??? You feel dizzy or you faint. Summary ??? Constipation is when a person has fewer than three bowel movements in a week, has difficulty having a bowel movement, or has stools (feces) that are dry, hard, or larger than normal. ??? Eat foods that have a lot of fiber, such as beans, whole grains, and fresh fruits and vegetables. ??? Drink enough fluid to keep your urine pale yellow. ??? Take aweo-nmz-hjcbmtb and prescription medicines only as told by your health care provider. This includes any fiber supplements. This information is not intended to replace advice given to you by your health care provider. Make sure you discuss any questions you have with your health care provider. Document Revised: 05/11/2020 Document Reviewed: 05/11/2020 [employer] Patient Education ?? 2021 [employer] 07/18/2023 11:33:32 Osteomyelitis, Adult Osteomyelitis, Adult Bone infections, also [...] these instructions at home: Medicines ??? Take sowi-vor-fsxsqxy and prescription medicines as told by your [...] and water are not available, use [facility] manager home healthcare. ??? Keep any open areas, cuts, or [...] provider. Document Revised: 09/08/2020 Document Reviewed: 09/08/2020 [employer] Patient Education ?? 2021 [employer]. Follow Up Care 07/03/2023 18:43:37 With:[facility] Address: [address] [place] [address] [phone] When: Unknown Comments:Fax: [phone] Infectious disease Consult note * Clint MILLER, Des MS: PERFORM Event Display: Infectious Disease Consultation Authored Date: I have seen and evaluated the patient, reviewed pertinent diagnostic and directed the pain laid outin BELÉN Mar's note. ?? 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 Daigle, ID consulted for antibiotic management. ?? Patient is somewhat??confused and somewhat hallucinating, history was primarily taken from the daughter and at bedside.??Daughter reports??that around March, patient had a cardiac cath procedure, subsequently a week after he developed??bilateral flank pain??and some ?dysuria. He had workupdone which revealed evidence of T8 discitis. He was transferred to [facility] in [place], [place] where he eventually underwent T8 biopsy and those cultures were positive for Cutibacterium and E. faecalis. He was discharged on daily ceftriaxone which he did for almost??8 weeks. He had not seen an infectious disease doctor until 3 weeks ago was seen by Dr. Spicer in [place], [place]??and was recommended to ave MRI of the spine which was done outpatient. Patient had been on Augmentin after stopping the IVantibiotics. He still has a PICC line. He tells me he did not have any follow up for his weekly labs on IV antibiotics. There was also a mention of possibility of contamination of his tissue biopsy. He reports his back pain never got better and it continued to get worse. He otherwise denies fever, chills and rigors. He does report some skin flaking of his extremities. He has evidence of decubituswound per the admission H&P. He was seen by neurosurgery, he has thoracic laminectomy and intra-op found to have epidural phlegmon and cultures were sent.??Those cultures are pending. ?? Patient report his back pain never got better. No recent history of animal bite. He did have scratch from their cat which had healed. No abdominal pain. No new redness. His lower back pain is slightly better after having surgery. 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 On examination, he has his eyes closed and is disoriented. Lungs are clear to auscultation anteriorly. Cardiac examination is unremarkable. Abdomen is soft and non- distended. No lower extremity edema.He is s/p L BKA. Able to move RLE. ?? Regarding antibiotics he is on vancomycin and cefepime. Blood cultures so far no growth to date. Labs reviewed, his WBC was 10.1 on admission, no left shift, CRP 17, mild BALDOMERO 1.29 (improved now) and CRP of 0.8. I have reviewed outside hospital records. ?? This is a elderly patient with multiple co-morbidities who had a history of T8 discitis biopsy culture revealing Cutibacterium and E. faecalis he received 8 weeks of IV antibiotics and switched to POAugmentin and had persistent back pain found to have epidural abscess s/p thoracic laminectomy. From history, my guess is patient could have episode of complicated UTI causing E. faecalis bacteremia and later hematogenous spread to his spine (given biopsy cultures positive for E. faecalis and Cutibacterium). Again, this is my speculation from patient's history and I do not have records to confirm. Cephalosporins don't have reliable??coverage against E. faecalis and this could be a reason why hefailed. He now had thoracic??laminectomy and cultures are pending. Will continue him on broad spectrum antibiotics for now pending culture data. Agree with vancomycin and cefepime. He will prolonged 6-8 weeks of IV antibiotics??If culture negative, will send for universal PCR. Will need to request outside records, discussed [facility]) ?? Discussed in detail with family at bedside. All questions answered to satisfaction. Conference withneurosurgery at bedside. ?? >60 minutes spent in consultation and including time spent in chart review, obtaining history, performing physical examination, discussing management, counseling and documentation.? Electronically signed by:Clint MILLER, Des MS 07/06/23 13:29 Neurological surgery Consult note * Aminata Mckeon: PERFORM Event Display: Neurosurgery Consultation Authored Date: Chief Complaint Possible epidural abscess General Information Nurse Intake General Information Physicians and Specialties: [facility] Levin [facility] OrthopedicsDr. Walden -- Cardiology -- [place] (07/03/23) Pain Information Nurse Intake Pain Information?? Reason for Consultation Possible epidural abscess History of Present Illness This an 78-year-old??gentleman??who is in relatively poor??health.?? Patient??had a lower extremityamputation??for MRSA.?? Patient was treated??with??8 weeks??of Rocephin and then switched??over??toAugmentin. ?? Patient had??worsening back??pain despite antibiotic treatment??and had imaging done.?? This showed??a thoracic epidural??abscess. ?? He??was ultimately transferred??from an??outside??hospital. ?? Patient is??a known??diabetic and has??cardiac history.?? Patient??has a relative recent??BKA??secondary to MRSA. ??Patient denies??any??IV drug??use. ??His greatest??complaint is severe back pain. ? Review of Systems GENERAL: Patient denies significant change in weight, fever, chills, or fatigue. EYE: Patient denies changes in vision. ENT: Patient denies changes in hearing, sinus headaches or ENT symptoms. CV: Patient denies chest pain, palpitations, and edema.?? Patient does suffer??from CHF?? RESP: Patient denies cough, wheezing, or dyspnea. GI: Patient denies nausea, vomiting, food intolerance, abdominal pains, or change in bowel pattern. -MALE: Patient denies dysuria, urinary frequency, urinary hesitancy, or urethral discharge.?? Patient has??stage 4 kidney disease?? MS: Patient denies muscle pain, joint pain, or weakness.?? Patient complains of severe??back??pain,patient had recent??BKA secondary??to MRSA??infection? SKIN: Patient denies rashes, lesions, or pruritus. NEURO: Patient denies memory problems, vertigo, headaches, or seizures. ENDO: Patient denies excessive thirst, excessive urination, and changes in skin or hair texture.?? Patient is a known diabetic HEME/LYMPH: Patient denies easy bleeding or bruising. PSYCH: Patient denies symptoms of anxiety, depression, or insomnia. Physical Exam Vitals & Measurements T:??97.5?F?? TMIN:??97.4?F?? TMAX:??97.7?F?? HR:??78?? RR:??15?? BP:??152/70?? SpO2:??94%?? WT:??116.5??kg?? Appearance: Well-developed, well-nourished, in no distress. ? Heart: Except as noted above, regular rate and rhythm. ? Carotids: Except as noted above, normal amplitude without bruits. ? Peripheral Vascular: Except as noted above, extremities are without edema, normal radial and pedal pulses. ? Lungs: Except as noted above, clear to auscultation. ? Abdomen: Except as noted above, soft and non-tender. ? Lymphatics: Except as noted above, palpation of the lymph nodes reveals no lymphadenopathy. ? Skin: Except as noted above, no rashes, ulcerations, or lesions noted about the head and neck and trunk or extremities. ? Musculoskeletal:?Patient has left lower extremity??amputation,??mobilizes with a wheelchair secondary??to this.?? Patient??has significant??back??pain??and tenderness to palpation. ? Motor Examination: Except as noted above ?Deltoid: Left 5/5 ?? Right 5/5 ? Hip flexors: Left 5/5 ? Right 5/5 ? Biceps: Left 5/5 ?Right 5/5 ? Quadriceps: Left -4/5 ? Right 5/5 ? Triceps: Left 5/5 ?? Right 5/5 ? Hamstring: Left-4/5 ?Right 5/5 ? Wrist extensors: Left 5/5 ?Right 5/5 ?Toe extensors: Right 5/5 ? Hand intrinsics: Left 5/5 ?Right 5/5 ? Ant. tibialis?Right 5/5?Hand Grasp:?Left 5/5? Right 5/5?Gastroc:?Right 5/5 ? Sensory Exam: Except as noted above, light touch, pinprick, and proprioception are normal. ? Reflex Exam: Except as noted above, deep tendon reflexes in the upper and lower extremities are normal; there is no clonus, no Babinski sign, and no Raffaele sign. ? Neurologic and Mental Status: Except as noted above, the patient is oriented to time, person, and place. Mood and affect are appropriate. Coordination in upper and lower extremities is normal with fine motor movements appropriate. Assessment/Plan 1.??Epidural abscess(Extradural and subdural abscess, unspecified: G06.2) 78-year-old??gentleman who underwent??a left??BKA??for MRSA.?? Patient has completed??8 weeks??of??IV Rocephin and is now on??Augmentin. ??Patient has??had progressive??back??pain.?? Patient had??a recent MRI??at an??outside??facility.?? At??this??time we are still??awaiting these films. ?? Certainly if they can not be??obtained he will need??to undergo??a repeat??MRI of his??cervical??and thoracic??spine. ?? Patient??will remain??NPO.?? There is a potential role for??I and D??of this epidural abscess??depending??on the films. ??We will continue??to follow??along. ?? Patient was seen??examined by??Dr. Kiki Daigle I am simply acting??as a scribe. ?? Patient was evaluated within??30 minutes of the request of consultation.? 2.??Hypoglycemia(Hypoglycemia, unspecified: E16.2) 3.??Decubitus ulcer, buttock(Pressure ulcer of unspecified buttock, unspecified stage: L89.309) 4.??Urine retention(Retention of urine, unspecified: R33.9) 5.??History of left below knee amputation(Acquired absence of left leg below knee: Z89.512) 6.??Chronic kidney disease, stage 4 (severe)(Chronic kidney disease, stage 4 (severe): N18.4) 7.??Congestive heart failure(Heart failure, unspecified: I50.9) 8.??History of BPH(Personal history of other diseases of male genital organs: Z87.438) 9.??Hypertension(Essential (primary) hypertension: I10) 10.??Hyperlipidemia(Hyperlipidemia, unspecified: E78.5) 11.??MRSA (methicillin resistant Staphylococcus aureus)(Methicillin resistant Staphylococcus aureusinfection, unspecified site: A49.02) 12.??Type 2 diabetes mellitus(Type 2 diabetes mellitus without complications: E11.9) 13.??CAD (coronary artery disease)(Atherosclerotic heart disease of [place] coronary artery without angina pectoris: I25.10) Problem List/Past Medical History Bilateral hearing loss: ?? Carotid stenosis: ?? Charcot's joint: ?? Chronic kidney disease, stage 4 (severe): ?? Congestive heart failure: ?? CAD (coronary artery disease): ?? Gastroesophageal reflux disease: ?? History of BPH: ?? History of left below knee amputation: ?? History of recurrent UTI (urinary tract infection): ?? Hyperlipidemia: ?? Hypertension: ?? MRSA (methicillin resistant Staphylococcus aureus): ??Surgical collected 02/23/21 11:29:00 CDT Type 2 diabetes mellitus: ?? Procedure/Surgical History ???Right long finger flexor tendon sheath exploration, tenolysis, and flexor digitorum sublimis reconstruction using flexor digitorum profundus remnant graft. (09/27/2021)???Right Ear Bone Surgery (06/29/2021)???Finger Amputation ()???Basal Cell Removed from Back (2019)???Basal Cell Removed from Face (2017)???Left Tendon Repair on Knuckle (2017)???Cardiac Catherization (2016)???Left Leg Amputation (2016)???Cardiac Catherization (2014)???Eye Surgery (2014)???Ear Surgery (2009)???Appendectomy (1968)???Ear Surgery (1965)???Tonsillectomy (1965) Medications Home alogliptin 12.5 mg oral tablet, 12.5 mg= 1 tab, By mouth, Daily amLODIPine, 5 mg, By mouth, Daily aspirin 81 mg oral tablet, chewable, 81 mg= 1 tab, By mouth, Daily atorvastatin, 40 mg, By mouth, QPM (every evening) carvedilol, 6.25 mg, By mouth, BID Claritin 10 mg oral tablet, 10 mg= 1 tab, By mouth, Daily clopidogrel, 75 mg, By mouth, QAM Colace 100 mg oral capsule, 200 mg= 2 cap, By mouth, TID, PRN finasteride, 1 mg, By mouth, QPM (every evening) Flonase 50 mcg/inh nasal spray, 1 spray, Both Nostrils, as needed furosemide 20 mg oral tablet, 60 mg= 3 tab, By mouth, BID gabapentin, 600 mg, By mouth, TID isosorbide mononitrate, 30 mg, By mouth, QAM LanTUS, 162 Units, SUBQ, BID levothyroxine, 25 mcg, By mouth, Daily lisinopril 2.5 mg oral tablet, 2.5 mg= 1 tab, By mouth, QPM (every evening) methenamine hippurate, 1 g, By mouth, BID metolazone, 2.5 mg, By mouth, BID nitroglycerin 0.3 mg sublingual tablet, 0.3 mg= 1 tab, SL, Q5Min, PRN omeprazole, 20 mg, By mouth, Daily potassium chloride 20 mEq oral tablet, extended release, 40 mEq= 2 tab, By mouth, TID pregabalin, 1 tab, By mouth, Noon spironolactone, 25 mg, By mouth, QAM Symbicort 80/4.5 inhalation aerosol with adapter, 2 puff, Inhalation, as needed traMADol, 50 mg, By mouth, as needed traZODone 50 mg oral tablet, 25 mg= 0.5 tab, By mouth, at bedtime venlafaxine, 75 mg, By mouth, BID Vitamin C, 500 mg, By mouth, QAM Vitamin D3 (cholecalciferol), 2000 IntUnit, By mouth, Daily Allergies Bactrim??(Rash, Itching) penicillin??(Rash) Social History Alcohol Past Other Substance Abuse Denies Tobacco Smoking Status: Former smoker. Smokeless tobacco use: Never. Has the patient smoked in the last 365days, even once? No. Stopped at age: 68 Years. Family History Congestive heart failure: MOTHER. Coronary artery disease: FATHER. Diabetes mellitus: FATHER. Leukemia: FATHER. Lab Results Full Labs WBC: 10.1 Thous/mm3 (07/04/23 03:40:00) Hgb:??12.5 g/dL??Low (07/04/23 03:40:00) Platelets: 195 Thous/mm3 (07/04/23 03:40:00) BUN:??25 mg/dL??High (07/04/23 03:40:00) CO2: 29 mEq/L (07/04/23 03:40:00) Creatinine:??1.29 mg/dL??High (07/04/23 03:40:00) Chloride: 104 mEq/L (07/04/23 03:40:00) Potassium: 4 mEq/L (07/04/23 03:40:00) Sodium: 140 mEq/L (07/04/23 03:40:00) Diagnostic Results . Other Respiratory Oxygen Delivery: Room air Respiratory Effort: Regular, Unlabored, Even Shortness of Breath: None Left Lower Breath Sounds: Diminished Left Upper Breath Sounds: Clear Right Lower Breath Sounds: Diminished Right Upper Breath Sounds: Clear Bladder Scan Volume: 999 mL (07/04/23) Incision/Wound Groin RT - Incision/Wound Abnormality Type: Moisture associated skin damage (09:00) Buttocks Lt Lower, Inner - Incision/Wound Abnormality Type: Pressure ulcer (09:00) Sacrum, Other: roopa cleft - Incision/Wound Abnormality Type: Discoloration (09:00) Buttocks RT Lower, Medial - Incision/Wound Abnormality Type: Pressure ulcer (09:00) Sacrum, Other: roopa cleft - Discoloration detail: Blanchable (09:00) Sacrum, Other: roopa cleft - Skin Abnormality Color: Red (09:00) Buttocks Lt Lower, Inner - Pressure Ulcer Present on Admission: Yes (00:45) Buttocks RT Lower, Medial - Pressure Ulcer Present on Admission: Yes (00:45) Buttocks Lt Lower, Inner - Incision/Wound Pressure Point: Bony prominence (00:45) Buttocks RT Lower, Medial - Incision/Wound Pressure Point: Bony prominence (00:45) Sacrum, Other: cleft - Incision/Wound Dressing Activity: Applied (00:45) Sacrum, Other: cleft - Incision/Wound Dressing Type: Mepilex sacral border (00:45) In and Out Cath Genitourinary Interventions: Promote Normal Urination Strategies (07/04/23) Urinary Output Description: Clear, Yellow (07/04/23) In and Out Cath: 1200 mL (07/04/23) Nutrition Nutrition Risks: N/A, Age Does Not Qualify Time Placed in Bed: 07/03/23 23:30:00 Electronically signed by:Aminata Mckeon 07/04/23 14:23 Electronically cosigned by: Cortes Daigle MD 07/04/23 16:22 * Cortes Daigle MD: PERFORM Event Display: Neurosurgery Consultation Authored Date: Neurosurgical consultation note with full note to follow. 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 ??He has a long list of medical problems??as detailed in the medical record.?He is currently NPO. ??Plan We will continue to await the arrival of his images??and of course if they cannot be provided??we can have a repeat??cervical thoracic and lumbar MRI with and without contrast to assess the potentialsurgical intervention.?I spoke with the nursing staff.?For now he needs to be n.p.o.?No emergency surgery is required given his lack of??overt myelopathy but certainly??surgical interventionmay be required. 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 He was treated with IV Rocephin for 8 weeks, then transitioned to PO Augmentin which he is still taking.?? MRI was done on 06/25 which showed epidural abscess from T5-T10 and PCP contacted him on 07/03 and instructed him to go to the ER. Patient was given a dose of IV vancomycin in the ER, Dr Terrell consulted and patient transferred to [facility]. Patient had urinary retention requiring in and out ca th which yielded 1200 cc urine. Also with decubitus wound bilateral buttocks and episodes of hypoglycemia. Blood cultures no growth at 24 hr. ?? Patient underwent thoracic laminectomy for decompression of spinal cord and removal of epidural abscess with decompression from T5-T10. Infectious disease consulted. Starting vancomycin and cefepime post operative and follow culture results. Intraoperative cultures and blood cultures negative to date, universal PCR for operative cultures pending. Patient treating for negative culture vertebral osteomyelitis with extended course of antibiotics, changed to Daptomycin and Rocephin on 07/07. Postoperatively, patient had acute delirium which has resolved. PT/OT, anticipate post acute placement for group home antibiotics and therapy. Subjective The patient was??seen and examined He was awake, alert, orientated,??feels??back pain, bilateral flank pain??are much??better after starting fentanyl patch Objective Vitals & Measurements ??Vital Signs (last 24 hrs)?Last Charted?Minimum?Maximum?Temp?98.2 (JUL 17:)?C??78(JUL 16:)?98.2 (JUL 17)?Heart Rate?77 (JUL 17:)?72 (JUL 17:11)?83 (JUL 16:20)?Resp Rate?18 (JUL 17:)?12 (JUL 17:)?18 (JUL 16)?SBP?118 (JUL 17:)?118 (JUL 17:)?160 (JUL 17:13)?DBP?72 (JUL 17:)?C??47(JUL 16 19:20)?85 (JUL 17:13)?SpO2?97 (JUL 17)?93 (JUL 17:30)?98 (JUL 16:)?O2?Room a (JUL 17:)?Room a (JUL 16)?Room a (JUL 16)?? Physical Exam HEENT: ??Eyes: ?? Bilateral pupils are equal, normal in size, reactive to light and accommodation. ??Extraocular movements are intact. ??No conjunctival injection. ?? Ears, Nose, Mouth, Throat:?No discharge from ears or nose. ??No open lesions in the oropharynx. NECK: ??Neck is supple. ??Trachea is in midline. LUNGS: ??Bilateral air entry is diminished at base. ??No wheezing or crackles.?? Pain and tenderness??at bilateral??flank??area, lower chest wall. HEART: ??S1, S2 is normal. ??Regular rate and rhythm.? ABDOMEN: ?? Soft. ??Nontender. ??Normoactive bowel sound. EXTREMITIES:?Peripheral pulse is positive. ??Edema is negative.?? Left BKA NEUROLOGIC: ??The patient is awake, alert, and oriented to place, and person.?? Assessment/Plan 1.??Epidural abscess(Extradural and subdural abscess, unspecified: G06.2) 2.??Vertebral osteomyelitis(Osteomyelitis of vertebra, site unspecified: M46.20) 3.??Acute delirium(Disorientation, unspecified: R41.0) 4.??Type 2 diabetes mellitus(Type 2 diabetes mellitus without complications: E11.9) 5.??Congestive heart failure(Heart failure, unspecified: I50.9) 6.??CAD (coronary artery disease)(Atherosclerotic heart disease of [place] coronary artery without angina pectoris: I25.10) 7.??Hypoglycemia(Hypoglycemia, unspecified: E16.2) 8.??Urine retention(Retention of urine, unspecified: R33.9) 9.??Decubitus ulcer, buttock(Pressure ulcer of unspecified buttock, unspecified stage: L89.309) 10.??Chronic kidney disease, stage 4 (severe)(Chronic kidney disease, stage 4 (severe): N18.4) 11.??History of BPH(Personal history of other diseases of male genital organs: Z87.438) 12.??History of left below knee amputation(Acquired absence of left leg below knee: Z89.512) 13.??Hypertension(Essential (primary) hypertension: I10) 14.??Hyperlipidemia(Hyperlipidemia, unspecified: E78.5) 15.??MRSA (methicillin resistant Staphylococcus aureus)(Methicillin resistant Staphylococcus aureusinfection, unspecified site: A49.02) 16.??Opioid dependence(Opioid dependence, uncomplicated: F11.20) 17.??Chronic pain(Other chronic pain: G89.29) Orders: oxyCODONE, 5 mg = 1 tab, TAB, By mouth, Q4H, PRN, Pain Moderate (4-6), Start Date: 07/04/23 0:07:00CST, Stop date 07/26/23 0:06:00 NICKEL OPERATOR, Routine, Disp Location: [address], [facility] oxyCODONE, 10 mg = 2 tab, TAB, By mouth, Q4H, PRN, Pain Severe (7-10), Start Date: 07/04/23 0:07:00CST, Stop date 07/26/23 0:06:00 NICKEL OPERATOR, Routine, Disp Location: [address], [facility] potassium chloride, 40 mEq = 2 tab, SR TAB, By mouth, Daily, Start Date: 07/17/23 9:00:00 NICKEL OPERATOR, Duration: 90 Days, Stop date 10/14/23 9:00:00 CDT, Routine, Disp Location: [address],[facility] pregabalin, 25 mg = 1 cap, CAP, By mouth, BID, Start Date: 07/04/23 21:00:00 NICKEL OPERATOR, Stop date 07/26/23 20:59:00 NICKEL OPERATOR, Routine, Disp Location: [address], GEN DISP spironolactone, 25 mg = 1 tab, TAB, By mouth, QAM, Start Date: 07/17/23 9:00:00 NICKEL OPERATOR, Duration: 90 Days, Stop date 10/14/23 9:00:00 CDT, Routine, Disp Location: [facility], GEN DISP CT Chest Abd Pelvis wo Contrast Initiate Plan, Potassium Replacement Protocol - Routine Plan: ?? Appreciate Neurosurgery.?? Status post??thoracic laminectomy for decompression of the associated spinal cord and removal of epidural abscess with decompression from T5 down to T10 from the dorsal epidural thoracic space including removal of the spinous process thoracic lamina and ligamentum flavum to decompress the associated spinal cord without facetectomy or instability??on 07/05/2023. CT??cervical spine, thoracic spine,??lumbar??spine??completed??07/15/2023 shows??multilevel??osteomyelitis.?? I asked neurosurgeon??Dr. Cortes Daigle to review CT??spines??and to see if??there is something??else??we can do??other than??continue??antibiotic. Will??discharge once??okay with??Neurosurgery. ? Appreciate ID.?? Continue daptomycin, ceftriaxone.?? Tentative stop date??08/08/2023.?? May need??suppressive p.o.??antibiotic following.?? Id is following. ?? CT chest, abdomen and pelvis??shows nothing acute ?? Pain??medication has been switched??to fentanyl??patch,??p.r.n. oxycodone, p.r.n.??IV hydromorphone.?? Patient states??that his??back pain??seems improved.?? Continue??current pain??regimen??and adjust??medication as needed. ?? Social??worker??is following??for??discharge plan. ?? Discussed with patient??at bedside, updated??daughter Savanna??on the phone??at bedside? Discussed with RN ?? Daughter??Savanna updated??on 07/15/2023, 07/17. ?? I spent total more than 50??minutes today with the patient including reviewing the patient diagnostic tests, independently interpreting results and communicating results to patient, obtaining patient history, performing physical exam, discussion and counselling with the patient, ordering medicati ons/tests/procedures, consulting/communicating with other health pharmacy customer care specialist, documenting medical record, and care coordination. Other Medications Medications (23) Active Scheduled: (23) aaMAR Note ??DC if...., UNSPECIFIED-See comments, Unscheduled aaMAR Note ??Call neurosurgeon if anticoagulants orde, UNSPECIFIED, Unscheduled atorvastatin 40 mg TAB ??40 mg 1 tab, By mouth, QPM (every evening) carVEDilol 6.25 mg TAB ??6.25 mg 1 tab, By mouth, BID cefTRIAXone 2000 mg INJ ??2,000 mg, IVPB, Daily DAPTOmycin 350 mg (generic) SDV ??700 mg 14 mL, IV, Q24H fentaNYL 12 mcg/hr PATCH ??1 patch, TD, Q72H fentaNYL PATCH Removal & Waste ??Patch Removal, UNSPECIFIED-See comments, Q72H furosemide 40 mg TAB ??40 mg 1 tab, By mouth, Daily insulin GLARgine (LanTUS) 100 units/mL 3ml Pen ??20 Units 0.2 mL, SubQ, BID Insulin Lispro (HumaLOG) 100 units/mL 3 ml Pen ??High dose scale, SUBQ, With Meals & Bedtime isosorbide MONONITRATE 20 mg IR TAB ??30 mg 1.5 tab, By mouth, QAM levothyroxine 25 mcg TAB ??25 mcg 1 tab, By mouth, Daily mometasone-formoterol 200 mcg-5 mcg/inh INHALER ??1 puff, Inhalation, RespBID pantoprazole 40 mg TAB ??40 mg 1 tab, By mouth, Daily potassium chloride 20 mEq TAB ??40 mEq 2 tab, By mouth, Daily pregabalin 25 mg CAP ??25 mg 1 cap, By mouth, BID senna-docusate 8.6 mg-50 mg TAB (Senokot-S) ??1 tab, By mouth, BID sodium chloride 0.9% INJ SYR 10 mL (Flush) ??10 mL, IVP, Q12H sodium chloride 0.9% INJ SYR 5 mL ??5 mL, IVP, Q12H spironolactone *HAZ* 25 mg TAB ??25 mg 1 tab, By mouth, QAM tamsulosin 0.4 mg CAP ??0.4 mg 1 cap, By mouth, Daily venlafaxine 37.5 mg IR TAB ??75 mg 2 tab, By mouth, BID Continuous: (0) Lab Results Labs??(Last two charted values on this encounter) WBC 9.0 ??(JUL 15) 8.0 ??(JUL 11) Hgb 9.8 ??(JUL 15) 9.6 ??(JUL 11) Hct 29.0 ??(JUL 15) 29.0 ??(JUL 11) Platelets 274 ??(JUL 15) 208 ??(JUL 11) Na 136 ??(JUL 15) 138 ??(JUL 11) K 3.4 ??(JUL 15) 3.5 ??(JUL 11) Cl 105 ??(JUL 15) 102 ??(JUL 11) CO2 27 ??(JUL 15) 26 ??(JUL 11) BUN 21 ??(JUL 15) 21 ??(JUL 11) Cr 1.04 ??(JUL 15) 1.10 ??(JUL 11) ProteinT ?6.1 ??(JUL 15) ?6.1 ??(JUL 05) Albumin ?2.7 ??(JUL 15) ?3.3 ??(JUL 05) Bilirubin ,Total ??0.3 ??(JUL 15) ??0.5 ??(JUL 05) Alk Phos ?79 ??(JUL 15) ?84 ??(JUL 05) ALT ?12 ??(JUL 15) ?9 ??(JUL 05) AST ?15 ??(JUL 15) ?19 ??(JUL 05) Mag ?2.0 ??(JUL 10) ?1.7 ??(JUL 09) Bedside Glucose 255 ??(JUL 17) 176 ??(JUL 17) CRP 7.00 ??(JUL 11) 0.80 ??(JUL 04) Total CK 38 ??(JUL 09) ?? 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 He was treated with IV Rocephin for 8 weeks, then transitioned to PO Augmentin which he is still taking.?? MRI was done on 06/25 which showed epidural abscess from T5-T10 and PCP contacted him on 07/03 and instructed him to go to the ER. Patient was given a dose of IV vancomycin in the ER, Dr Terrell consulted and patient transferred to [facility]. Patient had urinary retention requiring in and out ca th which yielded 1200 cc urine. Also with decubitus wound bilateral buttocks and episodes of hypoglycemia. Blood cultures no growth at 24 hr. ?? Patient underwent thoracic laminectomy for decompression of spinal cord and removal of epidural abscess with decompression from T5-T10. Infectious disease consulted. Starting vancomycin and cefepime post operative and follow culture results. Intraoperative cultures and blood cultures negative to date, universal PCR for operative cultures pending. Patient treating for negative culture vertebral osteomyelitis with extended course of antibiotics, changed to Daptomycin and Rocephin on 07/07. Postoperatively, patient had acute delirium which has resolved. PT/OT, anticipate post acute placement for group home antibiotics and therapy. Subjective The patient was??seen and examined He was awake, alert, orientated,??feels??back pain, bilateral flank pain??is better today??than??yesterday. Objective Vitals & Measurements ??Vital Signs (last 24 hrs)?Last Charted?Minimum?Maximum?Temp?97.9 (JUL 16)?97.4 (JUL 15:27)?98.7 (JUL 16:)?Heart Rate?89 (JUL 16:)?64 (JUL 16:)?90 (JUL 16:)?Resp Rate?18 (JUL 16:)?17 (JUL 16:)?20 (JUL 15:55)?SBP?114 (JUL 16:)?109 (JUL 15 19:34)?150 (JUL 16:)?DBP?56 (JUL 16)?56 (JUL 16)?76 (JUL 16:)?SpO2?95 (JUL 16:)?92 (JUL 15 23:14)?97 (JUL 15:)?O2?Room a (JUL 16 11:20)?Room a (JUL 15 14:58)?Room a (JUL 15 14:58)?? Physical Exam HEENT: ??Eyes: ?? Bilateral pupils are equal, normal in size, reactive to light and accommodation. ??Extraocular movements are intact. ??No conjunctival injection. ?? Ears, Nose, Mouth, Throat:?No discharge from ears or nose. ??No open lesions in the oropharynx. NECK: ??Neck is supple. ??Trachea is in midline. LUNGS: ??Bilateral air entry is diminished at base. ??No wheezing or crackles.?? Pain and tenderness??at bilateral??flank??area, lower chest wall. HEART: ??S1, S2 is normal. ??Regular rate and rhythm.? ABDOMEN: ?? Soft. ??Nontender. ??Normoactive bowel sound. EXTREMITIES:?Peripheral pulse is positive. ??Edema is negative.?? Left BKA NEUROLOGIC: ??The patient is awake, alert, and oriented to place, and person.? Assessment/Plan 1.??Epidural abscess(Extradural and subdural abscess, unspecified: G06.2) 2.??Vertebral osteomyelitis(Osteomyelitis of vertebra, site unspecified: M46.20) 3.??Acute delirium(Disorientation, unspecified: R41.0) 4.??Type 2 diabetes mellitus(Type 2 diabetes mellitus without complications: E11.9) 5.??Congestive heart failure(Heart failure, unspecified: I50.9) 6.??CAD (coronary artery disease)(Atherosclerotic heart disease of [place] coronary artery without angina pectoris: I25.10) 7.??Hypoglycemia(Hypoglycemia, unspecified: E16.2) 8.??Urine retention(Retention of urine, unspecified: R33.9) 9.??Decubitus ulcer, buttock(Pressure ulcer of unspecified buttock, unspecified stage: L89.309) 10.??Chronic kidney disease, stage 4 (severe)(Chronic kidney disease, stage 4 (severe): N18.4) 11.??History of BPH(Personal history of other diseases of male genital organs: Z87.438) 12.??History of left below knee amputation(Acquired absence of left leg below knee: Z89.512) 13.??Hypertension(Essential (primary) hypertension: I10) 14.??Hyperlipidemia(Hyperlipidemia, unspecified: E78.5) 15.??MRSA (methicillin resistant Staphylococcus aureus)(Methicillin resistant Staphylococcus aureusinfection, unspecified site: A49.02) 16.??Opioid dependence(Opioid dependence, uncomplicated: F11.20) 17.??Chronic pain(Other chronic pain: G89.29) Plan: ?? Appreciate Neurosurgery.?? Status post??thoracic laminectomy for decompression of the associated spinal cord and removal of epidural abscess with decompression from T5 down to T10 from the dorsal epidural thoracic space including removal of the spinous process thoracic lamina and ligamentum flavum to decompress the associated spinal cord without facetectomy or instability??on 07/05/2023. CT??cervical spine, thoracic spine,??lumbar??spine??completed??07/15/2023 shows??multilevel??osteomyelitis.?? I asked neurosurgeon??Dr. Cortes Daigle to review CT??spines??and to see if??there is something??else??we can do??other than??continue??antibiotic. ?? Appreciate ID.?? Continue daptomycin, ceftriaxone.?? Tentative stop date??08/08/2023.?? May need??suppressive p.o.??antibiotic following.?? Id is following. ?? CT chest, abdomen and pelvis??was completed yesterday,??reported??is pending.?? I called??Radiology??department and request??to report??CT as soon as possible. ?? Pain??medication has been switched??to fentanyl??patch,??p.r.n. oxycodone, p.r.n.??IV hydromorphone.?? Patient states??that his??back pain??seems slightly??improving today than??yesterday.?? Continue??current pain??regimen??and adjust??medication as needed. ?? Electrolytes replacement, as needed, per protocol ?? Discussed with patient??at bedside Discussed with RN ?? Daughter??Savanna updated??on 07/15/2023. I will update daughter Savanna again after having CT chest, abd and pelvis report and after having recommendation from neurosurgeon. Other Medications Medications (21) Active Scheduled: (21) aaMAR Note ??DC if...., UNSPECIFIED-See comments, Unscheduled aaMAR Note ??Call neurosurgeon if anticoagulants orde, UNSPECIFIED, Unscheduled atorvastatin 40 mg TAB ??40 mg 1 tab, By mouth, QPM (every evening) carVEDilol 6.25 mg TAB ??6.25 mg 1 tab, By mouth, BID cefTRIAXone 2000 mg INJ ??2,000 mg, IVPB, Daily DAPTOmycin 350 mg (generic) SDV ??700 mg 14 mL, IV, Q24H fentaNYL 12 mcg/hr PATCH ??1 patch, TD, Q72H fentaNYL PATCH Removal & Waste ??Patch Removal, UNSPECIFIED-See comments, Q72H furosemide 40 mg TAB ??40 mg 1 tab, By mouth, Daily insulin GLARgine (LanTUS) 100 units/mL 3ml Pen ??20 Units 0.2 mL, SubQ, BID Insulin Lispro (HumaLOG) 100 units/mL 3 ml Pen ??High dose scale, SUBQ, With Meals & Bedtime isosorbide MONONITRATE 20 mg IR TAB ??30 mg 1.5 tab, By mouth, QAM levothyroxine 25 mcg TAB ??25 mcg 1 tab, By mouth, Daily mometasone-formoterol 200 mcg-5 mcg/inh INHALER ??1 puff, Inhalation, RespBID pantoprazole 40 mg TAB ??40 mg 1 tab, By mouth, Daily pregabalin 25 mg CAP ??25 mg 1 cap, By mouth, BID senna-docusate 8.6 mg-50 mg TAB (Senokot-S) ??1 tab, By mouth, BID sodium chloride 0.9% INJ SYR 10 mL (Flush) ??10 mL, IVP, Q12H sodium chloride 0.9% INJ SYR 5 mL ??5 mL, IVP, Q12H tamsulosin 0.4 mg CAP ??0.4 mg 1 cap, By mouth, Daily venlafaxine 37.5 mg IR TAB ??75 mg 2 tab, By mouth, BID Continuous: (0) Lab Results Labs??(Last two charted values on this encounter) WBC 9.0 ??(JUL 15) 8.0 ??(JUL 11) Hgb 9.8 ??(JUL 15) 9.6 ??(JUL 11) Hct 29.0 ??(JUL 15) 29.0 ??(JUL 11) Platelets 274 ??(JUL 15) 208 ??(JUL 11) Na 136 ??(JUL 15) 138 ??(JUL 11) K 3.4 ??(JUL 15) 3.5 ??(JUL 11) Cl 105 ??(JUL 15) 102 ??(JUL 11) CO2 27 ??(JUL 15) 26 ??(JUL 11) BUN 21 ??(JUL 15) 21 ??(JUL 11) Cr 1.04 ??(JUL 15) 1.10 ??(JUL 11) ProteinT ?6.1 ??(JUL 15) ?6.1 ??(JUL 05) Albumin ?2.7 ??(JUL 15) ?3.3 ??(JUL 05) Bilirubin ,Total ??0.3 ??(JUL 15) ??0.5 ??(JUL 05) Alk Phos ?79 ??(JUL 15) ?84 ??(JUL 05) ALT ?12 ??(JUL 15) ?9 ??(JUL 05) AST ?15 ??(JUL 15) ?19 ??(JUL 05) Mag ?2.0 ??(JUL 10) ?1.7 ??(JUL 09) Bedside Glucose 222 ??(JUL 16) 211 ??(JUL 16) CRP 7.00 ??(JUL 11) 0.80 ??(JUL 04) Total CK 38 ??(JUL 09) ?? 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 He was treated with IV Rocephin for 8 weeks, then transitioned to PO Augmentin which he is still taking.?? MRI was done on 06/25 which showed epidural abscess from T5-T10 and PCP contacted him on 07/03 and instructed him to go to the ER. Patient was given a dose of IV vancomycin in the ER, Dr Terrell consulted and patient transferred to [facility]. Patient had urinary retention requiring in and out ca th which yielded 1200 cc urine. Also with decubitus wound bilateral buttocks and episodes of hypoglycemia. Blood cultures no growth at 24 hr. ?? Patient underwent thoracic laminectomy for decompression of spinal cord and removal of epidural abscess with decompression from T5-T10. Infectious disease consulted. Starting vancomycin and cefepime post operative and follow culture results. Intraoperative cultures and blood cultures negative to date, universal PCR for operative cultures pending. Patient treating for negative culture vertebral osteomyelitis with extended course of antibiotics, changed to Daptomycin and Rocephin on 07/07. Postoperatively, patient had acute delirium which has resolved. PT/OT, anticipate post acute placement for group home antibiotics and therapy. Subjective The patient was??seen and examined He was awake, alert, orientated,??complaining of intractable??and severe??bilateral??flank pain, and back pain.?? He denied??abdominal pain, nausea, vomiting, shortness??of breath. Objective Vitals & Measurements ??Vital Signs (last 24 hrs)?Last Charted?Minimum?Maximum?Temp?97.4 (JUL 15:)?97.4 (JUL 15)?97.9 (JUL 14:56)?Heart Rate?75 (JUL 15)?67 (JUL 15 03:21)?78 (JUL 14:56)?Resp Rate?18 (JUL 15)?16 (JUL 14:15)?18 (JUL 14:56)?SBP?126 (JUL 15:)?126 (JUL 15:)?158 (JUL 15:)?DBP?74 (JUL 15:)?56 (JUL 14:08)?77 (JUL 15:19)?SpO2?93 (JUL 15:)?92 (JUL 14:08)?97 (JUL 15:)?O2?Room a (JUL 15:)?Room a (JUL 14:)?Room a (JUL 14:)?? Physical Exam HEENT: ??Eyes: ?? Bilateral pupils are equal, normal in size, reactive to light and accommodation. ??Extraocular movements are intact. ??No conjunctival injection. ?? Ears, Nose, Mouth, Throat: ??Hearing is normal. ??No discharge from ears or nose. ??No open lesionsin the oropharynx. NECK: ??Neck is supple. ??Trachea is in midline. LUNGS: ??Bilateral air entry is diminished at base. ??No wheezing or crackles.?? Pain and tenderness??at bilateral??flank??area, lower chest wall. HEART: ??S1, S2 is normal. ??Regular rate and rhythm.? ABDOMEN: ?? Soft. ??Nontender. ??Normoactive bowel sound. EXTREMITIES:?Peripheral pulse is positive. ??Edema is negative.?? Left BKA NEUROLOGIC: ??The patient is awake, alert, and oriented to time, place, and person.?No focal neurologic deficit.?? Complaining of??back pain and tenderness. ?? Assessment/Plan 1.??Epidural abscess(Extradural and subdural abscess, unspecified: G06.2) 2.??Vertebral osteomyelitis(Osteomyelitis of vertebra, site unspecified: M46.20) 3.??Acute delirium(Disorientation, unspecified: R41.0) 4.??Type 2 diabetes mellitus(Type 2 diabetes mellitus without complications: E11.9) 5.??Congestive heart failure(Heart failure, unspecified: I50.9) 6.??CAD (coronary artery disease)(Atherosclerotic heart disease of [place] coronary artery without angina pectoris: I25.10) 7.??Hypoglycemia(Hypoglycemia, unspecified: E16.2) 8.??Urine retention(Retention of urine, unspecified: R33.9) 9.??Decubitus ulcer, buttock(Pressure ulcer of unspecified buttock, unspecified stage: L89.309) 10.??Chronic kidney disease, stage 4 (severe)(Chronic kidney disease, stage 4 (severe): N18.4) 11.??History of BPH(Personal history of other diseases of male genital organs: Z87.438) 12.??History of left below knee amputation(Acquired absence of left leg below knee: Z89.512) 13.??Hypertension(Essential (primary) hypertension: I10) 14.??Hyperlipidemia(Hyperlipidemia, unspecified: E78.5) 15.??MRSA (methicillin resistant Staphylococcus aureus)(Methicillin resistant Staphylococcus aureusinfection, unspecified site: A49.02) 16.??Opioid dependence(Opioid dependence, uncomplicated: F11.20) 17.??Chronic pain(Other chronic pain: G89.29) Orders: cyclobenzaprine, 5 mg = 1 tab, TAB, By mouth, TID, PRN, Muscle Spasms, Start Date: 07/15/23 12:33:00 NICKEL OPERATOR, Duration: 90 Days, Stop date 10/13/23 12:32:00 CDT, Routine, Disp Location: [address], GEN [facility]P fentaNYL, 1 patch, PATCH, TD, Q72H, Start Date: 07/15/23 13:00:00 NICKEL OPERATOR, Duration: 14 Days, Stop date: 07/27/23 13:00:00 NICKEL OPERATOR, Routine, Disp Location: [address], GEN DISP HYDROmorphone, 1 mg = 1 mL, INJ, IV, Q4H, PRN, Pain Severe (7-10) (2nd Line), Start Date: 07/15/23 12:31:00 NICKEL OPERATOR, Duration: 48 hr, Stop date 07/17/23 12:30:00 NICKEL OPERATOR, Routine, Disp Location: [address] 3, [facility] DISP CMP CT Cervical Spine wo Contrast CT Chest Abd Pelvis wo Contrast CT Recon Lumbar Spine CT Recon Thoracic Spine Hemogram Nursing Communication Order Plan: ?? Appreciate Neurosurgery.?? Status post??thoracic laminectomy for decompression of the associated spinal cord and removal of epidural abscess with decompression from T5 down to T10 from the dorsal epidural thoracic space including removal of the spinous process thoracic lamina and ligamentum flavum to decompress the associated spinal cord without facetectomy or instability??on 07/05/2023. ?? Appreciate ID.?? Continue daptomycin, ceftriaxone.?? Tentative stop date??08/08/2023.?? May need??suppressive p.o.??antibiotic following.?? Id is following. ?? Patient??is on scheduled??morphine,??p.r.n. oxycodone.?? However,??he complaining??of intractable bilateral flank pain, back??pain,??feels the pain is worse, does not??think current pain regimen??is working.?? Discussed with patient??at bedside,??his??daughter Savanna on the phone??at bedside.?? Plan??to do CT chest, abdomen and pelvis, CT??cervical??spine, thoracic??spine, lumbar??spine, to make??sure??osteomyelitis??is improving, to make sure??nothing??else??causing??the intractable??pain.?? Also??discussed with them about??options??of pain regimen.?? Patient??and Savanna??states??that morphine, oxycodone??does not work.?? They are okay??to try fentanyl patch,??p.r.n. IV??hydromorphone??as needed??at??this??time, then??titrate??pain medication??as needed depends on his??response to??pain medication. ?? Labs today Electrolytes replacement, as needed, per protocol ?? Discussed with patient??at bedside,??daughter Savanna??on the phone??at bedside Discussed with RN I spent total more than 50??minutes today with the patient including reviewing the patient diagnostic tests, independently interpreting results and communicating results to patient, obtaining patienthistory, performing physical exam, discussion and counselling with the patient, ordering medications /tests/procedures, consulting/communicating with other health pharmacy customer care specialist, documenting medical record, and care coordination. Other Medications Medications (21) Active Scheduled: (21) aaMAR Note ??DC if...., UNSPECIFIED-See comments, Unscheduled aaMAR Note ??Call neurosurgeon if anticoagulants orde, UNSPECIFIED, Unscheduled atorvastatin 40 mg TAB ??40 mg 1 tab, By mouth, QPM (every evening) carVEDilol 6.25 mg TAB ??6.25 mg 1 tab, By mouth, BID cefTRIAXone 2000 mg INJ ??2,000 mg, IVPB, Daily DAPTOmycin 350 mg (generic) SDV ??700 mg 14 mL, IV, Q24H fentaNYL 12 mcg/hr PATCH ??1 patch, TD, Q72H fentaNYL PATCH Removal & Waste ??Patch Removal, UNSPECIFIED-See comments, Q72H furosemide 40 mg TAB ??40 mg 1 tab, By mouth, Daily insulin GLARgine (LanTUS) 100 units/mL 3ml Pen ??20 Units 0.2 mL, SubQ, BID Insulin Lispro (HumaLOG) 100 units/mL 3 ml Pen ??High dose scale, SUBQ, With Meals & Bedtime isosorbide MONONITRATE 20 mg IR TAB ??30 mg 1.5 tab, By mouth, QAM levothyroxine 25 mcg TAB ??25 mcg 1 tab, By mouth, Daily mometasone-formoterol 200 mcg-5 mcg/inh INHALER ??1 puff, Inhalation, RespBID pantoprazole 40 mg TAB ??40 mg 1 tab, By mouth, Daily pregabalin 25 mg CAP ??25 mg 1 cap, By mouth, BID senna-docusate 8.6 mg-50 mg TAB (Senokot-S) ??1 tab, By mouth, BID sodium chloride 0.9% INJ SYR 10 mL (Flush) ??10 mL, IVP, Q12H sodium chloride 0.9% INJ SYR 5 mL ??5 mL, IVP, Q12H tamsulosin 0.4 mg CAP ??0.4 mg 1 cap, By mouth, Daily venlafaxine 37.5 mg IR TAB ??75 mg 2 tab, By mouth, BID Continuous: (0) Lab Results Labs??(Last two charted values on this encounter) WBC 9.0 ??(JUL 15) 8.0 ??(JUL 11) Hgb 9.8 ??(JUL 15) 9.6 ??(JUL 11) Hct 29.0 ??(JUL 15) 29.0 ??(JUL 11) Platelets 274 ??(JUL 15) 208 ??(JUL 11) Na 136 ??(JUL 15) 138 ??(JUL 11) K 3.4 ??(JUL 15) 3.5 ??(JUL 11) Cl 105 ??(JUL 15) 102 ??(JUL 11) CO2 27 ??(JUL 15) 26 ??(JUL 11) BUN 21 ??(JUL 15) 21 ??(JUL 11) Cr 1.04 ??(JUL 15) 1.10 ??(JUL 11) ProteinT ?6.1 ??(JUL 15) ?6.1 ??(JUL 05) Albumin ?2.7 ??(JUL 15) ?3.3 ??(JUL 05) Bilirubin ,Total ??0.3 ??(JUL 15) ??0.5 ??(JUL 05) Alk Phos ?79 ??(JUL 15) ?84 ??(JUL 05) ALT ?12 ??(JUL 15) ?9 ??(JUL 05) AST ?15 ??(JUL 15) ?19 ??(JUL 05) Mag ?2.0 ??(JUL 10) ?1.7 ??(JUL 09) Bedside Glucose 213 ??(JUL 15) 134 ??(JUL 15) CRP 7.00 ??(JUL 11) 0.80 ??(JUL 04) Total CK 38 ??(JUL 09) ?? Glucose,Plasma 212 ??(JUL 15) 179 ??(JUL 11) Electronically signed by:Sonido Ann MD 07/15/23 16:58 Consult note * Mar Lauren MELISSA: PERFORM Event Display: Consultation Report Authored Date: [id number] Infectious Disease Consultation Note on behalf of Dr. Des Jaramillo MD. Physician Requesting Consult Dr. Noemi James MD. Reason for Consultation Thoracic epidural abscess Chief Complaint Severe back pain. 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 He was treated with IV Rocephin for 8 weeks, then transitionedto PO Augmentin which he is still taking.?? Patient had??worsening back??pain despite antibiotic treatment??and had MR imaging done on 06/25/23 that??showed??a T5-T10 thoracic epidural??abscess. Patient reported his PCP contacted him on 07/03 and instructed him to go the ER.?Patient was having se nancy back pain and was given a dose of IV vancomycin??in the ER.??Neurosurgeon, Dr. Terrell, was consulted and patient was transferred??from??the??outside??hospital to [facility] for Neurosurgical randell luation.?? Upon arrival patient was afebrile with stable vital signs.?? He reported??subjective fever and chills??with generalized??weakness??and complained of severe back??pain.?? Patient had??urinary retention requiring in and out cath which yielded 1200 cc urine and reported decubitus bilateral b uttock wounds that could not be??examined due to patient's significant back pain. Laboratory evaluation indicated no leukocytosis and his CRP was normal but patient had an episode of hypoglycemia with a??blood??glucose level of 35. Patient??reported he has been having more frequent hypoglycemic episodes for the past few weeks.?? Blood cultures were drawn on 07/04 that are no growth to date. ??Neurosurgeon, Dr. Daigle, requested MR images from outside hospital and??reported on exam patient had no evidence of??motor deficits in the lower extremities??but complains of interscapular thoracic spine pain with some component of thoracic??radiculopathy but no clear myelopathy. NPO orders were placed and patient was taken to surgery the following day for intractable back pain and thoracic radiculopathy due to thoracic discitis and osteomyelitis with evacuation of the??thoracic epidural abscess on 07/05/[address] Daigle. Operative note has been reviewed that reported an epidural phlegmon and dec ompression was accomplished from T5-T10 in the dorsal epidural space??and cultures were collected and sent to the microbiology lab. Patient was later started on cefepime and vancomycin on 07/05 and Infectious Disease was asked to consult for antibiotic guidance. ?? Upon chart review patient had??osteomyelitis and MRSA was??isolated from his??R long finger witha??DIP amputation performed here in 2021??but his L BKA in 2016 was from an open fracture injury and they deny any post-operative infections. He has a mild leukocytosis and anemia but remains afebrile with stable vital signs. Blood cultures from 07/04 and his operative cultures from 07/05 are no growth to date.?As we see??patient today??he is??restless??with mild confusion??but is answering??his orientation??questions??appropriately??with his eyes??closed.?? Patient's family??reports he had angioplasty??a few months??ago??and then??1 week later??he had acute onset??of bilateral??flank??pain??that progressively??worsened and spread to his??thoracic??spine. ??Patient was uncertain if??he had any??dysuria at this time??but reports issues with??chronic??constipation??due to his??home tramadol pain medication??which was not??helping with??his back??pain.?He denied any injuries??to his??back, recent??falls, or??open??lesions.?Patient states his??back??pain??continued??to worsen??and he??was??seen in [place]with imaging??that??was concerning??for??osteomyelitis??of his??thoracic??spine??and was sent[facility]to the [facility] [place]for biopsy.?? He reports the??biopsy confirmed??osteomyelitis??with positive cultures??and??had a PICC??line??placed??and??he received??8 weeks??of home IV??Rocephin??but only took??2 doses??of Augmentin??prior to his??transfer here to [facility]. ??Patient's daughter reports??home??health care would come once??a week??for PICC line??dressing??changes and labs??but they??were uncertain??where those??lab results went to??but states??they??were told the CRP??was rising. ??Family??reports patient did not??have follow-up scheduled??with??the Infectious Disease physician??from the [facility] in [place].??Patient reports compliance with his recent antibiotics??following his thoracic biopsy??but states his back??pain??continued??to worsen??and was excruciating??and limited??his??mobility.?He??did see??an??infectious??disease specialists in [place], Dr. Spicer, on 06/25/23 who recommended??he go??to??the hospital??for treatment of his??probable epidural??abscess.?Patient reports??he is still having??severe back pain??that??has only slightly??improved??since surgery and he denies numbness in his extremities.?He states he is??unable??to rollover at??this time due to his??pain??for us??to examine his??back??and the pressure wounds??to his??bilateral??buttocks.?He denies any current chest pain or SOB.?? Denies abdominal pain, no N/V/D. No dysuria or hematuria.? Patient lives with his , Cristian, in [place], [place]. They have 4 children, 3 daughters and a son.?? 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 He finished his??career??as??the [employer] ??[employer]??of [employer]??who is well known for the signif icant number of?? [employer] he??broke up. ?Patient has a long history of tobacco use smoking 3 ppd cigarettes for 50 years??but quit at the age of 68yo after his UT.?? He denies any current alcohol use or history??of alcohol abuse but did like to make [place] back in the day which he gave as gifts and denies illicit drug use.?Patient has 1 indoor??Yorkie dog??and??1 indoor??cat??that scratched??him??a couple of months ago but denied??any signs??of infection??.?? He also??has 5 outdoorhunting??Beagles.?? He??denies any other??recent animal bites or scratches.?? No recent travel.?Patient's is currently being treated for a??non-infectious osteomyelitis of the R heel from an old injury and family deny any known sick contacts or recent infections. Review of Systems No change in vision, smell, taste, or hearing.?? No headache, neck pain, or rash.?? See HPI.?? ROS is otherwise negative. Physical Exam Vitals & Measurements T:??98.1?F?? TMIN:??97.1?F?? TMAX:??99.4?F?? HR:??73?? RR:??16?? BP:??133/64?? BP:??159/58(Line)?? SpO2:??94%?? General:?Oriented, generalized weakness, in no acute distress.??Answers questions appropriately with fluent speech and will open his eyes when asked.?? He is restless and and has mild confusion but is able to answer his orientation questions properly. Calm and cooperative.?? HEENT: ??Sclera non icteric, conjunctivae are not pale, no oral lesions or thrush noted, fair dentition. Neck: ??Trachea is midline, no cervical lymphadenopathy noted, no posterior cervical tenderness, moves neck freely. Heart: ??RRR, no murmur heard, palpable radial and pedal pulses.??BLE 1+??edema. Lungs: ??CTA, no rhonchi or wheezing, on??room air.? Abdomen: ??Soft, protuberant,??nondistended, nontender,??with normoactive bowel sounds.?? [place]lap with clear??yellow??urine.? Skin: ??No peripheral stigmata of endocarditis, no rashes.?? Small open lesion??between his??2-3rd toes on his right foot with drainage but no surrounding erythema. Dry??peeling skin to the bottom ofhis R foot. IV's look okay, no erythema, no induration, no tenderness to palpation. Extremities:?? Moves all 4 extremities, no joint effusions, R??long??finger DIP amputation, L BKA well healed, no other deformities noted.?? Thoracic wound with blood output in RADHA drain, unable to roll patient to examine back or pressure wounds on buttocks but images have been reviewed?? with SWOT team following. Neurologic:?O x3, decreased sensation to R foot but no other focal deficits noted. Assessment/Plan 1.??Epidural abscess(Extradural and subdural abscess, unspecified: G06.2) 3.??Urine retention(Retention of urine, unspecified: R33.9) 4.??Decubitus ulcer, buttock(Pressure ulcer of unspecified buttock, unspecified stage: L89.309) 7.??Type 2 diabetes mellitus(Type 2 diabetes mellitus without complications: E11.9) Patient is an??78-year-old insulin-dependent??diabetic??male with recent??incomplete treatment of??thoracic??osteomyelitis complicated by??an??epidural??abscess??status post??thoracic laminectomy with??decompression and evacuation of the epidural abscess??performed??on 07/05/2023??by Neurosurgeon,??Dr. Kolb??Pilo??. ? Recommendations: 1.?? Continue IV cefepime??and vancomycin, will adjust antibiotics based??on culture??results.?? 2.?? Follow operative culture results, no growth??to date. 3.?? Follow blood cultures??from 07/04.?? If??febrile please??repeat blood cultures. 4.?? If operative cultures??are??no growth??will send for universal??PCR. 5.?? Continue dressing changes??as recommended by??Neurosurgery. 6.?? SWOT??team??following??for pressure??ulcers??to bilateral??buttocks.? 7.?? Please obtain records??from the [place] for culture results??and Infectious Disease??notes.? 8.?? Infectious Disease??will follow. ?? We explained all??this to??patient and family??at bedside??and all questions??were answered. Over??60 minutes spent on this consultation. ? Problem List/Past Medical History Ongoing Bilateral hearing [...] on Knuckle (2017)???Cardiac Catherization (2016)???Left Leg Amputation (2017)???Cardiac Catherization (2015)???Eye Surgery (2015)???Ear Surgery (2010)???Appendectomy (1968)???Ear Surgery (1965)???Tonsillectomy (1965) Medications Medication List ? Active Medications ?Ordered ? aaMAR: DC if...., UNSPECIFIED-See comments, Unscheduled. ? aaMAR: Call neurosurgeon if anticoagulants orde, UNSPECIFIED, ? Unscheduled. ? acetaminophen: 650 mg, 2 tab, PO/per tube, Q6H, PRN: Temp, Mild Pain, ? Headache. ? acetaminophen: 975 mg, 3 tab, By mouth, Q8H. ? Al hydroxide/Mg hydroxide/simethicone: 15 mL, By mouth, QID, PRN: ? Heartburn or Indigestion. ? amLODIPine: 5 mg, 1 tab, By mouth, Daily. ? atorvastatin: 40 mg, 1 tab, By mouth, QPM (every evening). ? benzocaine-menthol topical: 1 lozenge, By mouth, as needed, PRN: Sore ? Throat. ? bisacodyl: 10 mg, 1 supp, Rectally, Daily, PRN: Constipation. ? carvedilol: 6.25 mg, 1 tab, By mouth, BID. ? cefepime: 2 g, 214 ml/hr, IVPB, Q12H. ? citric acid-potassium bicarbonate: 25 mEq, 1 tab, PO/per tube, as ? directed, PRN: See Comment Note. ? citric acid-potassium bicarbonate: 50 mEq, 2 tab, PO/per tube, as ? directed, PRN: See Comment Note. ? Dextrose 10% in Water: per scale or Glucommander, IVP, as directed, ? PRN: Hypoglycemia Severe. ? diazePAM: 5 mg, 1 tab, By mouth, Q6H, PRN: Muscle Spasms. ? diphenhydrAMINE: 25 mg, 1 cap, By mouth, TID, PRN: Allergies or ? Itching. ? diphenhydrAMINE: 50 mg, 1 mL, IVP, as needed, PRN: Allergies. ? docusate: 100 mg, 1 cap, By mouth, BID, PRN: Constipation. ? docusate: 100 mg, 1 cap, By mouth, Daily. ? emollients, topical: 1 application, Topical, as needed, PRN: Skin ? Protection. ? emollients, topical: 1 application, Topical, as needed, PRN: See ? Comment Note. ? emollients, topical: 1 application, Topical, Q3D, PRN: Skin ? Protection. ? finasteride: 1 mg, 0.2 tab, By mouth, QPM (every evening). ? fluticasone nasal: 50 mcg, 1 spray, Both Nostrils, as needed, PRN: as ? needed for allergy symptoms. ? formoterol-mometasone: 1 puff, Inhalation, RespBID. ? glucagon: 1 mg, 1 mL, IM, as directed, PRN: Hypoglycemia Severe. ? glucose: 16 g, 4 tab, By mouth, as directed, PRN: See Comment Note. ? glucose: 15 g, 1 tube, By mouth, as directed, PRN: See Comment Note. ? hydrALAZINE: 25 mg, 1 tab, By mouth, Q8H, PRN: See Comment Note. ? HYDROmorphone: 2 mg, 2 mL, IV, Q3H, PRN: Pain Severe (7-10) (2nd ? Line). ? hydroxypropyl methylcellulose ophthalmic: 1 Drops, Both Eyes, as ? needed, PRN: Dry Eyes. ? insulin lispro (Humalog): Medium dose scale, SUBQ, With Meals & ? Bedtime. ? isosorbide mononitrate: 30 mg, 1.5 tab, By mouth, QAM. ? Juice (orange/apple): 15 g, 118 mL, By mouth, as directed, PRN: See ? Comment Note. ? labetalol: 20 mg, 4 mL, IV, Q2Hr, PRN: Blood Pressure Control. ? levothyroxine: 25 mcg, 1 tab, By mouth, Daily. ? lisinopril: 2.5 mg, 1 tab, By mouth, QPM (every evening). ? magnesium sulfate: 2 g, 50 mL, 25 ml/hr, IVPB, as needed, PRN: See ? Comment Note. ? magnesium sulfate: 4 g, 100 mL, 25 ml/hr, IVPB, as needed, PRN: ? Magnesium < 1.8. ? Melatonin: 3 mg, 1 tab, By mouth, at bedtime, PRN: Sleep. ? methocarbamol: 750, By mouth, Q8H, PRN: Muscle Spasms. ? miconazole topical: 1 application, Topical, Q8H, PRN: Skin Protection. ? morphine: 2 mg, 0.5 mL, IVP, Q2Hr, PRN: Pain Moderate (2nd Line). ? morphine: 15 mg, 1 tab, By mouth, Q12H. ? ondansetron: 4 mg, 2 mL, IVP, Q8H, PRN: Nausea and Vomiting. ? ondansetron: 4 mg, 2 mL, IVP, Q8H, PRN: Nausea and Vomiting. ? oxyCODONE: 5 mg, 1 tab, By mouth, Q4H, PRN: Pain Moderate (4-6). ? oxyCODONE: 10 mg, 2 tab, By mouth, Q4H, PRN: Pain Severe (7-10). ? oxyCODONE: 10 mg, 2 tab, By mouth, Q4H, PRN: Pain Moderate (4- 6) (2nd ? Line). ? pantoprazole: 40 mg, 1 tab, By mouth, Daily. ? phenylephrine topical: 1 application, Topical, as needed, PRN: ? Hemorrhoids. ? polyethylene glycol 3350 (Miralax): 17 g, 1 pkt, By mouth, Daily, ? PRN: Constipation. ? polyethylene glycol 3350 (Miralax): 17 g, 1 pkt, By mouth, Daily, ? PRN: Constipation. ? pregabalin: 25 mg, 1 cap, By mouth, BID. ? senna: 17.2 mg, 2 tab, By mouth, at bedtime, PRN: Constipation. ? sodium chloride: 1 spray, Both Nostrils, as needed, PRN: Dry ? Nose/Congestion. ? sodium chloride flush: 5 mL, IVP, Q12H. ? sodium chloride flush: 5 mL, IVP, Q10Min, PRN: See Comment Note. ? tamsulosin: 0.4 mg, 1 cap, By mouth, Daily. ? traZODone: 25 mg, 0.5 tab, By mouth, at bedtime. ? trimethobenzamide: 200 mg, 2 mL, IM, Q6H, PRN: Nausea and Vomiting. ? vancomycin: 1,000 mg, 280 mL, 140 ml/hr, IV, Q12H. ? Vancomycin (IV - Pharmacy to Dose): 10-, UNSPECIFIED-See comments, ? Unscheduled. ? venlafaxine: 75 mg, 2 tab, By mouth, BID. ?Documented ? alogliptin: 12.5 mg, 1 tab, By mouth, Daily, Takes in AM, 0 Refill(s). ? amLODIPine: 5 mg, By mouth, Daily, Takes in AM, 0 Refill(s). ? ascorbic acid: 500 mg, By mouth, QAM, Last Dose 09.20.21, 0 Refill(s). ? aspirin: 81 mg, 1 tab, By mouth, Daily, Last Dose 09.20.21, 0 ? Refill(s). ? atorvastatin: 40 mg, By mouth, QPM (every evening), Takes in PM, 0 ? Refill(s). ? budesonide-formoterol: 2 puff, Inhalation, as needed, Takes as ? needed, 0 Refill(s). ? buprenorphine: 600 mcg, 1 EA, BUCC, BID, 0 Refill(s). ? buprenorphine: 300 mcg, 1 EA, BUCC, BID, 0 Refill(s). ? carvedilol: 6.25 mg, By mouth, BID, Takes twice a day, 0 Refill(s). ? cholecalciferol: 2,000 IntUnit, By mouth, Daily, Last Dose 03.16.22, ? 0 Refill(s). ? clopidogrel: 75 mg, By mouth, QAM, Last Dose, 0 Refill(s). ? docusate: 200 mg, 2 cap, By mouth, TID, Takes three times a day, PRN: ? for constipation, 0 Refill(s). ? finasteride: 1 mg, By mouth, QPM (every evening), Takes in PM, 0 ? Refill(s). ? fluticasone nasal: 1 spray, Both Nostrils, as needed, Uses as needed. ? furosemide: 60 mg, 3 tab, By mouth, BID, Takes three times a day, 90 ? tab, 0 Refill(s). ? gabapentin: 600 mg, By mouth, TID, Takes three times a day, 0 ? Refill(s). ? insulin glargine: 162 Units, SUBQ, BID, Takes twice a day, 0 ? Refill(s). ? isosorbide mononitrate: 30 mg, By mouth, QAM, Takes in AM, 0 ? Refill(s). ? levothyroxine: 25 mcg, By mouth, Daily, Takes in AM, 0 Refill(s). ? lisinopril: 2.5 mg, 1 tab, By mouth, QPM (every evening), Takes in ? PM, 30 tab, 0 Refill(s). ? loratadine: 10 mg, 1 tab, By mouth, Daily, Takes in AM. ? methenamine: 1 g, By mouth, BID, Takes twice a day, 0 Refill(s). ? metolazone: 2.5 mg, By mouth, BID, Takes twice a day, 0 Refill(s). ? morphine: 15 mg, 1 tab, By mouth, Q6H, PRN: for pain, 0 Refill(s). ? morphine: 15 mg, 1 tab, By mouth, Q12H, 0 Refill(s). ? nitroglycerin: 0.3 mg, 1 tab, SL, Q5Min, Takes as needed, PRN: for ? chest pain. ? omeprazole: 20 mg, By mouth, Daily, 0 Refill(s). ? potassium chloride: 40 mEq, 2 tab, By mouth, TID, Takes three times a ? day, 0 Refill(s). ? pregabalin: 25 mg, 1 cap, By mouth, BID, 60 cap, 0 Refill(s). ? spironolactone: 25 mg, By mouth, QAM, Takes in AM, 0 Refill(s). ? traMADol: 50 mg, By mouth, as needed, Takes as needed, 0 Refill(s). ? traZODone: 25 mg, 0.5 tab, By mouth, at bedtime, Takes in PM. ? venlafaxine: 75 mg, By mouth, BID, Takes twice a day ??Two in AM ??One ? in PM, 0 Refill(s). ? Medications Inactivated in the Last 72 Hours ? acetaminophen: 325 mg, 1 tab, OMNI, STAT. ? albuterol: 2.5 mg, 3 mL, Inhalation, ONCE, PRN: Wheezing. ? Awaiting Clarification: Pregabalin *confirm strength*, UNSPECIFIED- ? See comments, Daily. ? bupivacaine: 20 mL, OMNI, STAT. ? ceFAZolin: 1 g, IVPB, Q8H. ? cefepime: 2 g, OMNI, STAT. ? cefepime: 2 g, OMNI, STAT. ? cefepime: 2 g, OMNI, STAT. ? dexAMETHasone: 20 mg, 5 mL, OMNI, STAT. ? dexAMETHasone: 6 mg, 1.5 mL, IVP, Day of Treatment. ? Dextrose 10% in Water: per scale or Glucommander, IVP, as directed, ? PRN: Hypoglycemia Severe. ? Dextrose 10% in Water: per scale or Glucommander, IVP, as directed, ? PRN: Hypoglycemia Severe. ? Dextrose 5% with 0.45% NaCl 1,000 mL: 50 ml/hr, IV, Stop: 10/02/23 ? 1:46:00 CDT. ? diphenhydrAMINE: 6.25 mg, 0.13 mL, IVP, as needed, PRN: See Comment ? Note. ? diphenhydrAMINE: 50 mg, 1 mL, OMNI, STAT. ? docusate: 100 mg, 1 cap, By mouth, BID. ? docusate: 100 mg, 1 cap, By mouth, BID. ? epinephrine: 1 mg, 1 mL, OMNI, STAT. ? famotidine: 20 mg, 5 mL, 150 ml/hr, IVPB, Q12H. ? fentaNYL: 50 mcg, 1 mL, IVP, Q3Min, PRN: See Comment Note. ? fentaNYL: 100 mcg, 2 mL, OMNI, STAT. ? fentaNYL: 100 mcg, 2 mL, OMNI, STAT. ? FentaNYL Patch Removal: 1 EA, OMNI, STAT. ? glucagon: 1 mg, 1 mL, IM, as directed, PRN: Hypoglycemia Severe. ? glucagon: 1 mg, 1 mL, IM, as directed, PRN: Hypoglycemia Severe. ? glucose: 16 g, 4 tab, 4 tab, By mouth, as directed, PRN: See Comment ? Note. ? glucose: 15 g, 1 tube, By mouth, as directed, PRN: See Comment Note. ? glucose: 16 g, 4 tab, By mouth, as directed, PRN: See Comment Note. ? glucose: 15 g, 1 tube, By mouth, as directed, PRN: See Comment Note. ? glycopyrrolate: 0.2 mg, 1 mL, IVP, as needed, PRN: See Comment Note. ? haloperidol: 0.5 mg, 0.1 mL, IVP, as directed, PRN: See Comment Note. ? HYDROmorphone: 0.25 mg, 0.25 mL, IVP, as needed, PRN: See Comment ? Note. ? HYDROmorphone: 1 mg, 1 mL, OMNI, STAT. ? influenza vaccines: 0.5 mL, IM, ONCE. ? insulin lispro (Humalog): 2-8 units, SUBQ, as directed, PRN: See ? Comment Note. ? insulin lispro (Humalog): Low dose scale, SUBQ, With Meals & Bedtime. ? insulin lispro (Humalog): Medium dose scale, SUBQ, With Meals & ? Bedtime. ? Juice (orange/apple): 15 g, 118 mL, By mouth, as directed, PRN: See ? Comment Note. ? Juice (orange/apple): 15 g, 118 mL, By mouth, as directed, PRN: See ? Comment Note. ? lidocaine: 5 mL, OMNI, STAT. ? morphine: 4 mg, 1 mL, IVP, Q4H, PRN: Pain Moderate (4-6) (2nd Line). ? ondansetron: 4 mg, 2 mL, IVP, Q5Min, PRN: Nausea. ? ondansetron: 4 mg, 2 mL, IVP, ONCE. ? phenylephrine: 10 mg, 1 mL, OMNI, STAT. ? phenylephrine: 10 mg, 1 mL, OMNI, STAT. ? pregabalin: 25 mg, By mouth, Noon, Takes at noon, 0 Refill(s). ? propofol: 200 mg, OMNI, STAT. ? rocuronium: 50 mg, 5 mL, OMNI, STAT. ? Sodium Chloride 0.9% intravenous solution: 107 mL, OMNI, STAT. ? Sodium Chloride 0.9% intravenous solution: 107 mL, OMNI, STAT. ? Sodium Chloride 0.9% intravenous solution: 107 mL, OMNI, STAT. ? Sodium Chloride 0.9% intravenous solution 1,000 mL: 15 ml/hr, IV, ? Stop: 10/03/23 11:10:00 CDT. ? Sodium Chloride 0.9% intravenous solution 1,000 mL: 75 ml/hr, IV, ? Stop: 10/03/23 15:35:00 CDT. ? sodium chloride flush: 5 mL, IVP, Q12H. ? sodium chloride flush: 5 mL, IVP, Q10Min, PRN: See Comment Note. ? sugammadex: 150 mg, 1.5 mL, OMNI, STAT. ? thrombin topical: 5,000 Units, 1 vial, OMNI, STAT. ? vancomycin: 2,000 mg, 20 mL, 186.67 ml/hr, IV, ONCE. Allergies Bactrim??(Rash, Itching) penicillin??(Rash) Social History Social History Alcohol ??Past Substance Abuse ??Denies Tobacco ??Smoking Status: Former smoker. ??Smokeless tobacco use: Never. ?Stopped at age: 68 Years. See HPI. Family History Congestive heart failure: MOTHER. Coronary artery disease: FATHER. Diabetes mellitus: FATHER. Leukemia: FATHER. Denies any sick contacts or recent MRSA/MSSA infections. Lab Results Labs??(Last two charted values on this encounter) WBC 11.6 ??(JUL 06) 10.2 ??(JUL 05) Hgb 10.6 ??(JUL 06) 12.4 ??(JUL 05) Hct 32.2 ??(JUL 06) 36.4 ??(JUL 05) Platelets 191 ??(JUL 06) 251 ??(JUL 05) Na 142 ??(JUL 06) 139 ??(JUL 05) K 3.6 ??(JUL 06) 3.8 ??(JUL 05) Cl 108 ??(JUL 06) 105 ??(JUL 05) CO2 26 ??(JUL 06) 26 ??(JUL 05) BUN 16 ??(JUL 06) 15 ??(JUL 05) Cr 1.05 ??(JUL 06) 1.01 ??(JUL 05) ProteinT ?6.1 ??(JUL 05) ?6.0 ??(JUL 04) Albumin ?3.3 ??(JUL 05) ?3.3 ??(JUL 04) Bilirubin ,Total ??0.5 ??(JUL 05) ??0.3 ??(JUL 04) Alk Phos ?84 ??(JUL 05) ?81 ??(JUL 04) ALT ?9 ??(JUL 05) ?8 ??(JUL 04) AST ?19 ??(JUL 05) ?15 ??(JUL 04) Bedside Glucose 205 ??(JUL 06) 160 ??(JUL 06) CRP 0.80 ??(JUL 04) ?? 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 2.?Recent??left lower extremity amputation??with wound infection??and protracted antibiotic therapy. 3.?Multiple medical comorbidities including??heart disease??diabetes and renal failure. 4.?Advanced age. ??Operations or procedures performed??thoracic laminectomy for decompression of the associated spinal cord and removal of epidural abscess with decompression??from??T5 down to T10??from the dorsal epidural thoracic space including removal of the spinous process??thoracic lamina and ligamentum flavum ??to decompress the associated spinal cord??without facetectomy or instability. 2.?Intraoperative??cultures??after the bilateral thoracic decompression. ??Complication??none General endotracheal anesthesia Specimens??multiple??cultures were taken from the deep epidural??tissue planes. ??Full and complete informed consent??was obtained from the patient and his family including a lengthy discussion of all the different surgical nonsurgical options.?They understand the risk and complications include??but not limited to bleeding, infection,??neurological injury, spinal cord injury or spinal cord infarction??including paralysis, wound healing difficulties, incomplete resolution of the??infection and the need for additional type surgical intervention in the future??and also therisk of delayed instability. ??Appropriate preoperative antibiotic??treatment was??given.?He also had appropriate preoperative DVT treatment??and will remain on antibiotics due to the infection. ??Preoperative discussion: This is a gentleman transferred from an outside hospital with intractable back pain and thoracic radiculopathy.?He had a left knee amputation??complicated by wound infection and a list of severe multiple comorbidities.?We were asked to see him in consultation??after the diagnosis of??T5-T10 thoracic??epidural abscess.?I believe his primary cause of back pain is the destructive osteomyelitis??and paraspinous abscess.?He has good lower extremity strength with the above-stated amputation and no evidence of flagrant progressive myelopathy. ??We do lengthy discussion regarding the different surgical nonsurgical options.?He understands that??specifically that thoracic laminectomy is meant to try to help with the infection but not be definitively curative??as it involves??multiple vertebral bodies in the paraspinous region??but a large reconstructive operation??or multilevel corpectomy is simply not an option??given his overall situation age and health.?My hope is that??the thoracic laminectomy will provide some??back pain relief, prevent neurological decline??and allow for debridement. ??Intraoperative findings and details: The patient was brought to the operating room where general endotracheal anesthesia was induced.?He was moved onto the bed??in the prone position were all pressure points were padded adequately.?Fluoroscopic confirmation marked a linear midline incision over T5-T10??and this was prepped and draped in the typical sterile manner.?Skin incision was made and subperiosteal dissection??exposedthe posterior elements as confirmed by fluoroscopy.?Decompressive thoracic laminectomy was then c ompleted??decompressing the associated spinal cord and exiting nerve roots??without facetectomy andno generation of iatrogenic instability.?Intraoperative??finding was an epidural phlegmon and dec ompression was accomplished from T5-T10 in the dorsal epidural space??and cultures were sent. ??He did have??more bleeding than usual??likely related to the Plavix.?This was controlled with a combination of Floseal, fibrillar Surgicel and??fibrin glue. ??Ultimately??we irrigated copiously and hemostasis was adequate.?We placed a submuscular subfascial??large Ramone drain and then closed the muscle and fascia with 0 Vicryl sutures in subcuticular interrupted 2-0 and 3-0 Vicryl sutures and michael in the skin. ??I spoke with his family after the operation.?They understand that this is not??definitively curative of the discitis and osteomyelitis and the medical management and treatment will be will ultimately be required.?My hope is that this will??provide him some relief ultimately and some controlof the infection but this represents a very significant??infection in an elderly gentleman with??mounting medical comorbidities. ??Overall he tolerated the procedure well.?Aminata Walton PA-C was present throughout the entire operation and assisted in all aspects including patient positioning, intraoperative tissue manipulation and wound closure. 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 He is a rather poor historian, but he tells me that about ten weeks ago he was having mid-back pain so he had a CT of his spine which showed possible osteomyelitis.??According [facility],??biopsy was done at T8 which grew Cutibacterium acnesand Enterococcus faecalis, though Enterococcus was thought to be a contaminant. He was treated withIV Rocephin for 8 weeks, then transitioned to PO Augmentin which he is still taking. He has continued to have worsening back pain so an MRI was done on 06/25 which showed epidural abscess from T5-T10. His PCP called him yesterday with the result and advised him to go to ER. Patient was given a doseof IV vancomycin in the ER. Because they do not have neurosurgery coverage there, they consulted Edgar who agreed to consult if patient is transferred here. At the time of my eval, patient's only complaint is severe back pain. RN notes he was hypoglycemic with fingerstick glucose 30s, then upto 50s after juice, and now 90s after more juice. Patient notes he has been having more frequent hypoglycemic episodes for the past few weeks. RN also notes patient had urinary retention of 1000cc onbladder scan, so in&out cath was done which yielded 1200cc of urine. Also noted to have decubitus wounds of his bilat buttocks Review of Systems See HPI. All other review of systems negative Physical Exam Vitals & Measurements T:??97.7?F?? HR:??82?? RR:??17?? BP:??126/75?? SpO2:??93%?? WT:??116.5??kg?? GENERAL:??Alert,??NAD RESPIRATORY:??Non-labored,??no wheezes,??no rales,??no rhonchi CARDIOVASCULAR:??Normal rate,??regular rhythm,??no murmur,??no edema,??no JVD ABDOMINAL:??Soft,??non-tender,??mildly distended, tympanic,??no organomegaly NEUROLOGICAL:??A&O x4,??no new focal deficits,??CN II-XII intact PSYCHOLOGICAL:??Cooperative,??appropriate mood & affect Assessment/Plan 1.??Epidural abscess(Extradural and subdural abscess, unspecified: G06.2) 2.??Hypoglycemia(Hypoglycemia, unspecified: E16.2) 3.??Decubitus ulcer, buttock(Pressure ulcer of unspecified buttock, unspecified stage: L89.309) 4.??Urine retention(Retention of urine, unspecified: R33.9) 5.??History of left below knee amputation(Acquired absence of left leg below knee: Z89.512) 6.??Chronic kidney disease, stage 4 (severe)(Chronic kidney disease, stage 4 (severe): N18.4) 7.??Congestive heart failure(Heart failure, unspecified: I50.9) 8.??History of BPH(Personal history of other diseases of male genital organs: Z87.438) 9.??Hypertension(Essential (primary) hypertension: I10) 10.??Hyperlipidemia(Hyperlipidemia, unspecified: E78.5) 11.??MRSA (methicillin resistant Staphylococcus aureus)(Methicillin resistant Staphylococcus aureusinfection, unspecified site: A49.02) 12.??Type 2 diabetes mellitus(Type 2 diabetes mellitus without complications: E11.9) 13.??CAD (coronary artery disease)(Atherosclerotic heart disease of [place] coronary artery without angina pectoris: I25.10) ? Plan: Admit inpatient. I estimate that this patient will need at least two midnights stay for treatment of acute illness. As patient does not appear septic, will hold antibiotics so cultures can be done Will get blood culture, CBC/CMP, ESR/CRP Neurosurg Dr Terrell consulted by ER provider in [place] prior to transfer Keep NPO in case of need for intervention today Start D5 1/2NS to avoid hypoglycemia SWOT consult for decubitus wounds If urinary retention recurs, place [place] Start Flomax. Does not appear to be on this medication at home based on pharmacy fill history MDSSI VTE ppx SCDs ? Orders: JEANNETTE Anton if...., Unspecified, UNSPECIFIED-See comments, Unscheduled, Start Date: 12/28/23 0:07:00 NICKEL OPERATOR, Duration: 90 Days, Stop date 10/02/23 1:06:00 CDT, Routine, Disp Location: [facility] acetaminophen, 650 mg = 2 tab, TAB, PO/per tube, Q6H, PRN, Temp, Mild Pain, Headache, Start Date: 07/04/23 0:07:00 NICKEL OPERATOR, Duration: 90 Days, Stop date 10/02/23 0:06:00 CDT, Routine, Disp Location: [address], GEN DISP Al hydroxide/Mg hydroxide/simethicone, 15 mL, LIQ, Route: By mouth, QID, PRN, Heartburn or Indigestion, Start Date: 07/04/23 0:07:00 NICKEL OPERATOR, Duration: 90 Days, Stop date: 10/02/23 0:06:00 CDT, Routine, Disp Location: [address], [facility] DISP benzocaine-menthol topical, 1 lozenge, LOZENGE, Route: By mouth, as needed, PRN, Sore Throat, StartDate: 07/04/23 0:07:00 NICKEL OPERATOR, Duration: 90 Days, Stop date: 10/02/23 1:06:00 CDT, Routine, Disp Location: [address], GEN DISP bisacodyl, 10 mg = 1 supp, SUPP, Rectally, Daily, PRN, Constipation, Start Date: 07/04/23 0:07:00 NICKEL OPERATOR, Duration: 90 Days, Stop date 10/02/23 0:06:00 CDT, Routine, Disp Location: [address], GEN DISP citric acid-potassium bicarbonate, 25 mEq = 1 tab, Solutab, PO/per tube, as directed, PRN, See Comment Note, Start Date: 07/04/23 0:07:00 NICKEL OPERATOR, Duration: 90 Days, Stop date 10/02/23 1:06:00 CDT, Routine, Disp Location: [address], GEN DISP citric acid-potassium bicarbonate, 50 mEq = 2 tab, Solutab, PO/per tube, as directed, PRN, See Comment Note, Start Date: 07/04/23 0:07:00 NICKEL OPERATOR, Duration: 90 Days, Stop date 10/02/23 1:06:00 CDT, Routine, Disp Location: [address], GEN DISP Dextrose 10% in Water, per scale or Glucommander, INJ, Route: IVP, as directed, PRN, Hypoglycemia Severe, Start Date: 07/04/23 1:19:00 NICKEL OPERATOR, Duration: 90 Days, Stop date: 10/02/23 2:18:00 CDT, Routine, ml/hr, Infuse Over: 15 sec, Disp Location: [address],... Dextrose 5% with 0.45% NaCl 1,000 mL, Route: IV, Routine, Start Date: 07/04/23 1:47:00 NICKEL OPERATOR, 90 Days, Stop date 10/02/23 1:46:00 CDT, Rate= 50 ml/hr, hr, Total Vol ml = 1,000, Disp Location: [address], Populate Charting Weight From Order, GEN DISP, 2.5, m2 docusate, 100 mg = 1 cap, CAP, By mouth, BID, PRN, Constipation, Start Date: 07/04/23 0:07:00 NICKEL OPERATOR, Duration: 90 Days, Stop date 10/02/23 0:06:00 CDT, Routine, Disp Location: [address], GEN DISP emollients, topical, 1 application, OINT, Route: Topical, as needed, PRN, See Comment Note, Start Date: 07/04/23 0:07:00 NICKEL OPERATOR, Duration: 90 Days, Stop date: 10/02/23 1:06:00 CDT, Routine, Disp Location: [facility], GEN DISP emollients, topical, 1 application, OINT, Route: Topical, as needed, PRN, Skin Protection, Start Date: 07/04/23 0:07:00 NICKEL OPERATOR, Duration: 90 Days, Stop date: 10/02/23 1:06:00 CDT, Routine, Disp Location: [facility], GEN DISP glucagon, 1 mg = 1 mL, INJ, IM, as directed, PRN, Hypoglycemia Severe, Start Date: 07/04/23 1:19:00CST, Duration: 90 Days, Stop date 10/02/23 2:18:00 CDT, Routine, Disp Location: [address], GEN DISP glucose, 15 g = 1 tube, GEL, By mouth, as directed, PRN, See Comment Note, Start Date: 07/04/23 1:19:00 NICKEL OPERATOR, Duration: 90 Days, Stop date 10/02/23 2:18:00 CDT, Routine, Disp Location: [facility], GEN DISP glucose, 16 g = 4 tab, CHEW TAB, By mouth, as directed, PRN, See Comment Note, Start Date: :19:00 NICKEL OPERATOR, Duration: 90 Days, Stop date 10/02/23 2:18:00 CDT, Routine, Disp Location: [address], GEN DISP hydrALAZINE, 25 mg = 1 tab, TAB, By mouth, Q8H, PRN, See Comment Note, Start Date: 07/04/23 0:07:00CST, Duration: 42 Days, Stop date 08/15/23 0:06:00 NICKEL OPERATOR, Routine, Disp Location: [address], GEN DISP hydroxypropyl methylcellulose ophthalmic, 1 Drops, OPHTHDROP, Route: Both Eyes, as needed, PRN, DryEyes, Start Date: 07/04/23 0:07:00 NICKEL OPERATOR, Duration: 90 Days, Stop date: 10/02/23 1:06:00 CDT, Routine, Disp Location: [address], GEN DISP insulin lispro (Humalog), Medium dose scale, INJ, SUBQ, With Meals & Bedtime, Start Date: 07/04/23 8:00:00 NICKEL OPERATOR, Duration: 90 Days, Stop date 10/01/23 22:00:00 CDT, Routine, Disp Location: [facility], GEN DISP Juice (orange/apple), 15 g, 118 mL, LIQ, Route: By mouth, as directed, PRN, See Comment Note, StartDate: 07/04/23 1:19:00 NICKEL OPERATOR, Duration: 90 Days, Stop date: 10/02/23 2:18:00 CDT, Routine, Disp Location: [address] labetalol, 20 mg = 4 mL, INJ, IV, Q2Hr, PRN, Blood Pressure Control, Start Date: 07/04/23 0:07:00 NICKEL OPERATOR, Duration: 42 Days, Stop date 08/15/23 0:06:00 NICKEL OPERATOR, Routine, Disp Location: [address], GEN DISP magnesium sulfate, 2 g = 50 mL, IVPB, IVPB, as needed, PRN, See Comment Note, Start Date: 07/04/23 0:07:00 NICKEL OPERATOR, Duration: 90 Days, Stop date 10/02/23 1:06:00 CDT, Routine, Infuse over: 2 hr, Disp Location: [address], GEN DISP magnesium sulfate, 4 g = 100 mL, IVPB, IVPB, as needed, PRN, Magnesium < 1.8, Start Date: 07/04/23 0:07:00 NICKEL OPERATOR, Duration: 90 Days, Stop date 10/02/23 1:06:00 CDT, Routine, Infuse over: 4 hr, Disp Location: [address], GEN DISP Melatonin, 3 mg = 1 tab, TAB, By mouth, at bedtime, PRN, Sleep, Start Date: 07/04/23 0:07:00 NICKEL OPERATOR, Duration: 90 Days, Stop date 10/02/23 0:06:00 CDT, Routine, Disp Location: [address], [facility] DISP miconazole topical, 1 application, CREAM, Route: Topical, Q8H, PRN, Skin Protection, Start Date: 07/04/23 0:07:00 NICKEL OPERATOR, Duration: 90 Days, Stop date: 10/02/23 0:06:00 CDT, Routine, Disp Location: [facility], GEN DISP morphine, 4 mg = 1 mL, INJ, IVP, Q4H, PRN, Pain Moderate (4-6) (2nd Line), Start Date: 07/04/23 1:23:00 NICKEL OPERATOR, Stop date 07/06/23 8:00:00 NICKEL OPERATOR, Routine, Disp Location: [address], GEN DISP ondansetron, 4 mg = 2 mL, INJ, IVP, Q8H, PRN, Nausea and Vomiting, Start Date: 07/04/23 0:07:00 NICKEL OPERATOR, Duration: 90 Days, Stop date 10/02/23 0:06:00 CDT, Routine, Disp Location: [facility], GEN DISP oxyCODONE, 5 mg = 1 tab, TAB, By mouth, Q4H, PRN, Pain Moderate (4-6), Start Date: 07/04/23 0:07:00CST, Duration: 14 Days, Stop date 07/18/23 0:06:00 NICKEL OPERATOR, Routine, Disp Location: [facility], GEN DISP oxyCODONE, 10 mg = 2 tab, TAB, By mouth, Q4H, PRN, Pain Severe (7-10), Start Date: 07/04/23 0:07:00CST, Duration: 14 Days, Stop date 07/18/23 0:06:00 NICKEL OPERATOR, Routine, Disp Location: [facility], GEN DISP polyethylene glycol 3350 (Miralax), 17 g, 1 pkt, POWDER, Route: By mouth, Daily, PRN, Constipation,Start Date: 07/04/23 0:07:00 NICKEL OPERATOR, Duration: 90 Days, Stop date: 10/02/23 0:06:00 CDT, Routine, DispLocation: [facility], GEN DISP senna, 17.2 mg, 2 tab, TAB, Route: By mouth, at bedtime, PRN, Constipation, Start Date: 07/04/23 0:07:00 NICKEL OPERATOR, Duration: 90 Days, Stop date: 10/02/23 0:06:00 CDT, Routine, Disp Location: [facility], GEN DISP sodium chloride, 1 spray, SPRAY, Route: Both Nostrils, as needed, PRN, Dry Nose/Congestion, Start Date: 07/04/23 0:07:00 NICKEL OPERATOR, Duration: 90 Days, Stop date: 10/02/23 1:06:00 CDT, Routine, Disp Location: [facility], GEN DISP sodium chloride flush, 5 mL, INJ, Route: IVP, Q12H, Start Date: 07/04/23 0:07:00 NICKEL OPERATOR, Duration: 90 Days, Stop date: 10/01/23 9:00:00 CDT, Routine, Disp Location: [facility] [address], GEN DISP sodium chloride flush, 5 mL, INJ, Route: IVP, Q10Min, PRN, See Comment Note, Start Date: 07/04/23 0:07:00 NICKEL OPERATOR, Duration: 90 Days, Stop date: 10/02/23 1:06:00 CDT, Routine, Disp Location: [address], GEN DISP tamsulosin, 0.4 mg = 1 cap, CAP, By mouth, Daily, Start Date: 07/04/23 9:00:00 NICKEL OPERATOR, Duration: 90 Days, Stop date 10/01/23 9:00:00 CDT, Routine, Disp Location: [address], GEN DISP Activity Precautions, Bathroom Privileges PRN Bladder Scan, See order comments. For patients who are unable to void within 6 hours postoperatively or post catheter removal, or are voiding small amounts of urine (<200ml). May use bladder scan to assess patient for urinary retention. Blood Culture Blood Glucose, Bedside, If in Med/Surg with a diet. If made NPO change blood glucose testing and correction insulin to every 4 hours. Blood Glucose, Bedside, 15 minutes after treating hypoglycemia CBC-d Chair, with meals CMP Code Status Enterostomal Consult, pressure ulcers bilat buttocks Initiate Plan, Glycemic and Insulin Management Protocol - Adult Initiate Plan, Hospitalist orders Initiate Plan, IV Device Maintenance Protocol Adult Initiate Plan, Urinary Catheter Protocol Initiate Plan, Admission Adult Initiate Plan, Magnesium Replacement Protocol Initiate Plan, Potassium Replacement Protocol - Routine IV Device Maintenance Protocol - Adult, Initiate Magnesium Replacement Protocol Notify Provider, See Order Comments NPO Nursing Communication Order, Order Potassium Serum level to be drawn 4 hours after po dose. Nursing Communication Order, Assess need to void, post catheter removal and every 4 to 6 hours. Forpatients without indwelling urinary catheter in place post operatively, assess for urinary retention and need to void. Assist patient to attempt to void. Nursing Communication Order, Promote normal Voiding, See order comments. For patients without a urinary catheter, utilize strategies to promote normal urination. Nursing Communication Order, In and Out Catheterization, See order comments. Nursing Communication Order, HYPOGLYCEMIA PROTOCOL: If patient symptomatic and blood glucose 70-79 mg/dL treat with juice or glucose. Nursing Communication Order, HYPOGLYCEMIA PROTOCOL: After administering glucose tablets or juice, AND once blood glucose is greater than 70 mg/dL give patient additional 15 grams of carbohydrate (i.e. 8 oz skim milk or 6 crackers) unless a meal will be available within 1 hour. Nursing Communication Order, Check blood glucose 3hrs after bedtime correction, if correction given. Nursing Communication Order, HYPOGLYCEMIA PROTOCOL: If patient not alert, position patient on side and observe for seizures. Nutrition Care Protocol Oxygen Protocol, Adult Potassium Replacement Protocol, *SERUM POTASSIUM LEVEL 3.1 - 3.4 mEq/L administer 25 mEq potassium bicarbonate (Effer-K), po/ng. Recheck serum potassium level 4 hours after last oral dose. *SERUM POTASSIUM LEVEL less than 3.1 mEq/L administer 50 mEq potassium bicarbonate (Effer-K), po Sequential Compression Device, Patient Moderate to High Risk for VTE Urinary Catheter Insertion, If unable to urinate after requiring 2nd consecutive in and out catheterization without normal urination, may place indwelling urinary catheter. Urinary Catheter Removal, see order comments Problem List/Past Medical History Ongoing Bilateral hearing loss CAD (coronary artery disease) Carotid stenosis Charcot's joint Chronic kidney disease, stage 4 (severe) Congestive heart failure Ex-smoker Gastroesophageal reflux disease History of BPH History of left below knee amputation History of recurrent UTI (urinary tract infection) Hyperlipidemia Hypertension MRSA (methicillin resistant Staphylococcus aureus) Type 2 diabetes mellitus Historical No qualifying [...] (1968)???Ear Surgery (1965)???Tonsillectomy (1965) Medications Home Medications (29) Active alogliptin 12.5 mg oral tablet??12.5 mg = 1 tab, By mouth, Daily amLODIPine??5 mg, By mouth, Daily aspirin 81 mg oral tablet, chewable??81 mg = 1 tab, By mouth, Daily atorvastatin??40 mg, By mouth, QPM (every evening) carvedilol??6.25 mg, By mouth, BID Claritin 10 mg oral tablet??10 mg = 1 tab, By mouth, Daily clopidogrel??75 mg, By mouth, QAM Colace 100 mg oral capsule??200 mg = 2 cap, PRN, By mouth, TID finasteride??1 mg, By mouth, QPM (every evening) Flonase 50 mcg/inh nasal spray??1 spray, Both Nostrils, as needed furosemide 20 mg oral tablet??60 mg = 3 tab, By mouth, BID gabapentin??600 mg, By mouth, TID isosorbide mononitrate??30 mg, By mouth, QAM LanTUS??162 Units, SUBQ, BID levothyroxine??25 mcg, By mouth, Daily lisinopril 2.5 mg oral tablet??2.5 mg = 1 tab, By mouth, QPM (every evening) methenamine hippurate??1 g, By mouth, BID metolazone??2.5 mg, By mouth, BID nitroglycerin 0.3 mg sublingual tablet??0.3 mg = 1 tab, PRN, SL, Q5Min omeprazole??20 mg, By mouth, Daily potassium chloride 20 mEq oral tablet, extended release??40 mEq = 2 tab, By mouth, TID pregabalin??1 tab, By mouth, Noon spironolactone??25 mg, By mouth, QAM Symbicort 80/4.5 inhalation aerosol with adapter??2 puff, Inhalation, as needed traMADol??50 mg, By mouth, as needed traZODone 50 mg oral tablet??25 mg = 0.5 tab, By mouth, at bedtime venlafaxine??75 mg, By mouth, BID Vitamin C??500 mg, By mouth, QAM Vitamin D3 (cholecalciferol)??2,000 IntUnit, By mouth, Daily Allergies Bactrim??(Rash, Itching) penicillin??(Rash) Social History Social History Alcohol ??Past Substance Abuse ??Denies Tobacco ??Smoking Status: Former smoker. ??Smokeless tobacco use: Never. ?Stopped at age: 68 Years. Family History Congestive heart failure: MOTHER. Coronary artery disease: FATHER. Diabetes mellitus: FATHER. Leukemia: FATHER. Lab Results Labs??(Last two charted values on this encounter) Bedside Glucose 95 ??(JUL 04) 53 ??(JUL 04) Diagnostic Results No clinical data available for specified time frame. Electronically signed by:Eamon Proctor DO 07/04/23 01:43 Discharge summary * Sonido Ann MD: PERFORM Event Display: Discharge Summary Authored Date: [id number] Discharge Information Admit date:07/03/2023 Discharge date:07/18/2023 Primary Care Physician:Heaven Levin MD Attending Physician:Sonido Ann MD Consulting Physician:;Clint MILLER, Des MS Admitting Physician:Jimy Rogers MD Discharge Diagnosis Epidural abscess Vertebral osteomyelitis Acute delirium Type 2 diabetes mellitus Congestive heart failure CAD (coronary artery disease) Hypoglycemia Urine retention Decubitus ulcer, buttock Chronic kidney disease, stage 4 (severe) History of BPH History of left below knee amputation Hypertension Hyperlipidemia MRSA (methicillin resistant Staphylococcus aureus) Opioid dependence Chronic pain Procedures During Visit Procedures: 07-05-23 13:12??Laminectomy Lumbar Decompression??Irrigation and Debridement for Thoracic Epidural Abscess?? Aminata Mckeon [employer]ician[employer] Services Officer?? Pilo MILLER, Cortes Bergman Surgeon - Primary?? 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 He is a rather poor historian, but he tells me that about ten weeks ago he was having mid-back pain so he had a CT of his spine which showed possible osteomyelitis.??[facility]biopsy was done at [facility] which grew Cutibacterium acnes and Enterococcus faecalis, though Enterococcus was thought to be a contaminant. He was treated with IV Rocephin for 8 weeks, then transitioned to PO Augmentin which he is still taking. He has continued to have worsening back pain so an MRI was done on 06/25 which showed epidural abscess from T5-T10. His PCP called him yesterday with the result and advised him to go to ER. Patient was given a dose of IV vancomycin in the ER. Because they do not have neurosurgery coverage there, they consulted Dr Terrell who agreed to consult if patient is transferred here. At the time of my eval, patient's only complaint is severe back pain. RN notes he was hypoglycemic with fingerstick glucose 30s, then up to 50s after juice, and now 90s after more juice. Patient notes he has been having more frequent hypoglycemic episodes for the past few weeks. RN also notes patient had urinary retention of 1000cc on bladder scan, so in&out cath was done which yielded 1200cc of urine. 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 He was treated with IV Rocephin for 8 weeks, then transitioned to PO Augmentin which he??was still taking on admission.?? MRI was done on 06/25 which showed epidural abscess from T5-T[facility]. Patient was given a dose of IV vancomycin in the ER, Dr Terrell consulted and patient transferred to [facility]. Patient had urinary retention, Dunlap?? catheter??was inserted. ?? Neurosurgeon??was consulted. ? Patient underwent thoracic laminectomy for decompression of spinal cord and removal of epidural abscess with decompression from T5-T10. Infectious disease consulted. Starting vancomycin and cefepime post operative and follow culture results. Intraoperative cultures and blood cultures negative to date, universal PCR for operative cultures pending. Patient treating for negative culture vertebral osteomyelitis with extended course of antibiotics, changed to Daptomycin and Rocephin on 07/07. Postoperatively, patient had acute delirium which has resolved. PT/OT, anticipate post acute placement for group home antibiotics and therapy. Appreciate Neurosurgery.? Status post??thoracic laminectomy for decompression of the associated spinal cord and removal ofepidural abscess with decompression from T5 down to T10 from the dorsal epidural thoracic space including removal of the spinous process thoracic lamina and ligamentum flavum to decompress the associated spinal cord without facetectomy or instability??on 07/05/2023. CT??cervical spine, thoracic spine,??lumbar??spine??completed??07/15/2023 shows??multilevel??osteomyelitis.?Discussed with??Neurosurgery,??feels okay??to discharge, continue IV antibiotic??as recommended by ID?and follow- up??in Neurosurgery Clinic??in 2-3 weeks.?Patient needs??to have??br andrea??when he gets??up. ?? Was??seen by??ID.?BC and??operative??wound culture??are negative. ? Antibiotic?was adjust to??daptomycin, ceftriaxone.?? Id recommended??to continue??daptomycin, ceftriaxone. ?Tentativestop date??08/08/2023.?? May need??suppressive p.o.??antibiotic following.?? Follow-up with??ID in clinic. ? CT chest, abdomen and pelvis??shows nothing acute ?? Has intractable back??pain??due to osteomyelitis.?? Back pain??improved??with??fentanyl??patch,??p.r.n. oxycodone Was seen by??PT, OT, social media strategist.?? The patient was discharged to??facility??on 07/18/2023. Bladder training??in facility,??remove Dunlap??catheter as??able.? Follow-up with??PCP??in 3-5 days Follow-up??with??ID and Neurosurgery as recommended by??them. Discharge diagnosis, discharge medication, testing results, follow up instructions were discussed with the patient and his??daughter on the phone??in detail.? Time spent??on discharge??is more than??30 minutes? Vitals & Measurements ??Vital Signs (last 24 hrs)?Last Charted?Minimum?Maximum?Temp?96.4 (JUL 18:29)?96.4 (JUL 18:29)?98.4 (JUL 17:35)?Heart Rate?71 (JUL 18:)?71 (JUL 18 04:45)?96 (JUL 18 00:15)?Resp Rate?18 (JUL 18:)?16 (JUL 18 05:40)?18 (JUL 17:45)?SBP?109 (JUL 18:)?101 (JUL 17:35)?160 (JUL 18:45)?DBP?51 (JUL 18:)?51 (JUL 18:)?85 (JUL 18:45)?SpO2?97 (JUL 18:)?92 (JUL 18 05:40)?97 (JUL 18:)?O2?Room a (JUL 18:)?Room a (JUL 17:35)?Room a (JUL 17:35)?? Physical Exam HEENT:?? Eyes:?Bilateral pupils are equal, normal in size, reactive to light and accommodation.?? Extraocular movements are intact.?? No conjunctival injection.?? Ears, Nose, Mouth, Throat:? No discharge from ears or nose.?? No open lesions in the oropharynx. NECK:?? Neck is supple.?? Trachea is in midline.?? LUNGS:?? Bilateral air entry is clear.?? No wheezing or crackles. HEART:?? S1, S2 is normal.?? Regular rate and rhythm.?? ABDOMEN:?Soft.?? Nontender.?? Normoactive bowel sound.?? Obese. EXTREMITIES:?? Left BKA NEUROLOGIC:?? The patient is awake, alert, and oriented to place, and person.? Discharge Orders Discharge Follow Up 07/11/23 16:10:00 NICKEL OPERATOR, Provider/Time: Follow-up with ID, Dr. Jaramillo, in 4-5 weeks, call for appointment [phone]. ??[facility] Vertebral osteomyelitis Epidural abscess Discharge 07/18/23 9:26:00 NICKEL OPERATOR, Care Home Facility Discharge Follow Up 07/18/23 9:26:00 NICKEL OPERATOR, Provider/Time: f/u with PCP in 3-5 daysf/u with ID and neurosurgery as recommended by them, Readmission Risk F/U 3-5 days Discharge Diet 07/18/23 9:26:00 NICKEL OPERATOR, Discharge Diet: Carbohydrate Consistent Diet Discharge Activity 07/18/23 9:26:00 NICKEL OPERATOR, Other, see special instructions, as recommended by neurosurgery Facility Discharge Plan unknown, 07/18/23 9:26:00 NICKEL OPERATOR Facility Discharge Occupational Therapy Eval and Treat 07/18/23 9:26:00 NICKEL OPERATOR Facility Discharge Physical Therapy Eval and Treat 07/18/23 9:26:00 NICKEL OPERATOR Facility Discharge Antibiotic 07/18/23 9:26:00 NICKEL OPERATOR, osteomyelitis Medications Home Medications (25) Active alogliptin 12.5 [...] By mouth, Daily oxyCODONE 5 mg oral tablet??10 mg = 2 tab, PRN, By mouth, Q6H potassium chloride 20 mEq oral tablet, extended [...] patient today Pending Labs PENDING LABS C Fungus Abscess, open, Collected, Specimen, 07/05/23 13:45:00 NICKEL OPERATOR, Routine, Other, Micro Swab, epidural abscess, 07/05/23 13:45:00 NICKEL OPERATOR, [id number], [email or web address]_[email or web address]_encntr [facility] PCR Specimen, Specimen, 07/07/23 14:17:00 NICKEL OPERATOR, Routine, Epidural abscess Vertebral osteomyelitis, 07/07/23 14:17:00 NICKEL OPERATOR, [id number], [email or web address]_encntr Lab Results Labs??(Last two charted values on this encounter) WBC 9.0 ??(JUL 15) 8.0 ??(JUL 11) Hgb 9.8 ??(JUL 15) 9.6 ??(JUL 11) Hct 29.0 ??(JUL 15) 29.0 ??(JUL 11) Platelets 274 ??(JUL 15) 208 ??(JUL 11) Na 136 ??(JUL 15) 138 ??(JUL 11) K 3.4 ??(JUL 15) 3.5 ??(JUL 11) Cl 105 ??(JUL 15) 102 ??(JUL 11) CO2 27 ??(JUL 15) 26 ??(JUL 11) BUN 21 ??(JUL 15) 21 ??(JUL 11) Cr 1.04 ??(JUL 15) 1.10 ??(JUL 11) ProteinT ?6.1 ??(JUL 15) ?6.1 ??(JUL 05) Albumin ?2.7 ??(JUL 15) ?3.3 ??(JUL 05) Bilirubin ,Total ??0.3 ??(JUL 15) ??0.5 ??(JUL 05) Alk Phos ?79 ??(JUL 15) ?84 ??(JUL 05) ALT ?12 ??(JUL 15) ?9 ??(JUL 05) AST ?15 ??(JUL 15) ?19 ??(JUL 05) Mag ?2.0 ??(JUL 10) ?1.7 ??(JUL 09) Bedside Glucose 207 ??(JUL 18) 130 ??(JUL 18) CRP 7.00 ??(JUL 11) 0.80 ??(JUL 04) Total CK 38 ??(JUL 09) ?? Glucose,Plasma 212 ??(JUL 15) 179 ??(JUL 11) Diagnostic Results Radiology Results:?? CT Cervical Spine wo Contrast - 07/15/23 13:24 ( Jax MILLER, Festus Leiva )?? IMPRESSION: 1. ??No acute fracture. ?? Multilevel severe degenerative changes are described in detail above. ?? The presence of the degenerative changes lowers diagnostic sensitivity in specificity for discitis osteomyelitis in this case. ?? 2. ??Indistinct endplates C6-C7 and C7-T1 may be degenerative or the result of discitis osteomyelitis. ?? Similarly, distended facet joints on the left side C3-C4 in right side at C5-C6 with associated permeative changes may represent an erosive osteoarthritis or septic arthritis. MRI with contrast is recommended for more definitive characterization. ?? 3. ??Posterior disc osteophyte complex at C5-C6 may cause severe central canal stenosis. ?? The central canal is partially obscured by beam hardening artifact at this level. ?? 4. ??Multilevel severe degenerative changes as described in detail above. ?? Electronically signed by: Festus Camara MD, ??[facility], 07/15/2023 14:15 ?? CT Chest Abd Pelvis wo Contrast - 07/15/23 13:24 ( Sharmaine MILLER, Festus )?? IMPRESSION: Multilevel disc and osteomyelitis. ?? PROCEDURE INFORMATION: Exam: CT Abdomen And Pelvis Without Contrast Exam date and time: 07/15/2023 1:24 PM Age: 78 years old Clinical indication: Methicillin resistant staphylococcus aureus infection, unspecified site; Type 2 diabetes mellitus without complications; Hypoglycemia, unspecified; Hyperlipidemia, unspecified; Opioid dependence, uncomplicated; Extradural and subdural abscess, unspecified; Other chronic pain; Essential (primary) hypertension; Atherosclerotic heart disease of [place] coronary artery without anginapectoris; Heart failure, unspecified; Pressure ulcer of unspecified buttock, unspecified stage; Osteomyelitis of vertebra, site unspecified; Chronic kidney disease, stage 4 (severe); Retention of urine, unspecified; Disorientation, unspecified; Other general symptoms and signs; Other specified health status; Personal history of other diseases of male genital organs; Acquired absence of left leg below knee; Additional info: B/l flank pain, back pain TECHNIQUE: Imaging protocol: Computed tomography of the abdomen and pelvis without contrast. ??Radiation optimization: All CT scans at this facility use at least one of these dose optimization techniques: automated exposure control; mA and/or kV adjustment per patient size (includes targeted exams where dose is matched to clinical indication); or iterative reconstruction. ??COMPARISON: CT Recon Lumbar Spine 07/15/2023 1:24 PM FINDINGS: Liver: Normal. ??No mass. ??Gallbladder and bile ducts: Normal. ??No calcified stones. ??No ductal dilation.??Pancreas: Normal. ??No ductal dilation. ??Spleen: Calcified granuloma within the spleen. ??Adrenal glands: Normal. ??No mass. ??Kidneys and ureters: Normal. ??No hydronephrosis. ??Stomach and bowel: Unremarkable. ??No obstruction. ??No mucosal thickening. ??Appendix: No evidence of appendicitis. ? ?Intraperitoneal space: Unremarkable. ??No free air. ??No significant fluid collection. ??Vasculature: Unremarkable. ??No abdominal aortic aneurysm. ??Lymph nodes: Unremarkable. ??No enlarged lymph nodes. ??Urinary bladder: The urinary bladder is collapsed around a Dunlap catheter. ??The wall of theurinary bladder might be thickened. ??See Kidneys and ureters finding. ??Reproductive: Unremarkable as visualized. ??Bones/joints: There mild changes of endplate irregularity and increased density at L4-L5 and considering the multifocal discitis and osteomyelitis elsewhere this could represent anadditional early focus of discitis and osteomyelitis. ??Consider MRI for further evaluation. ??Softtissues: Unremarkable. ??IMPRESSION: 1. Possible early discitis and osteomyelitis L4-L5. ??2. Possibly thickened urinary bladder wall. ??Electronically signed by: Festus Schmid MD, ??[facility], 07/17/2023 12:17 ?? CT Recon Lumbar Spine - 07/15/23 13:24 ( Jax MILLER, Festus Leiva )?? IMPRESSION: 1. ?? No acute lumbar spine fracture. 2. ?? Advanced L4-L5 degenerative disc disease with severe lateral recess stenosis and moderate neural foraminal stenosis could impinge on bilateral exiting L4 or descending L5 nerve roots. No severe central canal stenosis. 3. ?? Cystic changes in the endplates at L4-L5 most likely represent a chronic degenerative process however given the findings in the thoracic spine in early discitis osteomyelitis can not be excluded. Consider MRI of the lumbar spine for further evaluation if this patient has clinical signs and symptoms of discitis osteomyelitis in the low lumbar region. Electronically signed by: Festus Camara MD, ??[facility], 07/15/2023 13:54 ?? CT Recon Thoracic Spine - 07/15/23 13:24 ( Jax MILLER, Festus Leiva )?? IMPRESSION: 1. ??C6-C7 and T8-9 discitis osteomyelitis with greater than 50% of each associated vertebral body eroded surrounding the disc spaces. ?? The lamina have been removed for posterior decompression from T6-T8. ?? Permeative changes are seen within the pedicles, facet joints and costovertebral joints at these levels. ?? No intravenous contrast was administered which limits evaluation for epidural and soft tissue abscess. However, severe central canal stenosis is suspected C6-C7 on series 301: ??Image 58. There is marked paravertebral soft tissue swelling. MRI with contrast is a more sensitive modality for the definitive characterization of spinal infections. ??2. ??Possible 3rd focus of discitis osteomyelitis at T5-6 (versus degenerative change) associated with 3 mm of subluxation. ?? 3. ??Severe bilateral facet arthropathy at C7-T1 causes 3 mm of subluxation. ?? 4. ??C6-C7 permeative changes are incompletely visualized. ?? Cervical discitis osteomyelitis can not be excluded at this level based on limited visualization. ?? Trace bilateral pleural effusions. ??Electronically s igned by: Festus Camara MD, ??[facility], 07/15/2023 13:49 ?? XR Chest PA PICC - 07/11/23 16:02 ( Sydni MILLER, Remigio Meehan )?? IMPRESSION: Right-sided PICC catheter overlies the SVC. ??Electronically signed by: Remigio Troy MD,??[facility], 07/11/2023 16:30 Other No qualifying data available. Airway Management No Data Available [1]??Admission H&P Note; Esthela LINK, Eamon Benítez 07/04/2023 01:42 NICKEL OPERATOR Electronically signed by:Sonido Ann MD 07/18/23 15:56 CT Thoracic spine by reconstruction * Festus Camara MD: PERFORM, VERIFY, VERIFY Event Display: Report Authored Date: Note * Festus Camara MD: PERFORM, VERIFY, VERIFY Event Display: Powerscribe Read Authored Date: PROCEDURE INFORMATION: Exam: CT Thoracic Spine Without Contrast Exam date and time: 07/15/2023 1:24 PM Age: 78 years old Clinical indication: Methicillin resistant staphylococcus aureus infection, unspecified site; Type 2 diabetes mellitus without complications; Hypoglycemia, unspecified; Hyperlipidemia, unspecified; Opioid dependence, uncomplicated; Extradural and subdural abscess, unspecified; Other chronic pain; Essential (primary) hypertension; Atherosclerotic heart disease of [place] coronary artery without angina pectoris; Heart failure, unspecified; Pressure ulcer of unspecified buttock, unspecified stage; Osteomyelitis of vertebra, site unspecified; Chronic kidney disease, stage 4 (severe); Retention of urine, unspecified; Disorientation, unspecified; Other general symptoms and signs; Other specified health status; Personal history of other diseases of male genital organs; Acquired absence of left leg below knee; Additional info: Back pain, epiduralabscess, osteomyelitis TECHNIQUE: Imaging protocol: Computed tomography of the thoracic spine without contrast. Radiation optimization: All CT scans at this facility use at least one of these dose optimization techniques: automated exposure control; mA and/or kV adjustment per patient size (includes targeted exams where dose is matched to clinical indication); or iterative reconstruction. COMPARISON: CT Cervical Spine wo Contrast 07/15/2023 1:24 PM FINDINGS: Bones/joints: Extensive disc centered osteolysis is seen at T6-7 and T8-9 with erosion of greater than 50% of each of the associated vertebral body surrounding the disc spaces. The lamina have been removed for posterior decompression from T6-T8. Permeative changes in extend into the pedicles, facet joints and costovertebral joints. The study is not optimized for the detection epidural abscess (no intravenous contrast) however there is extensive paravertebral soft tissue swelling. No severe osseous central canal stenosis. Sclerosis in subchondral cystic changes are also noted at T5-6 with 3 mm of anterior subluxation. A 3rd focus of discitis osteomyelitis can not be excluded at this level either. 3 mm of C7 on T1 anterior subluxation is associated with bilateral severe facet arthropathy. C6-C7 permeative changes are incompletely visualized. Soft tissues: Trace bilateral pleural effusions. See bones/joints above. IMPRESSION: 1. C6-C7 and T8-9 discitis osteomyelitis with greater than 50% of each associated vertebral body eroded surrounding the disc spaces. The lamina have been removed for posterior decompression from T6-T8. Permeative changes are seen within the pedicles, facet joints and costovertebral joints at these levels. No intravenous contrast was administered which limits evaluation for epidural and soft tissue abscess. However, severe central canal stenosis is suspected C6-C7 on series 301: Image 58. There is marked paravertebral soft tissue swelling. MRI with contrast is a more sensitive modality for the definitive characterization of spinal infections. 2. Possible 3rd focus of discitis osteomyelitis at T5-6 (versus degenerative change) associated with 3 mm of subluxation. 3. Severe bilateral facet arthropathy at C7-T1 causes 3 mm of subluxation. 4. C6-C7 permeative changes are incompletely visualized. Cervical discitis osteomyelitis can not be excluded at this level based on limited visualization. Trace bilateral pleural effusions. Electronically signed by: Festus Camara MD, [facility], 07/15/2023 13:49 Festus Camara MD Signed 07/15/23 13:49:05 (Electronic Signature) Technologist [employer] * Festus Camara MD: PERFORM, VERIFY, VERIFY Event Display: Powerscribe Read Authored Date: [id number] PROCEDURE INFORMATION: Exam: CT Lumbar Spine Without Contrast Exam date and time: 07/15/2023 1:24 PM Age: 78 years old Clinical indication: Methicillin resistant staphylococcus aureus infection, unspecified site; Type 2 diabetes mellitus without complications; Hypoglycemia, unspecified; Hyperlipidemia, unspecified; Opioid dependence, uncomplicated; Extradural and subdural abscess, unspecified; Other chronic pain; Essential (primary) hypertension; Atherosclerotic heart disease of [place] coronary artery without angina pectoris; Heart failure, unspecified; Pressure ulcer of unspecified buttock, unspecified stage; Osteomyelitis of vertebra, site unspecified; Chronic kidney disease, stage 4 (severe); Retention of urine, unspecified; Disorientation, unspecified; Other general symptoms and signs; Other specified health status; Personal history of other diseases of male genital organs; Acquired absence of left leg below knee; Additional info: Back pain TECHNIQUE: Imaging protocol: Computed tomography of the lumbar spine without contrast. Radiation optimization: All CT scans at this facility use at least one of these dose optimization techniques: automated exposure control; mA and/or kV adjustment per patient size (includes targeted exams where dose is matched to clinical indication); or iterative reconstruction. COMPARISON: CT Chest Abd Pelvis wo Contrast 07/15/2023 1:24 PM FINDINGS: Bones/joints: No acute fracture. Trace 2 mm L1 on L2 anterolisthesis associated with bilateral facet arthropathy. 3 mm of L4 on L5 retrolisthesis is associated with loss of intervertebral disc space height, subchondral sclerosis and cyst formation. Given the findings in the thoracic spine, early discitis osteomyelitis can not be excluded but degenerative endplate changes are favored. Posterior disc osteophyte complex and ligamentum flavum hypertrophy cause severe bilateral lateral recess stenosis moderate bilateral neural foraminal stenosis and mild central canal stenosis which could impinge on exiting L4 or descending L5 nerve roots at this level. [id number] multilevel facet arthropathy Pleural spaces: Trace bilateral pleural effusions. Vasculature: Calcified aortoiliac atherosclerosis. Soft tissues: Moderate symmetric diffuse paraspinal muscular atrophy. IMPRESSION: 1. No acute lumbar spine fracture. 2. Advanced L4-L5 degenerative disc disease with severe lateral recess stenosis and moderate neural foraminal stenosis could impinge on bilateral exiting L4 or descending L5 nerve roots. No severe central canal stenosis. 3. Cystic changes in the endplates at L4-L5 most likely represent a chronic degenerative process however given the findings in the thoracic spine in early discitis osteomyelitis can not be excluded. Consider MRI of the lumbar spine for further evaluation if this patient has clinical signs and symptoms of discitis osteomyelitis in the low lumbar region. Electronically signed by: Festus Camara MD, [facility], 07/15/2023 13:54 Festus Camara MD Signed 07/15/23 13:54:08 (Electronic Signature) Technologist [facility] * Festus Camara MD: PERFORM, VERIFY, VERIFY Event Display: Report Authored Date: [id number] * Festus Schmid MD: PERFORM, VERIFY, VERIFY Event Display: Powerscribe Read Authored Date: [id number] PROCEDURE INFORMATION: Exam: CT Chest Without Contrast; Diagnostic Exam date and time: 07/15/2023 1:24 PM Age: 78 years old Clinical indication: Methicillin resistant staphylococcus aureus infection, unspecified site; Type 2 diabetes mellitus without complications; Hypoglycemia, unspecified; Hyperlipidemia, unspecified; Opioid dependence, uncomplicated; Extradural and subdural abscess, unspecified; Other chronic pain; Essential (primary) hypertension; Atherosclerotic heart disease of [place] coronary artery without angina pectoris; Heart failure, unspecified; Pressure ulcer of unspecified buttock, unspecified stage; Osteomyelitis of vertebra, site unspecified; Chronic kidney disease, stage 4 (severe); Retention of urine, unspecified; Disorientation, unspecified; Other general symptoms and signs; Other specified health status; Personal history of other diseases of male genital organs; Acquired absence of left leg below knee; Additional info: B/l flank pain, back pain TECHNIQUE: Imaging protocol: Diagnostic computed tomography of the chest without contrast. Radiation optimization: All CT scans at this facility use at least one of these dose optimization techniques: automated exposure control; mA and/or kV adjustment per patient size (includes targeted exams where dose is matched to clinical indication); or iterative reconstruction. COMPARISON: DX XR Chest PA PICC 07/11/2023 4:02 PM FINDINGS: Tubes, catheters and devices: PICC line enters from the right and terminates near the atrial caval junction. Lungs: Calcified granuloma in the right upper lobe. Mild dependent atelectasis. Pleural spaces: Trace pleural effusions. Heart: Unremarkable. No cardiomegaly. No pericardial effusion. Lymph nodes: Unremarkable. No enlarged lymph nodes. Vasculature: Unremarkable. No aortic aneurysm. Bones/joints: Discitis and osteomyelitis is present at T6-T7 and at T8-T9. This includes widening and irregularity of the disc space and partial destruction of the abutting bone. Decompressive laminectomy T6 through T8. . Questionable early discitis and osteomyelitis T 5 T6, the endplates are seen slightly irregular and bone density is slightly increased Soft tissues: Unremarkable. IMPRESSION: Multilevel disc and osteomyelitis. PROCEDURE INFORMATION: Exam: CT Abdomen And Pelvis Without Contrast Exam date and time: 07/15/2023 1:24 PM Age: 78 years old Clinical indication: Methicillin resistant staphylococcus aureus infection, unspecified site; Type 2 diabetes mellitus without complications; Hypoglycemia, unspecified; Hyperlipidemia, unspecified; Opioid dependence, uncomplicated; Extradural and subdural abscess, unspecified; Other chronic pain; Essential (primary) hypertension; Atherosclerotic heart disease of [place] coronary artery without angina pectoris; Heart failure, unspecified; Pressure ulcer of unspecified buttock, unspecified stage; Osteomyelitis of vertebra, site unspecified; Chronic kidney disease, stage 4 (severe); Retention of urine, unspecified; Disorientation, unspecified; Other general symptoms and signs; Other specified health status; Personal history of other diseases of male genital organs; Acquired absence of left leg below knee; Additional info: B/l flank pain, back pain TECHNIQUE: Imaging protocol: Computed tomography of the abdomen and pelvis without contrast. Radiation optimization: All CT scans at this facility use at least one of these dose optimization techniques: automated exposure control; mA and/or kV adjustment per patient size (includes targeted exams where dose is matched to clinical indication); or iterative reconstruction. COMPARISON: CT Recon Lumbar Spine 07/15/2023 1:24 PM FINDINGS: Liver: Normal. No mass. Gallbladder and bile ducts: Normal. No calcified stones. No ductal dilation. Pancreas: Normal. No ductal dilation. Spleen: Calcified granuloma within the spleen. Adrenal glands: Normal. No mass. Kidneys and ureters: Normal. No hydronephrosis. Stomach and bowel: Unremarkable. No obstruction. No mucosal thickening. Appendix: No evidence of appendicitis. Intraperitoneal space: Unremarkable. No free air. No significant fluid collection. Vasculature: Unremarkable. No abdominal aortic aneurysm. Lymph nodes: Unremarkable. No enlarged lymph nodes. Urinary bladder: The urinary bladder is collapsed around a Dunlap catheter. The wall of the urinary bladder might be thickened. See Kidneys and ureters finding. Reproductive: Unremarkable as visualized. Bones/joints: There mild changes of endplate irregularity and increased density at L4-L5 and considering the multifocal discitis and osteomyelitis elsewhere this could represent an additional early focus of discitis and osteomyelitis. Consider MRI for further evaluation. Soft tissues: Unremarkable. IMPRESSION: 1. Possible early discitis and osteomyelitis L4-L5. 2. Possibly thickened urinary bladder wall. Electronically signed by: Festus Schmid MD, [facility], 07/17/2023 12:17 Festus Schmid MD Signed 07/17/23 12:17:32 (Electronic Signature) Technologist [employer] * Remigio Troy MD: PERFORM, VERIFY, VERIFY Event Display: Report Authored Date: Radiology * Festus Camara MD N: PERFORM, VERIFY, VERIFY Event Display: Report Authored Date: * Remigio Troy MD: PERFORM, VERIFY, VERIFY Event Display: Powerscribe Read Authored Date: PROCEDURE INFORMATION: Exam: XR Chest Exam date and time: 07/11/2023 4:02 PM Age: 78 years old Clinical indication: Methicillin resistant staphylococcus aureus infection, unspecified site; Type 2 diabetes mellitus without complications; Hypoglycemia, unspecified; Hyperlipidemia, unspecified; Opioid dependence, uncomplicated; Extradural and subdural abscess, unspecified; Other chronic pain; Essential (primary) hypertension; Atherosclerotic heart disease of [place] coronary artery without angina pectoris; Heart failure, unspecified; Pressure ulcer of unspecified buttock, unspecified stage; Osteomyelitis of vertebra, site unspecified; Chronic kidney disease, stage 4 (severe); Retention of urine, unspecified; Disorientation, unspecified; Other general symptoms and signs; Other specified health status; Personal history of other diseases of male genital organs; Acquired absence of left leg below knee; Additional info: For picc placement TECHNIQUE: Imaging protocol: Radiologic exam of the chest. XR was performed to evaluate catheter or device position. Views: 1 view. COMPARISON: No relevant prior studies available. FINDINGS: Tubes, catheters and devices: Right-sided PICC catheter overlies the SVC. Lungs: Unremarkable. No consolidation. Pleural space: Unremarkable. No pleural effusion. No pneumothorax. Heart/Mediastinum: Unremarkable. No cardiomegaly. Bones/joints: Unremarkable. IMPRESSION: Right-sided PICC catheter overlies the SVC. Electronically signed by: Remigio Troy MD, [facility], 07/11/2023 16:30 Remigio Troy MD Signed 07/11/23 16:30:13 (Electronic Signature) Technologist [facility] CT Cervical spine WO contrast * aJx MILLER, Festus Leiva: PERFORM, VERIFY, VERIFY Event Display: iubenda Read Authored Date: [id number] PROCEDURE INFORMATION: Exam: CT Cervical Spine Without Contrast Exam date and time: 07/15/2023 1:24 PM Age: 78 years old Clinical indication: Methicillin resistant staphylococcus aureus infection, unspecified site; Type 2 diabetes mellitus without complications; Hypoglycemia, unspecified; Hyperlipidemia, unspecified; Opioid dependence, uncomplicated; Extradural and subdural abscess, unspecified; Other chronic pain; Essential (primary) hypertension; Atherosclerotic heart disease of [place] coronary artery without angina pectoris; Heart failure, unspecified; Pressure ulcer of unspecified buttock, unspecified stage; Osteomyelitis of vertebra, site unspecified; Chronic kidney disease, stage 4 (severe); Retention of urine, unspecified; Disorientation, unspecified; Other general symptoms and signs; Other specified health status; Personal history of other diseases of male genital organs; Acquired absence of left leg below knee; Additional info: Back pain, epidural abscess, osteomyelitis TECHNIQUE: Imaging protocol: Computed tomography of the cervical spine without contrast. Radiation optimization: All CT scans at this facility use at least one of these dose optimization techniques: automated exposure control; mA and/or kV adjustment per patient size (includes targeted exams where dose is matched to clinical indication); or iterative reconstruction. COMPARISON: CT Chest Abd Pelvis wo Contrast 07/15/2023 1:24 PM FINDINGS: Bones/joints: No acute fracture. 2 mm of C2 on C3, 1 mm C3 on C4, 3 mm of C4 on C5 and 5 mm of C7 on T1 anterior subluxation. There is distention and permeative change about the left C3-C4 and right C5-C6 facet joints. There is complete loss of intervertebral disc space height at C5-C6 with [id number] abutment in indistinct endplates. Discitis osteomyelitis can not be excluded. Severe loss of intervertebral disc space height at C7-T1 with [id number] abutment in indistinct endplates. Severe bilateral facet arthropathy at this level. Severe bilateral C4-C5, C5-C6 and C6-C7 uncovertebral arthropathy. Severe left C3-C4 neural foraminal stenosis results from facet hypertrophy. Moderate bilateral C4-C5, right C5-C6 neural foraminal stenosis resulting from uncovertebral and facet arthropathy. A calcified disc osteophyte complex projecting into the left lateral recess at C5-C6 could impinge on the exiting C6 nerve root. Right central disc protrusion at this level is difficult to visualize due to streak artifact across the central canal. Severe central canal stenosis is suspected at this level. Lungs: Lung apices are normal. Soft tissues: Unremarkable. IMPRESSION: 1. No acute fracture. Multilevel severe degenerative changes are described in detail above. The presence of the degenerative changes lowers diagnostic sensitivity in specificity for discitis osteomyelitis in this case. 2. Indistinct endplates C6-C7 and C7-T1 may be degenerative or the result of discitis osteomyelitis. Similarly, distended facet joints on the left side C3-C4 in right side at C5-C6 with associated permeative changes may represent an erosive osteoarthritis or septic arthritis. MRI with contrast is recommended for more definitive characterization. 3. Posterior disc osteophyte complex at C5-C6 may cause severe central canal stenosis. The central canal is partially obscured by beam hardening artifact at this level. 4. Multilevel severe degenerative changes as described in detail above. Electronically signed by: Festus Camara MD, [facility], 07/15/2023 14:15 Festus Camara MD N Signed 07/15/23 14:15:56 (Electronic Signature) Technologist [facility] CT Chest and Abdomen and Pelvis WO contrast * Festus Schmid MD: PERFORM, VERIFY, VERIFY Event Display: Report Authored Date: [id number] Cardiology * Fernando Knott MD: SIGN, VERIFY Event Display: EKG 12-Lead Authored Date: [id number] * Fernando Knott MD: SIGN, VERIFY Event Display: EKG 12-Lead Authored Date: [id number] Patient Care team information Care Team Personnel Name: Francisco Javier Claudio Position: Inpatient-Midlevel Member Role: Nurse Practitioner Address: Address: [address] [place] [address]- Name: Heaven Levin MD Position: 2 Restricted Providers Member Role: Primary Care Physician Name: Jimy Rogers MD Position: Physician-Hospitalist Med Service: Hospitalist Member Role: Admitting Physician Address: Address: [address] [facility] [address] Name: Ayaz Bryant RN Position: Nurse (MAR) Member Role: Nurse Name: Kristal Hickman Position: Patient Bench Shear Operator (E) Member Role: Nurse School Services Officer Name: Lisa Kiser Position: Nurse (MAR) Member Role: Nurse Name: Kirill Ware Position: Patient Bench Shear Operator (E) Member Role: Nurse School Services Officer Care Team Related Persons Name: SAVANNA KUMAR Name: CRISTIAN VARELA Name: CRISTIAN VARELA Address: home [address] [place] [address] Address: [place] [address]
[2023-08-25] MEDS: vancomycin 1,500 MG/300 ML PIGGYBACK 200 MG IV (11:33)
[2023-08-25] MEDS: oxyCODONE 5 mg IR Tab/Cap PO (12:53)
--- NOTE | 2023-08-25 13:02 | PC.NURSE ---
pts daughter educ abt medications, she asked why were weren't giving all of the medications. i educ her on polypharmacy the possibility of toxcity and risks, up to and including . Pts daughter stated, we would rather him have toxic than to be in pain.
[2023-08-25 17:04] LABS: Glucose Point of Care 147 mg/dL (70-110)
[2023-08-25] MEDS: carvedilol 6.25 mg Tablet PO (17:18)
[2023-08-25] MEDS: tamsulosin 0.4 mg Capsule PO (22:27)
[2023-08-25] MEDS: insulin glargine 100 units/1 mL 20 UNIT SUBCUT (22:29)
[2023-08-25 22:48] LABS: Glucose Point of Care 127 mg/dL (70-110)
[2023-08-26] VITALS (8 sets, daily range): BP systolic 98–149; BP diastolic 63–85; PULSE 66–85; RESP 16–18; TEMP 36.1–36.8; O2SAT 93–98; BMI 30.9
[2023-08-26] MEDS: sodium chloride 0.9% 1,000 ML 75 ML IV ×2 (01:34→18:08)
[2023-08-26] MEDS: meropenem 1,000 MG in sodium chloride 0.9% (plus) 50 ML 100 MG IV ×3 (01:53→18:10)
[2023-08-26] MEDS: vancomycin 1,500 MG/300 ML PIGGYBACK 200 MG IV (04:45)
[2023-08-26 05:18] LABS: Basophils % 0.5 %; Eosinophils # 0.3 10^3/uL (0.0-0.8); Eosinophils % 5.1 %; Hematocrit 29.5 % (37-53); Lymphocytes # 1.6 10^3/uL (0.8-4.8); Lymphocytes % 24.1 %; Mean Corpuscular HGB Conc 31.5 g/dL (30-55); Mean Corpuscular Hemoglobin 28.4 pg (27-33); Mean Corpuscular Volume 90.2 fl (82-101); Monocytes # 0.6 10^3/uL (0.2-0.9); Monocytes % 8.6 %; Neutrophils # 4.02 10^3/uL (1.8-7.7); Neutrophils % 61.5 %; Nucleated Red Blood Cells % 0 %; Platelet Count 226 10^3/cmm (157-399); Red Blood Count 3.27 10^6/uL (3.85-5.65); Red Cell Distribution Width 13.4 % (12.1-15.1); White Blood Count 6.52 10^3/uL (3.29-11.43)
[2023-08-26 05:35] LABS: Alanine Aminotransferase 11 U/L (0-41); Albumin Level 2.7 g/dL (3.5-5.2); Alkaline Phosphatase 102 U/L (40-130); Anion Gap 12.1 (5-19); Aspartate Amino Transferase 15 U/L (0-40); Blood Urea Nitrogen 11 mg/dL (8-23); Calcium 8.3 mg/dL (8.5-10.5); Carbon Dioxide 26 mmol/L (22-29); Chloride 108 mmol/L (98-107); Glucose 93 mg/dL (65-115); Magnesium 1.7 mg/dL (1.7-2.3); Osmolality Calculated 295 mOsm/kg (285-295); Potassium 3.1 mmol/L (3.5-5.1); Sodium 143 mmol/L (136-145); Total Bilirubin 0.3 mg/dL (0.15-1.2); Total Protein 5.7 g/dL (6.6-8.7)
[2023-08-26 05:46] LABS: Procalcitonin 0.09 ng/mL (0-0.5)
[2023-08-26] MEDS: pantoprazole DR 40 mg Tablet PO (08:05)
[2023-08-26] MEDS: levothyroxine 25 mcg Tablet PO (08:05)
[2023-08-26] MEDS: venlafaxine 75 mg Tablet 225 MG PO (08:05)
[2023-08-26] MEDS: isosorbide mononitrate ER 30 mg Tablet PO (08:05)
[2023-08-26] MEDS: aspirin 81 mg EC Tablet PO (08:05)
[2023-08-26] MEDS: carvedilol 6.25 mg Tablet PO ×2 (08:05→18:10)
[2023-08-26] MEDS: heparin 5,000 unit/mL INJ 1 mL 5000 UNIT SUBCUT ×2 (09:42→21:32)
[2023-08-26 10:42] LABS: Vancomycin Random 28.2 ug/mL (20.0-40.0)
[2023-08-26 10:43] LABS: Amphetamines Screen Urine Negative (Negative); Barbiturates Screen Urine Negative (Negative); Benzodiazepines Screen Urine Positive (Negative); Cocaine Screen Urine Negative (Negative); Opiate Screen Urine Negative (Negative); PCP Screen Urine Negative (Negative); THC Screen Urine Negative (Negative)
[2023-08-26 10:48] LABS: Glucose Point of Care 125 mg/dL (70-110)
[2023-08-26 11:32] LABS: Creatine Phosphokinase 22 U/L (39-308)
--- NOTE | 2023-08-26 11:52 | MR_ITS ---
WS: [id number] MRI BRAIN WITHOUT CONTRAST HISTORY: ams COMPARISON: 10/06/2015, head CT 08/25/2023 TECHNIQUE: Diffusion imaging, multiplanar T1, T2 and FLAIR imaging obtained. No evidence for acute infarct or hemorrhage. Lowe-white matter differentiation is normal. Moderate bilateral symmetric atrophy with mild bilateral temporal lobe and hippocampal atrophy. There is a focal area of increased T2 signal in the RIGHT cortical cortex. RIGHT temporal lobe peripheral lesion measures 14 x 10 mm with a lucent center. There is a lot of edema. Nonspecific. The remaining brain demonstrates only mild small vessel ischemic disease. Ventricles and extra-axial spaces are normal. No inferior displacement of cerebellar tonsils. The sella turcica and pituitary gland are unremarkabl e. Dural venous sinuses and [place] demonstrate no abnormality on this unenhanced studies. Paranasal sinuses: Mild mucoperiosteal thickening maxillary sinuses. Mastoid air cells: Normal. Calvarium and scalp: Intact. IMPRESSION: Study is compromised by motion artifact. 1. No acute infarct. Diffusion imaging is normal. 2. Focal area of mixed signal in the RIGHT temporal lobe cortex measuring 14 x 10 mm. This may be an area of prior ischemia. There is only minimal ischemia throughout the remaining brain. Consider shor t-term follow-up with IV contrast. Underlying neoplasm or abscess should be considered. 3. Moderate symmetric atrophy with mild bilateral temporal lobe atrophy.
[2023-08-26] MEDS: oxyCODONE 5 mg IR Tab/Cap PO (13:12)
--- NOTE | 2023-08-26 14:54 | P.PN_ITS ---
Subjective 2 Subjective: Hospital course, labs appreciated. Patient seen laying comfortably in bed, is fairly confused. He is alert to self but thinks he is in [facility], alert to being in the hospital in between he also thinks that he is at his home. Thinks thinks it is 2005 as a year. Otherwise states he is feeling fairly well. Has remained hemodynamically stable, afebrile and saturating well on room air. Has been trying to climb out of bed frequently. Vitals/I&O/Wt Last Vital Signs Temp 97.4 F L 08/26/23 08:00 Pulse 79 08/26/23 11:39 Resp 17 08/26/23 13:12 BP 127/70 08/26/23 11:39 Pulse Ox 98 08/26/23 11:39 O2 Del Method Room Air 08/26/23 11:39 O2 Flow Rate 2 08/25/23 04:07 08/25/23 08/26/23 08/26/23 22:59 06:59 14:59 Intake Total 590 / 880 1350 / 2230 200 / 200 Balance 590 / 780 1350 / 2130 200 / 200 Weight last 48 hrs Weight 112.037 kg Weight 112.037 kg Weight 117.934 kg Physical Exam 2 Narrative: General: No acute distress, AO x 1-2, confused, mumbled voice, following commands HEENT: PERRLA, pupils bilaterally equal and reactive Chest: Normal vesicular breath sounds, no added sounds, equal good air entry bilaterally CVS: S1-S2 regular, no murmurs, no tachycardia, no gallops, no rubs Abdomen: Soft, nontender, no organomegaly, bowel sounds present Neuro: No focal deficits, no facial deformity, Extremity: Right below-knee amputation Stable. Healed scar at thoracic vertebral level Data 08/26/23 05:06 08/26/23 05:06 Micro: Microbiology 08/25/23 10:26 Blood Culture - Preliminary Blood NEGATIVE TO DATE 08/25/23 10:26 Blood Culture - Preliminary Blood NEGATIVE TO DATE A&P Assessment and plan (1) Altered mental status: Unknown etiology for now. Could be in setting of polypharmacy with pain medications. On review of medications it seems patient is on pregabalin, fentanyl patch and oxycodone. Hold off on fentanyl patch and pregabalin for now. Continue with oxycodone 5 mg twice daily as needed. Frequent reorientation. If needed sitter. No electrolyte abnormality other than mild hypokalemia. Renal function at baseline. Ammonia levels normal on admission. CT head negative for acute abnormality on admission. Patient does have recent history of thoracic osteomyelitis with epidural abscess. Reviewed documentation from [facility]. Patient underwent laminectomy at [facility]. Was most recently in hospital till August 15. Follows up with ID physician at [facility]. Currently on IV daptomycin and IV or ertapenem which was to continue to 08/31. Appreciate CT thoracolumbar on admission. Follow-up blood culture, urine culture. Continue with broad-spectrum IV antibiotics for now. IV hydration with normal saline at 75 cc/h. MRI brain for further evaluation. (2) Osteomyelitis of thoracic spine: Laminectomy at [facility]. [facility] As per documentation blood culture and spinal fluid cultures remained negative postlaminectomy. Is supposed to be on IV daptomycin and ertapenem till 08/31. Continue with current IV antibiotics. Will check MRI cervical and thoracic with and without contrast. (3) Osteomyelitis of lumbar spine: (4) HTN (hypertension): Goal blood pressure less than 140/90 mmHg. Continue with home dose of carvedilol, Imdur for now. Uptitrate as for goal blood pressures. Qualifiers: Hypertension type: essential hypertension Qualified Code(s): I10 - Essential (primary) hypertension (5) CHF (congestive heart failure): Currently euvolemic. No echocardiogram in system but EF about 37% on myocardial inpatient study done in January 2023. No LV gram done during cardiac catheterization. Monitor for fluid overload. Qualifiers: Heart failure type: diastolic Heart failure chronicity: chronic Qualified Code(s): I50.32 - Chronic diastolic (congestive) heart failure (6) Controlled type 2 diabetes mellitus with diabetic polyneuropathy, without long-term current use of insulin: Continue with insulin sliding scale, Lantus 20 units nightly. Check A1c. Hypoglycemia protocol. (7) Acquired hypothyroidism: TSH elevated. Check free T4. Continue with home dose of levothyroxine for now. (8) Obesity: Qualifiers: Obesity type: unspecified obesity type Obesity classification: adult class 2 (BMI 35 - 39.9) Serious obesity comorbidity presence: with serious comorbidity Body mass index: BMI 38.0-38.9 Qualified Code(s): E66.01 - Morbid (severe) obesity due to excess calories; Z68.38 - Body mass index [BMI] 38.0- 38.9, adult (9) BPH with obstruction/lower urinary tract symptoms: (10) Below-knee amputation of left lower extremity: Plan Full code Carb cardiac diet Heparin 5000 SQ Q12h Protonix for PUD PPx Attestations 2 Medical Necessity Statement*: Requires further hospitalization for management and further evaluation of acute altered mental status with concerns for polypharmacy of pain medications while stroke and infectious processes ruled out Diagnoses Altered mental status R41.82 Osteomyelitis of thoracic spine M46.24 Osteomyelitis of lumbar spine M46.26 Essential hypertension I10 Hypertension type: essential hypertension Chronic diastolic congestive heart failure I50.32 Heart failure type: diastolic Heart failure chronicity: chronic Controlled type 2 diabetes mellitus with diabetic polyneuropathy, without long- term current use of insulin E11.42 Acquired hypothyroidism E03.9 Class 2 severe obesity with serious comorbidity and body mass index (BMI) of 38.0 to 38.9 in adult, unspecified obesity type E66.01; Z68.38 Obesity type: unspecified obesity type Obesity classification: adult class 2 (BMI 35 - 39.9) Serious obesity comorbidity presence: with serious comorbidity Body mass index: BMI 38.0-38.9 BPH with obstruction/lower urinary tract symptoms N40.1; N13.8 Below-knee amputation of left lower extremity S88.112A
[2023-08-26 16:58] LABS: Glucose Point of Care 111 mg/dL (70-110)
[2023-08-26 17:05] LABS: Iron 39 ug/dL (59-158); Percent Saturation 23.6 % (20-50); Total Iron Binding Capacity 165 mcg/dl; Unsaturated Iron Binding 126 ug/dL (112-347)
[2023-08-26 17:20] LABS: Vitamin B12 506 pg/mL (232-1245)
[2023-08-26] MEDS: pregabalin 25 mg Capsule PO (18:10)
[2023-08-26] MEDS: morphine 4 mg/mL SDV 1 mL 1 MG IVP (18:10)
[2023-08-26] MEDS: tamsulosin 0.4 mg Capsule PO (21:30)
[2023-08-26] MEDS: trazodone 150 mg Tablet 75 MG PO (21:30)
[2023-08-26] MEDS: atorvastatin 40 mg Tablet PO (21:30)
[2023-08-26] MEDS: insulin glargine 100 units/1 mL 20 UNIT SUBCUT (21:33)
[2023-08-26] MEDS: haloperidol inj 5 mg/mL INJ 1 mL 1 MG IVP (22:39)
[2023-08-27] VITALS (7 sets, daily range): BP systolic 131–155; BP diastolic 58–82; PULSE 66–80; RESP 16–20; TEMP 36.3–36.6; O2SAT 94–97
[2023-08-27] MEDS: haloperidol inj 5 mg/mL INJ 1 mL 2 MG IM (00:08)
[2023-08-27] MEDS: morphine 4 mg/mL SDV 1 mL 1 MG IVP ×3 (00:28→21:01)
[2023-08-27] MEDS: meropenem 1,000 MG in sodium chloride 0.9% (plus) 50 ML 100 MG IV ×3 (02:24→16:56)
[2023-08-27 05:40] LABS: Basophils % 0.4 %; Eosinophils # 0.3 10^3/uL (0.0-0.8); Eosinophils % 3.7 %; Hematocrit 29.1 % (37-53); Lymphocytes # 1.6 10^3/uL (0.8-4.8); Lymphocytes % 20.7 %; Mean Corpuscular Hemoglobin 29.2 pg (27-33); Mean Corpuscular Volume 91.5 fl (82-101); Mean Platelet Volume 10.3 fL (7.4-10.4); Monocytes # 0.8 10^3/uL (0.2-0.9); Monocytes % 10.5 %; Neutrophils # 4.89 10^3/uL (1.8-7.7); Neutrophils % 64.4 %; Nucleated Red Blood Cells % 0 %; Platelet Count 229 10^3/cmm (157-399); Red Blood Count 3.18 10^6/uL (3.85-5.65); Red Cell Distribution Width 13.4 % (12.1-15.1); White Blood Count 7.59 10^3/uL (3.29-11.43)
[2023-08-27 05:59] LABS: Estmated Average Glucose 140; Hemoglobin A1C 6.5 % (4.0-6.0)
[2023-08-27 06:04] LABS: Alanine Aminotransferase 8 U/L (0-41); Albumin Level 2.7 g/dL (3.5-5.2); Alkaline Phosphatase 96 U/L (40-130); Anion Gap 11.1 (5-19); Aspartate Amino Transferase 14 U/L (0-40); Blood Urea Nitrogen 11 mg/dL (8-23); Calcium 8.4 mg/dL (8.5-10.5); Carbon Dioxide 26 mmol/L (22-29); Chloride 111 mmol/L (98-107); Glucose 55 mg/dL (65-115); Osmolality Calculated 297 mOsm/kg (285-295); Potassium 3.1 mmol/L (3.5-5.1); Sodium 145 mmol/L (136-145); Total Bilirubin 0.3 mg/dL (0.15-1.2); Total Protein 5.7 g/dL (6.6-8.7)
[2023-08-27 06:07] LABS: Chol HDL Ratio 3.82 mg/dL (1.0-5.00); Cholesterol 107 mg/dL (0-200); HDL Cholesterol 28 mg/dL (60-100); LDL Cholesterol Calculated 58 mg/dL (50-129); Magnesium 1.8 mg/dL (1.7-2.3); Triglycerides 105 mg/dL (0-150); VLDL Cholestrol Calculation 21 mg/dL (0-30)
[2023-08-27 06:13] LABS: Glucose Point of Care 61 mg/dL (70-110)
--- NOTE | 2023-08-27 06:13 | PC.NURSE ---
Addendum entered by Jasmin Obregon RN 08/27/23 06:37: Assisted patient to drink 120mLs of orange juice. Original Note: Called Dr Spicer at 0610 for orders. The patient is a diabetic but does not have nursing hypoglycemia protocol ordered; the patient's blood sugar is 55 from lab result and 61 from finger stick glucose check. Left a message for Dr Spicer to call back.
[2023-08-27 06:27] LABS: Folate Level 10.2 ng/mL (4.5-32.2)
--- NOTE | 2023-08-27 07:00 | MRR_ITS ---
PROCEDURE INFORMATION: Exam: MR Thoracic Spine Without and With Contrast Exam date and time: 08/27/2023 5:33 PM Age: 78 years old Clinical indication: Pain in thoracic spine; Additional info: Post laminectomy for epidural abscess TECHNIQUE: Imaging protocol: Magnetic resonance imaging of the thoracic spine without and with contrast. Contrast material: MULTIHANCE; Contrast volume: 20 ml; Contrast route: INTRAVENOUS (IV); COMPARISON: 1. CT thoracic spine w con [id number] 08/25/2023 6:14 AM 2. MR thoracic spine wo/w [id number] 06/25/2023 2:54 PM FINDINGS: Limitations: The study is motion degraded. Bones/joints: Marked loss of disc space height with fluid in the disc space at the T6-7 and T8-9 levels is similar to the previous MRI. There is persistent abnormal marrow signal in the T6-T9 vertebrae. Enhancement in the T6-7 and T8-9 disc spaces is again present with some mild enhancement also seen in the T6-T9 vertebrae. Laminectomy changes are seen at the T6-T8 level similar to the comparison CT but new since the MRI with fluid signal in the laminectomy bed measuring 11 mm AP by 12 mm transverse and 6.2 cm craniocaudal not causing significant mass effect on the thecal sac. On postcontrast imaging abnormal enhancement is seen in the prevertebral space at the T6-T9 levels, as well as in the ventral and dorsal epidural space extending from T5 to the T9-10 level. There is no definite epidural abscess seen within the limits of the study. After there is moderate T5-T6 mild T6-T7 severe T8-T9 spinal canal stenosis related to the phlegmon. The alignment of the thoracic spine is near anatomic. Mild degenerative changes are similar to previous study. Abnormal enhancement extends to the T6-T7 and T8-T9 facets and neural foramen which is similar to previous. Spinal cord: No definite spinal cord signal abnormality. Soft tissues: There is soft tissue enhancement posterior to the laminectomy. Fluid collection in the laminectomy bed appears to connect with the skin surface. MR/MR thoracic spine wo/w [id number] IMPRESSION: 1. Persistent marrow signal abnormality of the T6-T9 levels suggesting osteomyelitis with continued discitis changes at T6-T7 and T8-T9. Abnormal enhancement in the epidural space extending from T5 to the T9-10 level is similar to the previous study suspicious for phlegmon. No focal drainable abscess is seen. 2. A laminectomy has been performed since the previous MRI at T6-T8. There is fluid in the laminectomy bed with adjacent soft tissue enhancement. Correlate for possible infection. After laminectomy there is persistent spinal canal stenosis related to the phlegmon which is severe at the T8-9 level.
--- NOTE | 2023-08-27 07:00 | MRR_ITS ---
PROCEDURE INFORMATION: Exam: MR Cervical Spine Without and With Contrast Exam date and time: 08/27/2023 6:01 PM Age: 78 years old Clinical indication: Neck pain; Additional info: H/o osteomyelitis TECHNIQUE: Imaging protocol: Magnetic resonance imaging of the cervical spine without and with contrast. Contrast material: MULTIHANCE; Contrast volume: 20 ml; Contrast route: INTRAVENOUS (IV); COMPARISON: 1. MR thoracic spine wo/w [id number] 08/27/2023 5:33 PM 2. MR thoracic spine wo/w [id number] 06/25/2023 2:54 PM FINDINGS: Limitations: The study is motion degraded. Bones/joints: The cervical spine is straightened. There is 4 mm of anterolisthesis of C7 on T1. 3 mm of C4-C5 anterolisthesis is also present. There is partial osseous fusion at C6-C7 across the disc space. The disc space heights are diffusely decreased with anterior osteophytosis. No acute fracture. No suspicious marrow signal is seen to suggest osteomyelitis. Spinal cord: No definite cord signal abnormality is visualized. No abnormal enhancement on postcontrast imaging. C2-C3: C2-C3 diffuse disc bulging, endplate osteophyte and dorsal hypertrophy of the ligamentum flavum results in mild stenosis of the spinal canal. The neural foramen are severely narrowed on both sides due to osteophyte. C3-C4: C3-C4 diffuse disc bulging and endplate osteophyte in combination with hypertrophy of the ligamentum flavum dorsally severely narrow the spinal canal. There is also severe left and moderate right neural foraminal stenosis present. C4-C5: C4-C5 diffuse disc bulging and endplate osteophyte in combination with hypertrophy of the ligamentum flavum dorsally severely narrow the spinal canal. There is severe right and moderate left neural foraminal stenosis also present. C5-C6: C5-C6 diffuse disc bulging and endplate osteophyte eccentric to the left cause moderate stenosis of the spinal canal. There is severe qzjme-uzbebnz-njnn-left neural foraminal stenosis also present. C6-C7: C6-C7 the spinal canal is patent. There is severe right and moderate left neural foraminal narrowing related to osteophyte. C7-T1: C7-T1 minimal diffuse disc bulging is seen without stenosis of the spinal canal. The neural foramina are moderately narrowed on both sides. Soft tissues: Minimal nonspecific edema like signal in the soft tissues posterior to the C7 spinous process possibly related to bursitis. Vasculature: Expected flow voids in the vertebral arteries. MR/MR cervical spine wo/w [id number] IMPRESSION: 1. No acute findings. 2. Multilevel degenerative disc disease with severe stenosis of the spinal canal at C3-C5 and multilevel severe neural foraminal stenosis, as described.
[2023-08-27] MEDS: sodium chloride 0.9% 1,000 ML 75 ML IV (08:38)
[2023-08-27] MEDS: heparin 5,000 unit/mL INJ 1 mL 5000 UNIT SUBCUT ×2 (08:40→21:45)
[2023-08-27] MEDS: pantoprazole DR 40 mg Tablet PO (08:42)
[2023-08-27] MEDS: isosorbide mononitrate ER 30 mg Tablet PO (08:42)
[2023-08-27] MEDS: pregabalin 25 mg Capsule PO ×2 (08:42→17:00)
[2023-08-27] MEDS: carvedilol 6.25 mg Tablet PO ×2 (08:42→17:00)
[2023-08-27] MEDS: aspirin 81 mg EC Tablet PO (08:42)
[2023-08-27] MEDS: venlafaxine 75 mg Tablet 225 MG PO (08:42)
[2023-08-27] MEDS: levothyroxine 25 mcg Tablet PO (08:42)
--- NOTE | 2023-08-27 09:43 | PC.CHAP ---
Pastoral Care Encounter/Spiritual Assessment Type of Contact [] Declined optical sales associate visit [] Patient/Family/Request visit [] Outpatient visit [] Follow-up visit [] Physician referral [] Code/Alert [] Routine visit [] Staff referral [] Actively dying [] Patient sleeping [] Family support [] [] Out of room [] Palliative care [] [x] Receiving care in room [] Pre-surgical visit [] Trauma [] Long length of stay [] ICU visit [] Other: Relational/Emotional Strength [] Patient feels connected with others/family/visitors/staff [] Distress [] Loneliness/isolation [] Abandonment Spirituality of Patient [] Person of Shruthi [] Attends Faith of their Shruthi [] Believes in Prayer [] Reads Bible or Christian materials [] There are Spiritual issues to be addressed Recreation Attendant Interventions [] Prayer [] Active listening [] Non-anxious presence [] Spiritual/emotional support [] Crisis/trauma care [] Spiritual counseling [] Bereavement support [] Provided bereavement packet [] Provided Bible/devotional materials [] Provided toy/stuffed animal, coloring book to patient or family member [] Provided Communion [] Anointing/[place] [] Salvation [] Completed spiritual assessment [] Other: Impact on Illness or Injury [] Angry [] Fearful [] Anxious [] Often cries [] Exhaustion [] Unable to work [] Unable to attend moravian [] Unable to walk/stand [] Unable to read [] Unable to drive [] Unable to eat/drink [] Unable to sleep [] Unable to be with family [] Patient intubated [] Other: Summary Time spent with patient
[2023-08-27 10:54] LABS: Glucose Point of Care 107 mg/dL (70-110)
[2023-08-27 14:08] LABS: Methicillin-Resist S.aureu PCR NOT DETECTED (NOT DETECTED)
--- NOTE | 2023-08-27 14:53 | PM.PN ---
Subjective Subjective: Overnight patient has remained confused with episodes of agitation and tried to climb out of bed for which he received Haldol. Today morning seen with at bedside. Patient is still confused but is able to track in the room and on talking to him greets and asks how am I doing but is not able to have a meaningful conversation. Continues to have mumbled voice. Having urinary retention for which straight catheterization was done and around 1100 cc of urine was evacuated. Vitals/I&O/Wt Last Vital Signs Temp 97.5 F L 08/27/23 07:58 Pulse 80 08/27/23 07:58 Resp 17 08/27/23 07:58 BP 151/82 08/27/23 07:58 Pulse Ox 94 08/27/23 07:58 O2 Del Method Room Air 08/27/23 07:58 O2 Flow Rate 2 08/25/23 04:07 08/26/23 08/27/23 08/27/23 22:59 06:59 14:59 Intake Total 530 / 1730 50 / 1780 1250 / 1250 Output Total 250 / 250 200 / 200 Balance 280 / 1480 50 / 1530 1050 / 1050 Weight last 48 hrs Weight 112.854 kg Weight 112.037 kg Physical Exam Narrative: General: No acute distress, AO x 1-2, confused, mumbled voice, not following direction, mumbled voice HEENT: PERRLA, pupils bilaterally equal and reactive Chest: Normal vesicular breath sounds, no added sounds, equal good air entry bilaterally CVS: S1-S2 regular, no murmurs, no tachycardia, no gallops, no rubs Abdomen: Soft, nontender, no organomegaly, bowel sounds present Neuro: No focal deficits, no facial deformity, Extremity: Right below-knee amputation Stable. Healed scar at thoracic vertebral level Data 08/27/23 04:57 08/27/23 04:57 Micro: Microbiology 08/25/23 10:26 Blood Culture - Preliminary Blood NEGATIVE TO DATE 08/25/23 10:26 Blood Culture - Preliminary Blood NEGATIVE TO DATE A&P Assessment and plan (1) Altered mental status: Unknown etiology for now. Could be in setting of polypharmacy with pain medications. On review of medications it seems patient is on pregabalin, fentanyl patch and oxycodone. Hold off on fentanyl patch and pregabalin for now. Continue with oxycodone 5 mg twice daily as needed along with IV morphine 1 mg every 4 hours as needed. Frequent reorientation. Continue with sitter. No electrolyte abnormality other than mild hypokalemia. Renal function at baseline. Ammonia levels normal on admission. CT head negative for acute abnormality on admission. Patient does have recent history of thoracic osteomyelitis with epidural abscess. Reviewed documentation from [facility]. Patient underwent laminectomy at [facility]. Was most recently in hospital till August 15. Follows up with ID physician at [facility]. Currently on IV daptomycin and IV or ertapenem which was to continue to 08/31. Appreciate CT thoracolumbar on admission. Follow-up blood culture, urine culture. Continue with broad-spectrum IV antibiotics for now. IV hydration with normal saline at 75 cc/h. MRI brain showed a 10 x 14 mixed signal lesion in the right temporal lobe concerning for a possible neoplasm versus abscess with a very low probability of old ischemic changes. Care discussed in detail with radiology and neurology. Plan for repeat MRI with contrast in 48 hours. Also planning on empiric Keppra 1000 mg twice daily as per neurology. Will consult and follow-up with neurology for further recommendations. Haldol 1 mg IV every 4 hours as needed for agitation. (2) Osteomyelitis of thoracic spine: Laminectomy at [facility]. Follows up with ID physician at formerly [facility]. As per documentation blood culture and spinal fluid cultures remained negative postlaminectomy. Is supposed to be on IV daptomycin and ertapenem till 08/31. Continue with current IV antibiotics. MRI cervical and thoracic with and without contrast still awaited. (3) Osteomyelitis of lumbar spine: (4) HTN (hypertension): Goal blood pressure less than 140/90 mmHg. Continue with home dose of carvedilol, Imdur for now. Uptitrate as for goal blood pressures. Qualifiers: Hypertension type: essential hypertension Qualified Code(s): I10 - Essential (primary) hypertension (5) Urinary retention: Patient retaining up to 1100 cc of urine. Will avoid Dunlap catheter as patient is at a higher risk of traumatic pulling of Dunlap by mistake. Will plan for every shift bladder scan and straight catheter. (6) Controlled type 2 diabetes mellitus with diabetic polyneuropathy, without long-term current use of insulin: Continue with insulin sliding scale, Lantus 20 units nightly. Appreciate A1c. Hypoglycemia protocol. (7) Acquired hypothyroidism: TSH elevated. Normal free T4. Continue with home dose of levothyroxine for now. (8) CHF (congestive heart failure): Currently euvolemic. No echocardiogram in system but EF about 37% on myocardial inpatient study done in January 2023. No LV gram done during cardiac catheterization. Monitor for fluid overload. Qualifiers: Heart failure chronicity: chronic Heart failure type: diastolic Qualified Code(s): I50.32 - Chronic diastolic (congestive) heart failure (9) Obesity: Qualifiers: Body mass index: BMI 38.0-38.9 Obesity classification: adult class 2 (BMI 35 - 39.9) Obesity type: unspecified obesity type Serious obesity comorbidity presence: with serious comorbidity Qualified Code(s): E66.01 - Morbid (severe) obesity due to excess calories; Z68.38 - Body mass index [BMI] 38.0-38.9, adult (10) BPH with obstruction/lower urinary tract symptoms: (11) Below-knee amputation of left lower extremity: Plan Full code Carb cardiac diet Heparin 5000 SQ Q12h Protonix for PUD PPx Attestations Medical Necessity Statement*: Requires further hospitalization for management and further evaluation of altered mental status with the possibility of a brain mass under evaluation in a patient who was recently treated for thoracic spinal abscess and underwent laminectomy at an outside hospital Coding Level of Care Code Acute Code for Chg Fwd Diagnoses Altered mental status R41.82 Osteomyelitis of thoracic spine M46.24 Osteomyelitis of lumbar spine M46.26 Essential hypertension I10 Hypertension type: essential hypertension Urinary retention R33.9 Controlled type 2 diabetes mellitus with diabetic polyneuropathy, without long-term current use of insulin E11.42 Acquired hypothyroidism E03.9 Chronic diastolic congestive heart failure I50.32 Heart failure chronicity: chronic Heart failure type: diastolic Class 2 severe obesity with serious comorbidity and body mass index (BMI) of 38.0 to 38.9 in adult, unspecified obesity type E66.01; Z68.38 Body mass index: BMI 38.0-38.9 Obesity classification: adult class 2 (BMI 35 - 39.9) Obesity type: unspecified obesity type Serious obesity comorbidity presence: with serious comorbidity BPH with obstruction/lower urinary tract symptoms N40.1; N13.8 Below-knee amputation of left lower extremity S88.112A
[2023-08-27 16:41] LABS: Glucose Point of Care 111 mg/dL (70-110)
[2023-08-27] MEDS: haloperidol inj 5 mg/mL INJ 1 mL IVP ×2 (16:58→18:09)
[2023-08-27] MEDS: gadobenate dimeglumine 20 mL vial IV (17:58)
[2023-08-27] MEDS: levETIRAcetam 1,000 MG/100 ML PREMIX 400 MG IV (18:56)
[2023-08-27] MEDS: lidocaine 1% 5 ML in potassium chloride premix 100 ML 26.25 ML IV (19:28)
[2023-08-27] MEDS: haloperidol inj 5 mg/mL INJ 1 mL 1 MG IVP (21:13)
[2023-08-27] MEDS: atorvastatin 40 mg Tablet PO (21:44)
[2023-08-27] MEDS: trazodone 150 mg Tablet 75 MG PO (21:44)
[2023-08-27] MEDS: tamsulosin 0.4 mg Capsule PO (21:45)
[2023-08-27 22:06] LABS: Glucose Point of Care 125 mg/dL (70-110)
[2023-08-27] MEDS: insulin glargine 100 units/1 mL 10 UNIT SUBCUT (22:22)
[2023-08-28] VITALS (7 sets, daily range): BP systolic 140–181; BP diastolic 72–95; PULSE 72–98; RESP 16–20; TEMP 36.2–36.8; O2SAT 94–96
[2023-08-28] MEDS: sodium chloride 0.9% 1,000 ML 75 ML IV (02:01)
[2023-08-28] MEDS: meropenem 1,000 MG in sodium chloride 0.9% (plus) 50 ML 100 MG IV ×2 (02:05→10:49)
[2023-08-28 05:00] LABS: Basophils % 0.5 %; Eosinophils # 0.2 10^3/uL (0.0-0.8); Eosinophils % 3.6 %; Lymphocytes # 1.6 10^3/uL (0.8-4.8); Lymphocytes % 25.7 %; Mean Corpuscular HGB Conc 31.7 g/dL (30-55); Mean Corpuscular Volume 91.5 fl (82-101); Mean Platelet Volume 10.3 fL (7.4-10.4); Monocytes # 0.6 10^3/uL (0.2-0.9); Monocytes % 9.5 %; Neutrophils # 3.75 10^3/uL (1.8-7.7); Neutrophils % 60.5 %; Nucleated Red Blood Cells % 0 %; Platelet Count 205 10^3/cmm (157-399); Red Blood Count 3.28 10^6/uL (3.85-5.65); Red Cell Distribution Width 13.5 % (12.1-15.1); White Blood Count 6.19 10^3/uL (3.29-11.43)
[2023-08-28 05:18] LABS: Alanine Aminotransferase 9 U/L (0-41); Albumin Level 2.9 g/dL (3.5-5.2); Alkaline Phosphatase 98 U/L (40-130); Anion Gap 14.3 (5-19); Aspartate Amino Transferase 14 U/L (0-40); Blood Urea Nitrogen 10 mg/dL (8-23); Calcium 8.4 mg/dL (8.5-10.5); Carbon Dioxide 24 mmol/L (22-29); Chloride 110 mmol/L (98-107); Globulin 2.9 g/dL (1.3-4.6); Glucose 109 mg/dL (65-115); Osmolality Calculated 300 mOsm/kg (285-295); Potassium 3.3 mmol/L (3.5-5.1); Sodium 145 mmol/L (136-145); Total Bilirubin 0.4 mg/dL (0.15-1.2); Total Protein 5.8 g/dL (6.6-8.7)
[2023-08-28 05:23] LABS: Magnesium 1.9 mg/dL (1.7-2.3)
[2023-08-28] MEDS: levETIRAcetam 1,000 MG/100 ML PREMIX 400 MG IV (06:02)
--- NOTE | 2023-08-28 08:08 | P.CONIM_ITS ---
Providers/Reason For Consult 2 Consulting Physician/Specialty*: Eligio Moore Reason for Consult*: Encephalopathy Attending Physician: Scout Moore MD Primary Care Provider: Heaven Levin MD History of Present Illness History of Present Illness Kwasi Shi is a 78 year old man with profound encephalopathy and spinal epidural abscess. Dr. Moore called because the patient has been profoundly agitated and required Haldol. He has multiple comorbidities. He suffers from chronic congestive heart failure, coronary disease, severe diabetes with diabetic polyneuropathy and status post BKA on the left. He suffers from COPD and morbid obesity. He started complaining of back pain in the ER in March of last year. He was diagnosed with osteomyelitis of the spine. His back pain continue to accelerate and he was back in the ER in June. 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 His osteomyelitis was at T8. [facility] [place] His back pain persisted despite treatment. MRI on 25 June showed epidural abscess. He was transferred from our emergency department to [facility]. He was surgically treated and started on IV antibiotics again but presented here 08/25/2023 with several weeks of hallucinations and confusion. He had been started on fentanyl for treatment of his back pain.. He has been managed with morphine IV and oxycodone IR 5 mg twice daily as needed. He was agitated and confused yesterday and at my request Dr. Moore administered a single dose of IV Keppra 1000 mg. He has been getting Haldol 1 mg as needed for agitation. A straight catheterization was done yesterday and 1100 cc were removed from his bladder. Review of Systems 2 Narrative: He has been afebrile. Family reported that the patient had some memory loss at baseline. Medications/Allergies Home Medications Medication Instructions Recorded Confirmed Last Taken Type aspirin 81 mg tablet,delayed 81 mg PO DAILY 01/25/20 08/25/23 08/24/23 History release (Adult Low Dose Aspirin) levothyroxine 25 mcg capsule 25 mcg PO DAILY 01/25/20 08/25/23 08/24/23 History alogliptin 12.5 mg tablet 12.5 mg PO DAILY 11/23/20 08/25/23 08/24/23 History atorvastatin 40 mg tablet 40 mg PO BEDTIME 11/23/20 08/25/23 08/24/23 History blood-glucose meter (Accu-Chek 11/23/20 08/25/23 02/19/23 08:00 History Guide Glucose Meter) isosorbide mononitrate 30 mg 30 mg PO DAILY 11/23/20 08/25/23 08/24/23 History tablet,extended release 24 hr nitroglycerin 0.4 mg sublingual 0.4 mg sublingual Q5M PRN Chest 11/23/20 08/25/23 02/13/23 08:00 History tablet pain omeprazole 20 mg capsule,delayed 20 mg PO DAILY 11/23/20 08/25/23 08/24/23 History release hydrochlorothiazide 25 mg tablet 25 mg PO BID 07/18/21 08/25/23 08/24/23 History blood-glucose meter,continuous #1 ea 12/26/21 08/25/23 02/19/23 08:00 Rx (Dexcom G6 Acid Loader) blood-glucose sensor (Dexcom G6 #9 ea 12/26/21 08/25/23 02/19/23 08:00 Rx Sensor device) blood-glucose transmitter (Dexcom #3 ea 12/26/21 08/25/23 02/19/23 08:00 Rx G6 Transmitter device) guaifenesin 600 mg tablet, 600 mg PO DAILY Cough 07/18/22 08/25/23 08/24/23 History extended release 12 hr (Mucinex) insulin glargine 100 unit/mL (3 25 unit SUBCUT BID 07/18/22 08/25/23 08/24/23 History mL) subcutaneous pen (Lantus Solostar U-100 Insulin) potassium chloride 20 mEq oral 20 meq PO TID 07/18/22 08/25/23 08/24/23 History packet pregabalin 25 mg capsule 25 mg PO BID 07/18/22 08/25/23 08/24/23 History insulin aspart U-100 100 unit/mL See Rx Instructions .Route 02/27/23 08/25/23 08/25/23 History (3 mL) subcutaneous pen (Novolog .COMPLEX PRN blood sugar FlexPen U-100 Insulin aspart) acetaminophen 325 mg tablet 650 mg PO Q6H PRN pain/increased 08/25/23 08/25/23 08/24/23 History temp bisacodyl 10 mg rectal suppository See Rx Instructions .Route 08/25/23 08/25/23 Unknown History .COMPLEX PRN Constipation bisacodyl 5 mg tablet,delayed See Rx Instructions .Route 08/25/23 08/25/23 Unknown History release (Dulcolax (bisacodyl)) .COMPLEX PRN Constipation carvedilol 6.25 mg tablet 6.25 mg PO BID 08/25/23 08/25/23 08/24/23 History cholecalciferol (vitamin D3) 25 50 mcg PO DAILY 08/25/23 08/25/23 08/24/23 History mcg (1,000 unit) tablet (Vitamin D3) cyclobenzaprine 5 mg tablet 5 mg PO TID PRN muscle spasms 08/25/23 08/25/23 08/24/23 History docusate sodium 100 mg capsule 200 mg PO TID PRN Constipation 08/25/23 08/25/23 08/24/23 History ertapenem 1 gram solution for 1 g IM Q3D 08/25/23 08/25/23 08/24/23 History injection fentanyl 75 mcg/hr transdermal 1 patch topical Q3D 08/25/23 08/25/23 08/24/23 History patch fluticasone propionate 50 1 spray intranasal DAILY PRN 08/25/23 08/25/23 Unknown History mcg/actuation nasal allergies spray,suspension formoterol fumarate 20 mcg/2 mL 20 mcg inhalation BID 08/25/23 08/25/23 08/24/23 History solution for nebulization furosemide 40 mg tablet 40 mg PO DAILY 08/25/23 08/25/23 08/24/23 History magnesium hydroxide 400 mg/5 mL See Rx Instructions .Route 08/25/23 08/25/23 Unknown History oral suspension (Milk of Magnesia) .COMPLEX PRN Constipation oxycodone 5 mg tablet 5 mg PO BID PRN Pain 08/25/23 08/25/23 08/24/23 History tamsulosin 0.4 mg capsule 0.4 mg PO BEDTIME 08/25/23 08/25/23 08/24/23 History venlafaxine 75 mg tablet 225 mg PO DAILY 08/25/23 08/25/23 08/24/23 History wound dressings ([facility]ad Wound See Rx Instructions .Route .COMPLEX 08/25/23 08/25/2324 History Dressing paste) Allergies Allergy/AdvReac Type Severity Reaction Status Date / Time penicillin G procaine Allergy Unknown Verified 06/13/23 14:27 Penicillins Allergy Unknown Verified 06/13/23 14:27 Current Medications Generic Name Dose Route Start Last Admin Trade Name Freq PRN Reason Stop Dose Admin Aspirin 81 mg 08/26/23 09:00 08/27/23 08:42 Aspirin 81 Mg Ec Tablet PO 81 mg DAILY LACI Administration Atorvastatin Calcium 40 mg 08/26/23 21:00 08/27/23 21:44 Atorvastatin 40 Mg Tablet PO 40 mg BEDTIME LACI Administration Carvedilol 6.25 mg 08/25/23 18:00 08/27/23 17:00 Carvedilol 6.25 Mg Tablet PO 6.25 mg BID LACI Administration Haloperidol Lactate 5 mg 08/27/23 10:14 08/27/23 16:58 Haloperidol Inj 5 Mg/Ml Inj 1 Ml IVP 5 mg ONCE PRN Administration AGITATION Haloperidol Lactate 1 mg 08/27/23 16:36 08/27/23 21:13 Haloperidol Inj 5 Mg/Ml Inj 1 Ml IVP 1 mg Q4H PRN Administration AGITATION Heparin Sodium (Porcine) 5,000 unit 08/25/23 10:00 08/27/23 21:45 Heparin 5,000 Unit/Ml Inj 1 Ml SUBCUT 5,000 unit Q12H LACI Administration Sodium Chloride 1,000 mls @ 75 mls/hr 08/25/23 10:00 08/28/23 02:01 Sodium Chloride 0.9% IV 75 mls/hr .[id number] LACI Administration Meropenem 1,000 mg/ Sodium 50 mls @ 100 mls/hr 08/25/23 10:00 08/28/23 03:00 Chloride IV Infused Q8H LACI Infusion Protocol Daptomycin 672 mg/ Sodium 100 mls @ 100 mls/hr 08/26/23 12:00 08/27/23 13:02 Chloride IV Infused Q24H LACI Infusion Protocol Levetiracetam 1,000 mg in 100 mls @ 400 mls/hr 08/27/23 17:00 08/28/23 06:32 Keppra IV Infused Q12H LACI Infusion Insulin Glargine 10 unit 08/27/23 21:00 08/27/23 22:22 Insulin Glargine 100 Units/1 Ml SUBCUT 10 unit BEDTIME LACI Administration Isosorbide Mononitrate 30 mg 08/26/23 09:00 08/27/23 08:42 Isosorbide Mononitrate Er 30 Mg Tablet PO 30 mg DAILY LACI Administration Levothyroxine Sodium 25 mcg 08/26/23 09:00 08/27/23 08:42 Levothyroxine 25 Mcg Tablet PO 25 mcg DAILY LACI Administration Morphine Sulfate 1 mg 08/26/23 15:12 08/27/23 21:01 Morphine 4 Mg/Ml Sdv 1 Ml IVP 1 mg Q4H PRN Administration SEVERE PAIN Oxycodone HCl 5 mg 08/25/23 11:40 08/26/23 13:12 Oxycodone 5 Mg Ir Tab/Cap PO 5 mg BID PRN Administration Pain Pantoprazole Sodium 40 mg 08/26/23 09:00 08/27/23 08:[address] 40 Mg Tablet PO 40 mg DAILY LACI Administration Pregabalin 25 mg 08/26/23 18:00 08/27/23 17:00 Pregabalin 25 Mg Capsule PO 25 mg BID LACI Administration Tamsulosin HCl 0.4 mg 08/25/23 21:00 08/27/23 21:45 Tamsulosin 0.4 Mg Capsule PO 0.4 mg BEDTIME LACI Administration Trazodone HCl 75 mg 08/26/23 21:00 08/27/23 21:44 Trazodone 150 Mg Tablet PO 75 mg BEDTIME LACI Administration Venlafaxine HCl 225 mg 08/26/23 09:00 08/27/23 08:42 Venlafaxine 75 Mg Tablet PO 225 mg DAILY LACI Administration PFSH Acute 2 PFSH: Medical History Chest pain Hx of hypokalemia Carotid stenosis Cardiac dysrhythmia Essential hypertension Hypertensive heart and chronic kidney disease with heart failure and stage 1 through stage 4 chronic kidney disease, or unspecified chronic kidney disease DM neuro manif type II Hyperlipidemia, unspecified Unspecified hearing loss, bilateral Charcot's joint, left ankle and foot Type 2 diabetes mellitus with hyperglycemia Renal failure Gross hematuria Obesity CAD (coronary artery disease) CHF (congestive heart failure) HTN (hypertension) Diastolic heart failure Recurrent urinary tract infection Tinea cruris BPH with obstruction/lower urinary tract symptoms GERD (gastroesophageal reflux disease) Surgical History Hx of heart artery stent Hx of appendectomy Hx of tonsillectomy Hx of below knee amputation History of ear surgery Hx of circumcision Hx of hand surgery Family History Father , AT AGE 67 CAD (coronary artery disease) Diabetes Leukemia Mother Congestive heart failure (CHF) Social History Smoking and tobacco/nicotine status: former use of tobacco/nicotine Quit status (tobacco/nicotine): has quit using Year quit tobacco: 2015 Former quit date comment: 4ppd x 54 years Alcohol intake: never Substance/Drug Use: never Adopted: No Caregiver/support person: No Lives independently: No Household members: spouse Marital status: service: Yes Current occupational status: retired Vitals/I&O/Wt Last Vital Signs Temp 97.8 F 08/28/23 07:54 Pulse 79 08/28/23 07:54 Resp 20 H 08/28/23 07:54 BP 181/95 08/28/23 07:54 Pulse Ox 95 08/28/23 07:54 O2 Del Method Room Air 08/28/23 07:54 O2 Flow Rate 2 08/25/23 04:07 08/27/23 08/28/23 08/28/23 22:59 06:59 14:59 Intake Total 1150 / 2400 255 / 2655 Output Total 1200 / 1400 Balance 1150 / 2200 -945 / 1255 Weight last 48 hrs Weight 241 lb 1.6 oz Weight 248 lb 12.8 oz Physical Exam 2 Narrative: The patient was lying quietly in bed snoring. He was barely arousable. He did not admit any meaningful speech. He appears to be sedated. He was moving all 4 extremities very well. The heart sounds were normal. The lungs were clear. He has a left BKA. Data 08/28/23 04:07 08/28/23 04:07 Other data: MRI brain 08/26/2023 Study is compromised by motion artifact. 1. No acute infarct. Diffusion imaging is normal. 2. Focal area of mixed signal in the RIGHT temporal lobe cortex measuring 14 x 10 mm. This may be an area of prior ischemia. There is only minimal ischemia throughout the remaining brain. Consider short-term follow-up with IV contrast. Underlying neoplasm or abscess should be considered. 3. Moderate symmetric atrophy with mild bilateral temporal lobe atrophy. Dictated By: Maria L Mosley DO MRI cervical spine without contrast and with contrast 1. No acute findings. 2. Multilevel degenerative disc disease with severe stenosis of the spinal canal at C3-C5 and multilevel severe neural foraminal stenosis, as described. MRI thoracic spine with and without 1. No acute findings. 2. Multilevel degenerative disc disease with severe stenosis of the spinal canal at C3-C5 and multilevel severe neural foraminal stenosis, as described. Leon Fernandes MD A&P Assessment and plan (1) Right temporal lobe mass: Unfortunate 78-year-old man with multiple profound comorbidities and osteomyelitis of the spine complicated by epidural abscess status post multiple rounds of IV antibiotics. He continues to show signs of infection based on his MRI findings. He now has a lesion in the right temporal lobe that may be an abscess, although there is very little edema around it. The lesion is in an odd place for an infarct. He is profoundly encephalopathic. His overall prognosis would appear to be poor. He has multiple severe comorbidities and is not responding to antibiotic treatment An attempt has been made to obtain spinal fluid. This man is very large and uncooperative and very likely to have pleocytosis as a result of his epidural abscess and ongoing osteomyelitis so that probably would not provide information about his brain lesion. The right temporal lobe lesion does not appear to be accessible to needle biopsy based upon its location. (2) Toxic metabolic encephalopathy: (3) Osteomyelitis of thoracic spine: (4) Coronary artery disease due to type 2 diabetes mellitus: (5) CHF (congestive heart failure): Qualifiers: Heart failure type: diastolic Heart failure chronicity: chronic Qualified Code(s): I50.32 - Chronic diastolic (congestive) heart failure (6) Controlled type 2 diabetes mellitus with diabetic polyneuropathy, without long-term current use of insulin: Consult Attestations 2 Medical Necessity Statement: Multiple profound acute problems superimposed upon chronic. Coding Level of Care Code 43244 Diagnoses Right temporal lobe mass G93.89 Toxic metabolic encephalopathy G92.8 Osteomyelitis of thoracic spine M46.24 Coronary artery disease due to type 2 diabetes mellitus E11.59; I25.10 Chronic diastolic congestive heart failure I50.32 Heart failure type: diastolic Heart failure chronicity: chronic Controlled type 2 diabetes mellitus with diabetic polyneuropathy, without long- term current use of insulin E11.42
[2023-08-28] MEDS: heparin 5,000 unit/mL INJ 1 mL 5000 UNIT SUBCUT (10:49)
[2023-08-28] MEDS: morphine 4 mg/mL SDV 1 mL 1 MG IVP (15:40)
--- NOTE | 2023-08-28 16:07 | P.PN_ITS ---
Subjective 2 Subjective: Patient persistently remains confused. Overnight did have episode of agitation for which he received Haldol. Today morning at first he was resting comfortably in bed but then woke up to be more confused. Continues to have urinary retention requiring straight catheterization. Has remained hemodynamically stable and afebrile otherwise. Vitals/I&O/Wt Last Vital Signs Temp 97.2 F L 08/28/23 12:31 Pulse 87 08/28/23 12:31 Resp 19 H 08/28/23 12:31 BP 168/83 08/28/23 12:31 Pulse Ox 95 08/28/23 12:31 O2 Del Method Room Air 08/28/23 12:31 O2 Flow Rate 2 08/25/23 04:07 08/28/23 08/28/23 08/28/23 06:59 14:59 22:59 Intake Total 255 / 2655 811.25 / 811.25 Output Total 1200 / 1400 Balance -945 / 1255 811.25 / 811.25 Weight last 48 hrs Weight 109.361 kg Weight 112.854 kg Physical Exam 2 Narrative: General: No acute distress, AO x 1-2, confused, mumbled voice, not following direction, mumbled voice HEENT: PERRLA, pupils bilaterally equal and reactive Chest: Normal vesicular breath sounds, no added sounds, equal good air entry bilaterally CVS: S1-S2 regular, no murmurs, no tachycardia, no gallops, no rubs Abdomen: Soft, nontender, no organomegaly, bowel sounds present Neuro: No focal deficits, no facial deformity, Extremity: Right below-knee amputation Stable. Healed scar at thoracic vertebral level Data 08/28/23 04:07 08/28/23 04:07 A&P Assessment and plan (1) Altered mental status: Unknown etiology for now. Could be in setting of polypharmacy with pain medications. On review of medications it seems patient is on pregabalin, fentanyl patch and oxycodone. Hold off on fentanyl patch and pregabalin for now. Continue with oxycodone 5 mg twice daily as needed along with IV morphine 1 mg every 4 hours as needed. Frequent reorientation. Continue with sitter. No electrolyte abnormality other than mild hypokalemia. Renal function at baseline. Ammonia levels normal on admission. CT head negative for acute abnormality on admission. Patient does have recent history of thoracic osteomyelitis with epidural abscess. Reviewed documentation from [facility]. Patient underwent laminectomy at [facility]. Was most recently in hospital till August 15. Follows up with ID physician at [facility]. Currently on IV daptomycin and IV or ertapenem which was to continue to 08/31. Appreciate CT thoracolumbar on admission. Follow-up blood culture, urine culture. Continue with broad-spectrum IV antibiotics for now. IV hydration with normal saline at 75 cc/h. MRI brain showed a 10 x 14 mixed signal lesion in the right temporal lobe concerning for a possible neoplasm versus abscess with a very low probability of old ischemic changes. Care discussed in detail with radiology and neurology. Plan for repeat MRI with contrast in 48 hours. Also planning on empiric Keppra 1000 mg twice daily as per neurology. Will consult and follow-up with neurology for further recommendations. Haldol 1 mg IV every 4 hours as needed for agitation. (2) Osteomyelitis of thoracic spine: Laminectomy at [facility]. Follows up with ID physician at [facility]. As per documentation blood culture and spinal fluid cultures remained negative postlaminectomy. Is supposed to be on IV daptomycin and ertapenem till 08/31. Repeat MRI thoracic shows persistent osteomyelitis with fluid collection of the bed of laminectomy and a possible CSF dural leak at T6 level. Continue with current IV antibiotics. (3) Osteomyelitis of lumbar spine: (4) HTN (hypertension): Goal blood pressure less than 140/90 mmHg. Continue with home dose of carvedilol, Imdur for now. Uptitrate as for goal blood pressures. Qualifiers: Hypertension type: essential hypertension Qualified Code(s): I10 - Essential (primary) hypertension (5) Urinary retention: Patient retaining up to 1100 cc of urine. Will avoid Dunlap catheter as patient is at a higher risk of traumatic pulling of Dunlap by mistake. Will plan for every shift bladder scan and straight catheter. (6) Controlled type 2 diabetes mellitus with diabetic polyneuropathy, without long-term current use of insulin: Continue with insulin sliding scale, Lantus 20 units nightly. Appreciate A1c. Hypoglycemia protocol. (7) Acquired hypothyroidism: TSH elevated. Normal free T4. Continue with home dose of levothyroxine for now. (8) CHF (congestive heart failure): Currently euvolemic. No echocardiogram in system but EF about 37% on myocardial inpatient study done in January 2023. No LV gram done during cardiac catheterization. Monitor for fluid overload. Qualifiers: Heart failure type: diastolic Heart failure chronicity: chronic Qualified Code(s): I50.32 - Chronic diastolic (congestive) heart failure (9) Obesity: Qualifiers: Obesity type: unspecified obesity type Obesity classification: adult class 2 (BMI 35 - 39.9) Serious obesity comorbidity presence: with serious comorbidity Body mass index: BMI 38.0-38.9 Qualified Code(s): E66.01 - Morbid (severe) obesity due to excess calories; Z68.38 - Body mass index [BMI] 38.0- 38.9, adult (10) BPH with obstruction/lower urinary tract symptoms: (11) Below-knee amputation of left lower extremity: (12) Goals of care, counseling/discussion: Plan Full code Carb cardiac diet Heparin 5000 SQ Q12h Protonix for PUD PPx Goals of care discussion: Had a detailed goals of care discussion with patient's daughter Ms. Corrales over the phone. We discussed the results of MRI of the head and spine. Also discussed most likely patient has chemical versus infectious meningitis versus persistent osteomyelitis at the spine. Also discussed that he would most likely need a repeat washout of the spine for which she would need to be transferred to [facility]. He recently had his surgeries. Discussed the other option would be for him to have a neurosurgery consultation at our hospital for further management though it is highly likely that they were also suggested to go to the OR. We discussed that unfortunately patient's quality of life has been poor for last few months with multiple comorbidities. As per medicine list she was told that even before prior to his previous surgery neurosurgeon was very reluctant to take the patient to the OR because of his multiple comorbidities and he had also suggested that most likely infection if not completely cleared out. Ms. Corrales after discussing with patient's /her mother stated that they do not think patient would be able to go to the surgery and would rather take him home on hospice. We discussed hospice would need that we would start every active treatment and concentrate on making patient comfortable while nature takes its own course which would also mean his dying. She verbalized understanding and is agreeable. CODE STATUS changed to comfort care only. Case management alerted. No further blood work. Continue with bladder scanning as possible. Patient does have phimosis which is making Dunlap catheterization difficult. Attestations 2 Medical Necessity Statement*: Requires further hospitalization as hospice is set up Diagnoses Altered mental status R41.82 Osteomyelitis of thoracic spine M46.24 Osteomyelitis of lumbar spine M46.26 Essential hypertension I10 Hypertension type: essential hypertension Urinary retention R33.9 Controlled type 2 diabetes mellitus with diabetic polyneuropathy, without long- term current use of insulin E11.42 Acquired hypothyroidism E03.9 Chronic diastolic congestive heart failure I50.32 Heart failure type: diastolic Heart failure chronicity: chronic Class 2 severe obesity with serious comorbidity and body mass index (BMI) of 38.0 to 38.9 in adult, unspecified obesity type E66.01; Z68.38 Obesity type: unspecified obesity type Obesity classification: adult class 2 (BMI 35 - 39.9) Serious obesity comorbidity presence: with serious comorbidity Body mass index: BMI 38.0-38.9 BPH with obstruction/lower urinary tract symptoms N40.1; N13.8 Below-knee amputation of left lower extremity S88.112A Goals of care, counseling/discussion Z71.89
[2023-08-28] MEDS: morphine 4 mg/mL SDV 1 mL IVP (19:38)
[2023-08-29] VITALS: BP 107/72; PULSE 79; RESP 18; TEMP 37.6; O2SAT 92
[2023-08-29] MEDS: haloperidol inj 5 mg/mL INJ 1 mL 1 MG IVP (00:29)
[2023-08-29] MEDS: morphine 4 mg/mL SDV 1 mL IVP ×2 (00:29→10:12)
[2023-08-29 03:44] VITALS: BP 150/80; PULSE 74; RESP 18; TEMP 37.2; O2SAT 96
[2023-08-29 06:00] VITALS: BMI 29.5
[2023-08-29 08:15] VITALS: BP 134/77; PULSE 79; RESP 18; TEMP 36.4; O2SAT 93
[2023-08-29 09:14] VITALS: RESP 18; O2SAT 95
[2023-08-29] MEDS: oxyCODONE 5 mg IR Tab/Cap PO (09:14)
--- NOTE | 2023-08-29 09:36 | PM.DCS ---
Discharge Providers Date of Admission: 08/25/23 09:42 Date of Discharge: August 29, 2023 Attending Provider at Admission: Rasta Chinchilla MD Attending Provider at Discharge: Scout Moore MD Primary Care Provider: Heaven Levin MD Diagnoses at Discharge Discharge Diagnosis (1) Altered mental status: Status: Acute (2) Osteomyelitis of thoracic spine: Status: Acute (3) Osteomyelitis of lumbar spine: Status: Acute (4) HTN (hypertension): Status: Acute Qualifiers: Hypertension type: essential hypertension Qualified Code(s): I10 - Essential (primary) hypertension (5) Urinary retention: Status: Acute (6) Controlled type 2 diabetes mellitus with diabetic polyneuropathy, without long-term current use of insulin: Status: Acute (7) Acquired hypothyroidism: Status: Acute (8) CHF (congestive heart failure): Status: Acute Qualifiers: Heart failure chronicity: chronic Heart failure type: diastolic Qualified Code(s): I50.32 - Chronic diastolic (congestive) heart failure (9) Obesity: Status: Acute Qualifiers: Body mass index: BMI 38.0-38.9 Obesity classification: adult class 2 (BMI 35 - 39.9) Obesity type: unspecified obesity type Serious obesity comorbidity presence: with serious comorbidity Qualified Code(s): E66.01 - Morbid (severe) obesity due to excess calories; Z68.38 - Body mass index [BMI] 38.0-38.9, adult (10) BPH with obstruction/lower urinary tract symptoms: Status: Acute (11) Below-knee amputation of left lower extremity: Status: Acute (12) Goals of care, counseling/discussion: Status: Acute Reason for Visit Reason for Visit: AMS Brief History: History as per HPI: Kwasi Shi is a 78 year old male follows up with ID clinic at [facility] for cutibacterium discitis/osteomyelitis of the T8, he was seen at [place] initially for discitis, and discharged on IV ceftriaxone later found to have spinal abscess on MRI for which she was transferred to [facility] sometime in June 2023 where he had laminectomy. He also has history of left leg below-knee amputation, CHF, BPH, chronic kidney disease stage III, diabetes, presented to the ER for chief complaint of confusion for last 2 to 3 days. At time of evaluation patient is able to tell me that his name, date of he knows that he is in the hospital. Initially was concerned that he will need to be transferred to [facility] however CT scan of thoracolumbar region has not shown any sign of localized fluid collection, spinal canal seems patent, patient is able to void urine using a urinal, white count is 7000, no signs of sepsis, CT scan of thoracolumbar region did black pickler consolidation in his lungs. Cloudy urine with 10 WBC. Reviewed records from the long term, patient is full code, he received daptomycin, currently is on ertapenem from [facility] last ertapenem dose is on 08/29 Hospital Course Hospital Course Patient was admitted to the hospital further evaluation and management of altered mental status in setting of metabolic toxicity. He was continued on IV antibiotics. Records were made available through [facility] which showed that he had laminectomy from T4-T10 level done at [facility] during which time his blood cultures and fluid cultures remain negative and he was discharged on IV daptomycin and ceftriaxone. Later during follow-up he was found to have lung nodules for which he was again admitted on August 08 and discharged on August 15 for which he was discharged this time on IV daptomycin and ertapenem with last dose of antibiotics to be on therapy . During current hospitalization patient continued to have altered mental status. At first it was thought to be in setting of polypharmacy with pain medications for which his medications were adjusted though patient did not have any improvement in his mentation. Neurology was consulted. He underwent MRI of the brain and spine. MRI brain was concerning for a possible 10 x 14 lesion in the right temporal lobe concerning for an old infarct versus neoplasm versus abscess. Repeat MRI of the spine showed persistent osteomyelitis/discitis upper thoracic vertebrae with concerns for possible dural leak at T6 level and fluid collection of the bed of laminectomy. Multiple goals of care discussion were done with patient's daughter and . Had a detailed goals of care discussion with patient's daughter Ms. Corrales over the phone. We discussed the results of MRI of the head and spine. Also discussed most likely patient has chemical versus infectious meningitis versus persistent osteomyelitis at the spine. Also discussed that he would most likely need a repeat washout of the spine for which she would need to be transferred to [facility]. He recently had his surgeries. Discussed the other option would be for him to have a neurosurgery consultation at our hospital for further management though it is highly likely that they were also suggested to go to the OR. We discussed that unfortunately patient's quality of life has been poor for last few months with multiple comorbidities. As per medicine list she was told that even before prior to his previous surgery neurosurgeon was very reluctant to take the patient to the OR because of his multiple comorbidities and he had also suggested that most likely infection if not completely cleared out. Ms. Corrales after discussing with patient's /her mother stated that they do not think patient would be able to go to the surgery and would rather take him home on hospice. We discussed hospice would need that we would start every active treatment and concentrate on making patient comfortable while nature takes its own course which would also mean his dying. She verbalized understanding and is agreeable. Hospice has been arranged and he has been discharged and comfortable situation. On the day of discharge patient was more awake and alert and was able to have conversation and clear her voice. Again goals of care discussion were done in detail with patient at bedside who was agreeable for hospice and agreed that he cannot undergo any more surgeries. Physical Exam Narrative: General: No acute distress, more awake and alert today, AO x 2-3, able to have conversation and follow directions today, more clear voice HEENT: PERRLA, pupils bilaterally equal and reactive Chest: Normal vesicular breath sounds, no added sounds, equal good air entry bilaterally CVS: S1-S2 regular, no murmurs, no tachycardia, no gallops, no rubs Abdomen: Soft, nontender, no organomegaly, bowel sounds present Neuro: No focal deficits, no facial deformity, Extremity: Right below-knee amputation Stable. Healed scar at thoracic vertebral level Urinary Catheter Management: Dunlap: Cath Placed During This Visit: yes Reason for Continuing Indwelling Catheter: Acute Urinary Retention or Obstruction Urinary Catheter Date of Insertion: 08/29/23 Urinary Catheter Time of Insertion: 01:35 Discharge Data Studies Completed and Pending Completed Studies During Hospitalization Category Date Time Status CT head wo con* [id number] Stat Cat Scan 08/25/23 04:[address] lumbar spine w con [id number] Stat Cat Scan 08/25/23 05:[address] thoracic spine w con [id number] Stat Cat Scan 08/25/23 05:39 Completed XR chest 1V portable [id number] Stat Exams 08/25/23 04:11 Completed MR cervical spine wo/w [id number] Routine MRI 08/27/23 07:00 Completed MR head wo con* [id number] Routine MRI 08/26/23 11:52 Completed MR thoracic spine wo/w [id number] Routine MRI 08/27/23 07:00 Completed Pending at discharge Category Date Time Status Blood Culture Stat Lab 08/25/23 10:26 Results Sputum Culture and Gram Stain Stat Lab 08/25/23 09:50 Uncollected Radiology Impressions Chest X-Ray 08/25/23 04:11 IMPRESSION: No evidence of acute pulmonary process. Head CT 08/25/23 04:11 IMPRESSION: Mild small vessel disease. No evidence of acute intracranial process. Lumbar Spine CT 08/25/23 05:39 IMPRESSION: 1. No evidence of acute fracture. 2. Degenerative changes as described. Please see above for specific findings at each level. Thoracic Spine CT 08/25/23 05:39 IMPRESSION: 1. Severe erosive changes again seen at T6-T7 and T8-T9 suggestive of chronic discitis/osteomyelitis. The spinal canal appears patent. Clinical scenario should determine the need for MRI. 2. Multiple small bilateral pulmonary consolidations are identified which are new compared with 06/17/2023. Cervical Spine MRI 08/27/23 07:00 IMPRESSION: 1. No acute findings. 2. Multilevel degenerative disc disease with severe stenosis of the spinal canal at C3-C5 and multilevel severe neural foraminal stenosis, as described. Thoracic Spine MRI 08/27/23 07:00 IMPRESSION: 1. Persistent marrow signal abnormality of the T6-T9 levels suggesting osteomyelitis with continued discitis changes at T6-T7 and T8-T9. Abnormal enhancement in the epidural space extending from T5 to the T9-10 level is similar to the previous study suspicious for phlegmon. No focal drainable abscess is seen. 2. A laminectomy has been performed since the previous MRI at T6-T8. There is fluid in the laminectomy bed with adjacent soft tissue enhancement. Correlate for possible infection. After laminectomy there is persistent spinal canal stenosis related to the phlegmon which is severe at the T8-9 level. ADDENDUM: 08/27/231915 THIS REPORT CONTAINS FINDINGS THAT MAY BE CRITICAL TO PATIENT CARE. The findings were verbally communicated via telephone conference with SCOUT Chandler at 7:15 PM LOADER ENGINEER on 08/27/2023. The findings were acknowledged and understood. ADDENDUM: 08/27/231925 ADDENDUM: There may be communication between the laminectomy bed fluid collection at the T6 level for example on series 801, image number 28 suspicious for possible CSF leakage. Recommend clinical correlation. Additional discussion with SCOUT Chandler at 08/27/2023 7:25 PM LOADER ENGINEER. Laboratory Results WBC 6.19 10^3/uL (3.29-11.43) 08/28/23 04:07 RBC 3.28 10^6/uL (3.85-5.65) L 08/28/23 04:07 Hgb 9.50 g/dL (11.27-16.99) L 08/28/23 04:07 Hct 30.0 % (37-53) L 08/28/23 04:07 MCV 91.5 fl (82-101) 08/28/23 04:07 MCH 29.0 pg (27-33) 08/28/23 04:07 MCHC 31.7 g/dL (30-55) 08/28/23 04:07 RDW 13.5 % (12.1-15.1) 08/28/23 04:07 Plt Count 205 10^3/cmm (157-399) 08/28/23 04:07 MPV 10.3 fL (7.4-10.4) 08/28/23 04:07 Neut % (Auto) 60.5 % 08/28/23 04:07 Lymph % (Auto) 25.7 % 08/28/23 04:07 Ross % (Auto) 9.5 % 08/28/23 04:07 Eos % (Auto) 3.6 % 08/28/23 04:07 Baso % (Auto) 0.5 % 08/28/23 04:07 Neut # (Auto) 3.75 10^3/uL (1.8-7.7) 08/28/23 04:07 Lymph # (Auto) 1.6 10^3/uL (0.8-4.8) 08/28/23 04:07 Ross # (Auto) 0.6 10^3/uL (0.2-0.9) 08/28/23 04:07 Eos # (Auto) 0.2 10^3/uL (0.0-0.8) 08/28/23 04:07 Baso # (Auto) 0.0 10^3/uL (0.0-0.1) 08/28/23 04:07 Nucleated RBC % (auto) 0 % 08/28/23 04:07 Nucleated RBCs # 0.0 /100WBC 08/28/23 04:07 ESR 12 mm/hr (0-10) H 08/25/23 10:26 PT 14.20 SECONDS (12.1-14.9) 08/25/23 04:21 INR 1.07 (0.8-1.2) 08/25/23 04:21 Specimen Type Arterial 08/25/23 04:22 Sample Site Brachial, right 08/25/23 04:22 ABG pH 7.43 (7.35-7.45) 08/25/23 04:22 ABG pCO2 43.8 mmHg (35-45) 08/25/23 04:22 ABG pO2 85.1 mmHg (80.0-100.0) 08/25/23 04:22 ABG HCO3 28.9 mmol/L (22-26) H 08/25/23 04:22 ABG Base Excess 4.0 mmol/L (-2.0-2.0) H 08/25/23 04:22 Yunior Test N/a 08/25/23 04:22 Hematocrit 28.8 % (42-52) L 08/25/23 04:22 O2 Delivery Device Nc 08/25/23 04:22 O2 Liters/Min 2.0 % 08/25/23 04:22 Stitcher Operator ID [email or web address] 08/25/23 04:22 Sodium 145 mmol/L (136-145) 08/28/23 04:07 Potassium 3.3 mmol/L (3.5-5.1) L 08/28/23 04:07 Chloride 110 mmol/L (98-107) H 08/28/23 04:07 Carbon Dioxide 24 mmol/L (22-29) 08/28/23 04:07 Anion Gap 14.3 (5-19) 08/28/23 04:07 BUN 10 mg/dL (8-23) 08/28/23 04:07 Creatinine 0.8 mg/dL (0.7-1.2) 08/28/23 04:07 GFR Calculation Not Reportable 08/28/23 04:07 Glucose 109 mg/dL (65-115) 08/28/23 04:07 POC Glucose 125 mg/dL (70-110) H 08/27/23 22:04 Estimat Average Glucose 140 08/27/23 04:57 Hemoglobin A1c 6.5 % (4.0-6.0) H 08/27/23 04:57 Calculated Osmolality 300 mOsm/kg (285-295) H 08/28/23 04:07 Lactic Acid 0.7 mmol/L (0.5-2.2) 08/25/23 10:26 Calcium 8.4 mg/dL (8.5-10.5) L 08/28/23 04:07 Magnesium 1.9 mg/dL (1.7-2.3) 08/28/23 04:07 Iron 39 ug/dL (59-158) L 08/26/23 05:06 TIBC 165 mcg/dl 08/26/23 05:06 % Saturation 23.6 % (20-50) 08/26/23 05:06 Unsat Iron Binding 126 ug/dL (112-347) 08/26/23 05:06 Total Bilirubin 0.4 mg/dL (0.15-1.2) 08/28/23 04:07 AST 14 U/L (0-40) 08/28/23 04:07 ALT 9 U/L (0-41) 08/28/23 04:07 Alkaline Phosphatase 98 U/L (40-130) 08/28/23 04:07 Ammonia 11 umol/L (16-60) L 08/25/23 04:21 Creatine Kinase 22 U/L (39-308) L 08/26/23 05:06 C-Reactive Protein 18.0 mg/L (0.0-4.9) H 08/25/23 10:26 NT-Pro-B Natriuret Pep 998 pg/mL (0-450) H 08/25/23 04:21 Total Protein 5.8 g/dL (6.6-8.7) L 08/28/23 04:07 Albumin 2.9 g/dL (3.5-5.2) L 08/28/23 04:07 Globulin 2.9 g/dL (1.3-4.6) 08/28/23 04:07 Triglycerides 105 mg/dL (0-150) 08/27/23 04:57 Cholesterol 107 mg/dL (0-200) 08/27/23 04:57 LDL Cholesterol, Calc 58 mg/dL (50-129) 08/27/23 04:57 Total VLDL Cholesterol 21 mg/dL (0-30) 08/27/23 04:57 HDL Cholesterol 28 mg/dL (60-100) L 08/27/23 04:57 Cholesterol/HDL Ratio 3.82 mg/dL (1.0-5.00) 08/27/23 04:57 Vitamin B12 506 pg/mL (232-1245) 08/26/23 05:06 Folate 10.2 ng/mL (4.5-32.2) 08/27/23 04:57 Procalcitonin 0.09 ng/mL (0-0.5) 08/26/23 05:06 Procalcitonin Cancelled 08/26/23 05:06 TSH 4.99 uIU/mL (0.27-4.20) H 08/25/23 04:21 Urine Color Yellow (Yellow) 08/25/23 05:04 Urine Appearance Cloudy (CLEAR) A 08/25/23 05:04 Urine pH 6 (5-7) 08/25/23 05:04 Ur Specific [place] 1.015 (1.005-1.030) 08/25/23 05:04 Urine Protein Neg (Negative) 08/25/23 05:04 Urine Glucose (UA) Norm (Normal) 08/25/23 05:04 Urine Ketones Negative (Negative) 08/25/23 05:04 Urine Blood Neg (Negative) 08/25/23 05:04 Urine Nitrate Negative (Negative) 08/25/23 05:04 Urine Bilirubin Neg (Negative) 08/25/23 05:04 Urine Urobilinogen Norm mg/dL (Negative) 08/25/23 05:04 Ur Leukocyte Esterase 1+ (Negative) H 08/25/23 05:04 Urine RBC 0-4 /hpf (0-2) H 08/25/23 05:04 Urine WBC 5-10 /hpf (0-5) H 08/25/23 05:04 Ur Squamous Epith Cells 25-40 /hpf (0-5) H 08/25/23 05:04 Amorphous Sediment Trace /hpf 08/25/23 05:04 Urine Bacteria Trace /hpf (NONE) 08/25/23 05:04 Urine Yeast 1+ /hpf H 08/25/23 05:04 Random Vancomycin 28.2 ug/mL (20.0-40.0) 08/26/23 05:06 Urine Opiates Screen Negative ng/mL (Negative) 08/25/23 05:04 Acetaminophen < 5.0 ug/mL (10-30) L 08/25/23 04:21 Ur Barbiturates Screen Negative ng/mL (Negative) 08/25/23 05:04 Ur Phencyclidine Scrn Negative ng/mL (Negative) 08/25/23 05:04 Ur Amphetamines Screen Negative ng/mL (Negative) 08/25/23 05:04 U Benzodiazepines Scrn Positive ng/mL (Negative) H 08/25/23 05:04 Urine Cocaine Screen Negative ng/mL (Negative) 08/25/23 05:04 U Marijuana (THC) Screen Negative ng/mL (Negative) 08/25/23 05:04 MRSA (PCR) Not detected (NOT DETECTED) 08/26/23 10:40 Vitals Last Vital Signs Temp 97.5 F L 08/29/23 08:15 Pulse 79 08/29/23 08:15 Resp 18 08/29/23 09:14 BP 134/77 08/29/23 08:15 Pulse Ox 95 08/29/23 09:14 O2 Del Method Room Air 08/29/23 08:15 O2 Flow Rate 2 08/25/23 04:07 Discharge Plan Discharge Patient Disposition: Hospice - Home Condition: Stable Prescriptions: New Keppra 750 mg tablet 750 mg PO BID 14 Days Qty: 28 0RF Continued (DME) blood-glucose meter [Accu-Chek Guide Glucose Meter] Misc See Rx Instructions .Route Rx Instructions: As directed alogliptin 12.5 mg tablet 12.5 mg PO DAILY isosorbide mononitrate 30 mg tablet extended release 24 hr 30 mg PO DAILY nitroglycerin 0.4 mg tablet, sublingual 0.4 mg sublingual Q5M PRN (Reason: Chest pain) Rx Instructions: do not exceed 3 doses per episode omeprazole 20 mg capsule,delayed release(DR/EC) 20 mg PO DAILY potassium chloride 20 mEq packet 20 meq PO TID aspirin [Adult Low Dose Aspirin] 81 mg tablet,delayed release (DR/EC) 81 mg PO DAILY levothyroxine 25 mcg capsule 25 mcg PO DAILY atorvastatin 40 mg tablet 40 mg PO BEDTIME guaifenesin [Mucinex] 600 mg tablet extended release 12hr 600 mg PO DAILY insulin glargine [Lantus Solostar U-100 Insulin] 100 unit/mL (3 mL) insulin pen 25 unit SUBCUT BID insulin aspart U-100 [Novolog FlexPen U-100 Insulin] 100 unit/mL (3 mL) insulin pen See Rx Instructions .ROUTE .COMPLEX PRN (Reason: blood sugar) Rx Instructions: 3 unit subcutaneously 3 times daily per sliding scale: bs less than 70, call MD. BS 150-200=3 units, 201-250= 5 units, 251-300=7 units, 301-350= 9 units, 351-400= 11 units, greather than 400 call MD (SILVER) Dexcom G6 Investment Executive Misc See Rx Instructions .Route Qty: 1 0RF Rx Instructions: Check Bs 4-6 times a day. (SILVER) Dexcom G6 Sensor Device See Rx Instructions .Route Qty: 9 3RF Rx Instructions: Change every 10 days. (SILVER) Dexcom G6 Transmitter Device See Rx Instructions .Route Qty: 3 3RF Rx Instructions: Change every 90 days. Milk of Magnesia 400 mg/5 mL Suspension See Rx Instructions .ROUTE .COMPLEX PRN (Reason: Constipation) Rx Instructions: Take 30 mL orally every 72 hours as needed if no bm in 3 days. Do not give to renal patients-go to dulcolax orders. bisacodyl 10 mg Suppository See Rx Instructions .ROUTE .COMPLEX PRN (Reason: Constipation) Rx Instructions: 10 mg rectally once daily as needed if can't take po and if no results from milk of magnesia. docusate sodium 100 mg capsule 200 mg PO TID PRN (Reason: Constipation) Dulcolax (bisacodyl) 5 mg Tablet,Delayed Release (Dr/Ec) See Rx Instructions .ROUTE .COMPLEX PRN (Reason: Constipation) Rx Instructions: Take 10 mg orally once daily as needed for constipation if no results from milk of magnesia. fentanyl 75 mcg/hr patch 72 hour 1 patch topical Q3D fluticasone propionate 50 mcg/actuation Mcdonald,Suspension 1 spray INTRANASAL DAILY PRN (Reason: allergies) Rx Instructions: administer into each nostril cyclobenzaprine 5 mg tablet 5 mg PO TID PRN (Reason: muscle spasms) Vitamin D3 25 mcg (1,000 unit) Tablet 50 mcg PO DAILY formoterol fumarate 20 mcg/2 mL solution for nebulization 20 mcg INHALATION BID acetaminophen 325 mg Tablet 650 mg PO Q6H PRN (Reason: pain/increased temp) Triad Wound Dressing Paste See Rx Instructions .ROUTE .COMPLEX Rx Instructions: 1 applic topically every shift to groin/buttuck. Cleanse with NS and oil, apply triad to all red areas every shift. tamsulosin 0.4 mg Capsule 0.4 mg PO BEDTIME oxycodone 5 mg tablet 5 mg PO BID PRN (Reason: Pain) Changed carvedilol 6.25 mg Tablet 3.125 mg PO BID Qty: 30 0RF Rx Instructions: must administer with a meal/food venlafaxine 75 mg Tablet 150 mg PO DAILY Qty: 10 0RF Discontinued pregabalin 25 mg capsule 25 mg PO BID hydrochlorothiazide 25 mg tablet 25 mg PO BID furosemide 40 mg Tablet 40 mg PO DAILY ertapenem 1 gram recon soln 1 g IM Q3D Discharge Orders: Discharge Order (Routine); Ordered 08/29/23 Ordered By: Scout Moore Referrals: Heaven Levin MD [Primary Care Provider] - Patient Instructions: Hospice Care, Altered Mental Status (ED), Opioid Safety Activity Restrictions/Additional Instructions: home hospice. Discharge Attestations Time Spent in Discharge Care*: greater than 30 min Quality Metrics Clinical Quality Measures [ No reported AMI, CVA or VTE this stay] Coding Level of Care Code Acute Code for Chg Fwd Diagnoses Altered mental status R41.82 Osteomyelitis of thoracic spine M46.24 Osteomyelitis of lumbar spine M46.26 Essential hypertension I10 Hypertension type: essential hypertension Urinary retention R33.9 Controlled type 2 diabetes mellitus with diabetic polyneuropathy, without long-term current use of insulin E11.42 Acquired hypothyroidism E03.9 Chronic diastolic congestive heart failure I50.32 Heart failure chronicity: chronic Heart failure type: diastolic Class 2 severe obesity with serious comorbidity and body mass index (BMI) of 38.0 to 38.9 in adult, unspecified obesity type E66.01; Z68.38 Body mass index: BMI 38.0-38.9 Obesity classification: adult class 2 (BMI 35 - 39.9) Obesity type: unspecified obesity type Serious obesity comorbidity presence: with serious comorbidity BPH with obstruction/lower urinary tract symptoms N40.1; N13.8 Below-knee amputation of left lower extremity S88.112A Goals of care, counseling/discussion Z71.89
[2023-08-29 10:12] VITALS: RESP 16
--- NOTE | 2023-08-29 10:30 | PC.NURSE ---
Pt is more alert and oriented today. He could answer all A&O questions except the year. Pt was asking about his . This nurse called , Kadnice, to inform her that pt was more alert today and was asking about her. She says she will be here in an hour. This information was relayed to pt. He expressed understanding.
[2023-08-29 11:08] LABS: Glucose Point of Care 344 mg/dL (70-110)
[2023-08-29] MEDS: insulin lispro 100 unit/1 mL SUBCUT (11:13)
[2023-08-29] MEDS: tamsulosin 0.4 mg Capsule PO (11:14)
[2023-08-29 11:38] VITALS: BP 129/73; PULSE 86; RESP 17; TEMP 36.6; O2SAT 96
--- NOTE | 2023-08-29 13:15 | PC.NURSE ---
Discharge pending EMS transport and delivery of hospice bed to his home. Pt sister will call to notify us when bed has been delivered to arrange for transport.
== END 2023-08-29 14:45 | disposition hospice, home (50) | DRG 539 ==
LOC: ER 04:36 → MEDSURG 09:48
PROVIDERS: Internal Medicine; Admitting Provider Internal Medicine; Emergency Provider Emergency Medicine; PCP Family Medicine; Visit Provider Student in an Organized Health Care Education/Training Program
DX: M46.24 Osteomyelitis of vertebra, thoracic region (principal); G92.8 Other toxic encephalopathy; I13.0 Hypertensive heart and chronic kidney disease with heart failure and stage 1 through stage 4 chronic kidney disease, or unspecified chronic kidney disease; I50.32 Chronic diastolic (congestive) heart failure; N13.8 Other obstructive and reflux uropathy; G93.9 Disorder of brain, unspecified; N18.30 Chronic kidney disease, stage 3 unspecified; E11.22 Type 2 diabetes mellitus with diabetic chronic kidney disease; N40.1 Benign prostatic hyperplasia with lower urinary tract symptoms; R33.8 Other retention of urine; H91.93 Unspecified hearing loss, bilateral; E66.9 Obesity, unspecified; I25.10 Atherosclerotic heart disease of native coronary artery without angina pectoris; K21.9 Gastro-esophageal reflux disease without esophagitis; E86.0 Dehydration; Z89.512 Acquired absence of left leg below knee; Z11.52 Encounter for screening for COVID-19; Z79.82 Long term (current) use of aspirin; Z79.4 Long term (current) use of insulin; Z68.29 Body mass index [BMI] 29.0-29.9, adult; Z95.5 Presence of coronary angioplasty implant and graft; Z87.440 Personal history of urinary (tract) infections; Z87.891 Personal history of nicotine dependence
CPT/HCPCS: 36415; 36416; 36592; 36600; 51702; 51798; 70450; 70551; 71045; 72129; 72132; 72156; 72157; 80053; 80061; 80202; 80306; 80307; 81001; 82140; 82550; 82607; 82746; 82803; 82962; 83036; 83540; 83550; 83605; 83735; 83880; 84145; 84443; 85025; 85610; 85651; 86140; 87040; 87641; 93005; 96372; 99285; A9577; J0878; J1630; J1644; J1815; J1953; J2185; J2270; J3370; J3480; J7030; Q9967

== ENCOUNTER → 2023-10-29 11:01 | Outpatient (BNVA) | payer OTHER, SELFPAY | PROVIDERS: PCP Family Medicine; Visit Provider Internal Medicine Cardiovascular Disease | DX: I13.0 Hypertensive heart and chronic kidney disease with heart failure and stage 1 through stage 4 chronic kidney disease, or unspecified chronic kidney disease (principal); E11.22 Type 2 diabetes mellitus with diabetic chronic kidney disease; E11.65 Type 2 diabetes mellitus with hyperglycemia; N18.9 Chronic kidney disease, unspecified; I50.9 Heart failure, unspecified; Z87.891 Personal history of nicotine dependence; Z79.4 Long term (current) use of insulin; I25.10 Atherosclerotic heart disease of native coronary artery without angina pectoris; E78.2 Mixed hyperlipidemia; I65.29 Occlusion and stenosis of unspecified carotid artery; J44.9 Chronic obstructive pulmonary disease, unspecified | CPT/HCPCS: 99214 ==

== ENCOUNTER 2023-12-13 14:55 | Emergency (ER) | payer OTHER, SELFPAY ==
[2023-12-13 15:06] VITALS: BP 125/68; RESP 16; TEMP 36.6; BMI 28.2
--- NOTE | 2023-12-13 15:27 | CTR_ITS ---
PROCEDURE INFORMATION: Exam: CT Abdomen And Pelvis With Contrast Exam date and time: 12/13/2023 4:44 PM Age: 78 years old Clinical indication: Other: Weakness; Prior surgery; Surgery date: 6+ months; Surgery type: Appy, cardiac stents TECHNIQUE: Imaging protocol: Computed tomography of the abdomen and pelvis with contrast. Contrast material: OMNI 350; Contrast volume: 100 ml; Contrast route: INTRAVENOUS (IV); COMPARISON: CT abdomen pelvis wo/w [id number] 01/20/2018 10:29 AM RADIATION DOSE METRICS: Total DLP (mGy-cm): 1140.1 FINDINGS: Lungs: Patchy atelectasis involves both lung bases. Liver: Normal. No mass. Gallbladder and bile ducts: Normal. No calcified stones. No ductal dilation. Pancreas: Normal. No ductal dilation. Spleen: Normal. No splenomegaly. Adrenal glands: Normal. No mass. Kidneys and ureters: Normal. No hydronephrosis. Stomach and bowel: There is prominent gas throughout the colon but I see no bowel distension. Appendix: No evidence of appendicitis. Intraperitoneal space: Unremarkable. No free air. No significant fluid collection. Vasculature: Unremarkable. No abdominal aortic aneurysm. Lymph nodes: Unremarkable. No enlarged lymph nodes. Urinary bladder: A Dunlap catheter is in good position within the bladder. Reproductive: Unremarkable as visualized. Bones/joints: Unremarkable. No acute fracture. Soft tissues: Unremarkable. CT/CT abdomen pelvis w con* [id number] IMPRESSION: 1. No definite acute abnormality noted 2. Prominent colon gas of uncertain clinical significance
--- NOTE | 2023-12-13 15:27 | XR_ITS ---
WS: [id number] XR chest 1V portable [id number] REASON FOR EXAM: weakness FINDINGS: Moderate tortuosity of the thoracic aorta. Normal heart size. Calcified granulomas disease in both hemithoraces. No acute pulmonary parenchymal or pleural abnormality is identified. No lung nodule or lung mass identified. Mild degenerative spondylosis in the mid and lower thoracic spine. XR/XR chest 1V portable [id number] IMPRESSION: No acute chest abnormality.
--- NOTE | 2023-12-13 15:28 | ECG_ITS ---
[facility] Test Date: 2023-12-13 Pat Name: Kwasi Shi Department: Room: Gender: Male General Maintenance Technician: : 1945 Requested By: Samantha Pena Order Number: [id number] Mei MD: Venkat Najera M.D. Measurements Intervals [place] Rate: 59 P: 61 NM: 288 QRS: -8 QRSD: 121 T: 32 QT: 360 QTc: 358 Interpretive Statements SINUS BRADYCARDIA WITH FIRST DEGREE AV BLOCK MODERATE INTRAVENTRICULAR CONDUCTION DELAY [105+ ms QRS DURATION, 80+ ms Q/S IN V1/V2, NO Q AND 60+ ms R IN I/aVL/V5/V6] NONSPECIFIC T-WAVE ABNORMALITY Compared to ECG 08/25/2023 04:36:00 T-wave abnormality now present Sinus rhythm no longer present Electronically Signed On 12-15-2023 20:10:06 CDT by Venkat Najera M.D. [email or web address]
--- NOTE | 2023-12-13 15:29 | W.ED.WEAKNES ---
HPI - Weakness General: Chief complaint: Weakness Stated complaint: fatigue, [facility] Time Seen by Provider: 12/13/23 15:22 Source: patient Mode of arrival: ambulatory Limitations: no limitations History of Present Illness: 78-year-old male has multiple medical issues he is currently on hospice but states he has had increased weakness over the last 3 to 4 days he is also been having some diarrhea states he has constipation and has to take Maxalt straight and has been taking it denies having some diarrhea [facility] and sent over here for blood work and a CT scan of his abdomen he states that he would like to have a CT of his abdomen because he thinks he has a small bowel obstruction he denies any vomiting denies any fevers. 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, without long-term current use of insulin Chest pain Hx of hypokalemia Carotid stenosis Cardiac dysrhythmia Essential hypertension Hypertensive heart and chronic kidney disease with heart failure and stage 1 through stage 4 chronic kidney disease, or unspecified chronic kidney disease DM neuro manif type II Hyperlipidemia, unspecified Unspecified hearing loss, bilateral Charcot's joint, left ankle and foot Type 2 diabetes mellitus with hyperglycemia Renal failure Gross hematuria Obesity CAD (coronary artery disease) CHF (congestive heart failure) HTN (hypertension) Diastolic heart failure Recurrent urinary tract infection Tinea cruris BPH with obstruction/lower urinary tract symptoms GERD (gastroesophageal reflux disease) Surgical History Hx of heart artery stent Hx of appendectomy Hx of tonsillectomy Hx of below knee amputation History of ear surgery Hx of circumcision Hx of hand surgery Family History Father , AT AGE 67 CAD (coronary artery disease) Diabetes Leukemia Mother Congestive heart failure (CHF) Social History Smoking and tobacco/nicotine status: former use of tobacco/nicotine Quit status (tobacco/nicotine): has quit using Year quit tobacco: 2015 Former quit date comment: 4ppd x 54 years Alcohol intake: never Substance/Drug Use: never Adopted: No Caregiver/support person: No Lives independently: No Household members: spouse Marital status: service: Yes Current occupational status: retired Physical Exam Const: COMMON NORMALS: patient oriented x3 HENMT: COMMON NORMALS: normocephalic and atraumatic HEAD & SCALP: normocephalic and atraumatic Neck/C-Spine: COMMON NORMALS: full ROM and supple Chest: COMMONS NORMALS: normal inspection of the chest Resp: COMMON NORMALS: normal respiratory effort, No retractions, No use of accessory muscles and clear to auscultation bilaterally AUSCULTATION: clear to auscultation bilaterally Cardio: COMMON NORMALS: regular rate, regular rhythm and No murmurs present (Cardio) RATE: regular rate RHYTHM: regular rhythm GI: COMMON NORMALS: Normal to inspection, nondistended, normoactive bowel sounds present, Soft to palpation, non-tender and no masses PALPATION: Yes Soft to palpation Extremity: COMMON NORMALS: normal to inspection and full ROM Neuro: COMMON NORMALS: patient oriented x3, moves all extremities and no focal motor deficits Psych: COMMON NORMALS: mental status grossly normal, Normal thought process present and cooperative THOUGHT PROCESS: Normal thought process present Skin: COMMON NORMALS: no rashes or lesions noted and no wounds GENERAL SKIN EXAM: no rashes or lesions noted Course Vital Signs: Vital signs: Vital Signs Temperature 97.8 F 12/13/23 15:06 Pulse Rate 51 L 12/13/23 16:38 Respiratory Rate 15 12/13/23 16:38 Blood Pressure 122/62 12/13/23 16:38 Pulse Oximetry 97 12/13/23 16:38 Oxygen Delivery Me thod Room Air 12/13/23 16:38 MDM - Weakness Medical Decision Making Patient presents here with generalized weakness he had some diarrhea his mild hypokalemia did give him potassium here blood work CT is otherwise normal he feels improved he is stable for discharge follow-up with PCP return if worsening. Medical Records I reviewed the patient's medical records. Lab Data I reviewed the patient's lab results. 12/13/23 15:44 12/13/23 15:44 Radiology Impressions Abdomen/Pelvis CT 12/13/23 15:27 IMPRESSION: 1. No definite acute abnormality noted 2. Prominent colon gas of uncertain clinical significance Chest X-Ray 12/13/23 15:27 IMPRESSION: No acute chest abnormality. Laboratory Results WBC 8.59 10^3/uL (3.29-11.43) 12/13/23 15:44 RBC 3.75 10^6/uL (3.85-5.65) L 12/13/23 15:44 Hgb 11.30 g/dL (11.27-16.99) 12/13/23 15:44 Hct 33.2 % (37-53) L 12/13/23 15:44 MCV 88.5 fl (82-101) 12/13/23 15:44 MCH 30.1 pg (27-33) 12/13/23 15:44 MCHC 34.0 g/dL (30-55) 12/13/23 15:44 RDW 14.7 % (12.1-15.1) 12/13/23 15:44 Plt Count 207 10^3/cmm (157-399) 12/13/23 15:44 MPV 10.3 fL (7.4-10.4) 12/13/23 15:44 Neut % (Auto) 69.1 % 12/13/23 15:44 Lymph % (Auto) 19.4 % 12/13/23 15:44 [place] % (Auto) 9.1 % 12/13/23 15:44 Eos % (Auto) 1.6 % 12/13/23 15:44 Baso % (Auto) 0.3 % 12/13/23 15:44 Neut # (Auto) 5.93 10^3/uL (1.8-7.7) 12/13/23 15:44 Lymph # (Auto) 1.7 10^3/uL (0.8-4.8) 12/13/23 15:44 [place] # (Auto) 0.8 10^3/uL (0.2-0.9) 12/13/23 15:44 Eos # (Auto) 0.1 10^3/uL (0.0-0.8) 12/13/23 15:44 Baso # (Auto) 0.0 10^3/uL (0.0-0.1) 12/13/23 15:44 Nucleated RBC % (auto) 0 % 12/13/23 15:44 Nucleated RBCs # 0.0 /100WBC 12/13/23 15:44 Sodium 132 mmol/L (136-145) L 12/13/23 15:44 Potassium 3.0 mmol/L (3.5-5.1) L 12/13/23 15:44 Chloride 91 mmol/L (98-107) L 12/13/23 15:44 Carbon Dioxide 31 mmol/L (22-29) H 12/13/23 15:44 Anion Gap 13.0 (5-19) 12/13/23 15:44 BUN 26 mg/dL (8-23) H 12/13/23 15:44 Creatinine 1.2 mg/dL (0.7-1.2) 12/13/23 15:44 GFR Calculation Not Reportable 12/13/23 15:44 Glucose 170 mg/dL (65-115) H 12/13/23 15:44 Calculated Osmolality 283 mOsm/kg (285-295) L 12/13/23 15:44 Calcium 8.9 mg/dL (8.5-10.5) 12/13/23 15:44 Magnesium 2.6 mg/dL (1.7-2.3) H 12/13/23 15:44 Total Bilirubin 0.4 mg/dL (0.15-1.2) 12/13/23 15:44 AST 13 U/L (0-40) 12/13/23 15:44 ALT 9 U/L (0-41) 12/13/23 15:44 Alkaline Phosphatase 100 U/L (40-130) 12/13/23 15:44 Total Protein 6.9 g/dL (6.6-8.7) 12/13/23 15:44 Albumin 3.6 g/dL (3.5-5.2) 12/13/23 15:44 Globulin 3.3 g/dL (1.3-4.6) 12/13/23 15:44 TSH 3.85 uIU/mL (0.27-4.20) 12/13/23 15:44 Urine Color Yellow (Yellow) 12/13/23 15:47 Urine Appearance Clear (CLEAR) 12/13/23 15:47 Urine pH 8 (5-7) H 12/13/23 15:47 Ur Specific [place] 1.015 (1.005-1.030) 12/13/23 15:47 Urine Protein Neg (Negative) 12/13/23 15:47 Urine Glucose (UA) Norm (Normal) 12/13/23 15:47 Urine Ketones Negative (Negative) 12/13/23 15:47 Urine Blood Neg (Negative) 12/13/23 15:47 Urine Nitrate Negative (Negative) 12/13/23 15:47 Urine Bilirubin Neg (Negative) 12/13/23 15:47 Prot Sulfosalicylic Acd Negative (Negative) 12/13/23 15:47 Urine Urobilinogen Norm mg/dL (Negative) 12/13/23 15:47 Ur Leukocyte Esterase Trace (Negative) H 12/13/23 15:47 Urine RBC None /hpf (0-2) 12/13/23 15:47 Urine WBC 0-4 /hpf (0-5) H 12/13/23 15:47 Ur Squamous Epith Cells None /hpf (0-5) 12/13/23 15:47 Amorphous Sediment Not Reportable 12/13/23 15:47 Urine Bacteria 1+ /hpf (NONE) H 12/13/23 15:47 All radiology interpretation(s) finalized by discharge EKG Data EKG 1: I personally reviewed and interpreted this EKG as follows: EKG interpretation date: 12/13/23 EKG interpretation time: 15:32 Interpretation: sinus gina hr [address] or t wave abnormalities qrs 121 qtc 359 Discharge Plan Discharge Patient Disposition: Home Clinical Impression: Weakness Condition: Stable Prescriptions: No Action (DME) blood-glucose meter [Accu-Chek Guide Glucose Meter] Misc See Rx Instructions .Route Rx Instructions: As directed alogliptin 12.5 mg tablet 12.5 mg PO DAILY isosorbide mononitrate 30 mg tablet extended release 24 hr 30 mg PO DAILY nitroglycerin 0.4 mg tablet, sublingual 0.4 mg sublingual Q5M PRN (Reason: Chest pain) Rx Instructions: do not exceed 3 doses per episode omeprazole 20 mg capsule,delayed release(DR/EC) 20 mg PO DAILY potassium chloride 20 mEq packet 20 meq PO TID aspirin [Adult Low Dose Aspirin] 81 mg tablet,delayed release (DR/EC) 81 mg PO DAILY levothyroxine 25 mcg capsule 25 mcg PO DAILY atorvastatin 40 mg tablet 40 mg PO BEDTIME guaifenesin [Mucinex] 600 mg tablet extended release 12hr 600 mg PO DAILY insulin glargine [Lantus Solostar U-100 Insulin] 100 unit/mL (3 mL) insulin pen 25 unit SUBCUT BID insulin aspart U-100 [Novolog FlexPen U-100 Insulin] 100 unit/mL (3 mL) insulin pen See Rx Instructions .ROUTE .COMPLEX PRN (Reason: blood sugar) Rx Instructions: 3 unit subcutaneously 3 times daily per sliding scale: bs less than 70, call MD. BS 150-200=3 units, 201-250= 5 units, 251-300=7 units, 301-350= 9 units, 351-400= 11 units, greather than 400 call MD (SILVER) Dexcom G6 Counseling Program Leader Misc See Rx Instructions .Route Qty: 1 0RF Rx Instructions: Check Bs 4-6 times a day. (DME) Dexcom G6 Sensor Device See Rx Instructions .Route Qty: 9 3RF Rx Instructions: Change every 10 days. (DME) Dexcom G6 Transmitter Device See Rx Instructions .Route Qty: 3 3RF Rx Instructions: Change every 90 days. Milk of Magnesia 400 mg/5 mL Suspension See Rx Instructions .ROUTE .COMPLEX PRN (Reason: Constipation) Rx Instructions: Take 30 mL orally every 72 hours as needed if no bm in 3 days. Do not give to renal patients-go to dulcolax orders. bisacodyl 10 mg Suppository See Rx Instructions .ROUTE .COMPLEX PRN (Reason: Constipation) Rx Instructions: 10 mg rectally once daily as needed if can't take po and if no results from milk of magnesia. docusate sodium 100 mg capsule 200 mg PO TID PRN (Reason: Constipation) Dulcolax (bisacodyl) 5 mg Tablet,Delayed Release (Dr/Ec) See Rx Instructions .ROUTE .COMPLEX PRN (Reason: Constipation) Rx Instructions: Take 10 mg orally once daily as needed for constipation if no results from milk of magnesia. fentanyl 75 mcg/hr patch 72 hour 1 patch topical Q3D fluticasone propionate 50 mcg/actuation [place],Suspension 1 spray INTRANASAL DAILY PRN (Reason: allergies) Rx Instructions: administer into each nostril cyclobenzaprine 5 mg tablet 5 mg PO TID PRN (Reason: muscle spasms) Vitamin D3 25 mcg (1,000 unit) Tablet 50 mcg PO DAILY formoterol fumarate 20 mcg/2 mL solution for nebulization 20 mcg INHALATION BID acetaminophen 325 mg Tablet 650 mg PO Q6H PRN (Reason: pain/increased temp) Triad Wound Dressing Paste See Rx Instructions .ROUTE .COMPLEX Rx Instructions: 1 applic topically every shift to groin/buttuck. Cleanse with NS and oil, apply triad to all red areas every shift. tamsulosin 0.4 mg Capsule 0.4 mg PO BEDTIME oxycodone 5 mg tablet 5 mg PO BID PRN (Reason: Pain) carvedilol 6.25 mg Tablet 3.125 mg PO BID Qty: 30 0RF Rx Instructions: must administer with a meal/food venlafaxine 75 mg Tablet 150 mg PO DAILY Qty: 10 0RF Discharge Orders: Discharge ED (Routine); Ordered 12/13/23 Ordered By: Samantha Pena Referrals: Heaven Levin MD [Primary Care Provider] - Discharge Diet: Advance as tolerated Discharge Activity: Resume usual activity Patient Instructions: Weakness (ED) Coding Level of Care Code ED Conference Planner for Annie Flynn
[2023-12-13 15:57] LABS: Basophils % 0.3 %; Eosinophils # 0.1 10^3/uL (0.0-0.8); Eosinophils % 1.6 %; Hematocrit 33.2 % (37-53); Lymphocytes # 1.7 10^3/uL (0.8-4.8); Lymphocytes % 19.4 %; Mean Corpuscular Hemoglobin 30.1 pg (27-33); Mean Corpuscular Volume 88.5 fl (82-101); Mean Platelet Volume 10.3 fL (7.4-10.4); Monocytes # 0.8 10^3/uL (0.2-0.9); Monocytes % 9.1 %; Neutrophils # 5.93 10^3/uL (1.8-7.7); Neutrophils % 69.1 %; Nucleated Red Blood Cells % 0 %; Platelet Count 207 10^3/cmm (157-399); Red Blood Count 3.75 10^6/uL (3.85-5.65); Red Cell Distribution Width 14.7 % (12.1-15.1); White Blood Count 8.59 10^3/uL (3.29-11.43)
[2023-12-13] MEDS: lactated ringers 500 ML 999 ML IV (16:10)
[2023-12-13 16:29] LABS: Bilirubin Urine Neg (Negative); Blood Urine Neg (Negative); Glucose Urine UA Norm (Normal); Ketones Urine Negative (Negative); Nitrate Urine Negative (Negative); Protein Urine Neg (Negative); Specific Gravity, Urine 1.015 (1.005-1.030); Urine Appearance Clear (CLEAR); Urine Color Yellow (Yellow); pH Urine 8 (5-7)
[2023-12-13 16:30] LABS: Add Urine Microscopic? YES; Leukocyte Esterase Urine Trace (Negative); Sulfosalicylic Acid Urine Negative (Negative); Urobilinogen Urine Norm (Negative)
[2023-12-13 16:31] LABS: Add Urine Culture? No; Bacteria Urine 1+ /hpf; WBC Urine 0-4 /hpf (0-5)
[2023-12-13 16:32] LABS: Alanine Aminotransferase 9 U/L (0-41); Albumin Level 3.6 g/dL (3.5-5.2); Alkaline Phosphatase 100 U/L (40-130); Aspartate Amino Transferase 13 U/L (0-40); Blood Urea Nitrogen 26 mg/dL (8-23); Calcium 8.9 mg/dL (8.5-10.5); Carbon Dioxide 31 mmol/L (22-29); Chloride 91 mmol/L (98-107); Creatinine Clr Calc Pharmacy 63.6839; Globulin 3.3 g/dL (1.3-4.6); Glucose 170 mg/dL (65-115); Magnesium 2.6 mg/dL (1.7-2.3); Osmolality Calculated 283 mOsm/kg (285-295); Sodium 132 mmol/L (136-145); Thyroid Stimulating Hormone 3.85 uIU/mL (0.27-4.20); Total Bilirubin 0.4 mg/dL (0.15-1.2); Total Protein 6.9 g/dL (6.6-8.7)
[2023-12-13 16:38] VITALS: BP 122/62; PULSE 51; RESP 15; O2SAT 97
[2023-12-13] MEDS: iohexol 350 mg/mL 500 mL Btl (per mL) IV (16:45)
[2023-12-13] MEDS: potassium chloride ER 20 mEq Tablet 40 MEQ PO (17:02)
[2023-12-13 17:36] VITALS: BP 120/79; PULSE 54; RESP 16; TEMP 36.6; O2SAT 98
== END 2023-12-13 17:36 | disposition home or self-care (01) ==
PROVIDERS: Emergency Provider Emergency Medicine; PCP Family Medicine
DX: R53.1 Weakness (principal); Z79.82 Long term (current) use of aspirin; Z79.4 Long term (current) use of insulin; R00.1 Bradycardia, unspecified; Z87.891 Personal history of nicotine dependence; I25.10 Atherosclerotic heart disease of native coronary artery without angina pectoris; Z89.512 Acquired absence of left leg below knee; E11.22 Type 2 diabetes mellitus with diabetic chronic kidney disease; I13.0 Hypertensive heart and chronic kidney disease with heart failure and stage 1 through stage 4 chronic kidney disease, or unspecified chronic kidney disease; N18.9 Chronic kidney disease, unspecified; I50.9 Heart failure, unspecified; E78.5 Hyperlipidemia, unspecified
CPT/HCPCS: 71045; 74177; 80053; 81001; 83735; 84443; 85025; 93005; 96360; 99285; J7120; Q9967